=== PATIENT | female | born 1965 | race Caucasian/White ===

== ENCOUNTER 2017-01-29 11:40 | Inpatient (IN) | payer BC ==
[2017-01-29] MEDS ORDERED: ACETAMINOPHEN IV (For NPO) 1,000 MG in EMPTY BAG 1 BAG IVPB ONE (13:01)
[2017-01-29] MEDS ORDERED: ONDANSETRON 4 MG/2 ML VIAL IVP STA (13:01)
[2017-01-29] MEDS ORDERED: SODIUM CHLORIDE 0.9% 1,000 ML IV STA (13:01)
[2017-01-29] MEDS ORDERED: HYDROmorphone 1 MG/ML 1 ML SYRINGE IVP STA ×3 (13:01→16:17)
--- NOTE | 2017-01-29 13:34 | ED ---
Abdominal Pain HPI <Andrade Baldwin - Last Filed: 01/29/17 16:49> - General Source: patient, RN notes reviewed Mode of arrival: ambulatory Limitations: no limitations <Elda Gayle - Last Filed: 01/29/17 17:20> - General Chief Complaint: Abdominal Pain Stated Complaint: Sent by PCP poss pancreatitis Time Seen by Provider: 01/29/17 12:37 - History of Present Illness Initial Comments: 51-year-old female presents to emergency room chief complaint of right upper quadrant abdominal pain. Patient states this isn't going on for about a week or so. Patient states that her time she eats she feels nauseous. Patient states that she's been having this right upper quadrant abdominal pain for the last few weeks. Patient states she went to her doctor and she was referred here. Patient states that she has had some nausea with this as well as some diarrhea. Patient does admit to hot and cold flashes this. Patient states it doesn't radiate to back.Patient denies any recent shortness of breath, chest pain, back pain, numbness or tingling, dysuria or hematuria, constipation or diarrhea, headaches or visual changes, or any other current symptoms. (Elda Gayle) - Related Data Home Medications Medication Instructions Recorded Confirmed Atorvastatin [Lipitor] 40 mg PO DAILY 06/02/16 01/29/17 Chlorthalidone 25 mg PO DAILY 06/02/16 01/29/17 Ranitidine HCl 150 mg PO BID PRN 06/02/16 01/29/17 amLODIPine BESYLATE/BENAZEPRIL 1 cap PO QAM 06/02/16 01/29/17 [Lotrel 10-40 mg Capsule] Metoprolol Tartrate [Lopressor] 50 mg PO BID 01/29/17 01/29/17 Allergies Allergy/AdvReac Type Severity Reaction Status Date / Time No Known Allergies Allergy Verified 01/29/17 12:02 Review of Systems ROS Other: All systems not noted in ROS Statement are negative. <Andrade Baldwin - Last Filed: 01/29/17 16:49> ROS Other: All systems not noted in ROS Statement are negative. <Elda Gayle - Last Filed: 01/29/17 17:20> ROS Statement: Those systems with pertinent positive or pertinent negative responses have been documented in the HPI. Past Medical History Past Medical History: GERD/Reflux, Hyperlipidemia, Hypertension Additional Past Medical History / Comment(s): anemia,?adrenal gland growth-MRI ABD & Pelvic- April 2016 History of Any Multi-Drug Resistant Organisms: None Reported Past Surgical History: No Surgical Hx Reported Past Anesthesia/Blood Transfusion Reactions: Family History of Problems w/ Anesthesia Additional Past Anesthesia/Blood Transfusion Reaction / Comment(s): no hx general anesthesia or blood transfusion. mother-post op n/v Past Psychological History: No Psychological Hx Reported Smoking Status: Never smoker Past Alcohol Use History: Occasional Past Drug Use History: None Reported - Past Family History Mother Family Medical History: Cancer, Diabetes Mellitus, Hypertension, Myocardial Infarction ([place]) Additional Family Medical History / Comment(s): cabg, ovarian ca Father Family Medical History: Cancer, Hypertension Additional Family Medical History / Comment(s): lung,diverticulosis Brother(s) Family Medical History: Diabetes Mellitus <Elda Gayle - Last Filed: 01/29/17 17:20> General Exam <Andrade Baldwin - Last Filed: 01/29/17 16:49> Limitations: no limitations <Elda Gayle - Last Filed: 01/29/17 17:20> - General Exam Comments Initial Comments: General: The patient is awake and alert, in no distress, and does not appear acutely ill. Eye: Pupils are equal, round and reactive to light, extra-ocular movements are intact; there is normal conjunctiva bilaterally. No signs of icterus. Ears, nose, mouth and throat: There are moist mucous membranes and no oral lesions. Neck: The neck is supple, there is no tenderness. Cardiovascular: There is a regular rate and rhythm. No murmur, rub or gallop is appreciated. Respiratory: Lungs are clear to auscultation, respirations are non-labored, breath sounds are equal. No wheezes, stridor, rales, or rhonchi. Gastrointestinal: Soft, non-distended, right upper quadrant tenderness of the abdomen without masses or organomegaly noted. There is no rebound or guarding present. No CVA tenderness. Bowel sounds are unremarkable. Back: There is no tenderness to palpation in the midline. There is no obvious deformity. No rashes noted. Musculoskeletal: Normal ROM, no tenderness, There is no pedal edema. There is no calf tenderness or swelling. Sensation intact. Pulses equal bilaterally 2+. Neurological: CN II-XII intact, There are no obvious motor or sensory deficits. Coordination appears grossly intact. Speech is normal. Skin: Skin is warm and dry and no rashes or lesions are noted. Psychiatric: Cooperative, appropriate mood & affect, normal judgment. (Elda Gayle) Course <Andrade Baldwin - Last Filed: 01/29/17 16:49> <Elda Gayle - Last Filed: 01/29/17 17:20> Vital Signs 01/29/17 11:59 Temperature 99.2 F Pulse Rate 125 H Respiratory 18 Rate Blood Pressure 170/104 O2 Sat by Pulse 97 Oximetry - Reevaluation(s) Reevaluation #1: 01/29/17 16:49 I did personally do a [id number] examination the patient evaluation. I did discuss the findings with her and her regarding the findings on ultrasound the CAT scan. 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 Patient did have a mother that had a similar presentation in spite of a little nephrectomy many years earlier. Patient will be admitted for initial evaluation with medical oncology consultation. She did complain of a lump to the right upper quadrant area and none is palpable at this time. (Andrade Baldwin) Medical Decision Making - Lab Data Result diagrams: 01/29/17 13:20 01/29/17 13:20 <Andrade Baldwin - Last Filed: 01/29/17 16:49> - Lab Data Result diagrams: 01/29/17 13:20 01/29/17 13:20 <Elda Gayle - Last Filed: 01/29/17 17:20> - Medical Decision Making 51-year-old presents emergency department chief complaint of abdominal pain. This time the patient's ultrasound and CT are reviewed. At this time there does appear to be concerning for hepatocellular disease as well as concern for possible metastatic cancer with ovarian is a high suspicion. The patient's mother did have ovarian cancer CA 125. This time patient is informed of the CAT scan results. We did discuss we will admit the patient. We did discuss we will consult oncology as well. We will continue the medication and nausea medication for the patient. The patient is in agreement with the plan and all questions have been answered. (Elda Gayle) - Lab Data Lab Results 01/29/17 01/29/17 01/29/17 Range/Units 13:20 13:20 13:20 WBC 16.2 H (3.8-10.6) k/uL RBC 5.53 H (3.80-5.40) m/uL Hgb 13.6 (11.4-16.0) gm/dL Hct 43.5 (34.0-46.0) % MCV 78.6 L (80.0-100.0) fL MCH 24.5 L (25.0-35.0) pg MCHC 31.2 (31.0-37.0) g/dL RDW 13.8 (11.5-15.5) % Plt Count 661 H (150-450) k/uL Neutrophils % 77 % Lymphocytes % 12 % Monocytes % 7 % Eosinophils % 1 % Basophils % 0 % Neutrophils # 12.4 H (1.3-7.7) k/uL Lymphocytes # 1.9 (1.0-4.8) k/uL Monocytes # 1.1 H (0-1.0) k/uL Eosinophils # 0.2 (0-0.7) k/uL Basophils # 0.1 (0-0.2) k/uL Hypochromasia Slight PT (9.0-12.0) sec INR (<1.1) APTT (22.0-30.0) sec Sodium 139 (137-145) mmol/L Potassium 4.2 (3.5-5.1) mmol/L Chloride 100 (98-107) mmol/L Carbon Dioxide 25 (22-30) mmol/L Anion Gap 14 mmol/L BUN 18 H (7-17) mg/dL Creatinine 0.69 (0.52-1.04) mg/dL Est GFR (MDRD) Af Amer >60 (>60 ml/min/1.73 sqM) Est GFR (MDRD) Non-Af >60 (>60 ml/min/1.73 sqM) Glucose 109 H (74-99) mg/dL Plasma Lactic Acid Gamaliel 1.2 (0.7-2.0) mmol/L Calcium 9.7 (8.4-10.2) mg/dL Total Bilirubin 0.6 (0.2-1.3) mg/dL AST 40 H (14-36) U/L ALT 38 (9-52) U/L Alkaline Phosphatase 91 (38-126) U/L Total Protein 6.8 (6.3-8.2) g/dL Albumin 3.7 (3.5-5.0) g/dL Amylase 50 (30-110) U/L Lipase 107 (23-300) U/L Urine Color Urine Appearance (Clear) Urine pH (5.0-8.0) Ur Specific [place] (1.001-1.035) Urine Protein (Negative) Urine Glucose (UA) (Negative) Urine Ketones (Negative) Urine Blood (Negative) Urine Nitrate (Negative) Urine Bilirubin (Negative) Urine Urobilinogen (<2.0) mg/dL Ur Leukocyte Esterase (Negative) Urine RBC (0-5) /hpf Urine WBC (0-5) /hpf Ur Squamous Epith Cells (0-4) /hpf Urine Bacteria (None) /hpf Urine Mucus (None) /hpf 01/29/17 01/29/17 Range/Units 13:20 13:20 WBC (3.8-10.6) k/uL RBC (3.80-5.40) m/uL Hgb (11.4-16.0) gm/dL Hct (34.0-46.0) % MCV (80.0-100.0) fL MCH (25.0-35.0) pg MCHC (31.0-37.0) g/dL RDW (11.5-15.5) % Plt Count (150-450) k/uL Neutrophils % % Lymphocytes % % Monocytes % % Eosinophils % % Basophils % % Neutrophils # (1.3-7.7) k/uL Lymphocytes # (1.0-4.8) k/uL Monocytes # (0-1.0) k/uL Eosinophils # (0-0.7) k/uL Basophils # (0-0.2) k/uL Hypochromasia PT 10.4 (9.0-12.0) sec INR 1.0 (<1.1) APTT 23.8 (22.0-30.0) sec Sodium (137-145) mmol/L Potassium (3.5-5.1) mmol/L Chloride (98-107) mmol/L Carbon Dioxide (22-30) mmol/L Anion Gap mmol/L BUN (7-17) mg/dL Creatinine (0.52-1.04) mg/dL Est GFR (MDRD) Af Amer (>60 ml/min/1.73 sqM) Est GFR (MDRD) Non-Af (>60 ml/min/1.73 sqM) Glucose (74-99) mg/dL Plasma Lactic Acid Gamaliel (0.7-2.0) mmol/L Calcium (8.4-10.2) mg/dL Total Bilirubin (0.2-1.3) mg/dL AST (14-36) U/L ALT (9-52) U/L Alkaline Phosphatase (38-126) U/L Total Protein (6.3-8.2) g/dL Albumin (3.5-5.0) g/dL Amylase (30-110) U/L Lipase (23-300) U/L Urine Color Yellow Urine Appearance Clear (Clear) Urine pH 6.0 (5.0-8.0) Ur Specific [place] 1.029 (1.001-1.035) Urine Protein 1+ H (Negative) Urine Glucose (UA) Negative (Negative) Urine Ketones 1+ H (Negative) Urine Blood Negative (Negative) Urine Nitrate Negative (Negative) Urine Bilirubin Negative (Negative) Urine Urobilinogen <2.0 (<2.0) mg/dL Ur Leukocyte Esterase Small H (Negative) Urine RBC 4 (0-5) /hpf Urine WBC 2 (0-5) /hpf Ur Squamous Epith Cells 1 (0-4) /hpf Urine Bacteria Rare H (None) /hpf Urine Mucus Many H (None) /hpf Disposition <Andrade Baldwin - Last Filed: 01/29/17 16:49> Time of Disposition: 17:20 Decision Date: 01/29/17 Decision Time: 17:20 <Elda Gayle - Last Filed: 01/29/17 17:20> Clinical Impression: Ascites, Leukocytosis, Fever, Abdominal pain Disposition: ADMITTED IP TO THIS HOSP Condition: Stable
[2017-01-29 13:41] LABS: Appearance,Urine Clear (Clear); Bacteria,Urine Rare /hpf; Bilirubin,Urine Negative (Negative); Glucose,Urine (UA) Negative (Negative); Ketones,Urine 1+ (Negative); Leukocyte Esterase,Urine Small (Negative); Mucus,Urine Many /hpf; Nitrite,Urine Negative (Negative); Particle Count 14905; Protein,Urine 1+ (Negative); RBC,Urine 4 /hpf (0-5); Specific Gravity,Urine 1.029 (1.001-1.035); Squamous Epithelial Cell,Urine 1 /hpf (0-4); UA Billing (MACRO vs. MICRO) MICRO; Urobilinogen,Urine <2.0 mg/dL (<2.0); WBC,Urine 2 /hpf (0-5)
[2017-01-29 13:44] LABS: Partial Thromboplastin Time 23.8 sec (22.0-30.0); Prothrombin Time 10.4 sec (9.0-12.0)
[2017-01-29 13:46] LABS: ALT 38 U/L (9-52); AST 40 U/L (14-36); Alkaline Phosphatase 91 U/L (38-126); Amylase 50 U/L (30-110); Anion Gap 14 mmol/L; Blood Urea Nitrogen 18 mg/dL (7-17); Calcium 9.7 mg/dL (8.4-10.2); Carbon Dioxide 25 mmol/L (22-30); Chloride 100 mmol/L (98-107); Glucose 109 mg/dL (74-99); Non-African American GFR(MDRD) >60 (>60 ml/min/1.73 sqM); Potassium 4.2 mmol/L (3.5-5.1); Sodium 139 mmol/L (137-145); Total Bilirubin 0.6 mg/dL (0.2-1.3); Total Protein 6.8 g/dL (6.3-8.2)
--- NOTE | 2017-01-29 13:50 | XR ---
EXAMINATION TYPE: XR abdomen 2V DATE OF EXAM: 01/29/2017 1:34 PM COMPARISON: NONE HISTORY: Pain TECHNIQUE: Single supine KUB image of the abdomen is obtained FINDINGS: Small bowel demonstrates mild distention without dilatation. Gas and fecal material is seen in non-distended colon. No convincing evidence for pneumoperitoneum. No unusual calcifications. The lung bases are clear. The osseous structures are intact. IMPRESSION: 1. Nonspecific nonobstructive bowel gas pattern.
[2017-01-29 13:51] LABS: Basophils # (A) 0.1 k/uL (0-0.2); Basophils % (A) 0 %; CHCM 31.9; Eosinophils # (A) 0.2 k/uL (0-0.7); Eosinophils % (A) 1 %; HCT 43.5 % (34.0-46.0); HDW 3.08; HGB 13.6 gm/dL (11.4-16.0); Hypochromasia Slight; Luc # (Auto) 0.47; Luc % (Auto) 3; Lymphocytes # (A) 1.9 k/uL (1.0-4.8); Lymphocytes % (A) 12 %; MCH 24.5 pg (25.0-35.0); MCHC 31.2 g/dL (31.0-37.0); MCV 78.6 fL (80.0-100.0); Mean Platelet Volume 6.5; Monocytes # (A) 1.1 k/uL (0-1.0); Monocytes % (A) 7 %; Neutrophils # (A) 12.4 k/uL (1.3-7.7); Neutrophils % (A) 77 %; RBC 5.53 m/uL (3.80-5.40); RDW 13.8 % (11.5-15.5); WBC 16.2 k/uL (3.8-10.6); WBC (Perox) 16.36
--- NOTE | 2017-01-29 14:59 | US ---
EXAMINATION TYPE: US gallbladder DATE OF EXAM: 01/29/2017 2:21 PM COMPARISON: MRI in pacs CLINICAL HISTORY: Pain. RUQ pain x 10 days, gets worse after eating EXAM MEASUREMENTS: Liver Length: 18.8 cm Gallbladder Wall: 0.3 cm CBD: 0.4 cm Right Kidney: 10.5 x 5.2 x 6.5 cm Findings: Pancreas: obscured by overlying midline bowel gas Liver: enlarged at 18.8cm, heterogeneous with 4.1 x 3.2 x 4.3cm hypoechoic area posterior right lobe Gallbladder: wnl Evidence for sonographic Peres's sign: yes CBD: visualized portions wnl, limited by overlying bowel gas Right Kidney: 0.6cm echogenic focus inferior pole Ascites noted in RUQ IMPRESSION: 1. The liver is enlarged and heterogenous which may reflect fatty liver versus diffuse hepatocellular disease. 2. Hypoechoic area persists within the posterior segment right hepatic lobe. Underlying mass is not e xcluded. 3. Ascites. 4. Right renal calculus.
[2017-01-29] MEDS ORDERED: RX INFO: IV CONTRAST WAS GIVEN 1 EACH MISC MISCELLANE PRN (15:11)
--- NOTE | 2017-01-29 16:03 | CT ---
EXAMINATION TYPE: CT abdomen pelvis w con DATE OF EXAM: 01/29/2017 3:55 PM HISTORY: Right upper quadrant to right flank pain. Decreased appetite. Diarrhea. CT DLP: 2035.10mGycm Automated Exposure Control for Dose Reduction was Utilized. CONTRAST: CT scan of the abdomen and pelvis is performed without oral but with IV Contrast, patient injected wi th 100 mL of Omnipaque 300. COMPARISON: MRI abdomen 01/23/2016. Gallbladder ultrasound from earlier today FINDINGS: LUNG BASES: No significant abnormality is appreciated. LIVER/GB: Some scattered subcentimeter low dense lesions throughout the liver most pronounced in the periphery and posteriorly are consistent with simple cysts on prior MRI. No CT dense intraluminal gal lstones or abnormal gallbladder wall thickening is seen. PANCREAS: No significant abnormality is seen. SPLEEN: A 1.4 cm splenule in the anterior inferior splenic hilum is redemonstrated. ADRENALS: No significant abnormality is seen. KIDNEYS: No significant abnormality is seen. BOWEL: Evaluation bowel is suboptimal due to lack of enteric contrast. UTERUS/ADNEXA: Uterus is heterogeneous and lobulated in appearance. A lobulated peripheral nodularity could reflect abnormal ovaries and correlate with prior MRI pelvis. LYMPH NODES: No greater than 1cm abdominal or pelvic lymph nodes are appreciated. OSSEOUS STRUCTURES: No significant abnormality is seen. OTHER: New moderate amount of abdominal and pelvic ascites is seen there is ill-definition from adjac ent ovaries. There is suspicious nodularity particularly in the left abdomen worrisome for peritoneal carcinomatosis. IMPRESSION: CT findings suggest ovarian cancer or neoplasm with peritoneal carcinomatosis and moderat e ascites related to neoplasm. Nonemergent ultrasound guided paracentesis for diagnostic benefit can be attempted if desired. Appropriate clinical and lab tumor marker correlation advised.
[2017-01-29] MEDS ORDERED: LORazepam 2 MG/ML SYRINGE IV STA (16:17)
[2017-01-29] MEDS ORDERED: HYDROmorphone 1 MG/ML 1 ML SYRINGE IV PRN (17:20)
[2017-01-29] MEDS ORDERED: LORazepam 2 MG/ML SYRINGE IV PRN (17:20)
[2017-01-29] MEDS ORDERED: NALOXONE 0.4 MG/ML 1 ML VIAL IV PRN (17:20)
[2017-01-29] MEDS ORDERED: FAMOTIDINE 20 MG TAB PO PRN (17:21)
[2017-01-29] MEDS ORDERED: amLODIPine 10 MG TAB PO STA (18:50)
[2017-01-29] MEDS: HYDROmorphone 2 MG/ML 1 ML SYRINGE IVP PRN (19:43)
[2017-01-29] MEDS: ONDANSETRON 4 MG/2 ML VIAL IVP PRN (21:57)
[2017-01-29] MEDS: SODIUM CHLORIDE 0.9% 1,000 ML IV SCH (22:02)
[2017-01-29] MEDS: METOPROLOL TARTRATE 50 MG TAB PO SCH (22:37)
[2017-01-30] MEDS: ONDANSETRON 4 MG/2 ML VIAL IVP PRN (04:00)
[2017-01-30 07:29] LABS: Basophils % (A) 0 %; CH 24.6; CHCM 31.1; Eosinophils # (A) 0.1 k/uL (0-0.7); Eosinophils % (A) 0 %; HCT 39.8 % (34.0-46.0); Hypochromasia Moderate; Luc # (Auto) 0.43; Luc % (Auto) 3; Lymphocytes # (A) 1.8 k/uL (1.0-4.8); Lymphocytes % (A) 12 %; MCH 23.9 pg (25.0-35.0); MCHC 30.1 g/dL (31.0-37.0); MCV 79.5 fL (80.0-100.0); Mean Platelet Volume 6.1; Monocytes % (A) 7 %; Neutrophils # (A) 12.1 k/uL (1.3-7.7); Neutrophils % (A) 78 %; RBC 5.01 m/uL (3.80-5.40); RDW 13.8 % (11.5-15.5); WBC 15.4 k/uL (3.8-10.6); WBC (Perox) 16.34
[2017-01-30 07:34] LABS: ALT 44 U/L (9-52); AST 38 U/L (14-36); Alkaline Phosphatase 89 U/L (38-126); Anion Gap 13 mmol/L; Blood Urea Nitrogen 14 mg/dL (7-17); Calcium 8.8 mg/dL (8.4-10.2); Carbon Dioxide 24 mmol/L (22-30); Chloride 100 mmol/L (98-107); Glucose 98 mg/dL (74-99); Non-African American GFR(MDRD) >60 (>60 ml/min/1.73 sqM); Potassium 4.2 mmol/L (3.5-5.1); Sodium 137 mmol/L (137-145); Total Bilirubin 0.6 mg/dL (0.2-1.3); Total Protein 6.1 g/dL (6.3-8.2)
[2017-01-30] MEDS: PANTOPRAZOLE 40 MG/10 ML VIAL IV SCH (08:02)
[2017-01-30] MEDS: CHLORTHALIDONE 25 MG TAB PO SCH (08:03)
[2017-01-30] MEDS: LISINOPRIL 20 MG TAB PO SCH (08:03)
[2017-01-30] MEDS: METOPROLOL TARTRATE 50 MG TAB PO SCH ×2 (08:03→21:32)
[2017-01-30] MEDS: amLODIPine 10 MG TAB PO SCH (08:03)
[2017-01-30] MEDS: ATORVASTATIN 40 MG TAB PO SCH (08:03)
[2017-01-30] MEDS ORDERED: RX INFO: IV CONTRAST WAS GIVEN 1 EACH MISC MISCELLANE PRN (08:59)
[2017-01-30 10:07] LABS: INR 1.1 (<1.1); Prothrombin Time 10.8 sec (9.0-12.0)
[2017-01-30 10:08] LABS: Partial Thromboplastin Time 24.9 sec (22.0-30.0)
[2017-01-30] MEDS: SODIUM CHLORIDE 0.9% 1,000 ML IV SCH ×2 (11:42→21:32)
--- NOTE | 2017-01-30 12:26 | US ---
Therapeutic paracentesis. CLINICAL HISTORY: Nausea The procedure was discussed with the patient. The risks, complications, benefits, and alternatives we re discussed and any questions were answered. Informed consent was obtained. The patient was placed s upine on the ultrasound table and prepped and draped in the usual sterile fashion. All elements of maximal barrier and sterile technique were utilized. Under ultrasound guidance, acce ss into the right lower quadrant was obtained, via the paracentesis catheter system and direct ultras ound guidance. Approximately 5.3 liters of straw-colored fluid was removed. The patient was stable throughout the pr ocedure and remained stable upon discharge from Department of Radiology. Sample sent to pathology for analysis. IMPRESSION: Successful therapeutic and diagnostic paracentesis under ultrasound guidance.
--- NOTE | 2017-01-30 15:52 | CT ---
EXAMINATION TYPE: CT chest w con DATE OF EXAM: 01/30/2017 3:40 PM COMPARISON: NONE HISTORY: Persistant cough CT DLP: 471.8 mGycm, Automated exposure control for dose reduction was used. CONTRAST: Performed injected with 100 mL of Omnipaque 300. TECHNIQUE: Axial images were obtained at 5 mm thick sections. Reconstructed images are reviewed on [employer] computer in the coronal plane. FINDINGS: Portion of the thyroid visualized is normal. Some minimal infiltrate is along the left diaphragm near the lingula. Correlate for atelectasis. No enlarged mediastinal or hilar adenopathy is evident. The ascending aorta diameter at the level o f the main pulmonary artery is 2.8 cm. The main pulmonary artery diameter at the bifurcation is 2.[address] sections are obtained through the upper abdomen. Ascites is present adjacent to liver and spleen tiny cyst may be within the posterior right lobe liver IMPRESSIONS: 1. Ascites. 2. No acute intrathoracic abnormality.
--- NOTE | 2017-01-30 16:20 | HP ---
DATE OF ADMISSION: 01/29/2017 CHIEF COMPLAINT: Abdominal pain for 3 weeks. HISTORY OF PRESENT ILLNESS: This is the first known admission for this 51-year-old A0 white female. She came to the emergency room as directed by her doctor. She has been having some discomfort in the abdomen on and off for the last 3 weeks. However, she states that it may have been longer than that. She has also had a cough ( ). She has been going to her own doctor, who has been working her up and did an MRI of the chest and the abdomen recently. These were done in this hospital. This is apparently because of the complaints of the cough and the abdominal pain. Most of her pain has been in the right upper quadrant. She was treated for bronchitis. She started to notice some abdominal distention for about a week and her stools have been loose. She came to the emergency room and there was concern that she may have ovarian cancer. There was apparently a mass seen in the right upper quadrant. She is not a drinker and she has never had hepatitis. She has never had any liver disease. She has had no nausea, vomiting, hematemesis, melena, hematochezia, jaundice, acholic stools, dark urine, etc. She has "never" had a Pap smear. She is treated for hypertension. She has had no kidney disease, diabetes, etc. REVIEW OF SYSTEMS: She has had no other symptoms. She has had no neurologic problems, orthopedic problems, etc. Past medical history, family history, and personal and social histories reveal that she has had no surgery. She is NOT ALLERGIC TO ANY MEDICATIONS. She was on: 1. [place]. 2. Amlodipine/benazepril. 3. Metoprolol. 4. Atorvastatin. 5. Zantac. She does not smoke or drink. She does not use any other drugs. Her family history is significant in that her mother probably of ovarian cancer. PHYSICAL EXAMINATION: VITAL SIGNS: Blood pressure is 133/74 with a pulse of 92, respirations of 40, and she is afebrile. GENERAL: She appeared to be overweight and having a little bit of difficulty breathing. HEENT: Head, ears, eyes, nose, mouth and throat were normal. NECK: Neck veins were not distended. There are no neck masses. CHEST: Clear to auscultation and percussion. CARDIAC: Sinus tachycardia. ABDOMEN: Protuberant, soft, and she is a little bit tender in the right upper quadrant. There might have been slight fullness in that area. Bowel sounds are heard. EXTREMITIES: Normal. No significant edema. NEUROLOGIC: She is intact. ADMITTING DIAGNOSES: 1. 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 2. History of hypertension. PLAN: 1. Bed rest. 2. IV fluids. 3. Oncology consult. 4. Therapeutic and diagnostic paracentesis.
[2017-01-30] MEDS: guaiFENesin-Coden 100-10MG/5ML 10 ML CUP PO PRN (20:39)
--- NOTE | 2017-01-30 21:22 | PN ---
DATE OF SERVICE: 01/30/2017 CHIEF COMPLAINT: Right upper quadrant abdominal pain and ascites. HISTORY OF PRESENT ILLNESS: This lady is about the same today. She has been seen by Oncology and she going to have a diagnostic and therapeutic paracentesis today. PHYSICAL EXAM: Her color is good and chest is clear. Abdomen is unchanged. IMPRESSION: Probable carcinoma of the ovary. PLAN: Await results of paracentesis.
[2017-01-31] MEDS: METOPROLOL TARTRATE 50 MG TAB PO SCH ×2 (08:33→20:49)
[2017-01-31] MEDS: amLODIPine 10 MG TAB PO SCH (08:33)
[2017-01-31] MEDS: CHLORTHALIDONE 25 MG TAB PO SCH (08:33)
[2017-01-31] MEDS: PANTOPRAZOLE 40 MG/10 ML VIAL IV SCH (08:33)
[2017-01-31] MEDS: ATORVASTATIN 40 MG TAB PO SCH (08:33)
[2017-01-31] MEDS: LISINOPRIL 20 MG TAB PO SCH (08:33)
[2017-01-31] MEDS: guaiFENesin-Coden 100-10MG/5ML 10 ML CUP PO PRN ×4 (08:34→20:53)
[2017-01-31] MEDS: SODIUM CHLORIDE 0.9% 1,000 ML IV SCH (08:38)
--- NOTE | 2017-01-31 11:26 | PN ---
CHIEF COMPLAINT: Probable CA of the ovary. HISTORY OF PRESENT ILLNESS: This lady is doing much better. Five liters of fluid were removed yesterday. She described it as being turbid and brown. She feels much better today. PHYSICAL EXAM: Her chest is clear. Cardiac exam is normal. ABDOMEN: Soft, nontender. IMPRESSION: Probable carcinoma of the ovary, status post paracentesis. PLAN: Await results of paracentesis.
--- NOTE | 2017-01-31 14:22 | P.PN ---
Subjective A 51-year-old female being seen on rounds sitting up in bed. Patient does state that the abdomen feels more bloated. This morning. Patient reports no nausea vomiting. Patient is status post successful therapeutic and diagnostic paracentesis 5.3 L removed done on January 30 patient is being followed by hematology oncology. Patient did have a CAT scan of the abdomen pelvis that was done on admission in which the findings suggest ovarian cancer a neoplassm with moderate ascites related to neoplasm Objective - Vital Signs Vital signs: Vital Signs Temp 98.0 F 01/31/17 07:00 Pulse 96 01/31/17 07:00 Resp 18 01/31/17 07:00 BP 115/60 01/31/17 07:00 Pulse Ox 95 01/31/17 07:00 Intake & Output 01/30/17 01/31/17 01/31/17 18:59 06:59 18:59 Intake Total 480 540 480 Balance 480 540 480 Intake: IV 480 540 480 Sodium Chloride 0.9% 1, 480 540 480 000 ml @ 60 mls/hr IV . [id number] [facility] Rx#:[id number] Other: Voiding Method Toilet # Voids 2 - Exam Physical exam 51-year-old female resting in bed states "last night does report noting increased bloating to the abdomen this morning Lungs essentially clear with adequate air movement Heart S1-S2 audible and regular Abdomen slightly distended firm diffuse tenderness across the abdominal wall bowel tones noted states no difficulty in urinating no frequent stooling Extremities no edema noted - Labs CBC & Chem 7: 01/30/17 06:47 01/30/17 06:47 Labs: Abnormal Lab Results - Last 24 Hours (Table) 01/30/17 Range/Units 06:47 CA 125 Antigen 1220.0 H (<35.1) U/mL Assessment and Plan Plan: Impression Present on admission right upper quadrant abdominal pain with nausea sensation likely due to ovarian cancer as suggested on a CAT scan of the abdomen pelvis Status post January 30 diagnostic and therapeutic paracentesis 5.3 L fluid removed for ascites Present on admission moderate ascites for CAT scan abdomen pelvis Hypertension essential Ultrasound gallbladder shows right renal calculus Ultrasound gallbladder hypoechoic area persistent within the posterior segment of the right hepatic lobe underlying mass not excluded Elevated CEA 125 antigen 1220 Present on admission leukocytosis likely reactive Plan Pain control Await the pathology report pending Await further recommendations from oncology hematology Resume home meds as appropriate DVT and GI prophylaxis Further recommendations pending The above dictated assessment and findings were discussed with dr mery Purdy and the plan of care have been dictated as directed. Bernarda Cooper nurse practitioner acting as a scribe for dr [email or web address]
[2017-01-31] MEDS: HYDROmorphone 2 MG/ML 1 ML SYRINGE IVP PRN (20:49)
[2017-02-01] MEDS: guaiFENesin-Coden 100-10MG/5ML 10 ML CUP PO PRN ×2 (02:16→06:26)
[2017-02-01] MEDS: SODIUM CHLORIDE 0.9% 1,000 ML IV SCH (02:17)
[2017-02-01] MEDS: ATORVASTATIN 40 MG TAB PO SCH (07:38)
[2017-02-01] MEDS: amLODIPine 10 MG TAB PO SCH (07:38)
[2017-02-01] MEDS: METOPROLOL TARTRATE 50 MG TAB PO SCH (07:38)
[2017-02-01] MEDS: LISINOPRIL 20 MG TAB PO SCH (07:38)
[2017-02-01] MEDS: CHLORTHALIDONE 25 MG TAB PO SCH (07:38)
[2017-02-01 07:39] LABS: ALT 38 U/L (9-52); AST 33 U/L (14-36); Alkaline Phosphatase 69 U/L (38-126); Anion Gap 10 mmol/L; Blood Urea Nitrogen 12 mg/dL (7-17); Calcium 8.2 mg/dL (8.4-10.2); Carbon Dioxide 24 mmol/L (22-30); Chloride 102 mmol/L (98-107); Glucose 95 mg/dL (74-99); Non-African American GFR(MDRD) 56 (>60 ml/min/1.73 sqM); Potassium 4.1 mmol/L (3.5-5.1); Sodium 136 mmol/L (137-145); Total Bilirubin 0.5 mg/dL (0.2-1.3); Total Protein 5.3 g/dL (6.3-8.2)
[2017-02-01 07:46] VITALS: BP 133/62; PULSE 98; RESP 18; TEMP 99.1
[2017-02-01 08:01] LABS: Basophils # (A) 0.1 k/uL (0-0.2); Basophils % (A) 1 %; CH 24.9; CHCM 31.4; Eosinophils # (A) 0.4 k/uL (0-0.7); Eosinophils % (A) 4 %; HCT 36.7 % (34.0-46.0); HDW 3.04; HGB 11.6 gm/dL (11.4-16.0); Hypochromasia Moderate; Luc # (Auto) 0.45; Luc % (Auto) 4; Lymphocytes # (A) 1.3 k/uL (1.0-4.8); Lymphocytes % (A) 13 %; MCH 25.2 pg (25.0-35.0); MCHC 31.7 g/dL (31.0-37.0); MCV 79.4 fL (80.0-100.0); Mean Platelet Volume 7.5; Monocytes # (A) 0.9 k/uL (0-1.0); Monocytes % (A) 8 %; Neutrophils # (A) 7.3 k/uL (1.3-7.7); Neutrophils % (A) 70 %; RBC 4.62 m/uL (3.80-5.40); RDW 14.1 % (11.5-15.5); WBC 10.4 k/uL (3.8-10.6); WBC (Perox) 10.03
--- NOTE | 2017-02-01 08:23 | P.CONS ---
History of Present Illness - Reason for Consult Consult date: 01/30/17 ascites, abnormal CT findings Requesting physician: Elda Gayle - Chief Complaint abd distension and RUQ pain - History of Present Illness Pt is a very pleasant caucasain female who has not been feeling well for the last year. Energy levels are very labile, sometimes she can sleep 12 + hours a day, she has a cough that has been treated with abx and steroids. She has had RUQ pain, radiating to the back and left shoulder, progressive over the last few weeks with development of abd bloating, pain is worse after eating, she will also have have a "hard, sore" area form in the EUQ, OTC pain meds were no longer helping. Despite nearly 50% reduction in oral intake the last 10 days pt has only lost 1 lb. She denies fevers, sweats, indigestion or heartburn, nausea, vomiting, changes in bowel or bladder habits. She had colonoscopy with Dr. Vaz about 1 year ago with no concerning findings. Review of Systems All systems: negative Constitutional: Reports as per HPI Past Medical History Past Medical History: GERD/Reflux, Hyperlipidemia, Hypertension Additional Past Medical History / Comment(s): had diarrhea thru oput day sun 01-28 none today, anemia,?adrenal gland growth-MRI ABD & Pelvic- April 2016, bronchitis, "fast hr-takes metoprolol", cyst rt ovary. History of Any Multi-Drug Resistant Organisms: None Reported Past Surgical History: No Surgical Hx Reported Additional Past Surgical History / Comment(s): colonoscopy Past Anesthesia/Blood Transfusion Reactions: Family History of Problems w/ Anesthesia Additional Past Anesthesia/Blood Transfusion Reaction / Comm: no hx general anesthesia or blood transfusion. mother-post op n/v Past Psychological History: No Psychological Hx Reported Additional Psychological History / Comment(s): pt is independant, lives with and adult joaquina age 22. 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 no ouside services received. has 4 steps into home. does have a 2nd level with 16-20 steps but mostly stays on first level. Smoking Status: Never smoker Past Alcohol Use History: Occasional Past Drug Use History: None Reported - Past Family History Mother Family Medical History: Cancer, Diabetes Mellitus, Hypertension, Myocardial Infarction ([place]) Additional Family Medical History / Comment(s): cabg, ovarian ca Father Family Medical History: Cancer, Hypertension Additional Family Medical History / Comment(s): lung,diverticulosis Brother(s) Family Medical History: Diabetes Mellitus Medications and Allergies Home Medications Medication Instructions Recorded Confirmed Type Atorvastatin [Lipitor] 40 mg PO DAILY 06/02/16 01/29/17 History Chlorthalidone 25 mg PO DAILY 06/02/16 01/29/17 History Ranitidine HCl 150 mg PO BID PRN 06/02/16 01/29/17 History amLODIPine BESYLATE/BENAZEPRIL 1 cap PO QAM 06/02/16 01/29/17 History [Lotrel 10-40 mg Capsule] Metoprolol Tartrate [Lopressor] 50 mg PO BID 01/29/17 01/29/17 History Allergies Allergy/AdvReac Type Severity Reaction Status Date / Time No Known Allergies Allergy Verified 01/29/17 12:02 Physical Exam Vitals: Vital Signs Temp Pulse Pulse Resp BP BP Pulse Ox 01/30/17 07:00 97.9 F 102 H 16 139/86 94 L 01/29/17 22:16 98.3 F 100 18 142/93 94 L 01/29/17 18:20 98.5 F 113 H 16 163/103 91 L 01/29/17 17:31 97.8 F 113 H 16 147/87 93 L Intake and Output 01/29/17 01/30/17 01/30/17 22:59 06:59 14:59 Intake Total 240 720 Output Total 1 Balance 239 720 Intake: IV 240 480 Sodium Chloride 0.9% 1, 240 480 000 ml @ 60 mls/hr IV . [id number] [facility] Rx#:[id number] Oral 240 Output: Emesis 1 Other: Voiding Method Toilet # Voids 1 2 - Constitutional General appearance: cooperative, mild distress, obese - EENT Eyes: PERRLA, normal appearance ENT: normal oropharynx - Neck Neck: no lymphadenopathy - Respiratory Respiratory: bilateral: CTA - Cardiovascular Rhythm: regular Heart sounds: normal: S1, S2 Abnormal Heart Sounds: no systolic murmur, no diastolic murmur, no rub, no S3 Gallop, no S4 Gallop, no click, no other leg Peripheral Edema: bilateral: None - Gastrointestinal General gastrointestinal: distended, normal bowel sounds, soft Localized gastrointestinal: tender: RUQ - Integumentary chepe complexion - Neurologic Neurologic: CNII-XII intact - Musculoskeletal Musculoskeletal: strength equal bilaterally - Psychiatric Psychiatric: A&O x's 3, appropriate affect, intact judgment & insight Results CBC & Chem 7: 01/30/17 06:47 01/30/17 06:47 Labs: Abnormal Lab Results - Last 24 Hours (Table) 01/30/17 01/30/17 Range/Units 06:47 06:47 WBC 15.4 H (3.8-10.6) k/uL MCV 79.5 L (80.0-100.0) fL MCH 23.9 L (25.0-35.0) pg MCHC 30.1 L (31.0-37.0) g/dL Plt Count 623 H (150-450) k/uL Neutrophils # 12.1 H (1.3-7.7) k/uL AST 38 H (14-36) U/L Total Protein 6.1 L (6.3-8.2) g/dL Albumin 3.3 L (3.5-5.0) g/dL Comments: Gallbladder US report reviewed Chest x-ray: report reviewed CT scan - abdomen: report reviewed CT scan - pelvis: report reviewed Assessment and Plan (1) Ascites Status: Acute (2) Abdominal pain Status: Acute Plan: Dr. Bell reviewed all available reports and discussed with the pt concerns for an underlying malignancy. Ca125 has been ordered, CT chest ordered for persistent cough and IR consulted to do paracentesis with albumin and cytology on ascitic fluid. We will await results with further recommendations to follow based on findings. Pt was agreeable to proceed.
[2017-02-01] MEDS ORDERED: PANTOPRAZOLE 40 MG TABLET PO SCH (09:00)
[2017-02-01] MEDS ORDERED: BENZONATATE 100 MG CAP PO SCH (10:00)
--- NOTE | 2017-02-01 11:11 | P.DS ---
Providers Date of admission: 01/29/17 16:46 Expected date of discharge: 02/01/17 Attending physician: Froilan Das Consults: 01/29/17 17:20 Consult Physician Routine Consulting Provider: Aguila Bell Consult Reason/Comments: concern for metastatic cancer Do you want consulting provider notified?: Yes Primary care physician: Sulma vj [facility] Course: Very pleasant 51-year-old female presented for an evaluation of right upper quadrant pain decreased energy decreased endurance. Patient stated the right upper quadrant pain did radiate up into the back and to the left shoulder and over the last several weeks had become more symptomatic with abdominal bloating. Patient stated it bloating seemed to get worse after eating. Patient stated that she had no appetite. Patient was advised by her primary care provider to come into the emergency room to be evaluated for right upper quadrant abdominal pain. Patient was seen in the emergency room and a CAT scan and ultrasound of the chest abdomen were obtained the findings suggest ovarian cancer neoplasm with a moderate ascites likely related to neoplasm. Patient was admitted with hematology oncology consultation requested patient was seen by Dr. Bell. Patient did undergo a therapeutic and diagnostic paracentesis with 5.3 L fluid removed this was done on January 30. on the morning of February 01 Dr. Bell did discuss with the patient the final pathology from the peritoneal fluid was positive for cancer Patient underwent on February 01 a repeat ultrasound in which indicated a paracentesis not needed Maria De Jesus rivera practitioner for hematology oncology service indicated she would set up and contact patient for outpatient therapeutic paracentesis and outpatient follow-up from [facility] oncology at a tertiary center will be arranged this was discussed with the patient and the patient's spouse Patient was felt to be hemodynamically stable and appropriate proceed with a discharge Impression discharge diagnosis Present on admission right upper quadrant abdominal pain with nausea sensation likely due to ovarian cancer as suggested on a CAT scan of the abdomen pelvis Status post January 30 diagnostic and therapeutic paracentesis 5.3 L fluid removed for ascites Present on admission moderate ascites for CAT scan abdomen pelvis Hypertension essential Ultrasound gallbladder shows right renal calculus Ultrasound gallbladder hypoechoic area persistent within the posterior segment of the right hepatic lobe underlying mass not excluded Elevated CEA 125 antigen 1220 Present on admission leukocytosis likely reactive Path report from the peritoneal fluid positive for ovarian cancer likely stage III The above dictated assessment and findings were discussed with dr das Impression and the plan of care have been dictated as directed. Bernarda Cooper nurse practitioner acting as a scribe for dr das Patient Condition at Discharge: Stable Plan - Discharge Summary New Discharge Prescriptions: HYDROcodone/APAP 7.5-325MG [[place] 7.5-325] 1 tab PO Q4H PRN #30 tab PRN Reason: Mild Breakthrough Pain Ondansetron HCl [Zofran] 4 mg PO Q6H PRN #30 tablet PRN Reason: Nausea/Anxiety Pantoprazole [Protonix] 40 mg PO DAILY #30 tablet.dr Discharge Medication List Atorvastatin [Lipitor] 40 mg PO DAILY 06/02/16 [History] Chlorthalidone 25 mg PO DAILY 06/02/16 [History] Ranitidine HCl 150 mg PO BID PRN 06/02/16 [History] amLODIPine BESYLATE/BENAZEPRIL [Lotrel 10-40 mg Capsule] 1 cap PO QAM 06/02/16 [ History] Metoprolol Tartrate [Lopressor] 50 mg PO BID 01/29/17 [History] HYDROcodone/APAP 7.5-325MG [[place] 7.5-325] 1 tab PO Q4H PRN #30 tab 02/01/17 [Rx ] Ondansetron HCl [Zofran] 4 mg PO Q6H PRN #30 tablet 02/01/17 [Rx] Pantoprazole [Protonix] 40 mg PO DAILY #30 tablet. 02/01/17 [Rx] Follow up Appointment(s)/Referral(s): Aguila Bell MD [STAFF PHYSICIAN] - 02/08/17 3:30 pm Florence Marvin MD [REFERRING] - 02/06/17 2:15 pm Sulma Palencia DO [Primary Care Provider] - 1-2 days (patient would like to schedule once she gets home and look at [facility]) Patient Instructions/Handouts: Hydrocodone/Acetaminophen (By mouth), Ondansetron (By mouth), Pantoprazole (By mouth), Ovarian Cancer (DC), Ascites ( DC) Activity/Diet/Wound Care/Special Instructions: Diet:As tolerated Activity: As tolerated Appointment with on 02/06/17 Arrive at 2:15pm at [facility] Main 9th floor Bring paper work filled out Interventional Radiology number [phone] for abdominal paracentesis Discharge Disposition: HOME SELF-CARE
[2017-02-01 11:16] VITALS: BMI 40.1
[2017-02-01] MEDS: HYDROmorphone 2 MG/ML 1 ML SYRINGE IVP PRN (11:25)
[2017-02-01 11:28] LABS: INR 1.1 (<1.1); Prothrombin Time 11.4 sec (9.0-12.0)
--- NOTE | 2017-02-01 11:41 | US ---
EXAMINATION TYPE: US abdomen limited DATE OF EXAM: 02/01/2017 11:32 AM COMPARISON: Limited abdominal ultrasound 2 days earlier CLINICAL HISTORY: assess for fluid. Ascites with paracentesis performed 2 days earlier. TECHNOLOGIST IMPRESSION: Very small amount of fluid. Limited abdominal ultrasound shows small amount of abdominal fluid or ascites in the bilateral upper and lower quadrants, right greater than left. Amount of fluid does not warrant repeat paracentesis at this time. IMPRESSION: As above.
--- NOTE | 2017-02-01 13:20 | P.PN ---
Subjective Principal diagnosis: ascites, cough-ovarian carcinoma Pt seen today in follow up, cytology results have returned. Pt continues to have cough with little relief from cough suppressants, her abd has progressively distended again to the point of discomfort, she was not able to eat due to severe early satiety. Objective - Vital Signs Vital signs: Vital Signs Temp 99.1 F 02/01/17 07:00 Pulse 98 02/01/17 07:00 Resp 18 02/01/17 07:00 BP 133/62 02/01/17 07:00 Pulse Ox 97 02/01/17 07:00 Intake & Output 01/31/17 02/01/17 02/01/17 18:59 06:59 18:59 Intake Total 880 720 Balance 880 720 Weight 112.945 kg Intake: IV 480 720 Sodium Chloride 0.9% 1, 480 720 000 ml @ 60 mls/hr IV . [id number] [facility] Rx#:[id number] Oral 400 Other: Voiding Method Toilet Toilet - Constitutional General appearance: Present: cooperative, mild distress - EENT Eyes: Present: anicteric sclerae - Respiratory Respiratory: bilateral: prolonged expiration - Cardiovascular Heart sounds: normal: S1, S2 - Peripheral edema leg Peripheral Edema: bilateral: 1+ - Gastrointestinal General gastrointestinal: Present: distended, soft - Neurologic Neurologic: Present: CNII-XII intact - Musculoskeletal Musculoskeletal: Present: strength equal bilaterally - Psychiatric Psychiatric: Present: A&O x's 3, appropriate affect, intact judgment & insight - Labs CBC & Chem 7: 02/01/17 06:47 02/01/17 06:47 Labs: Abnormal Lab Results - Last 24 Hours (Table) 02/01/17 02/01/17 Range/Units 06:47 06:47 MCV 79.4 L (80.0-100.0) fL Plt Count 550 H (150-450) k/uL Sodium 136 L (137-145) mmol/L Creatinine 1.05 H (0.52-1.04) mg/dL Calcium 8.2 L (8.4-10.2) mg/dL Total Protein 5.3 L (6.3-8.2) g/dL Albumin 2.6 L (3.5-5.0) g/dL Assessment and Plan (1) Ascites Status: Acute (2) Abdominal pain Status: Acute Plan: reviewed positive cytology results with pt. She has at least stage III ovarian malignancy. Pt will be referred to Pediatric Physician Assistant Surgical Oncologist for evaluation and recommendations. Reviewed with pt that the standard of care is a combination of chemo and surgery, some times surgery is up front or done after a few cycle so of chemo with additional cycles after surgery, there is even potential for peritoneal chemo. At stage III the pt does have potential for cure based on response to treatment. All pt questions answered. Referral has been made to Dr. Traore, stephon date and time in chart, standing order for palliative paracentesis being sent to IR (pt advised not to take ASA, NSAIDs, ibuprofen, aleve). Follow up with Dr. Bell 2 days after seeing Surgeon- appt in chart.
--- NOTE | 2017-02-01 17:07 | PN ---
DATE OF SERVICE: 02/01/2017 CHIEF COMPLAINT: Abdominal pain and distention. HISTORY OF PRESENT ILLNESS: This lady is feeling fairly good but her abdominal distention and fluid accumulation is recurring rapidly. She is a little bit more short of breath. Results did come down suggesting ovarian neoplasm. PHYSICAL EXAMINATION: CHEST: Clear. CARDIAC: Normal. ABDOMEN: Soft, nontender. IMPRESSION: Carcinoma of the ovary. Plan: Paracentesis and then she may be able go home. We will wait to see what oncology says. If she does, this will be arranged by the nurse practitioner.
== END 2017-02-01 14:45 | disposition home or self-care (01) | DRG 755 ==
LOC: EC 11:40 → 5ONC 16:46
PROVIDERS: ADMIT Family Medicine; ATTEND Family Medicine
PROC: 0W9G3ZX Drainage of Peritoneal Cavity, Percutaneous Approach, Diagnostic (ICD-10-PCS; principal; 2017-01-30)
DX: C56.9 Malignant neoplasm of unspecified ovary (principal); R18.0 Malignant ascites; I10 Essential (primary) hypertension; Z79.899 Other long term (current) drug therapy; Z80.41 Family history of malignant neoplasm of ovary; E78.5 Hyperlipidemia, unspecified; K21.9 Gastro-esophageal reflux disease without esophagitis; N20.0 Calculus of kidney
CPT/HCPCS: 36415; 49083; 71260; 74020; 74177; 76705; 80053; 81001; 82042; 82150; 83605; 83690; 85025; 85610; 85730; 86301; 86304; 87040; 88108; 88305; 88341; 88342; 96361; 96374; 96375; 96376; 99285

== ENCOUNTER 2017-02-06 07:43 | Day surgery (SDC) | payer BC ==
[2017-02-06 08:14] VITALS: RESP 20; TEMP 98
[2017-02-06 08:30] LABS: INR 1.2 (<1.1); Prothrombin Time 11.7 sec (9.0-12.0)
[2017-02-06 08:37] LABS: Mean Platelet Volume 6.2
[2017-02-06 10:18] VITALS: BP 158/76; PULSE 114
--- NOTE | 2017-02-06 11:41 | US ---
EXAMINATION TYPE: US paracentesis abd w/image DATE OF EXAM: 02/06/2017 10:25 AM COMPARISON: NONE HISTORY: Ascites. PROCEDURE: Maximal barrier technique was utilized. The skin overlying a suitable pocket of fluid was localized with ultrasound and the overlying skin was prepped and draped. Ultrasound was utilized with sterile technique. Lidocaine was used for local anesthesia and a skin simone made with a scalpel. Catheter was advanced under direct ultrasound guidance into a suitable pocket of fluid and approximately 5.6 liter s of serous fluid were removed. Catheter was withdrawn and hemostasis achieved. There is no immedia te complication; the patient is discharged in stable condition. IMPRESSION: STATUS POST ULTRASOUND GUIDED PARACENTESIS FOR PALLIATION OF ASCITES. THIS PROCEDURE WA S PERFORMED BY THE UNDERSIGNED.
== END 2017-02-06 10:30 | disposition home or self-care (01) ==
LOC: RADPROMAIN 07:43
PROVIDERS: ATTEND Internal Medicine Hematology & Oncology
DX: R18.8 Other ascites (principal)
CPT/HCPCS: 36415; 49083; 85049; 85610

== ENCOUNTER → 2017-05-22 | Outpatient (CLI) | payer BC ==
[2017-05-22 12:37] LABS: Blood Urea Nitrogen 13 mg/dL (7-17); Non-African American GFR(MDRD) >60 (>60 ml/min/1.73 sqM)
--- NOTE | 2017-05-22 15:09 | CT ---
EXAMINATION TYPE: CT ChestAbdPelvis w con DATE OF EXAM: 05/22/2017 COMPARISON: Previous CT scan of the chest dated 01/30/[address] scan of the abdomen and pelvis dated 01/29/2017. HISTORY: Follow up after ovarian CA. CT DLP: 1396.2 mGycm Automated exposure control for dose reduction was used. TECHNIQUE: Helical acquisition through the abdomen and pelvis was obtained without oral contrast but following the intravenous administration of 100 mL of Omnipaque 300. The data was formatted in the a xial, coronal and sagittal projections. FINDINGS: The lungs are clear. There is no significant axillary, internal mammary, mediastinal or hil ar adenopathy. There is no pleural or pericardial fluid. The heart is not enlarged. Within the abdomen, the patient's ascites has cleared. There is a stable 9.9 mm low attenuating lesio n within adjacent 5.9 mm lesion in the posterior segment of the right lobe of the liver. There is a t hird lesion more cranial to this measuring 6.9 mm. This is also stable. There are several other scatt ered lesions in the left lobe of the liver. These all remain stable. The gallbladder is contracted. T he spleen is unremarkable. Both adrenal glands are normal. Both kidneys demonstrate function and appear morphologically normal. The pancreas is unremarkable. There is no significant retroperitoneal, iliac or inguinal adenopathy. The bladder is unremarkable. Uterus is unremarkable. Both ovaries appear to be present. There is no significant diverticular change and there is no radiographic evidence of diverticulitis t he appendix is normal. Small bowel loops are normal. No free fluid and no free air is identified. There is hypertrophic spondylosis in the dorsal and lumbar spines.. There is moderately severe facet arthropathy at L4-5 level. IMPRESSION: 1. RESOLUTION OF THE PATIENT'S ASCITES. 2. MULTIPLE HEPATIC LESIONS. PREVIOUS ULTRASOUND DATED 01/29/2017 SUGGESTS OF THE LIVER IS HETEROGENOUS . A REPEAT EXAMINATION WOULD BE SUGGESTED. 3. MILD DEGENERATIVE CHANGE WITHIN THE SPINE.
== END | disposition home or self-care (01) ==
LOC: RADCTMAIN 11:56
PROVIDERS: ATTEND Internal Medicine Hematology & Oncology
DX: C56.9 Malignant neoplasm of unspecified ovary (principal); K76.9 Liver disease, unspecified
CPT/HCPCS: 82565; 84520; 71260; 74177; 36415; Q9967

== ENCOUNTER → 2017-10-05 | Outpatient (CLI) | payer BC ==
--- NOTE | 2017-10-06 10:12 | CT ---
EXAMINATION TYPE: CT ChestAbdPelvis w con DATE OF EXAM: 10/05/2017 COMPARISON: 05/22/2017 CT chest, abdomen, and pelvis and 01/29/2017 CT abdomen and pelvis. MR abdomen da rio 05/23/2016. HISTORY: Ovarian cancer CT DLP: 2095 mGycm. Automated Exposure Control for Dose Reduction was Utilized. CONTRAST: CT scan of the thorax, abdomen and pelvis is performed with IV Contrast, patient injected with 100 mL of Omnipaque 300. FINDINGS: LUNGS: The lungs are grossly clear, there is no concerning parenchymal mass or nodule identified. T here is no pleural effusion or pneumothorax seen. The tracheobronchial tree is patent. MEDIASTINUM: There are no greater than 1 cm hilar or mediastinal lymph nodes. No pericardial effusi on is seen. OTHER: No additional significant abnormality is seen. LIVER/GB: There are at least 14 hypoattenuated hepatic lesions the largest measuring up to 1 cm in th e left hepatic lobe and segment 4A on series 3 image 51. The second largest measure 8 mm in segment 6 on series 3 image 71 and series 3 image 59 and segment 7. These are overall unchanged from the exam of 05/22/2017 and 01/29/2017. These were stated to be consistent with simple cyst on the MR abdomen of 05/23/2016. No new hepatic lesions are identified. No intrahepatic biliary ductal dilatation. No subserosal implants or liver parenchymal involvement in this patient with a history of ovarian can cer. PANCREAS: No significant abnormality is seen. No pancreatic ductal dilatation. SPLEEN: Splenule is seen adjacent to the [place] spleen. [place] spleen is unremarkable in morphology. ADRENALS: No significant abnormality is seen. KIDNEYS: No significant abnormality is seen. BOWEL: No significant abnormality is seen. GENITAL ORGANS: Ovaries and uterus are surgically absent. Right ureter courses directly adjacent to t he surgical site with no hydronephrosis. No new abnormal soft tissue density is seen in the postsurgi vinayak bed. LYMPH NODES: New centrally low density, possibly internally necrotic, left external chain iliac lymph node measures 1.2 cm in short axis on series 3 image 112. No superficial inguinal adenopathy or moncho tional external iliac chain adenopathy is seen. No pelvic sidewall adenopathy or common iliac adenopa thy. No right hemipelvic adenopathy. Appearing to elevate the ureters such as on series 3 image 88 through 91 there are bilateral low atte nuated lesions, likely adenopathy measuring 2.2 x 1.8 cm on the right and 2.2 x 2.1 cm on the left. N o other enlarged lymph nodes are seen within the abdomen. OSSEOUS STRUCTURES: Similar appearing nonspecific sclerotic focus is seen of the right iliac bone on series 3 image 101 measuring 2.2 cm that is overall unchanged from the exam of 05/22/2017. Multilevel moderate degenerative change of the thoracolumbar and lumbosacral spine are present. No new osseous l esions are seen. OTHER: Midline postsurgical subcutaneous scarring is seen as well as diastases recti. IMPRESSION: 1. New singular external iliac chain enlarged lymph node suspicious for metastasis. Additional new re troperitoneal periaortic lesions suspicious for adenopathy, appearing to elevate the ureters. If perc utaneous biopsy is attempted, delayed imaging would be of benefit for evaluation of ureteral position ing. PET CT could also be performed for further characterization. 2. Stable indeterminant sclerotic lesion of the right iliac bone dating back to 01/29/2017. 3. Numerous unchanged hepatic lesions stable dating back to 05/23/2016 where they were demonstrated on MR to be compatible with simple cysts. No new hepatic lesions. 4. No evidence of visceral metastasis within the chest, abdomen or pelvis.
== END | disposition home or self-care (01) ==
LOC: RADCTMAIN 13:38
PROVIDERS: ATTEND Internal Medicine Hematology & Oncology
DX: C78.6 Secondary malignant neoplasm of retroperitoneum and peritoneum (principal); C56.9 Malignant neoplasm of unspecified ovary; R59.0 Localized enlarged lymph nodes; K76.9 Liver disease, unspecified; M89.9 Disorder of bone, unspecified; K66.9 Disorder of peritoneum, unspecified
CPT/HCPCS: 71260; 74177; Q9967

== ENCOUNTER → 2017-11-27 | Outpatient (CLI) | payer BC ==
--- NOTE | 2017-11-27 13:29 | CT ---
EXAMINATION TYPE: CT ChestAbdPelvis w con DATE OF EXAM: 11/27/2017 COMPARISON: 10/05/2017 HISTORY: Patient has no complaints at time of service. Follow up study for known ovarian CA. CT DLP: 1577.4 mGycm CONTRAST: CT scan of the chest, abdomen and pelvis is performed with Oral Contrast and with IV Contrast, patien t injected with 100 mL of Omnipaque 300. CT Chest: LUNGS: The lungs are clear and free of infiltrate or atelectasis. No pulmonary nodule or mass is det ected. No pleural effusion or CT evidence of interstitial lung disease. MEDIASTINUM: Thoracic aorta is of normal caliber. The heart is not enlarged. No evidence for media stinal mass or adenopathy. HILAR STRUCTURES: No evidence for mass. No hilar adenopathy is appreciated. OTHER: No significant abnormality. CONTRAST CT ABDOMEN AND PELVIS FINDINGS: LIVER/GB: No calcified gallstones. Multiple hypoattenuating hepatic lesions are noted estimated at approximately 15 and number. The largest lesion measures up to 1 cm these are stated to reflect simpl e cysts on prior MRI of the abdomen. Biliary tree is of normal caliber. PANCREAS: No inflammation. No distinct mass. SPLEEN: No splenic enlargement. No lesion seen. ADRENALS: No nodule. No thickening. KIDNEYS/BLADDER: No hydronephrosis. No nephrolithiasis. No disctinct renal mass. BOWEL: Normal appendix. Normal bowel caliber. No inflammation. GENITAL ORGANS: Postoperative changes of hysterectomy and nephrectomy without evidence for recurrent or residual mass. LYMPH NODES: Persistent, and left iliac chain adenopathy with necrotic component measuring 1.6 cm zuri stefani 2.2 cm previously. Right-sided common iliac chain lymph node measures 3 mm versus prior measureme nt of 2.2 cm. Resolution of extraluminal iliac chain adenopathy. No new adenopathy seen. No inguinal adenopathy. No evidence for omental disease. AORTA: No significant abnormality. OSSEOUS STRUCTURES: No significant abnormality is seen. OTHER: No significant additional abnormality is seen. IMPRESSION: 1. Markedly improved adenopathy as discussed above. 2. Persistent low-density lesions within the liver felt to reflect cysts. 3. No evidence for disease recurrence.
== END | disposition home or self-care (01) ==
LOC: RADCTMAIN 10:40
PROVIDERS: ATTEND Internal Medicine Hematology & Oncology
DX: K76.89 Other specified diseases of liver (principal); R59.9 Enlarged lymph nodes, unspecified; C56.9 Malignant neoplasm of unspecified ovary; C78.6 Secondary malignant neoplasm of retroperitoneum and peritoneum
CPT/HCPCS: 71260; 74177; Q9967

== ENCOUNTER 2018-02-23 19:30 | Emergency (ER) | payer BC ==
[2018-02-23] MEDS ORDERED: SODIUM CHLORIDE 0.9% 1,000 ML IV STA (20:54)
[2018-02-23 21:16] LABS: Appearance,Urine Clear (Clear); Bilirubin,Urine Negative (Negative); Blood,Urine Negative (Negative); Color,Urine Light Yellow; Glucose,Urine (UA) Negative (Negative); Ketones,Urine Negative (Negative); Leukocyte Esterase,Urine Negative (Negative); Nitrite,Urine Negative (Negative); PH, Urine 6.5 (5.0-8.0); Protein,Urine Negative (Negative); Specific Gravity,Urine 1.012 (1.001-1.035); Urobilinogen,Urine <2.0 mg/dL (<2.0)
[2018-02-23 21:53] LABS: Basophils % (A) 0 %; Eosinophils # (A) 0.2 k/uL (0-0.7); Eosinophils % (A) 3 %; HCT 35.4 % (34.0-46.0); HGB 11.9 gm/dL (11.4-16.0); Lymphocytes # (A) 2.7 k/uL (1.0-4.8); Lymphocytes % (A) 29 %; MCH 26.8 pg (25.0-35.0); MCHC 33.7 g/dL (31.0-37.0); MCV 79.5 fL (80.0-100.0); Mean Platelet Volume 6.7; Monocytes # (A) 0.6 k/uL (0-1.0); Monocytes % (A) 6 %; Neutrophils # (A) 5.4 k/uL (1.3-7.7); Neutrophils % (A) 58 %; Platelet Count 248 k/uL (150-450); RBC 4.45 m/uL (3.80-5.40); RDW 15.2 % (11.5-15.5); WBC 9.2 k/uL (3.8-10.6)
[2018-02-23 22:12] LABS: ALT 24 U/L (9-52); AST 17 U/L (14-36); Albumin 3.8 g/dL (3.5-5.0); Alkaline Phosphatase 58 U/L (38-126); Amylase 47 U/L (30-110); Anion Gap 9 mmol/L; Blood Urea Nitrogen 20 mg/dL (7-17); Calcium 9.7 mg/dL (8.4-10.2); Carbon Dioxide 26 mmol/L (22-30); Chloride 103 mmol/L (98-107); Glucose 108 mg/dL (74-99); Lipase 149 U/L (23-300); Potassium 3.6 mmol/L (3.5-5.1); Sodium 138 mmol/L (137-145); Total Bilirubin 0.2 mg/dL (0.2-1.3); Total Protein 6.5 g/dL (6.3-8.2)
[2018-02-23] MEDS ORDERED: MECLIZINE 12.5 MG TAB PO STA (22:35)
[2018-02-23] MEDS ORDERED: diphenhydrAMINE 25 MG CAP PO STA (22:36)
--- NOTE | 2018-02-23 22:45 | ED ---
Dizziness HPI - General Chief Complaint: Dizziness Stated Complaint: Dizziness Time Seen by Provider: 02/23/18 20:47 Source: patient, RN notes reviewed Mode of arrival: ambulatory Limitations: no limitations - History of Present Illness Initial Comments: This is a 52-year-old female who presents to the emergency department with chief complaint of dizziness. Patient states that she took a nap this afternoon. She states that when she awoke at 7 PM this evening she felt dizzy. On presentation, patient states she is not currently dizzy. She does admit to associated nausea during her episode of dizziness. She states that she feels like the room is spinning and this worsens with movement. Denies feeling like she is going to pass out. Denies chest pain or shortness of breath, fevers or chills, abdominal pain, vomiting, diarrhea or constipation, numbness or tingling, dysuria or hematuria, headache or vision changes. - Related Data Home Medications Medication Instructions Recorded Confirmed Atorvastatin [Lipitor] 40 mg PO DAILY 06/02/16 02/23/18 Ranitidine HCl 150 mg PO BID 06/02/16 02/23/18 Metoprolol Tartrate [Lopressor] 50 mg PO BID 01/29/17 02/23/18 Lisinopril-Hctz 20-12.5 mg 1 tab PO BID 02/23/18 02/23/18 [Zestoretic 20-12.5] Tamoxifen Citrate 20 mg PO DAILY 02/23/18 02/23/18 amLODIPine [Norvasc] 5 mg PO DAILY 02/23/18 02/23/18 Previous Rx's Medication Instructions Recorded Meclizine [Antivert] 25 mg PO TID PRN #15 tab 02/23/18 Allergies Allergy/AdvReac Type Severity Reaction Status Date / Time No Known Allergies Allergy Verified 02/23/18 20:08 Review of Systems ROS Statement: Those systems with pertinent positive or pertinent negative responses have been documented in the HPI. ROS Other: All systems not noted in ROS Statement are negative. Past Medical History Past Medical History: Cancer, GERD/Reflux, Hyperlipidemia, Hypertension Additional Past Medical History / Comment(s): anemia,adrenal gland growth-MRI ABD & Pelvic- April 2016, bronchitis, "fast hr-takes metoprolol", cyst rt ovary ovarian cancer 01/2017 History of Any Multi-Drug Resistant Organisms: None Reported Past Surgical History: Hysterectomy Additional Past Surgical History / Comment(s): colonoscopy Past Anesthesia/Blood Transfusion Reactions: Family History of Problems w/ Anesthesia Additional Past Anesthesia/Blood Transfusion Reaction / Comment(s): no hx general anesthesia or blood transfusion. mother-post op n/v Past Psychological History: No Psychological Hx Reported Smoking Status: Never smoker Past Alcohol Use History: Occasional Past Drug Use History: None Reported - Past Family History Mother Family Medical History: Cancer, Diabetes Mellitus, Hypertension, Myocardial Infarction ([place]) Additional Family Medical History / Comment(s): cabg, ovarian ca Father Family Medical History: Cancer, Hypertension Additional Family Medical History / Comment(s): lung,diverticulosis Brother(s) Family Medical History: Diabetes Mellitus General Exam - General Exam Comments Initial Comments: General: Awake and alert, well-developed; in no apparent distress. HEENT: Head atraumatic, normocephalic. Pupils are equal, round and reactive to light. Extraocular movements intact. No bilateral nystagmus noted. Oropharynx moist without erythema or exudate. Neck: Supple. Normal ROM. Cardiovascular: Regular rate and rhythm. No murmurs, rubs or gallops. Chest symmetrical. Respiratory: Lungs clear to auscultation bilaterally. No wheezes, rales or rhonchi. Normal respiratory effort with no use of accessory muscles. Abdomen: Soft, non-tender, non-distended. No rigidity, rebound or guarding. Normal bowel sounds in all 4 quadrants. Musculoskeletal: Normal ROM, no tenderness, strength 5/5 bilateral upper and lower extremities. Gait is steady. Skin: Cylinder, warm and dry without rashes or lesions. Neurological: Alert and oriented x3. CN II-XII grossly intact. Speech is fluent and answers are appropriate. No focal neuro deficits. Psychiatric: Normal mood and affect. No overt signs of depression or anxiety noted. Limitations: no limitations Course Vital Signs 02/23/18 19:53 Temperature 99.6 F Pulse Rate 106 H Respiratory 20 Rate Blood Pressure 153/54 O2 Sat by Pulse 100 Oximetry - Reevaluation(s) Reevaluation #1: Labs were obtained and findings were discussed with patient. CBC, CMP and UA were unremarkable. Patient states that she does still have some mild dizziness. Will try Benadryl and meclizine. 02/23/18 22:44 EKG Findings - EKG Comments: EKG Findings:: 21:04:05. Normal sinus rhythm. Ventricular rate 93 bpm, HI interval 148, QRS duration 90, QT/QTC 374/465 Medical Decision Making - Medical Decision Making This is a 52-year-old female who presented to the emergency department with chief complaint of dizziness. Patient states that prior to arrival she had 1 episode of dizziness where she felt like the room was spinning around her. Denied any vision or hearing changes. On physical examination, patient is neurovascularly intact. No focal neuro deficits. On presentation, she stated that she was no longer symptomatic. She was given a liter bolus as well as meclizine and Benadryl. She states that her symptoms are improved and has not returned. Patient's vital signs have been stable and she is in no acute distress. She will be discharged home with a prescription for Antivert. She is in agreement and voices understanding. All questions were answered. - Lab Data Result diagrams: 02/23/18 21:42 02/23/18 21:42 Lab Results 02/23/18 02/23/18 02/23/18 Range/Units 21:05 21:42 21:42 WBC 9.2 (3.8-10.6) k/uL RBC 4.45 (3.80-5.40) m/uL Hgb 11.9 (11.4-16.0) gm/dL Hct 35.4 (34.0-46.0) % MCV 79.5 L (80.0-100.0) fL MCH 26.8 (25.0-35.0) pg MCHC 33.7 (31.0-37.0) g/dL RDW 15.2 (11.5-15.5) % Plt Count 248 (150-450) k/uL Neutrophils % 58 % Lymphocytes % 29 % Monocytes % 6 % Eosinophils % 3 % Basophils % 0 % Neutrophils # 5.4 (1.3-7.7) k/uL Lymphocytes # 2.7 (1.0-4.8) k/uL Monocytes # 0.6 (0-1.0) k/uL Eosinophils # 0.2 (0-0.7) k/uL Basophils # 0.0 (0-0.2) k/uL Sodium 138 (137-145) mmol/L Potassium 3.6 (3.5-5.1) mmol/L Chloride 103 (98-107) mmol/L Carbon Dioxide 26 (22-30) mmol/L Anion Gap 9 mmol/L BUN 20 H (7-17) mg/dL Creatinine 0.74 (0.52-1.04) mg/dL Est GFR (CKD-EPI)AfAm >90 (>60 ml/min/1.73 sqM) Est GFR (CKD-EPI)NonAf >90 (>60 ml/min/1.73 sqM) Glucose 108 H (74-99) mg/dL Calcium 9.7 (8.4-10.2) mg/dL Total Bilirubin 0.2 (0.2-1.3) mg/dL AST 17 (14-36) U/L ALT 24 (9-52) U/L Alkaline Phosphatase 58 (38-126) U/L Total Protein 6.5 (6.3-8.2) g/dL Albumin 3.8 (3.5-5.0) g/dL Amylase 47 (30-110) U/L Lipase 149 (23-300) U/L Urine Color Light Yellow Urine Appearance Clear (Clear) Urine pH 6.5 (5.0-8.0) Ur Specific [place] 1.012 (1.001-1.035) Urine Protein Negative (Negative) Urine Glucose (UA) Negative (Negative) Urine Ketones Negative (Negative) Urine Blood Negative (Negative) Urine Nitrite Negative (Negative) Urine Bilirubin Negative (Negative) Urine Urobilinogen <2.0 (<2.0) mg/dL Ur Leukocyte Esterase Negative (Negative) Disposition Clinical Impression: Vertigo, Dizziness Disposition: HOME SELF-CARE Condition: Good Instructions: Dizziness (ED), Vertigo (ED) Additional Instructions: Please take medications as prescribed. Please follow up with primary care provider within 1-2 days. Return to emergency department if symptoms should worsen or any concerns arise. Prescriptions: Meclizine [Antivert] 25 mg PO TID PRN #15 tab PRN Reason: Vertigo Referrals: Sulma Palencia DO [Primary Care Provider] - 1-2 days Time of Disposition: 23:33
[2018-02-23 23:55] VITALS: BP 126/70; PULSE 81; RESP 18; TEMP 97
== END 2018-02-23 23:55 | disposition home or self-care (01) ==
LOC: EC 19:30
DX: R42 Dizziness and giddiness (principal); K21.9 Gastro-esophageal reflux disease without esophagitis; E78.5 Hyperlipidemia, unspecified; I10 Essential (primary) hypertension; Z85.43 Personal history of malignant neoplasm of ovary; Z79.899 Other long term (current) drug therapy
CPT/HCPCS: 36415; 80053; 81003; 82150; 83690; 85025; 93005; 96360; 96361; 99284

== ENCOUNTER → 2018-02-26 | Outpatient (CLI) | payer BC ==
--- NOTE | 2018-02-26 14:52 | CT ---
EXAMINATION TYPE: CT ChestAbdPelvis w con DATE OF EXAM: 02/26/2018 INDICATION: Ovarian CA COMPARISON: NONE CT DLP: 2042.1 mGycm CONTRAST: Performed with Oral Contrast and with IV Contrast, patient injected with 100 mL of Omnipaque 350. TECHNIQUE: Axial images at 5 mm thick sections. Reconstructed images in the coronal plane. Delayed images through the kidneys. FINDINGS: CT CHEST: Portion of the thyroid visualized is normal. No suspicious lung nodules or focal infiltrates are present. No enlarged mediastinal or hilar adenopathy is evident. The ascending aorta diameter at the level of the main pulmonary artery is 2.8 cm. The main pulmonary artery diameter at the bifurcation is 2.[address] ABDOMEN: Liver: There is slight diminished density within the liver attenuation the spleen compatible some mil d fatty infiltration liver. There are some scattered small hypodensities within the liver most likely hepatic cyst but too small to classify. A larger area within the posterior mid right lobe of the liya er measures 0.9 cm and 5 Hounsfield units compatible with a hepatic cyst. Suspected cyst at the infer ior tip of the right lobe of the liver. Spleen: Normal Pancreas: Normal Adrenal glands: The adrenal glands are normal. Gallbladder: Normal Kidneys: No masses are evident. No hydronephrosis is present. No cysts are present. Delayed images were obtained through the kidneys, which remain unremarkable. Aorta: Vascular calcification is within the aorta. Inferior vena cava: Normal. CT PELVIS: There is an anterior abdominal wall hernia containing contrast-filled loops of small bowel in the infra periumbilical region. No obstruction is evident. Loops of bowel within the abdomen and pelvis are normal. There are loops of bowel which are incompletely distended or lack oral contras t limiting their evaluation. No free fluid is within the abdomen and pelvis. No peritoneal studding or omental caking is evident. Previous left iliac chain lymph node has resolved over the interval. Appendix: Not visualized. No suspicious tubular structures or inflammatory changes are evident. Urinary bladder: Normal. Genitourinary structures: Uterus and ovaries are not identified. Osseous structures: No suspicious lytic or sclerotic lesions. Facet degenerative changes are within t he lower lumbar spine. IMPRESSIONS: 1. No suspicious changes to suggest recurrent or metastatic ovarian disease.
== END | disposition home or self-care (01) ==
LOC: RADCTMAIN 10:52
PROVIDERS: ATTEND Internal Medicine Hematology & Oncology
DX: C56.9 Malignant neoplasm of unspecified ovary (principal)
CPT/HCPCS: 71260; 74177; Q9967

== ENCOUNTER → 2018-04-12 | Outpatient (CLI) | payer BC ==
--- NOTE | 2018-04-17 13:45 | MM ---
Reason for exam: screening (asymptomatic). Last mammogram was performed 1 year and 2 months ago. History: Patient is postmenopausal and has history of ovarian cancer at age 51. Taking tamoxifen for 7 months beginning at age 52. Physical Findings: A clinical breast exam by your physician is recommended on an annual basis and results should be correlated with mammographic findings. MG Screening Mammo w CAD Bilateral CC and MLO view(s) were taken. Prior study comparison: February 08, 2017, mammogram, performed at [facility]. There are scattered fibroglandular densities. No significant changes when compared with prior studies. ASSESSMENT: Benign, BI-RAD 2 RECOMMENDATION: Routine screening mammogram of both breasts in 1 year.
== END | disposition home or self-care (01) ==
LOC: RADMAMWWP 09:49
PROVIDERS: ATTEND Internal Medicine Hematology & Oncology
DX: Z12.31 Encounter for screening mammogram for malignant neoplasm of breast (principal)
CPT/HCPCS: 77067

== ENCOUNTER → 2018-05-27 | Outpatient (CLI) | payer BC ==
--- NOTE | 2018-05-27 14:46 | CT ---
EXAMINATION TYPE: CT ChestAbdPelvis w con DATE OF EXAM: 05/27/2018 COMPARISON: Prior CT chest abdomen pelvis 02/26/2018 HISTORY: Follow up ovarian cancer. CT DLP: 1922 mGycm Automated exposure control for dose reduction was used. CONTRAST: CT scan of the chest, abdomen and pelvis is performed with Oral Contrast and with IV Contrast, patien t injected with 100 mL of Isovue M300. FINDINGS: LUNGS: The lungs are grossly clear, there is no concerning parenchymal mass or nodule identified. T here is no pleural effusion or pneumothorax seen. The tracheobronchial tree is patent. MEDIASTINUM: There are no greater than 1 cm hilar or mediastinal lymph nodes. No pericardial effusi on is seen. AORTA: No significant abnormality is seen. OTHER: No additional significant abnormality is seen. LIVER/GB: The liver shows low attenuation. The posterior and inferior right lobe shows cystic foci ag ain noted. Liver is enlarged. Gallbladder is unremarkable. PANCREAS: No significant abnormality is seen. SPLEEN: Splenule noted at the anterior aspect of the spleen. ADRENALS: No significant abnormality is seen. KIDNEYS: No significant abnormality is seen. REPRODUCTIVE ORGANS: Absent, surgical clips present in the pelvis BOWEL: Anterior midline abdominal wall hernia containing bowel loops is [place], there is no evide nt bowel obstruction.. FREE AIR: No Free Air visible. ASCITES: None seen. RETROPERITONEAL ADENOPATHY: No retroperitoneal adenopathy is seen. LYMPH NODES: No greater than 1 cm abdominal or pelvic lymph nodes are appreciated. URINARY BLADDER: No significant abnormality is seen. PELVIC ADENOPATHY: None visualized. OSSEOUS STRUCTURES: Degenerative disc disease, facet arthropathy noted in the lower lumbar spine. IMPRESSION: Stable exam, no significant interval change. Recurrence is not evident..
== END | disposition home or self-care (01) ==
LOC: RADCTMAIN 10:57
PROVIDERS: ATTEND Internal Medicine Hematology & Oncology
DX: C56.9 Malignant neoplasm of unspecified ovary (principal)
CPT/HCPCS: 71260; 74177; Q9967

== ENCOUNTER → 2018-08-27 | Outpatient (CLI) | payer BC ==
--- NOTE | 2018-08-27 14:28 | CT ---
EXAMINATION TYPE: CT ChestAbdPelvis w con DATE OF EXAM: 08/27/2018 COMPARISON: 05/27/2018 and 02/26/2018 HISTORY: 52-year-old female ovarian cancer, observe for metastases. TECHNIQUE: Contiguous axial scanning of the chest, abdomen, and pelvis performed with IV Contrast, pa tient injected with 100 mL of Isovue 300. Delayed images through the kidneys were obtained. Coronal/s agittal reconstructions performed. CT DLP: Estimated at 2000 mGycm. There was technical error and the dose summary was not generated. Automated exposure control for dose reduction was used. FINDINGS: Chest: Heart upper limits of normal in size without pericardial effusion. Aorta normal caliber with bovine configuration to the aortic arch. No thoracic lymphadenopathy by CT size criteria. No consolidation or pleural effusion. No new pulmonary nodules or masses seen. ABDOMEN: Low attenuation of the hepatic parenchyma. Stable 1.1 cm hypodense lesion posterior right liver lobe, axial image 57, likely cyst. There is new/ increasing subcapsular patchy enhancement along the anterior margin of the liver and some additional new nodularity along the inferior right hepatic margin, referred transaxial image 71 for example. There is new [id number] left upper quadrant ascites with mild left perisplenic ascites and mild ascites along the inferior aspect of the right hepatic lobe. Enlarging fany hepatic lymph node at 1.3 cm axial image 56, and mesenteric lymphadenopathy measuring up to 9 mm, axial image 72. New peritoneal nodularity, for example, axial image 76, 78, 81, 82, 87, 91, 94, and 95 measuring up t o 1.9 cm. Retroperitoneal soft tissue nodularity right pararenal space measuring 1.4 cm, axial image 81 and lef t para-aortic retroperitoneum measuring 9 mm, axial image 77. Nodularity near the anterior margin of the spleen measuring 1.7 cm is also new, axial image 59. Redemonstrated rectus diastases with anterior bulging here. No dilated small bowel or free air. Pelvis: Bladder is urine distended. There is new moderate pelvic free fluid with possible new soft tissue thi ckening along the vaginal cuff, refer to axial image 112. Bones: Mild endplate spondylosis throughout. No osseous destructive process. IMPRESSION: DISEASE RECURRENCE WITH NUMEROUS NEW PERITONEAL DEPOSITS MEASURING UP TO 1.9 CM, A COUPLE NEW RETROPE RITONEAL DEPOSITS MEASURING UP TO 1.4 CM, A FEW MILDLY ENLARGED MESENTERIC LYMPH NODES MEASURING UP T O 1.3 CM. POSSIBLE NEW SEROSAL IMPLANTS ALONG THE ANTERIOR AND INFERIOR MARGIN OF THE LIVER, NEW SOFT TISSUE THICKENING ALONG THE VAGINAL CUFF, AND MILD ABDOMINOPELVIC ASCITES, POSSIBLE MALIGNANT ASCITE S.
== END | disposition home or self-care (01) ==
LOC: RADCTMAIN 11:04
PROVIDERS: ATTEND Internal Medicine Hematology & Oncology
DX: C56.9 Malignant neoplasm of unspecified ovary (principal); R59.0 Localized enlarged lymph nodes; N89.8 Other specified noninflammatory disorders of vagina; R18.8 Other ascites
CPT/HCPCS: 71260; 74177; 36415; Q9967

== ENCOUNTER → 2018-09-13 | Outpatient (CLI) | payer BC ==
--- NOTE | 2018-09-14 08:04 | ECHOF ---
Referral Reason:I10 essential hypertention MEASUREMENTS -------- HEIGHT: 165.1 cm WEIGHT: 113.9 kg BP: 164/91 RVIDd: 3.3 cm (< 3.3) IVSd: 0.9 cm (0.6 - 1.1) LVIDd: 3.0 cm (3.9 - 5.3) LVPWd: 0.9 cm (0.6 - 1.1) IVSs: 1.4 cm LVIDs: 2.0 cm LVPWs: 1.7 cm LA Diam: 3.3 cm (2.7 - 3.8) LAESV Index (A-L): 19.79 ml/m Ao Diam: 3.3 cm (2.0 - 3.7) AV Cusp: 2.4 cm (1.5 - 2.6) MV EXCURSION: 16.703 mm (> 18.000) MV EF SLOPE: 119 mm/s (70 - 150) EPSS: 0.4 cm MV E Mukesh: 0.76 m/s MV DecT: 219 ms MV A Mukesh: 0.93 m/s MV E/A Ratio: 0.82 FINDINGS -------- Sinus rhythm. This was a technically adequate study. The left ventricular size is normal. Left ventricular wall thickness is normal. Overall left vent ricular systolic function is normal with, an EF between 60 - 65 %. The right ventricle is mildly enlarged. Normal LA size by volume 22+/-6 ml/m2. The right atrium is normal in size. The aortic valve is trileaflet and appears structurally normal. The mitral valve leaflets are mildly thickened. Mild mitral annular calcification present. The tricuspid valve appears structurally normal. Trace/mild (physiologic) pulmonic regurgitation. The aortic root size is normal. IVC Not well visulized. There is no pericardial effusion. CONCLUSIONS -------- 1. Sinus rhythm. 2. This was a technically adequate study. 3. The left ventricular size is normal. 4. Left ventricular wall thickness is normal. 5. Overall left ventricular systolic function is normal with, an EF between 60 - 65 %. 6. The right ventricle is mildly enlarged. 7. Normal LA size by volume 22+/-6 ml/m2. 8. The right atrium is normal in size. 9. The aortic valve is trileaflet and appears structurally normal. 10. The mitral valve leaflets are mildly thickened. 11. Mild mitral annular calcification present. 12. The tricuspid valve appears structurally normal. 13. Trace/mild (physiologic) pulmonic regurgitation. 14. The aortic root size is normal. 15. IVC Not well visulized. 16. There is no pericardial effusion. [employer] MATE: Rafaela Salvador RDCS
== END | disposition home or self-care (01) ==
LOC: RADECHMAIN 12:17
PROVIDERS: ATTEND Internal Medicine Hematology & Oncology
DX: Z01.810 Encounter for preprocedural cardiovascular examination (principal); I10 Essential (primary) hypertension; I34.8 Other nonrheumatic mitral valve disorders; I37.1 Nonrheumatic pulmonary valve insufficiency
CPT/HCPCS: 93306

== ENCOUNTER 2018-10-08 16:04 | Inpatient (IN) | payer BC ==
--- NOTE | 2018-10-08 19:02 | ED ---
Abdominal Pain HPI <Denny Ortiz - Last Filed: 10/08/18 19:30> - General Source: patient Mode of arrival: ambulatory Limitations: no limitations <Janene Erickson - Last Filed: 10/08/18 22:27> - General Chief Complaint: Abdominal Pain Stated Complaint: fluid retention Time Seen by Provider: 10/08/18 17:46 - History of Present Illness Initial Comments: 53-year-old female with past medical history of stage III ovarian cancer, hypertension, hyperlipidemia presenting today for chief complaint of abdominal distention and pain x 1 week. Patient states that in 2017 she was diagnosed with stage III ovarian cancer she since had 2 surgeries as well as 18 rounds of various chemotherapies. Patient recently began a new chemotherapy treatment carboplatin and Doxil this past , she states dosage is every 28 days. Patient states that she was evaluated last Sunday by Dr. Bell who noted the mild abdominal distention at that time. She was scheduled for a paracentesis this Sunday, however since the abdominal distention has been increasing causing great discomfort for the patient. Patient states that she has been experiencing being indigestion, AND coughing due to the pressure of the abdomen. As well as decreased appetite, and chills. Patient denies fever. She did say she has gained 10 pounds in the last 2 weeks. Patient denies any chest pain, upper extremity paresthesias, jaw pain. Patient does state that since the abdominal distention has been increasing she has had mild shortness of breath. Patient denies any calf pain/leg pain. Upon arrival pt HR elevated at 115bpm. Pt appears well, abdomen obviously distended. (Janene Erickson) - Related Data Home Medications Medication Instructions Recorded Confirmed RX: Atorvastatin [Lipitor] 40 mg PO DAILY 06/02/16 10/08/18 RX: Ranitidine HCl 150 mg PO AC-SUPPER 06/02/16 10/08/18 RX: Metoprolol Tartrate [Lopressor] 50 mg PO BID 01/29/17 10/08/18 Lisinopril-Hctz 20-12.5 mg 1 tab PO BID 02/23/18 10/08/18 [Zestoretic 20-12.5] amLODIPine [Norvasc] 5 mg PO DAILY 02/23/18 10/08/18 [place]-3 Fatty Acids/Fish Oil [Fish 1 cap PO DAILY 10/08/18 10/08/18 Oil 1,000 mg Softgel] Pantoprazole Sodium [Protonix] 40 mg PO DAILY 10/08/18 10/08/18 Previous Rx's Medication Instructions Recorded RX: Meclizine [Antivert] 25 mg PO TID PRN #15 tab 02/23/18 Allergies Allergy/AdvReac Type Severity Reaction Status Date / Time adhesive tape Allergy Swelling Verified 10/08/18 17:25 Review of Systems ROS Other: All systems not noted in ROS Statement are negative. <Denny Ortiz - Last Filed: 10/08/18 19:30> ROS Other: All systems not noted in ROS Statement are negative. <Janene Erickson - Last Filed: 10/08/18 22:27> ROS Statement: Those systems with pertinent positive or pertinent negative responses have been documented in the HPI. Past Medical History Past Medical History: Cancer, GERD/Reflux, Hyperlipidemia, Hypertension Additional Past Medical History / Comment(s): anemia,adrenal gland growth-MRI ABD & Pelvic- April 2016, bronchitis, "fast hr-takes metoprolol", cyst rt ovary ovarian cancer 01/2017 History of Any Multi-Drug Resistant Organisms: None Reported Past Surgical History: Hysterectomy Additional Past Surgical History / Comment(s): colonoscopy Past Anesthesia/Blood Transfusion Reactions: Family History of Problems w/ Anesthesia Additional Past Anesthesia/Blood Transfusion Reaction / Comment(s): no hx general anesthesia or blood transfusion. mother-post op n/v Past Psychological History: No Psychological Hx Reported Smoking Status: Never smoker Past Alcohol Use History: Occasional Past Drug Use History: None Reported - Past Family History Mother Family Medical History: Cancer, Diabetes Mellitus, Hypertension, Myocardial Infarction ([place]) Additional Family Medical History / Comment(s): cabg, ovarian ca Father Family Medical History: Cancer, Hypertension Additional Family Medical History / Comment(s): lung,diverticulosis Brother(s) Family Medical History: Diabetes Mellitus <Janene Erickson - Last Filed: 10/08/18 22:27> General Exam Limitations: no limitations <Janene Erickson - Last Filed: 10/08/18 22:27> Vital Signs 10/08/18 10/08/18 16:10 21:48 Temperature 98.3 F 100.5 F H Pulse Rate 115 H 107 H Respiratory 20 21 Rate Blood Pressure 135/93 122/83 O2 Sat by Pulse 100 95 Oximetry Medical Decision Making <Denny Ortiz - Last Filed: 10/08/18 19:30> - Lab Data Result diagrams: 10/08/18 19:41 10/08/18 19:41 <Janene Erickson - Last Filed: 10/08/18 22:27> - Medical Decision Making Medical decision making; patient's 53-year-old female with advanced ovarian cancer. Presents emergency room with worsening ascites. I discussed the case with Dr. Bonds, on-call oncologist. Patient be admitted his service with consultation from radiology for paracentesis tomorrow. Dr. Ortiz (Denny Otriz) Laboratory findings as noted above. No significant Maladies. Patient's vital signs stable. She will be admitted for ascites, with consultation from interventional radiology tomorrow for paracentesis. Dr Rahman aware of pt accepted admission, no further orders at this time. CXR (-), KUB unremarkable. Transfer to the floor in stable condition. (Janene Erickson) - Lab Data Lab Results 10/08/18 10/08/18 10/08/18 Range/Units 19:41 19:41 19:41 WBC 9.0 (3.8-10.6) k/uL RBC 4.62 (3.80-5.40) m/uL Hgb 11.7 (11.4-16.0) gm/dL Hct 36.6 (34.0-46.0) % MCV 79.3 L (80.0-100.0) fL MCH 25.2 (25.0-35.0) pg MCHC 31.8 (31.0-37.0) g/dL RDW 14.9 (11.5-15.5) % Plt Count 562 H (150-450) k/uL Neutrophils % 75 % Lymphocytes % 17 % Monocytes % 3 % Eosinophils % 2 % Basophils % 0 % Neutrophils # 6.8 (1.3-7.7) k/uL Lymphocytes # 1.6 (1.0-4.8) k/uL Monocytes # 0.3 (0-1.0) k/uL Eosinophils # 0.2 (0-0.7) k/uL Basophils # 0.0 (0-0.2) k/uL PT (9.0-12.0) sec INR (<1.2) APTT (22.0-30.0) sec Sodium 136 L (137-145) mmol/L Potassium 3.4 L (3.5-5.1) mmol/L Chloride 106 (98-107) mmol/L Carbon Dioxide 22 (22-30) mmol/L Anion Gap 8 mmol/L BUN 17 (7-17) mg/dL Creatinine 0.79 (0.52-1.04) mg/dL Est GFR (CKD-EPI)AfAm >90 (>60 ml/min/1.73 sqM) Est GFR (CKD-EPI)NonAf 88 (>60 ml/min/1.73 sqM) Glucose 111 H (74-99) mg/dL Plasma Lactic Acid Gamaliel 0.9 (0.7-2.0) mmol/L Calcium 7.6 L (8.4-10.2) mg/dL Total Bilirubin 0.4 (0.2-1.3) mg/dL AST 20 (14-36) U/L ALT 28 (9-52) U/L Alkaline Phosphatase 49 (38-126) U/L Total Protein 5.2 L (6.3-8.2) g/dL Albumin 2.7 L (3.5-5.0) g/dL Amylase 58 (30-110) U/L Lipase 95 (23-300) U/L Urine Color Urine Appearance (Clear) Urine pH (5.0-8.0) Ur Specific [place] (1.001-1.035) Urine Protein (Negative) Urine Glucose (UA) (Negative) Urine Ketones (Negative) Urine Blood (Negative) Urine Nitrite (Negative) Urine Bilirubin (Negative) Urine Urobilinogen (<2.0) mg/dL Ur Leukocyte Esterase (Negative) 10/08/18 10/08/18 Range/Units 19:41 19:55 WBC (3.8-10.6) k/uL RBC (3.80-5.40) m/uL Hgb (11.4-16.0) gm/dL Hct (34.0-46.0) % MCV (80.0-100.0) fL MCH (25.0-35.0) pg MCHC (31.0-37.0) g/dL RDW (11.5-15.5) % Plt Count (150-450) k/uL Neutrophils % % Lymphocytes % % Monocytes % % Eosinophils % % Basophils % % Neutrophils # (1.3-7.7) k/uL Lymphocytes # (1.0-4.8) k/uL Monocytes # (0-1.0) k/uL Eosinophils # (0-0.7) k/uL Basophils # (0-0.2) k/uL PT 9.9 (9.0-12.0) sec INR 1.0 (<1.2) APTT 22.5 (22.0-30.0) sec Sodium (137-145) mmol/L Potassium (3.5-5.1) mmol/L Chloride (98-107) mmol/L Carbon Dioxide (22-30) mmol/L Anion Gap mmol/L BUN (7-17) mg/dL Creatinine (0.52-1.04) mg/dL Est GFR (CKD-EPI)AfAm (>60 ml/min/1.73 sqM) Est GFR (CKD-EPI)NonAf (>60 ml/min/1.73 sqM) Glucose (74-99) mg/dL Plasma Lactic Acid Gamaliel (0.7-2.0) mmol/L Calcium (8.4-10.2) mg/dL Total Bilirubin (0.2-1.3) mg/dL AST (14-36) U/L ALT (9-52) U/L Alkaline Phosphatase (38-126) U/L Total Protein (6.3-8.2) g/dL Albumin (3.5-5.0) g/dL Amylase (30-110) U/L Lipase (23-300) U/L Urine Color Yellow Urine Appearance Clear (Clear) Urine pH 5.5 (5.0-8.0) Ur Specific [place] 1.019 (1.001-1.035) Urine Protein Trace H (Negative) Urine Glucose (UA) Negative (Negative) Urine Ketones Negative (Negative) Urine Blood Negative (Negative) Urine Nitrite Negative (Negative) Urine Bilirubin Negative (Negative) Urine Urobilinogen <2.0 (<2.0) mg/dL Ur Leukocyte Esterase Negative (Negative) Disposition <Denny Ortiz - Last Filed: 10/08/18 19:30> Is patient prescribed a controlled substance at d/c from ED?: No Time of Disposition: 20:33 Decision to Admit Reason: Admit from EC Decision Date: 10/08/18 Decision Time: 20:33 <Janene Erickson - Last Filed: 10/08/18 22:27> Clinical Impression: Ascites, History of ovarian cancer, Abdominal discomfort Disposition: ADMITTED IP TO THIS HOSP Condition: Stable Referrals: Sulma Palencia DO [Primary Care Provider] - 1-2 days
[2018-10-08] MEDS ORDERED: NALOXONE 0.4 MG/ML 1 ML VIAL IV PRN (19:53)
[2018-10-08] MEDS ORDERED: MORPHINE SULFATE 4 MG/ML SYRINGE IV PRN (19:53)
[2018-10-08] MEDS ORDERED: ONDANSETRON 4 MG/2 ML VIAL IVP PRN (19:53)
[2018-10-08] MEDS ORDERED: ACETAMINOPHEN TAB 325 MG TAB PO PRN (19:53)
[2018-10-08 19:58] LABS: Basophils % (A) 0 %; Eosinophils # (A) 0.2 k/uL (0-0.7); Eosinophils % (A) 2 %; HCT 36.6 % (34.0-46.0); HGB 11.7 gm/dL (11.4-16.0); Lymphocytes # (A) 1.6 k/uL (1.0-4.8); Lymphocytes % (A) 17 %; MCH 25.2 pg (25.0-35.0); MCHC 31.8 g/dL (31.0-37.0); MCV 79.3 fL (80.0-100.0); Mean Platelet Volume 6.1; Monocytes # (A) 0.3 k/uL (0-1.0); Monocytes % (A) 3 %; Neutrophils # (A) 6.8 k/uL (1.3-7.7); Neutrophils % (A) 75 %; Platelet Count 562 k/uL (150-450); RBC 4.62 m/uL (3.80-5.40); RDW 14.9 % (11.5-15.5)
[2018-10-08 20:05] LABS: Partial Thromboplastin Time 22.5 sec (22.0-30.0); Prothrombin Time 9.9 sec (9.0-12.0)
[2018-10-08 20:10] LABS: Appearance,Urine Clear (Clear); Bilirubin,Urine Negative (Negative); Blood,Urine Negative (Negative); Color,Urine Yellow; Glucose,Urine (UA) Negative (Negative); Ketones,Urine Negative (Negative); Leukocyte Esterase,Urine Negative (Negative); Nitrite,Urine Negative (Negative); PH, Urine 5.5 (5.0-8.0); Protein,Urine Trace (Negative); Specific Gravity,Urine 1.019 (1.001-1.035); Urobilinogen,Urine <2.0 mg/dL (<2.0)
--- NOTE | 2018-10-08 20:13 | XR ---
EXAMINATION TYPE: XR KUB DATE OF EXAM: 10/08/2018 COMPARISON: NONE HISTORY: Abdominal pain and distention TECHNIQUE: 2 upright views FINDINGS: The overlying soft tissues are prominent, limiting visualization to at least a mild degree. The visualized lung bases and pleural spaces are negative. There is no pneumoperitoneum or pneumatosis. The bowel gas pattern shows air within the stomach, smal l bowel, and large bowel. There is one small bowel loop over the mid abdomen which has top normal vinayak iber. No definite acute soft tissue or skeletal finding. IMPRESSION: Nonspecific bowel findings, as above.
--- NOTE | 2018-10-08 20:18 | XR ---
EXAMINATION: XR chest 2V DATE AND TIME: 10/08/2018 7:07 PM CLINICAL INDICATION: Pain TECHNIQUE: PA and lateral COMPARISON: 01/31/2016 FINDINGS: The overlying soft tissues are prominent. Lungs are clear, as seen. The pleural spaces are negative. The cardiac silhouette is not enlarged. The remainder of the mediastinal silhouette is unremarkable. The skeletal structures and soft tissues are negative for acute findings. IMPRESSION: NO ACUTE PROCESS.
[2018-10-08 20:35] LABS: ALT 28 U/L (9-52); AST 20 U/L (14-36); Albumin 2.7 g/dL (3.5-5.0); Alkaline Phosphatase 49 U/L (38-126); Amylase 58 U/L (30-110); Anion Gap 8 mmol/L; Blood Urea Nitrogen 17 mg/dL (7-17); Calcium 7.6 mg/dL (8.4-10.2); Carbon Dioxide 22 mmol/L (22-30); Chloride 106 mmol/L (98-107); Glucose 111 mg/dL (74-99); Lipase 95 U/L (23-300); Potassium 3.4 mmol/L (3.5-5.1); Sodium 136 mmol/L (137-145); Total Bilirubin 0.4 mg/dL (0.2-1.3); Total Protein 5.2 g/dL (6.3-8.2)
[2018-10-08 23:40] VITALS: BMI 42.4
--- NOTE | 2018-10-09 09:37 | US ---
EXAMINATION TYPE: US abdomen limited DATE OF EXAM: 10/09/2018 COMPARISON: NONE CLINICAL HISTORY: assess for fluid. STAT exam; exam limitations due to acute trauma status. All four abdominal quadrants scanned to ass ess for fluid post trauma. This study is a focused, limited study. Four quadrants scanned; in each quadrant; RLQ and LLQ measuring 8+ cm. IMPRESSION: Ascites
[2018-10-09] MEDS ORDERED: MECLIZINE 25 MG TAB PO PRN (11:38)
[2018-10-09] MEDS ORDERED: PROCHLORPERAZINE 10 MG TAB PO PRN (11:39)
[2018-10-09] MEDS ORDERED: NON-FORMULARY DRUG (Omega-3 Fatty Acids/Fish Oil [Fish Oil 1,000 Mg Softgel] 1 CAP) PO SCH (11:45)
[2018-10-09] MEDS ORDERED: ATORVASTATIN 40 MG TAB PO SCH (11:45)
[2018-10-09] MEDS ORDERED: LISINOPRIL-HCTZ 20-12.5 MG 1 EACH TAB PO SCH (11:45)
[2018-10-09] MEDS ORDERED: METOPROLOL TARTRATE 50 MG TAB PO SCH (11:45)
[2018-10-09] MEDS ORDERED: PANTOPRAZOLE 40 MG TABLET PO SCH (11:45)
[2018-10-09] MEDS ORDERED: METOCLOPRAMIDE 10 MG TAB PO SCH (11:45)
[2018-10-09] MEDS ORDERED: amLODIPine 5 MG TAB PO SCH (11:45)
[2018-10-09 12:15] VITALS: TEMP 98.2
[2018-10-09 13:44] VITALS: RESP 16
[2018-10-09 15:01] VITALS: BP 111/69; PULSE 101
--- NOTE | 2018-10-09 15:36 | P.DS ---
Providers Date of admission: 10/08/18 22:27 Expected date of discharge: 10/09/18 Attending physician: Mauricio Vazquez Primary care physician: Sulma Palencia Hospital Course: Pt admitted last night for progressive abd distension, SOB, few episodes of vomiting, heartburn and was finding it more difficult to eat and drink with the abd so distended. She did have her 1st chemo last week and felt she tolerated it well, she wants to have a paracentesis and then go home. Nursing has confirmed pt feels well enough to go home. VS reviewed in chart. When pt seen in AM prior to procedure she was A&O x 4, NAD, independently ambulatory, no F,N,V, she has to medicate for occasional constipation, mild BLE swelling. Pertinent Studies: CBC, CMP, UA, CXR, KUB xray-no acute processes reported. US abd report with ascites, paracentesis report pending Procedures: Paracentesis Patient Condition at Discharge: Stable Plan - Discharge Summary Discharge Rx Participant: No New Discharge Prescriptions: New Metoclopramide [Reglan] 10 mg PO BID #14 tab No Action Ranitidine HCl 150 mg PO AC-SUPPER Atorvastatin [Lipitor] 40 mg PO DAILY Metoprolol Tartrate [Lopressor] 50 mg PO BID amLODIPine [Norvasc] 5 mg PO DAILY Lisinopril-Hctz 20-12.5 mg [Zestoretic 20-12.5] 1 tab PO BID Meclizine [Antivert] 25 mg PO TID PRN #15 tab PRN Reason: Vertigo Pantoprazole Sodium [Protonix] 40 mg PO DAILY [place]-3 Fatty Acids/Fish Oil [Fish Oil 1,000 mg Softgel] 1 cap PO DAILY Discharge Medication List Atorvastatin [Lipitor] 40 mg PO DAILY 06/02/16 [History] Ranitidine HCl 150 mg PO AC-SUPPER 06/02/16 [History] Metoprolol Tartrate [Lopressor] 50 mg PO BID 01/29/17 [History] Lisinopril-Hctz 20-12.5 mg [Zestoretic 20-12.5] 1 tab PO BID 02/23/18 [History] Meclizine [Antivert] 25 mg PO TID PRN #15 tab 02/23/18 [Rx] amLODIPine [Norvasc] 5 mg PO DAILY 02/23/18 [History] [place]-3 Fatty Acids/Fish Oil [Fish Oil 1,000 mg Softgel] 1 cap PO DAILY [History] Pantoprazole Sodium [Protonix] 40 mg PO DAILY 10/08/18 [History] Metoclopramide [Reglan] 10 mg PO BID #14 tab 10/09/18 [Rx] Follow up Appointment(s)/Referral(s): Sulma Palencia DO [Primary Care Provider] - 1-2 days Aguila Bell MD [STAFF PHYSICIAN] - 10/10/18 1:15 pm Discharge Disposition: HOME SELF-CARE Pending Studies Pending Results: pareacentesis cytology results pending
--- NOTE | 2018-10-09 15:50 | US ---
EXAMINATION TYPE: US paracentesis abd w/image DATE OF EXAM: 10/09/2018 COMPARISON: NONE HISTORY: Ascites. PROCEDURE: Maximal barrier technique was utilized. The skin overlying a suitable pocket of fluid was localized with ultrasound and the overlying skin was prepped and draped. Ultrasound was utilized with sterile technique. Lidocaine was used for local anesthesia and a skin simone made with a scalpel. Catheter was advanced under direct ultrasound guidance into a suitable pocket of fluid and approximately 7.1 liter s of serous fluid were removed. Catheter was withdrawn and hemostasis achieved. There is no immedia te complication; the patient is discharged in stable condition. IMPRESSION: STATUS POST ULTRASOUND GUIDED PARACENTESIS FOR PALLIATION OF ASCITES. THIS PROCEDURE WA S PERFORMED BY THE UNDERSIGNED. Specimen sent for laboratory analysis.
--- NOTE | 2018-10-09 16:20 | P.HPIM ---
History of Present Illness H&P Date: 10/09/18 Chief Complaint: Progressive abd distension, vomiting, SOB Ms. Diaz is a very pleasant female pt of Dr. Bell, initially seen in consult at [facility] on 01/30/17, admitted with chronic RUQ pain, fatigue and malaise x 1 year, increased RUQ pain for the previous 9-10 days, CT AP 01/29/17 showed ascities with possible peritoneal carcinomatosis in the left abdomen, peripheral nodularity and lobulation related to the adnexa bilaterally, CT chest was negative. 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 She was discharged and referred to [facility] oncology at [facility]. She had surgery on 02/10/17, only able to have a partial resection so, she was referred back for chemotherapy. 03/13/17 she started weekly carbo/taxol, f/u treatment CT showed good response. She proceeded to surgery on 06/05/17, with only residual tumor noted in the ovary and uterus area, 1/5 left para-aortic, 1/5 left pelvic, and 1/11 right pelvic nodes involved. She then started adjuvant chemo and completed on 09/05/17. For BRCA positive mutation she opted for screening for her breasts with MRI in 10/12, which was negative. She was started on Tamoxifen. She decided to go ahead with prophylactic breast surgery in 05/13, with plan to to do 09/12 at [facility], however, f/u CT in 09/12 showed recurrence of malignancy in the abdomen and pelvis. She had a palliative paracentesis, with cytology positive. She was seen by Dr. Marvin at [facility], and after discussion of options (chemo vs clinical trial with PARP inhibitor) pt decided on chemo. She has had some abdominal pain with eating since late 08/13, intermittent abd bloating, pain in the LUQ, described as a fullness, early satiety. She was diagnosed with BPV in 02/10, and is improved with Antivert, tolerating Tamoxifen. She had her 1st cycle of doxil and carbo last week. She came to hospital over night due to progressive abd distension, severe heartburn with any intake and few episodes of vomiting, denied fevers, dysphagia , mild SOB on exertion, no cough, hemoptysis, hematemesis, dysuria, hematuria, no recent BM, takes stool softeners as needed, mild swelling in the legs, denies uncontrolled pain. Review of Systems 14 point ROS as stated in HPI Past Medical History Past Medical History: Cancer, GERD/Reflux, Hyperlipidemia, Hypertension Additional Past Medical History / Comment(s): anemia,adrenal gland growth-MRI ABD & Pelvic- April 2016, bronchitis, "fast hr-takes metoprolol", cyst rt ovary ovarian cancer 01/2017 History of Any Multi-Drug Resistant Organisms: None Reported Past Surgical History: Hysterectomy Additional Past Surgical History / Comment(s): colonoscopy Past Anesthesia/Blood Transfusion Reactions: Family History of Problems w/ Anesthesia Additional Past Anesthesia/Blood Transfusion Reaction / Comment(s): no hx general anesthesia or blood transfusion. mother-post op n/v Past Psychological History: No Psychological Hx Reported Additional Psychological History / Comment(s): pt is independant, lives with and adult joaquina age 22. 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 no ouside services received. has 4 steps into home. does have a 2nd level with 16-20 steps but mostly stays on first level. Smoking Status: Never smoker Past Alcohol Use History: Occasional Past Drug Use History: None Reported - Past Family History Mother Family Medical History: Cancer, Diabetes Mellitus, Hypertension, Myocardial Infarction ([place]) Additional Family Medical History / Comment(s): cabg, ovarian ca Father Family Medical History: Cancer, Hypertension Additional Family Medical History / Comment(s): lung,diverticulosis Brother(s) Family Medical History: Diabetes Mellitus Medications and Allergies Home Medications Medication Instructions Recorded Confirmed Type Atorvastatin [Lipitor] 40 mg PO DAILY 06/02/16 10/08/18 History Ranitidine HCl 150 mg PO AC-SUPPER 06/02/16 10/08/18 History Metoprolol Tartrate [Lopressor] 50 mg PO BID 01/29/17 10/08/18 History Lisinopril-Hctz 20-12.5 mg 1 tab PO BID 02/23/18 10/08/18 History [Zestoretic 20-12.5] Meclizine [Antivert] 25 mg PO TID PRN #15 tab 02/23/18 10/08/18 Rx amLODIPine [Norvasc] 5 mg PO DAILY 02/23/18 10/08/18 History [place]-3 Fatty Acids/Fish Oil [Fish 1 cap PO DAILY 10/08/18 10/08/18 History Oil 1,000 mg Softgel] Pantoprazole Sodium [Protonix] 40 mg PO DAILY 10/08/18 10/08/18 History Metoclopramide [Reglan] 10 mg PO BID #14 tab 10/09/18 Rx Allergies Allergy/AdvReac Type Severity Reaction Status Date / Time adhesive tape Allergy Swelling Verified 10/08/18 17:25 Physical Exam Vitals: Vital Signs Temp Pulse Pulse Pulse Resp BP BP 10/09/18 14:10 101 H 16 10/09/18 14:00 104 H 16 10/09/18 13:42 101 H 16 10/09/18 12:58 102 H 18 10/09/18 12:10 100 18 10/09/18 11:40 98.2 F 106 H 18 10/09/18 08:40 16 10/09/18 05:57 97.5 F L 99 16 112/68 10/09/18 00:00 16 10/08/18 22:49 99.5 F 114 H 16 105/74 10/08/18 22:38 97.6 F 116 H 16 148/88 10/08/18 21:48 100.5 F H 107 H 21 122/83 10/08/18 16:10 98.3 F 115 H 20 135/93 BP Pulse Ox 10/09/18 14:10 111/69 98 10/09/18 14:00 113/67 99 10/09/18 13:42 109/65 99 10/09/18 12:58 135/70 95 10/09/18 12:10 125/75 10/09/18 11:40 132/78 94 L 10/09/18 08:40 10/09/18 05:57 97 10/09/18 00:00 10/08/18 22:49 97 10/08/18 22:38 98 10/08/18 21:48 95 10/08/18 16:10 100 Intake and Output 10/09/18 10/09/18 10/09/18 06:59 14:59 22:59 Other: Voiding Method Toilet Toilet Weight 115.666 kg - Constitutional General appearance: cooperative, no acute distress, obese - EENT Eyes: anicteric sclerae, EOMI, normal appearance ENT: hearing grossly normal, normal oropharynx - Neck Neck: no lymphadenopathy - Respiratory Respiratory: bilateral: CTA, diminished (bases) - Cardiovascular Rhythm: regular Heart sounds: normal: S1, S2 Abnormal Heart Sounds: no systolic murmur, no diastolic murmur, no rub, no S3 Gallop, no S4 Gallop, no click, no other leg Peripheral Edema: bilateral: Trace - Gastrointestinal General gastrointestinal: no absent bowel sounds, no decreased bowel sounds, distended, no hepatomegaly, no hyperactive bowel sounds, normal bowel sounds, no organomegaly, no rigid, no scaphoid, soft, no splenomegaly, no tenderness, no umbilical hernia, no ventral hernia - Integumentary Integumentary: normal - Neurologic Neurologic: CNII-XII intact - Musculoskeletal Musculoskeletal: strength equal bilaterally - Psychiatric Psychiatric: A&O x's 3, appropriate affect, intact judgment & insight Results CBC & Chem 7: 10/08/18 19:41 10/08/18 19:41 Labs: Abnormal Lab Results - Last 24 Hours (Table) 10/08/18 10/08/18 10/08/18 Range/Units 19:41 19:41 19:55 MCV 79.3 L (80.0-100.0) fL Plt Count 562 H (150-450) k/uL Sodium 136 L (137-145) mmol/L Potassium 3.4 L (3.5-5.1) mmol/L Glucose 111 H (74-99) mg/dL Calcium 7.6 L (8.4-10.2) mg/dL Total Protein 5.2 L (6.3-8.2) g/dL Albumin 2.7 L (3.5-5.0) g/dL Urine Protein Trace H (Negative) Chest x-ray: report reviewed Abdominal x-ray: report reviewed US - abdomen: report reviewed Thrombosis Risk Factor Assmnt - DVT/VTE Prophylaxis DVT/VTE Prophylaxis: Contraindicated - See note (having paracentesis) - Choose All That Apply Each Factor Represents 1 point: Age 41-60 years, Obesity (BMI >25) Thrombosis Risk Factor Assessment Total Risk Factor Score: 2 Thrombosis Risk Factor Assessment Level: Low Risk Assessment and Plan (1) Ascites Narrative/Plan: Pt admitted last night for progressive symptoms as stated in HPI, she is scheduled to have paracentesis this AM. Conditional discharge orders placed. F /U appt already scheduled Current Visit: Yes Status: Acute Priority: High Code(s): R18.8 - OTHER ASCITES SNOMED Code(s): 467641559 (2) History of ovarian cancer Narrative/Plan: Pt has just started chemo last week. She will cont treatment on schedule. It was discussed with pt that she may require paracentesis a few more times until the chemo has destroyed enough of the cancer to alleviate the ascites. She verbalized understanding. Current Visit: Yes Status: Chronic Priority: High Code(s): Z85.43 - PERSONAL HISTORY OF MALIGNANT NEOPLASM OF OVARY SNOMED Code(s): 912995319
[2018-10-09 16:48] LABS: Appearance,BF Cloudy; Nucleated Cells, Body Fluid 400 /uL; RBC, Body Fluid 7050 /uL
[2018-10-09 16:49] LABS: Mononuclear WBC,Body Fluid 91 %; Polynuclear WBC,Body Fluid 9 %; Total Cells Counted,Body Fluid 100
[2018-10-09] MEDS ORDERED: FAMOTIDINE 20 MG TAB PO SCH (17:30)
[2018-10-09 22:11] LABS: Total Protein, Body Fluid 4500 mg/dL
--- NOTE | 2018-10-12 16:57 | CDI ---
Last Revision, October 2017 Documentation Clarification Form Date: 10/12/18 From: Randi Hardy Phone: If you have a question regarding this query, please contact Jenn Huerta at [phone] between 8am and 5pm. Admit Date: 10/08/2018 10:27:00 PM Patient Name: Tasha Diaz Visit Number: [id number] Discharge Date: 10/09/18 ATTENTION: The Clinical Documentation Specialists (CDI) and [facility] Coding Staff appreciate your assistance in clarifying documentation. Please respond to the clarification below the line at the bottom and electronically sign. The CDI & [facility] Coding staff will review the response and follow-up if needed. Please note: Queries are made part of the Legal Health Record. If you have any questions, please contact the author of this message via ITS. 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 Documentation states: Patient was admitted for ascites. Patient history/risk factors: The patient has advanced ovarian cancer. Patient also has hypertension. Clinical Indicators: Progressive abdominal distention, shortness of breath. Treatment: Paracentesis. In your professional opinion, do you agree that the ascites is malignant? Yes No Other (please specify) Unable to determine If yes, please specify the origin of the malignant ascites Ovarian Peritoneal Other (please specif) Unable to determine MTDD
== END 2018-10-09 17:00 | disposition home or self-care (01) | DRG 755 ==
LOC: EC 16:04 → 3NMEDONC 22:27
PROVIDERS: ADMIT Internal Medicine Hematology & Oncology; ATTEND Internal Medicine Hematology & Oncology
PROC: 0W9G3ZZ Drainage of Peritoneal Cavity, Percutaneous Approach (ICD-10-PCS; principal; 2018-10-09)
DX: C56.9 Malignant neoplasm of unspecified ovary (principal); R18.0 Malignant ascites; C48.2 Malignant neoplasm of peritoneum, unspecified; E78.5 Hyperlipidemia, unspecified; I10 Essential (primary) hypertension; K21.9 Gastro-esophageal reflux disease without esophagitis; R68.81 Early satiety; Z79.899 Other long term (current) drug therapy; Z90.710 Acquired absence of both cervix and uterus; Z83.3 Family history of diabetes mellitus; Z82.49 Family history of ischemic heart disease and other diseases of the circulatory system; Z80.41 Family history of malignant neoplasm of ovary; Z83.79 Family history of other diseases of the digestive system
CPT/HCPCS: 36415; 49083; 71046; 74018; 76705; 80053; 81003; 82150; 82945; 83605; 83615; 83690; 84157; 85025; 85610; 85730; 87040; 87070; 87075; 87205; 88108; 88305; 88341; 88342; 89050; 93005; 99285

== ENCOUNTER 2018-10-23 08:07 | Day surgery (SDC) | payer BC ==
[2018-10-23 09:00] LABS: Mean Platelet Volume 6.9; Platelet Count 324 k/uL (150-450)
[2018-10-23 09:08] VITALS: BP 127/82; PULSE 82; RESP 18
--- NOTE | 2018-10-23 09:33 | US ---
Therapeutic paracentesis. DATE OF EXAM: 10/23/2018 CLINICAL HISTORY: Ascites Preliminary imaging demonstrated only a small pocket of fluid within the right lower quadrant. No siz able fluid was seen on the left. Patient wished to defer the procedure. IMPRESSION: Deferred paracentesis due to small amount of fluid.
== END 2018-10-23 09:45 | disposition home or self-care (01) ==
LOC: RADPROMAIN 08:07
PROVIDERS: ATTEND Internal Medicine Hematology & Oncology
DX: R18.0 Malignant ascites (principal); Z53.8 Procedure and treatment not carried out for other reasons
CPT/HCPCS: 36415; 76705; 85049; 85610

== ENCOUNTER 2018-11-04 12:55 | Day surgery (SDC) | payer BC ==
[2018-11-04 13:13] VITALS: BP 145/90; PULSE 87; RESP 20; TEMP 97.7
--- NOTE | 2018-11-04 13:50 | US ---
Therapeutic paracentesis. DATE OF EXAM: 11/04/2018 CLINICAL HISTORY: Ascites Preliminary imaging demonstrated no evidence of fluid involving the right abdomen only a small pocket within the left abdomen. Patient deferred the procedure. IMPRESSION: Discontinued paracentesis due to insufficient fluid.
== END 2018-11-04 13:25 | disposition home or self-care (01) ==
LOC: RADPROMAIN 12:55
PROVIDERS: ATTEND Internal Medicine Hematology & Oncology
DX: R18.0 Malignant ascites (principal)
CPT/HCPCS: 76705

== ENCOUNTER → 2018-12-06 | Outpatient (CLI) | payer BC ==
--- NOTE | 2018-12-06 10:51 | CT ---
EXAMINATION TYPE: CT ChestAbdPelvis w con DATE OF EXAM: 12/06/2018 COMPARISON: 08/27/2018 HISTORY: Follow up of ovarian cancer, last chemo last CT DLP: 2281 mGycm Automated exposure control for dose reduction was used. CONTRAST: CT scan of the chest, abdomen and pelvis is performed and with IV Contrast, patient injected with 100 mL of Isovue 300. FINDINGS: CHEST: Heart upper limits of normal in size without pericardial effusion. Aorta normal caliber with bovine c onfiguration to the aortic arch. No thoracic lymphadenopathy by CT size criteria. No consolidation or pleural effusion. No new pulmonary nodules or masses seen. ABDOMEN: Low attenuation of the hepatic parenchyma compatible with hepatic steatosis. Stable 1.1 cm hypodense lesion posterior right liver lobe, axial image 57, likely cyst. Additional lo w density lesion involving the lower pole inferior margin right lobe liver is stable. There remains a small amount of fluid surrounding the liver. Retroperitoneal soft tissue density within the right pararenal space measuring 1.4 cm on the previous exam and now is only faintly seen with a maximal measurement of 7 mm. Lymph node within the left ret roperitoneum measured 9 mm on the previous exam and today measures less than 5 mm. Areas of mesenteric nodularity seen within the right abdomen have also reduced in size now measure le ss than 5 mm Remaining areas of omental or mesenteric nodularity all appear to be reduced in size some of which ar e only faintly demonstrated on today's exam with significant improvement measuring 5 mm or less. A small amount of free fluid in the abdomen and upper pelvis noted. Anterior abdominal wall hernia is stable. Small nodule along the medial anterior margin the spleen previously measured 1.7 cm in great est axis and now measures approximately 8 mm. Accessory spleen noted. Hepatic steatosis noted. There 2 new low density structures measuring 5 mm within the left lobe of the liver which was not clearly s een on the prior exam. Enhancement along the anterior margin of the liver is reduced. Peripancreatic and fany hepatis areas of suspected adenopathy or mesenteric implant appear to be red uced in size with the largest measuring 1 cm. PELVIS: Bladder is urine distended. There is reduction in amount of fluid within the pelvis. Thickening along the vaginal cuff is reduced and faintly seen on today's exam. BONES: Multilevel degenerative disc disease. IMPRESSION: 1. There is significant interval improvement with reduction in all of the areas of suspected peritone al or mesenteric implants as measured above. There also appears to be slight reduction in the size of the mesenteric lymph nodes as measured above. 2. Small amount of ascites which appears reduced from the prior exam. 3. Enhancing left hepatic lesion measuring 11 mm is stable. Additional hypodensities within the liver are stable with exception of two new 5 mm lesions within the left lobe the liver which should be mon itored on a short-term basis. It is nonspecific given its small size and follow-up exam could be obta ined to assess for stability and exclude the possibility of a metastatic lesion. 4. Stable anterior abdominal wall hernia.
== END | disposition home or self-care (01) ==
LOC: RADCTMAIN 07:46
PROVIDERS: ATTEND Internal Medicine Hematology & Oncology
DX: K76.9 Liver disease, unspecified (principal); R18.8 Other ascites; K43.9 Ventral hernia without obstruction or gangrene; C56.9 Malignant neoplasm of unspecified ovary
CPT/HCPCS: 82565; 84520; 71260; 74177; J1642; Q9967

== ENCOUNTER → 2019-01-02 | Outpatient (CLI) | payer BC ==
--- NOTE | 2019-01-02 14:55 | US ---
EXAMINATION TYPE: US venous doppler duplex LE RT DATE OF EXAM: 01/02/2019 2:48 PM COMPARISON: NONE CLINICAL HISTORY: M79.661 Pain r leg, R22.41 swelling. Chemo, right calf swelling, no hx of blood adrianna ts, not on blood thinners SIDE PERFORMED: Right TECHNIQUE: The lower extremity deep venous system is examined utilizing real time linear array sonog john with graded compression, doppler sonography and color-flow sonography. VESSELS IMAGED: External Iliac Vein (EIV) Common Femoral Vein Deep Femoral Vein Greater Saphenous Vein * Femoral Vein Popliteal Vein Small Saphenous Vein * Proximal Calf Veins (* superficial vessels) Right Leg: Negative for DVT IMPRESSION: No evidence for DVT.
== END | disposition home or self-care (01) ==
LOC: RADUSWWP 14:26
PROVIDERS: ATTEND Internal Medicine Hematology & Oncology
DX: M79.661 Pain in right lower leg (principal); R22.41 Localized swelling, mass and lump, right lower limb

== ENCOUNTER → 2019-01-22 | Outpatient (CLI) | payer BC ==
--- NOTE | 2019-01-22 08:25 | US ---
EXAMINATION TYPE: US abdomen complete DATE OF EXAM: 01/22/2019 COMPARISON: CT CLINICAL HISTORY: R10.11 RUQ Abdominal Pain. RUQ pain, pt currently in treatment for OV CA EXAM MEASUREMENTS: Liver Length: 17.3 cm Gallbladder Wall: 0.3 cm CBD: 0.3 cm Spleen: 10.5 cm Right Kidney: 11.2 x 4.2 x 5.0 cm Left Kidney: 10.4 x 5.4 x 4.1 cm Pancreas: Obscured by bowel gas Liver: Difficult to penetrate, heterogeneous, possible ill-defined area within left anterior lobe= 2 .2 x 1.0 x 2.3 cm, also small cyst within left lobe Gallbladder: wnl Evidence for sonographic Peres's sign: No CBD: wnl Spleen: wnl Right Kidney: wnl Left Kidney: wnl, probable Dromedary hump mid Upper IVC: wnl Abd Aorta: wnl IMPRESSION: 1. Liver is somewhat heterogeneous with possible ill-defined area measuring 2.3 cm within the left an terior lobe. Small cyst within the left lobe of the liver also noted. Hepatic findings could been the basis of fatty infiltration or hepatocellular disease. Ill-defined area is nonspecific but may corre spond to a hyperdense lesion seen in the anterior margin of the left lobe of thyroid by previous CT s can 12/06/2018. This could be correlated with PET scan as clinically warranted. Appears stable from e recent CT scan.
== END | disposition home or self-care (01) ==
LOC: RADUSWWP 07:17
PROVIDERS: ATTEND Internal Medicine Hematology & Oncology
DX: K76.89 Other specified diseases of liver (principal)
CPT/HCPCS: 76700

== ENCOUNTER → 2019-03-06 | Outpatient (CLI) | payer BC, OTHER ==
[2019-03-06 11:34] LABS: ALT 39 U/L (9-52); AST 35 U/L (14-36); Albumin 4.3 g/dL (3.5-5.0); Alkaline Phosphatase 72 U/L (38-126); Anion Gap 8 mmol/L; Blood Urea Nitrogen 18 mg/dL (7-17); Calcium 9.9 mg/dL (8.4-10.2); Carbon Dioxide 31 mmol/L (22-30); Chloride 103 mmol/L (98-107); Cholesterol 152 mg/dL (<200); Glucose 132 mg/dL (74-99); HDL Cholesterol 28 mg/dL (40-60); LDL Cholesterol,Calculated 71 mg/dL (0-99); Sodium 142 mmol/L (137-145); Total Bilirubin 0.8 mg/dL (0.2-1.3); Total Protein 7.7 g/dL (6.3-8.2); Triglycerides 266 mg/dL (<150)
[2019-03-06 12:45] LABS: Anisocytosis Slight; HCT 39.6 % (34.0-46.0); HGB 13.3 gm/dL (11.4-16.0); MCH 30.4 pg (25.0-35.0); MCHC 33.6 g/dL (31.0-37.0); MCV 90.5 fL (80.0-100.0); Platelet Count 234 k/uL (150-450); RBC 4.38 m/uL (3.80-5.40); RDW 18.4 % (11.5-15.5); WBC 4.7 k/uL (3.8-10.6)
--- NOTE | 2019-03-06 18:02 | CT ---
EXAMINATION TYPE: CT ChestAbdPelvis w con DATE OF EXAM: 03/06/2019 INDICATION: ovarian CA COMPARISON: 12/06/2018 CT DLP: 2183.7 mGycm CONTRAST: Performed with Oral Contrast and with IV Contrast, patient injected with 100 mL of Isovue 300. TECHNIQUE: Axial images at 5 mm thick sections. Reconstructed images in the coronal plane. Delayed images through the kidneys. FINDINGS: CT CHEST: Portion of the thyroid visualized is normal. There is a 0.3 cm peripheral nodule within the right midlung. Series 4 image 31. This appears to be p resent on 12/06/2018 comparison. No enlarged mediastinal or hilar adenopathy is evident. The ascending aorta diameter at the level of the main pulmonary artery is 2.9 cm. The main pulmonary artery diameter at the bifurcation is 2.[address] ABDOMEN: There is an abdominal hernia containing colon with an opening of 5.1 cm in the epigastric region. No obstruction is evident. Liver: There is moderate fatty dictation to the liver. No discrete masses are evident. Small cyst leila suring 0.9 cm at the inferior tip of the right lobe liver. Couple of additional punctate hypodensitie s are present and appear stable. Spleen: Normal Pancreas: Normal Adrenal glands: The adrenal glands are normal. Gallbladder: Normal Kidneys: No masses are evident. No hydronephrosis is present. No cysts are present. Delayed images were obtained through the kidneys, which remain unremarkable. Aorta: Normal Inferior vena cava: Normal. CT PELVIS: There is a periumbilical hernia which is wide containing loops of contrast-filled loops of bowel. Opening is 7.7 cm. No obstruction is evident. No mesenteric caking is evident. No abnormal fluid collections are evident. No suspicious cysts are e vident. No pelvic or abdominal adenopathy enlarged by CT criteria is evident. Previous diminishing no dularity within the mesentery appears essentially nonvisualized on the current exam. Loops of bowel within the abdomen and pelvis are normal. There are loops of bowel which are incom pletely distended or lack oral contrast limiting their evaluation. Appendix: Normal as visualized. Urinary bladder: Normal Genitourinary structures: Uterus and ovaries are not identified. Osseous structures: No suspicious lytic or sclerotic lesions. Facet degenerative changes are in the l ower lumbar spine. IMPRESSIONS: 1. No suspicious changes suggest recurrent or metastatic ovarian cancer. 2. Epigastric and periumbilical abdominal wall hernias containing nonobstructed loops of bowel. 3. Tiny peripheral nodule right lung base. Follow-up CT chest in 6 months is recommended to confirm s tability.
[2019-03-06 22:58] LABS: Hemoglobin A1C 6.4 % (4.0-6.0)
== END ==
LOC: RADPROMAIN 10:21
PROVIDERS: ATTEND Internal Medicine Hematology & Oncology
DX: K43.9 Ventral hernia without obstruction or gangrene (principal); K42.9 Umbilical hernia without obstruction or gangrene; C56.9 Malignant neoplasm of unspecified ovary
CPT/HCPCS: 80061; 80053; 85027; 83036; 71260; 74177; J1642; Q9967

== ENCOUNTER 2019-03-07 16:25 | Emergency (ER) | payer BC, OTHER ==
[2019-03-07] MEDS ORDERED: SODIUM CHLORIDE 0.9% 1,000 ML IV STA (17:02)
[2019-03-07] MEDS ORDERED: VANCOMYCIN IV PER PHARMACY 1 EACH MISC MISCELLANE PRN (17:02)
[2019-03-07] MEDS ORDERED: DEXAMETHASONE SOD PHOSPHATE 10 MG/ML 1 ML VIAL IV STA (17:03)
--- NOTE | 2019-03-07 17:03 | ED ---
Eye Problem HPI - General Chief complaint: Eye Problems Stated complaint: LEFT EYE SWELLING PAIN AND RT JAW PAIN, Ca PATIENT Time Seen by Provider: 03/07/19 16:43 Source: patient Mode of arrival: ambulatory Limitations: no limitations - History of Present Illness Initial comments: This is a 53-year-old female the ER for evaluation patient presents ER for evaluation of left eye symptoms. Patient received diagnosis thigh, no eyedrops is warm compresses. Swelling has increased in that left side. Erythema around the eye is increased. Patient denies also draining clear liquid fluid. Patient has no fevers. Denies vision changes. MD chief complaint: eye pain (LEFT), eye redness, other (edema and swelling) -: days(s) (2) Onset Description: gradual Location: left eye Place: home If Injury: none Eye Symptoms: burning, redness, discharge, blurry vision Severity: moderate Severity scale (1-10): 4 If Pain, Quality: aching Consistency: constant Associated Symptoms: none Treatments Prior to Arrival: none - Related Data Home Medications Medication Instructions Recorded Confirmed Atorvastatin [Lipitor] 40 mg PO DAILY 06/02/16 11/04/18 Ranitidine HCl 150 mg PO AC-SUPPER 06/02/16 11/04/18 Metoprolol Tartrate [Lopressor] 50 mg PO DAILY 01/29/17 11/04/18 Lisinopril-Hctz 20-12.5 mg 1 tab PO DAILY 02/23/18 11/04/18 [Zestoretic 20-12.5] Jolley-3 Fatty Acids/Fish Oil [Fish 1 cap PO DAILY 10/08/18 11/04/18 Oil 1,000 mg Softgel] Pantoprazole Sodium [Protonix] 40 mg PO DAILY 10/08/18 11/04/18 Metoclopramide [Reglan] 10 mg PO BID PRN 10/15/18 11/04/18 Previous Rx's Medication Instructions Recorded Amoxic-Pot Clav 875-125Mg 1 tab PO Q12HR #20 tablet 03/07/19 [Augmentin 875-125] Levofloxacin 750 mg PO DAILY #7 tablet 03/07/19 Allergies Allergy/AdvReac Type Severity Reaction Status Date / Time adhesive tape Allergy Swelling Verified 03/07/19 16:42 Review of Systems ROS Statement: Those systems with pertinent positive or pertinent negative responses have been documented in the HPI. ROS Other: All systems not noted in ROS Statement are negative. Past Medical History Past Medical History: Cancer, GERD/Reflux, Hyperlipidemia, Hypertension Additional Past Medical History / Comment(s): anemia,adrenal gland growth-MRI ABD & Pelvic- April 2016, bronchitis, "fast hr-takes metoprolol", cyst rt ovary ovarian cancer 01/2017, recent paracentesis History of Any Multi-Drug Resistant Organisms: None Reported Past Surgical History: Hysterectomy Additional Past Surgical History / Comment(s): colonoscopy Past Anesthesia/Blood Transfusion Reactions: Family History of Problems w/ Anesthesia Additional Past Anesthesia/Blood Transfusion Reaction / Comment(s): no hx general anesthesia or blood transfusion. mother-post op n/v Past Psychological History: No Psychological Hx Reported Smoking Status: Never smoker Past Alcohol Use History: Occasional Past Drug Use History: None Reported - Past Family History Mother Family Medical History: Cancer, Diabetes Mellitus, Hypertension, Myocardial Infarction (OR) Additional Family Medical History / Comment(s): cabg, ovarian ca Father Family Medical History: Cancer, Hypertension Additional Family Medical History / Comment(s): lung,diverticulosis Brother(s) Family Medical History: Diabetes Mellitus General Exam Limitations: no limitations Course Vital Signs 03/07/19 16:39 Temperature 99.0 F Pulse Rate 117 H Respiratory 20 Rate Blood Pressure 168/93 O2 Sat by Pulse 100 Oximetry Medical Decision Making - Medical Decision Making 53 female the ER for evaluation left sided preseptal, soft tissue I cellulitis, CT negative. Patient can be discharged home - Lab Data Result diagrams: 03/07/19 19:15 03/07/19 19:15 Lab Results 03/07/19 03/07/19 03/07/19 Range/Units 19:15 19:15 19:15 WBC 5.8 (3.8-10.6) k/uL RBC 4.41 (3.80-5.40) m/uL Hgb 13.3 (11.4-16.0) gm/dL Hct 39.5 (34.0-46.0) % MCV 89.6 (80.0-100.0) fL MCH 30.1 (25.0-35.0) pg MCHC 33.6 (31.0-37.0) g/dL RDW 18.5 H (11.5-15.5) % Plt Count 195 (150-450) k/uL Neutrophils % 71 % Lymphocytes % 19 % Monocytes % 5 % Eosinophils % 2 % Basophils % 0 % Neutrophils # 4.2 (1.3-7.7) k/uL Lymphocytes # 1.1 (1.0-4.8) k/uL Monocytes # 0.3 (0-1.0) k/uL Eosinophils # 0.1 (0-0.7) k/uL Basophils # 0.0 (0-0.2) k/uL Poikilocytosis Slight Anisocytosis Slight Sodium 140 (137-145) mmol/L Potassium 3.8 (3.5-5.1) mmol/L Chloride 104 (98-107) mmol/L Carbon Dioxide 25 (22-30) mmol/L Anion Gap 11 mmol/L BUN 13 (7-17) mg/dL Creatinine 0.66 (0.52-1.04) mg/dL Est GFR (CKD-EPI)AfAm >90 (>60 ml/min/1.73 sqM) Est GFR (CKD-EPI)NonAf >90 (>60 ml/min/1.73 sqM) Glucose 103 H (74-99) mg/dL Calcium 9.6 (8.4-10.2) mg/dL Phosphorus 2.9 (2.5-4.5) mg/dL Magnesium 1.8 (1.6-2.3) mg/dL Total Bilirubin 0.8 (0.2-1.3) mg/dL AST 43 H (14-36) U/L ALT 36 (9-52) U/L Alkaline Phosphatase 88 (38-126) U/L Troponin I <0.012 (0.000-0.034) ng/mL C-Reactive Protein 20.3 H (<10.0) mg/L Total Protein 7.1 (6.3-8.2) g/dL Albumin 4.2 (3.5-5.0) g/dL - Radiology Data Radiology results: report reviewed (CT orbits negative for orbital cellulitis), image reviewed Disposition Clinical Impression: Preseptal cellulitis of left eye Disposition: HOME SELF-CARE Condition: Good Instructions (If sedation given, give patient instructions): Periorbital Cellulitis in Adults (ED) Prescriptions: Amoxic-Pot Clav 875-125Mg [Augmentin 875-125] 1 tab PO Q12HR #20 tablet Levofloxacin 750 mg PO DAILY #7 tablet Is patient prescribed a controlled substance at d/c from ED?: No Referrals: Sulma Palencia DO [Primary Care Provider] - 1-2 days
[2019-03-07] MEDS ORDERED: AMPICILLIN-SULBACTAM 3 GM in SODIUM CHLORIDE 0.9% 100 ML IVPB STA (17:09)
[2019-03-07] MEDS ORDERED: VANCOMYCIN 2,000 MG in SODIUM CHLORIDE 0.9% 500 ML 500 ML IVPB STA (17:13)
[2019-03-07 19:34] LABS: Anisocytosis Slight; Basophils % (A) 0 %; Eosinophils # (A) 0.1 k/uL (0-0.7); Eosinophils % (A) 2 %; HCT 39.5 % (34.0-46.0); HGB 13.3 gm/dL (11.4-16.0); Lymphocytes # (A) 1.1 k/uL (1.0-4.8); Lymphocytes % (A) 19 %; MCH 30.1 pg (25.0-35.0); MCHC 33.6 g/dL (31.0-37.0); MCV 89.6 fL (80.0-100.0); Mean Platelet Volume 6.8; Monocytes # (A) 0.3 k/uL (0-1.0); Monocytes % (A) 5 %; Neutrophils # (A) 4.2 k/uL (1.3-7.7); Neutrophils % (A) 71 %; Platelet Count 195 k/uL (150-450); Poikilocytosis Slight; RBC 4.41 m/uL (3.80-5.40); RDW 18.5 % (11.5-15.5); WBC 5.8 k/uL (3.8-10.6)
[2019-03-07 19:45] LABS: ALT 36 U/L (9-52); AST 43 U/L (14-36); Albumin 4.2 g/dL (3.5-5.0); Alkaline Phosphatase 88 U/L (38-126); Anion Gap 11 mmol/L; Blood Urea Nitrogen 13 mg/dL (7-17); C Reactive Protein 20.3 mg/L (<10.0); Calcium 9.6 mg/dL (8.4-10.2); Carbon Dioxide 25 mmol/L (22-30); Chloride 104 mmol/L (98-107); Glucose 103 mg/dL (74-99); Magnesium 1.8 mg/dL (1.6-2.3); Phosphorus 2.9 mg/dL (2.5-4.5); Potassium 3.8 mmol/L (3.5-5.1); Sodium 140 mmol/L (137-145); Total Bilirubin 0.8 mg/dL (0.2-1.3); Total Protein 7.1 g/dL (6.3-8.2)
--- NOTE | 2019-03-07 20:01 | CT ---
EXAMINATION TYPE: CT orbits w con DATE OF EXAM: 03/07/2019 COMPARISON: None HISTORY: LT eye swelling, rt jaw pain, ca patient CT DLP: 277.5 mGycm Automated exposure control for dose reduction was used. CONTRAST: Performed with IV Contrast, patient injected with 100 mL of Isovue 300. FINDINGS: Multiple axial sections were obtained from the bottom of the maxilla to the top of the frontal sinuse s with intravenous contrast. There is mild mucosal thickening in the ethmoid sinuses. Nasal bone is intact. Orbital margins are in tact. There is minimal mucosal thickening in the left maxillary sinus. Maxilla appears intact. There is no evidence of retro-orbital mass. There is mild preseptal left periorbital soft tissue swelling. I see no focal bone destruction. IMPRESSION: MILD ETHMOID AND LEFT MAXILLARY SINUSITIS. MILD LEFT-SIDED PERIORBITAL SOFT TISSUE SWELLING.
[2019-03-07] MEDS ORDERED: TOBRAMYCIN 0.3% OPHTH DROPS 5 ML BTL LEFT EYE STA (20:15)
[2019-03-07 20:33] VITALS: BP 189/97; PULSE 98; RESP 16; TEMP 98
[2019-03-08] MEDS ORDERED: VANCOMYCIN 1,750 MG in SODIUM CHLORIDE 0.9% 500 ML 500 ML IVPB SCH (09:00)
--- NOTE | 2019-03-10 02:05 | CDI ---
Dear Louis Olsen DO: Please do addendum Physical Examination. Thank you, Juan Duncan, Wire Mill Operator. If you have any questions, please contact Merchandising Consultant at [phone]. [facility]
== END 2019-03-07 21:00 | disposition home or self-care (01) ==
LOC: EC 16:25
DX: L03.213 Periorbital cellulitis (principal); E78.5 Hyperlipidemia, unspecified; I10 Essential (primary) hypertension; K21.9 Gastro-esophageal reflux disease without esophagitis; Z79.899 Other long term (current) drug therapy; Z91.048 Other nonmedicinal substance allergy status; Z85.43 Personal history of malignant neoplasm of ovary; Z86.79 Personal history of other diseases of the circulatory system; Z53.8 Procedure and treatment not carried out for other reasons
CPT/HCPCS: 99284; 96365; 96375; 36415; 80053; 83735; 84100; 84484; 85025; 86140; 87040; 70481; J1100; J0295; Q9967

== ENCOUNTER 2019-06-25 18:18 | Observation (INO) | payer BC, OTHER ==
[2019-06-25] MEDS ORDERED: SODIUM CHLORIDE 0.9% 500 ML 500 ML IV STA (18:36)
[2019-06-25 19:04] LABS: Anisocytosis Slight; MCH 29.3 pg (25.0-35.0); MCHC 33.6 g/dL (31.0-37.0); MCV 87.3 fL (80.0-100.0); Mean Platelet Volume 8.1; Platelet Count 368 k/uL (150-450); RDW 17.3 % (11.5-15.5); WBC 5.4 k/uL (3.8-10.6)
[2019-06-25 19:13] LABS: HGB 6.7 gm/dL (11.4-16.0)
[2019-06-25 19:19] LABS: Albumin 4.1 g/dL (3.5-5.0); Calcium 9.7 mg/dL (8.4-10.2); Potassium 3.6 mmol/L (3.5-5.1); Total Bilirubin 0.3 mg/dL (0.2-1.3); Total Protein 6.5 g/dL (6.3-8.2)
[2019-06-25 19:26] LABS: INR 0.9 (<1.2); Partial Thromboplastin Time 31.9 sec (22.0-30.0)
--- NOTE | 2019-06-25 19:30 | XR ---
EXAMINATION: XR chest 2V DATE AND TIME: 06/25/2019 7:23 PM CLINICAL INDICATION: PHH; Weakness TECHNIQUE: Departmental protocol COMPARISON: None FINDINGS: Right subclavian Port-A-Cath tip superimposed over the distal SVC. The lungs are clear. The pleural spaces are negative. The cardiac silhouette is not enlarged. The remainder of the mediastinal silhouette is unremarkable. The skeletal structures and soft tissues are negative for acute findings. IMPRESSION: NO ACUTE PROCESS.
--- NOTE | 2019-06-25 19:46 | ED ---
Weakness HPI - General Chief complaint: Weakness Stated complaint: Weakness Time Seen by Provider: 06/25/19 18:36 Source: patient Mode of arrival: ambulatory Limitations: no limitations - History of Present Illness Initial comments: 53-year-old female with extensive past medical history including active ovarian cancer presenting today for chief complaint of generalized weakness. Patient states she has had generalized weakness for the past month since she started a new medication, Lynparza. She was told by her oncologist that this may decrease her hemoglobin. Patient states when active for a short period time she is very tired. Increased sleeping. At times she has headaches that occur most often with activity. Patient denies current headache she denies visual changes patient denies any melena hematochezia. Patient states this symptoms have been gradually increasing and especially noted this past week. Patient denies any chest pain shortness of breath or vomiting. Patient states that she is more pale than usual at times feels like her heart was racing. Patient also may note that there was a right foot swelling she called her oncologist who stated that this most likely was a medication side effect. Patient denies hemoptysis histor y of DVT or pulmonary embolism. Remaining review of system negative. Upon arrival patient's heart rate is elevated. Patient appears well no overt signs of distress or shortness of breath. Oxygen at a mall on room air with stable blood pressure-which is noted to be elevated. - Related Data Home Medications Medication Instructions Recorded Confirmed Atorvastatin [Lipitor] 40 mg PO DAILY 06/02/16 06/25/19 Ranitidine HCl 150 mg PO AC-SUPPER 06/02/16 06/25/19 Metoprolol Tartrate [Lopressor] 50 mg PO DAILY 01/29/17 06/25/19 Lisinopril-Hctz 20-12.5 mg 1 tab PO DAILY 02/23/18 06/25/19 [Zestoretic 20-12.5] [place]-3 Fatty Acids/Fish Oil [Fish 1 cap PO DAILY 10/08/18 06/25/19 Oil 1,000 mg Softgel] Ascorbic Acid [Vitamin C] 1,000 mg PO DAILY 06/25/19 06/25/19 Biotin 10,000 mcg PO DAILY 06/25/19 06/25/19 Olaparib [Lynparza] 300 mg PO BID 06/25/19 06/25/19 amLODIPine [Norvasc] 5 mg PO DAILY 06/25/19 06/25/19 Allergies Allergy/AdvReac Type Severity Reaction Status Date / Time adhesive tape Allergy Swelling Verified 06/25/19 18:41 Review of Systems ROS Statement: Those systems with pertinent positive or pertinent negative responses have been documented in the HPI. ROS Other: All systems not noted in ROS Statement are negative. Past Medical History Past Medical History: Cancer, GERD/Reflux, Hyperlipidemia, Hypertension Additional Past Medical History / Comment(s): anemia,adrenal gland growth-MRI ABD & Pelvic- April 2016, bronchitis, "fast hr-takes metoprolol", cyst rt ovary ovarian cancer 01/2017, recent paracentesis History of Any Multi-Drug Resistant Organisms: None Reported Past Surgical History: Hysterectomy Additional Past Surgical History / Comment(s): colonoscopy Past Anesthesia/Blood Transfusion Reactions: Family History of Problems w/ Anesthesia Additional Past Anesthesia/Blood Transfusion Reaction / Comment(s): no hx g eneral anesthesia or blood transfusion. mother-post op n/v Past Psychological History: No Psychological Hx Reported Smoking Status: Never smoker Past Alcohol Use History: Occasional Past Drug Use History: None Reported - Past Family History Mother Family Medical History: Cancer, Diabetes Mellitus, Hypertension, Myocardial Infarction ([place]) Additional Family Medical History / Comment(s): cabg, ovarian ca Father Family Medical History: Cancer, Hypertension Additional Family Medical History / Comment(s): lung,diverticulosis Brother(s) Family Medical History: Diabetes Mellitus General Exam - General Exam Comments Initial Comments: General: The patient is awake and alert, in no distress Eye: +3 mm pupils are equal, round and reactive to light, extra-ocular movements are intact. No nystagmus. There is normal conjunctiva bilaterally. No signs of icterus. Ears, nose, mouth and throat: There are moist mucous membranes that appears pale and no oral lesions. Neck: The neck is supple, there is no tenderness or JVD. Cardiovascular: There is a regular rate and rhythm. No murmur, rub or gallop is appreciated. Respiratory: Lungs are clear to auscultation, respirations are non-labored, breath sounds are equal. No wheezes, stridor, rales, or rhonchi. Gastrointestinal: Soft, non-distended, non-tender abdomen without masses or organomegaly noted. There is no rebound or guarding present. No CVA tenderness. Bowel sounds are unremarkable. Musculoskeletal: Normal ROM, no tenderness. Strength 5/5. Sensation intact. Pulses equal bilaterally 2+. Neurological: A&O x 3. CN II-XII intact, There are no obvious motor or sensory deficits. Coordination appears grossly intact. Speech is normal. Skin: Skin is warm and dry and no rashes or lesions are noted. No pitting edema of the LE, noted swelling of the dorsum of foot. No redness. No calf pain, (-) Homans b/l. Psychiatric: Cooperative, appropriate mood & affect, normal judgment. Limitations: no limitations Course Vital Signs 06/25/19 18:20 Temperature 98.6 F Pulse Rate 107 H Respiratory 16 Rate Blood Pressure 162/88 O2 Sat by Pulse 99 Oximetry EKG Findings - EKG Comments: EKG Findings:: A 12-lead EKG was performed and shows the following: Rate is 92bpm, and rhythm is normal sinus. There are normal QRS complexes and normal R- wave progression. ST segments have no elevation or depression, and AL segments appear normal. Nonspecific T wave. AL interval 152 ms, QRS duration 94 ms, QT/QTC 360/445. Medical Decision Making - Medical Decision Making 53-year-old female presenting today for chief complaint of generalized weakness. Patient is on a new medication and pars a which has side effect of decreased hemoglobin. Patient hemoglobin 6.7. She has symptomatic increased heart rate with generalized weakness and pallor of the mucous membranes. I feel this is acute, will tranfuse 1 unit. US of the right LE was obtained given active cancer, revealing . Patient denied CP or SOB, hemoptysis. Troponin (-). EKG revealed normal sinus. I spoke with my attending provider Dr. Unger who is agreeable with admission to medicine with oncology consultation. Dr. Salazar accepted admission visiting patient in the ER, he is agreeable to care plan however recommended addition unit. Dr. Salazar evaluated patient in the ER.Patient agreeable with care plan and admission. - Lab Data Result diagrams: 06/25/19 18:48 06/25/19 18:48 Lab Results 06/25/19 06/25/19 06/25/19 Range/Units 18:48 18:48 18:48 WBC 5.4 (3.8-10.6) k/uL RBC 2.30 L (3.80-5.40) m/uL Hgb 6.7 L* (11.4-16.0) gm/dL Hct 20.0 L (34.0-46.0) % MCV 87.3 (80.0-100.0) fL MCH 29.3 (25.0-35.0) pg MCHC 33.6 (31.0-37.0) g/dL RDW 17.3 H (11.5-15.5) % Plt Count 368 (150-450) k/uL Anisocytosis Slight PT (9.0-12.0) sec INR (<1.2) APTT (22.0-30.0) sec Sodium 139 (137-145) mmol/L Potassium 3.6 (3.5-5.1) mmol/L Chloride 104 (98-107) mmol/L Carbon Dioxide 25 (22-30) mmol/L Anion Gap 10 mmol/L BUN 15 (7-17) mg/dL Creatinine 1.04 (0.52-1.04) mg/dL Est GFR (CKD-EPI)AfAm 72 (>60 ml/min/1.73 sqM) Est GFR (CKD-EPI)NonAf 63 (>60 ml/min/1.73 sqM) Glucose 125 H (74-99) mg/dL Plasma Lactic Acid Gamaliel 2.0 (0.7-2.0) mmol/L Calcium 9.7 (8.4-10.2) mg/dL Total Bilirubin 0.3 (0.2-1.3) mg/dL AST 16 (14-36) U/L ALT 20 (9-52) U/L Alkaline Phosphatase 81 (38-126) U/L Troponin I (0.000-0.034) ng/mL NT-Pro-B Natriuret Pep pg/mL Total Protein 6.5 (6.3-8.2) g/dL Albumin 4.1 (3.5-5.0) g/dL Blood Type Blood Type Recheck Antibody Screen Crossmatch Spec Expiration Date 06/25/19 06/25/19 06/25/19 Range/Units 18:48 18:48 18:48 WBC (3.8-10.6) k/uL RBC (3.80-5.40) m/uL Hgb (11.4-16.0) gm/dL Hct (34.0-46.0) % MCV (80.0-100.0) fL MCH (25.0-35.0) pg MCHC (31.0-37.0) g/dL RDW (11.5-15.5) % Plt Count (150-450) k/uL Anisocytosis PT 10.0 (9.0-12.0) sec INR 0.9 (<1.2) APTT 31.9 H (22.0-30.0) sec Sodium (137-145) mmol/L Potassium (3.5-5.1) mmol/L Chloride (98-107) mmol/L Carbon Dioxide (22-30) mmol/L Anion Gap mmol/L BUN (7-17) mg/dL Creatinine (0.52-1.04) mg/dL Est GFR (CKD-EPI)AfAm (>60 ml/min/1.73 sqM) Est GFR (CKD-EPI)NonAf (>60 ml/min/1.73 sqM) Glucose (74-99) mg/dL Plasma Lactic Acid Gamaliel (0.7-2.0) mmol/L Calcium (8.4-10.2) mg/dL Total Bilirubin (0.2-1.3) mg/dL AST (14-36) U/L ALT (9-52) U/L Alkaline Phosphatase (38-126) U/L Troponin I <0.012 (0.000-0.034) ng/mL NT-Pro-B Natriuret Pep 63 pg/mL Total Protein (6.3-8.2) g/dL Albumin (3.5-5.0) g/dL Blood Type Blood Type Recheck Antibody Screen Crossmatch Spec Expiration Date 06/25/19 Range/Units 18:48 WBC (3.8-10.6) k/uL RBC (3.80-5.40) m/uL Hgb (11.4-16.0) gm/dL Hct (34.0-46.0) % MCV (80.0-100.0) fL MCH (25.0-35.0) pg MCHC (31.0-37.0) g/dL RDW (11.5-15.5) % Plt Count (150-450) k/uL Anisocytosis PT (9.0-12.0) sec INR (<1.2) APTT (22.0-30.0) sec Sodium (137-145) mmol/L Potassium (3.5-5.1) mmol/L Chloride (98-107) mmol/L Carbon Dioxide (22-30) mmol/L Anion Gap mmol/L BUN (7-17) mg/dL Creatinine (0.52-1.04) mg/dL Est GFR (CKD-EPI)AfAm (>60 ml/min/1.73 sqM) Est GFR (CKD-EPI)NonAf (>60 ml/min/1.73 sqM) Glucose (74-99) mg/dL Plasma Lactic Acid Gamaliel (0.7-2.0) mmol/L Calcium (8.4-10.2) mg/dL Total Bilirubin (0.2-1.3) mg/dL AST (14-36) U/L ALT (9-52) U/L Alkaline Phosphatase (38-126) U/L Troponin I (0.000-0.034) ng/mL NT-Pro-B Natriuret Pep pg/mL Total Protein (6.3-8.2) g/dL Albumin (3.5-5.0) g/dL Blood Type A Positive Blood Type Recheck CABO Indicated Antibody Screen NEGATIVE Crossmatch See Detail Spec Expiration Date 06/28/2019 - 2348 Disposition Clinical Impression: Symptomatic anemia, Generalized weakness Disposition: ADMITTED IP TO THIS [facility] Condition: Stable Is patient prescribed a controlled substance at d/c from ED?: No Referrals: Sulma Palencia DO [Primary Care Provider] - 1-2 days Time of Disposition: 20:21 Decision to Admit Reason: Admit from EC Decision Date: 06/25/19 Decision Time: 20:21
--- NOTE | 2019-06-25 20:12 | P.HPIM ---
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 Apparently the patient's symptoms have been progressively worsening over the last week, she also reports right lower extremity pain and swelling over the last 2 days with increased episodes of dizziness and headaches. The patient denies any chest pain she denies any shortness of breath, she denies any subjective fevers chills or night sweats. The patient is followed by Dr. Bell in oncology clinic. The patient denies any nausea vomiting abdominal pain diarrhea or constipation, she also denies any bright red blood per rectum or dark melanotic stools. In the ER the patient had a comprehensive workup hemoglobin was 6.7 hematocrit was 20, sodium 139 potassium 3.6 creatinine 1.04, chest x-ray showed no acute process. The patient is recommended for admission for symptomatic anemia was typed and crossed and orders for 2 unit packed RBC transfusions were initiated from the ER. Review of Systems Pertinent positives per HPI all other systems otherwise negative Past Medical History Past Medical History: Cancer, GERD/Reflux, Hyperlipidemia, Hypertension Additional Past Medical History / Comment(s): anemia,adrenal gland growth-MRI ABD & Pelvic- April 2016, bronchitis, "fast hr-takes metoprolol", cyst rt ovary ovarian cancer 01/2017, recent paracentesis History of Any Multi-Drug Resistant Organisms: None Reported Past Surgical History: Hysterectomy Additional Past Surgical History / Comment(s): colonoscopy Past Anesthesia/Blood Transfusion Reactions: Family History of Problems w/ Anesthesia Additional Past Anesthesia/Blood Transfusion Reaction / Comment(s): no hx general anesthesia or blood transfusion. mother-post op n/v Past Psychological History: No Psychological Hx Reported Smoking Status: Never smoker Past Alcohol Use History: Occasional Past Drug Use History: None Reported - Past Family History Mother Family Medical History: Cancer, Diabetes Mellitus, Hypertension, Myocardial Infarction ([place]) Additional Family Medical History / Comment(s): cabg, ovarian ca Father Family Medical History: Cancer, Hypertension Additional Family Medical History / Comment(s): lung,diverticulosis Brother(s) Family Medical History: Diabetes Mellitus Medications and Allergies Home Medications Medication Instructions Recorded Confirmed Type Atorvastatin [Lipitor] 40 mg PO DAILY 06/02/16 06/25/19 History Ranitidine HCl 150 mg PO AC-SUPPER 06/02/16 06/25/19 History Metoprolol Tartrate [Lopressor] 50 mg PO DAILY 01/29/17 06/25/19 History Lisinopril-Hctz 20-12.5 mg 1 tab PO DAILY 02/23/18 06/25/19 History [Zestoretic 20-12.5] [place]-3 Fatty Acids/Fish Oil [Fish 1 cap PO DAILY 10/08/18 06/25/19 History Oil 1,000 mg Softgel] Ascorbic Acid [Vitamin C] 1,000 mg PO DAILY 06/25/19 06/25/19 History Biotin 10,000 mcg PO DAILY 06/25/19 06/25/19 History Olaparib [Lynparza] 300 mg PO BID 06/25/19 06/25/19 History amLODIPine [Norvasc] 5 mg PO DAILY 06/25/19 06/25/19 History Allergies Allergy/AdvReac Type Severity Reaction Status Date / Time adhesive tape Allergy Swelling Verified 06/25/19 18:41 Physical Exam Vitals: Vital Signs Temp Pulse Resp BP Pulse Ox 06/25/19 18:20 98.6 F 107 H 16 162/88 99 Intake and Output 06/25/19 06/25/19 06/25/19 06:59 14:59 22:59 Other: Weight 107.501 kg Constitutional: No acute distress, conversant, pleasant Eyes: Anicteric sclerae, moist conjunctiva, no lid-lag, PERRLA ENMT: NC/AT,Oropharynx clear, no erythema, exudates Neck:Supple, FROM, no masses, or JVD, No carotid bruits; No thyromegaly Lungs: Clear to auscultation, Clear to percussion, Normal respiratory effort, no accessory muscle use Cardiovascular: Heart regular in rate and rhythm, No murmurs, gallops, or rubs no peripheral edema Abdominal: Soft Nontender, nom distended, no guarding, no rebound or rigidity, Normoactive bowel sounds No hepatomegaly, No splenomegaly, No palpable mass No abdominal wall hernia noted Skin: Normal temperature, tone, texture, turgor, No induration No subcutaneous nodules, No rash, lesions, No ulcers Extremities:No digital cyanosis No clubbing, Pedal pulses intact and symmetrical Radial pulses intact and symmetrical Normal gait and station, No calf tenderness Psychiatric: Alert and oriented to person, place and time, Appropriate affect Intact judgement Neuro: Muscles Strength 5/5 in all 4 extremities, Sensation to light touch grossly present throughout, Cranial nerves II-XII grossly intact. No focal sensory deficits Results CBC & Chem 7: 06/25/19 18:48 06/25/19 18:48 Labs: Abnormal Lab Results - Last 24 Hours (Table) 06/25/19 06/25/19 06/25/19 Range/Units 18:48 18:48 18:48 RBC 2.30 L (3.80-5.40) m/uL Hgb 6.7 L* (11.4-16.0) gm/dL Hct 20.0 L (34.0-46.0) % RDW 17.3 H (11.5-15.5) % APTT 31.9 H (22.0-30.0) sec Glucose 125 H (74-99) mg/dL Crossmatch 06/25/19 Range/Units 18:48 RBC (3.80-5.40) m/uL Hgb (11.4-16.0) gm/dL Hct (34.0-46.0) % RDW (11.5-15.5) % APTT (22.0-30.0) sec Glucose (74-99) mg/dL Crossmatch See Detail Assessment and Plan (1) Symptomatic anemia Current Visit: Yes Status: Acute Code(s): D64.9 - ANEMIA, UNSPECIFIED SNOMED Code(s): 099092350 (2) Ovarian cancer, BRCA1 positive Current Visit: Yes Status: Acute Code(s): C56.9 - MALIGNANT NEOPLASM OF UNSPECIFIED OVARY; Z15.01 - GENETIC SUSCEPTIBILITY TO MALIGNANT NEOPLASM OF BREAST; Z15.09 - GENETIC SUSCEPTIBILITY TO OTHER MALIGNANT NEOPLASM SNOMED Code(s): 821956540 (3) Essential hypertension Current Visit: Yes Status: Acute Code(s): I10 - ESSENTIAL (PRIMARY) HYPERTENSION SNOMED Code(s): 55286981 (4) GERD (gastroesophageal reflux disease) Current Visit: Yes Status: Acute Code(s): K21.9 - GASTRO-ESOPHAGEAL REFLUX DISEASE WITHOUT ESOPHAGITIS SNOMED Code(s): 080792153 (5) Hyperlipidemia Current Visit: Yes Status: Acute Code(s): E78.5 - HYPERLIPIDEMIA, UNSPECIFIED SNOMED Code(s): 76177666 Plan: The patient is placed in observation anticipate a less than 2 midnight stay with symptomatic anemia in the setting of patient on chemotherapy for stage III BRCA1 positive ovarian serous carcinoma after presenting with a hemoglobin of 6.7. The patient was typed and crossed and transfused 2 units of packed RBCs, will order iron studies and consult oncology Dr. Bell. Right lower extremity Dopplers have been ordered secondary to complaints of swelling and pain, results are pending. Well order Hemoccult. Recheck CBC posttransfusion and continue to follow clinical course CODE STATUS: Full code Anticipated discharge: 1-[address]: Home Discussed plan of care with: Patient and her Sree
[2019-06-25] MEDS ORDERED: IBUPROFEN 400 MG TAB PO PRN (20:13)
[2019-06-25] MEDS ORDERED: ONDANSETRON 4 MG/2 ML VIAL IVP PRN (20:13)
[2019-06-25] MEDS ORDERED: BISACODYL 5 MG TABLET.DR PO PRN (20:13)
[2019-06-25] MEDS ORDERED: NALOXONE 0.4 MG/ML 1 ML VIAL IV PRN ×2 (20:13→20:17)
[2019-06-25] MEDS ORDERED: ACETAMINOPHEN TAB 325 MG TAB PO PRN (20:13)
--- NOTE | 2019-06-25 20:17 | US ---
EXAMINATION TYPE: US venous doppler duplex LE RT DATE OF EXAM: 06/25/2019 8:00 PM COMPARISON: US 2019 CLINICAL HISTORY: Pain. Pain right leg/foot x 2 days. Stage 3 ovarian cancer. No hx of DVT. Pt not on blood thinners. SIDE PERFORMED: Right TECHNIQUE: The lower extremity deep venous system is examined utilizing real time linear array sonog john with graded compression, doppler sonography and color-flow sonography. VESSELS IMAGED: External Iliac Vein (EIV) Common Femoral Vein Deep Femoral Vein Greater Saphenous Vein * Femoral Vein Popliteal Vein Small Saphenous Vein * Proximal Calf Veins (* superficial vessels) IMPRESSION: Negative for DVT, right lower extremity.
[2019-06-25] MEDS ORDERED: SODIUM CHLORIDE 0.9% 1,000 ML IV SCH (20:30)
[2019-06-25 22:05] VITALS: BMI 39.4
[2019-06-26 02:40] VITALS: RESP 16
[2019-06-26 07:19] LABS: Anisocytosis Slight; HCT 23.7 % (34.0-46.0); HGB 7.9 gm/dL (11.4-16.0); MCH 29.5 pg (25.0-35.0); MCHC 33.4 g/dL (31.0-37.0); MCV 88.3 fL (80.0-100.0); Mean Platelet Volume 7.4; Platelet Count 297 k/uL (150-450); RBC 2.68 m/uL (3.80-5.40); RDW 17.8 % (11.5-15.5); WBC 4.6 k/uL (3.8-10.6)
[2019-06-26 07:20] LABS: Eosinophils # (M) 0.11 k/uL (0-0.7); Lymphocytes # (M) 1.13 k/uL (1.0-4.8); Neutrophils % (M) 64 %; Nucleated Red Blood Cells 0 /100 WBC (0-0); Total Cells Counted 100
[2019-06-26 07:21] LABS: Poikilocytosis (M) Present
[2019-06-26 08:32] VITALS: TEMP 98.3
[2019-06-26 10:54] LABS: Eosinophils # (M) 0.23 k/uL (0-0.7); Lymphocytes # (M) 1.38 k/uL (1.0-4.8); Monocytes # (M) 0.23 k/uL (0-1.0); Neutrophils % (M) 60 %; Nucleated Red Blood Cells 0 /100 WBC (0-0); Total Cells Counted 100
[2019-06-26 13:48] LABS: Iron Saturation 70.55 (12.00-45.00)
--- NOTE | 2019-06-26 14:12 | P.CONS ---
History of Present Illness - Reason for Consult Consult date: 06/26/19 Anemia on Cancer treatment Requesting physician: Mei Trevino - Chief Complaint Symptomatic Anemia Review of Systems A 14 point review of systems was assessed and completed and are all negative except for HPI Past Medical History Past Medical History: Cancer, GERD/Reflux, Hyperlipidemia, Hypertension Additional Past Medical History / Comment(s): anemia,adrenal gland growth-MRI ABD & Pelvic- April 2016, bronchitis, "fast hr-takes metoprolol", cyst rt ovary ovarian cancer 01/2017, recent paracentesis History of Any Multi-Drug Resistant Organisms: None Reported Past Surgical History: Hysterectomy Additional Past Surgical History / Comment(s): colonoscopy Past Anesthesia/Blood Transfusion Reactions: Family History of Problems w/ Anesthesia Additional Past Anesthesia/Blood Transfusion Reaction / Comm: no hx general anesthesia or blood transfusion. mother-post op n/v Past Psychological History: No Psychological Hx Reported Smoking Status: Never smoker Past Alcohol Use History: Occasional Past Drug Use History: None Reported - Past Family History Mother Family Medical History: Cancer, Diabetes Mellitus, Hypertension, Myocardial Infarction ([place]) Additional Family Medical History / Comment(s): cabg, ovarian ca Father Family Medical History: Cancer, Hypertension Additional Family Medical History / Comment(s): lung,diverticulosis Brother(s) Family Medical History: Diabetes Mellitus Medications and Allergies Home Medications Medication Instructions Recorded Confirmed Type Atorvastatin [Lipitor] 40 mg PO DAILY 06/02/16 06/25/19 History Ranitidine HCl 150 mg PO AC-SUPPER 06/02/16 06/25/19 History Metoprolol Tartrate [Lopressor] 50 mg PO DAILY 01/29/17 06/25/19 History Lisinopril-Hctz 20-12.5 mg 1 tab PO DAILY 02/23/18 06/25/19 History [Zestoretic 20-12.5] [place]-3 Fatty Acids/Fish Oil [Fish 1 cap PO DAILY 10/08/18 06/25/19 History Oil 1,000 mg Softgel] Ascorbic Acid [Vitamin C] 1,000 mg PO DAILY 06/25/19 06/25/19 History Biotin 10,000 mcg PO DAILY 06/25/19 06/25/19 History amLODIPine [Norvasc] 5 mg PO DAILY 06/25/19 06/25/19 History Allergies Allergy/AdvReac Type Severity Reaction Status Date / Time adhesive tape Allergy Swelling Verified 06/25/19 18:41 Physical Exam Vitals: Vital Signs Temp Pulse Pulse Resp BP BP Pulse Ox 06/26/19 08:00 98.3 F 92 16 120/72 97 06/26/19 04:00 98.4 F 90 16 124/76 97 06/26/19 02:39 97.9 F 77 16 117/77 96 06/26/19 01:25 98.3 F 89 17 130/74 96 06/25/19 23:48 97.7 F 86 16 134/66 96 06/25/19 23:18 98.2 F 92 16 130/85 96 06/25/19 23:08 98.2 F 85 16 128/83 96 06/25/19 23:06 98.3 F 82 16 121/81 96 06/25/19 21:51 90 16 06/25/19 21:27 98.6 F 96 16 108/69 100 06/25/19 20:57 98.2 F 100 16 114/68 100 06/25/19 20:47 98.5 F 94 16 117/67 06/25/19 18:20 98.6 F 107 H 16 162/88 99 Intake and Output 06/25/19 06/26/19 06/26/19 22:59 06:59 14:59 Intake Total 0 660 240 Balance 0 660 240 Intake: Intake, IV Titration 40 Amount Sodium Chloride 0.9% 1, 40 000 ml @ 75 mls/hr IV . [id number] [facility] Rx#:[id number] Oral 240 Blood Product 0 620 Rc As-1 Unit 310 [id number] Rc As-3 Unit 0 310 [id number] Other: # Voids 1 Weight 107.501 kg 107.5 kg General: Alert and Oriented x3, No Acute Distress Head: Normocytic, Atraumatic Neck: Supple Mouth: No Lesions, No Thrush Eyes: Non-sclerotic No Palpable cervical, supraclavicular, axillary adenopathy Heart: Regular Rate, Regular Rhythm Lungs: Clear to Ausculations, No Wheeze, No Rhonchi, Diminishe bilateral lower lobes, No increased respiratory effort noted Abdomen: Soft, Non-Distended, Non-Tended, BSx4 Extremities: No Edema, Equal Strength Neurological: No Focal Defects: No sensory or motor deficits noted Psych: Calm and cooperative Results CBC & Chem 7: 06/26/19 06:23 06/25/19 18:48 Labs: Abnormal Lab Results - Last 24 Hours (Table) 06/25/19 06/25/19 06/25/19 Range/Units 18:48 18:48 18:48 RBC 2.30 L (3.80-5.40) m/uL Hgb 6.7 L* (11.4-16.0) gm/dL Hct 20.0 L (34.0-46.0) % RDW 17.3 H (11.5-15.5) % APTT 31.9 H (22.0-30.0) sec Glucose 125 H (74-99) mg/dL Iron (50-170) ug/dL Iron Saturation (12.00-45.00) Ferritin (10.0-291.0) ng/mL Crossmatch 06/25/19 06/25/19 06/26/19 Range/Units 18:48 18:48 06:23 RBC 2.68 L (3.80-5.40) m/uL Hgb 7.9 L (11.4-16.0) gm/dL Hct 23.7 L (34.0-46.0) % RDW 17.8 H (11.5-15.5) % APTT (22.0-30.0) sec Glucose (74-99) mg/dL Iron 206 H (50-170) ug/dL Iron Saturation 70.55 H (12.00-45.00) Ferritin 400.6 H (10.0-291.0) ng/mL Crossmatch See Detail Assessment and Plan Plan: Assessment and recommendations: Ovarian Cancer: - Currently being treated with Lynparza Normo Anemia: Symptomatic - Stat[place] Post transfusion - Await further wrk-up - Not likely caused by lynparza alone therefore further assess ewith CT scan aand anemia work-up then ok with patient to discharge and follow-up next week. Continue lymparza on Sunday.
[2019-06-26 14:37] VITALS: BP 132/73; PULSE 99
[2019-06-26 14:50] LABS: Uric Acid 6.1 mg/dL (3.7-7.4)
--- NOTE | 2019-06-26 15:28 | CT ---
EXAMINATION TYPE: CT abdomen pelvis w con DATE OF EXAM: 06/26/2019 COMPARISON: 03/06/2019 HISTORY: Anemia. History of ovarian cancer. CT DLP: 1433.5 mGycm Automated exposure control for dose reduction was used. CONTRAST: CT scan of the abdomen pelvis is performed with IV Contrast, patient injected with 100 mL of Isovue 3 00. FINDINGS- LUNG BASES- No significant abnormality is appreciated. LIVER/GB-hypodensities within the liver are too small to characterize but appears similar to the prio r exam. No obvious gallstones.. PANCREAS- No gross abnormality is seen. SPLEEN- No gross abnormality is seen. ADRENALS- No gross abnormality is seen. KIDNEYS/BLADDER- no hydronephrosis nephrolithiasis or renal mass. BOWEL- no bowel dilatation. Normal appendix. LYMPH NODES- No greater than 1cm abdominal or pelvic lymph nodes areappreciated. OSSEOUS STRUCTURES-hypertrophic and degenerative change of the spine. OTHER- there are multiple anterior abdominal wall hernias containing unobstructed bowel are stable. IMPRESSION- 1. Stable multiple anterior abdominal wall hernias. 2. Stable hepatic lesions most likely related to hepatic cysts.
--- NOTE | 2019-06-26 17:31 | P.DS ---
Providers Date of admission: 06/25/19 20:14 Expected date of discharge: 06/26/19 Attending physician: Rocky Salazar MD Consults: 06/25/19 20:17 Consult Physician Routine Consulting Provider: Aguila Bell Consult Reason/Comments: established patient, medication side effect-anemia Do you want consulting provider notified?: Yes Primary care physician: Sulma Palencia Hospital Course: Discharge Diagnosis: Symptomatic anemia Ovarian cancer, BRCA1 positive Hypertension GERD Dyslipidemia Hospital Course: Patient is a 53-year-old female with a past medical history of ovarian carcinoma back positive stage III previously on IV chemotherapy and now on Lynparza-followed by Dr. Bell, morbid obesity, hypertension, GERD, and dyslipidemia presented to the ER with complaints of fatigue and weakness. In the ER she underwent an extensive evaluation. On arrival she was tachycardic with heart rate of 107 but hypertensive with a blood pressure 162/88. Initial laboratory analysis showed a hemoglobin of 6.3, glucose 125, but was otherwise unremarkable. Her chest x-ray showed no acute process. 2 units of packed red blood cells were ordered in the ER and she was admitted for further monitoring. She received 2 units of packed red blood cells. Her hemoglobin came up appropriately. She denied any symptoms of blood in her stool, dark tarry stools, blood in her urine, coughing up blood, abnormal bleeding from her gums or bleeding from her nose. No abnormal bruising or bleeding. Patient did not have a bowel movement during hospitalization. She was seen by Dr. Bell of oncology there was some concern that her chemo pill could be adding to her anemia. Iron studies were normal, LDH normal, TSH, and cortisol were normal. She underwent a CT abdomen and pelvis which showed abdominal hernia is and known prior hepatic cysts but no other acute abnormalities. Her symptoms improved but she still continued to have some right ankle pain. She is determined stable for discharge. She'll follow-up with Dr. Bell in the office next week. She will remain off her Cate prize for the next 7 days, she'll have a repeat CBC in 5 days. She will see her PCP Dr. Alonzo in the next 1-2 days. Patient seen and examined at bedside. Vital signs reviewed and stable. General: non toxic, no distress, appears at stated age Derm: warm, dry Head: atraumatic, normocephalic, symmetric Eyes: EOMI, no lid lag, anicteric sclera Mouth: no lip lesion, mucus membranes moist Cardiovascular: S1S2 reg, no murmur, positive posterior tibial pulse bilateral, Lungs: CTA bilateral, no rhonchi, no rales , no accessory muscle use Abdominal: soft, nontender to palpation, no guarding, no appreciable organomegaly Ext: no gross muscle atrophy, no edema, no contractures, edema right medial mallelolus Neuro: CN II-XI grossly intact, no focal neuro deficits Psych: Alert, oriented, appropriate affect A total of 20 minutes of time were spent preparing this complex discharge summary . Pertinent Studies: Chest x-ray-no acute process CT abdomen and pelvis-multiple abdominal hernias, known hepatic cyst Patient Condition at Discharge: Stable Plan - Discharge Summary New Discharge Prescriptions: Continue Ranitidine HCl 150 mg PO AC-SUPPER Atorvastatin [Lipitor] 40 mg PO DAILY Metoprolol Tartrate [Lopressor] 50 mg PO DAILY Lisinopril-Hctz 20-12.5 mg [Zestoretic 20-12.5] 1 tab PO DAILY [place]-3 Fatty Acids/Fish Oil [Fish Oil 1,000 mg Softgel] 1 cap PO DAILY amLODIPine [Norvasc] 5 mg PO DAILY Ascorbic Acid [Vitamin C] 1,000 mg PO DAILY Biotin 10,000 mcg PO DAILY Discontinued Olaparib [Lynparza] 300 mg PO BID Discharge Medication List Atorvastatin [Lipitor] 40 mg PO DAILY 06/02/16 [History] Ranitidine HCl 150 mg PO AC-SUPPER 06/02/16 [History] Metoprolol Tartrate [Lopressor] 50 mg PO DAILY 01/29/17 [History] Lisinopril-Hctz 20-12.5 mg [Zestoretic 20-12.5] 1 tab PO DAILY 02/23/18 [History] [place]-3 Fatty Acids/Fish Oil [Fish Oil 1,000 mg Softgel] 1 cap PO DAILY 10/08/18 [History] Ascorbic Acid [Vitamin C] 1,000 mg PO DAILY 06/25/19 [History] Biotin 10,000 mcg PO DAILY 06/25/19 [History] amLODIPine [Norvasc] 5 mg PO DAILY 06/25/19 [History] Follow up Appointment(s)/Referral(s): Aguila Bell MD [STAFF PHYSICIAN] - 07/17/19 1:00 pm Sulma Palencia DO [Primary Care Provider] - 07/03/19 10:15 am Ambulatory/Diagnostic Orders: Complete Blood Count w/diff [LAB.AMB] Time Frame: 5 Days, Location: None Selected Patient Instructions/Handouts: Anemia (DC) Activity/Diet/Wound Care/Special Instructions: regular diet activity as tolerated Stay off Lynparza X 1 week Discharge Disposition: HOME SELF-CARE
== END 2019-06-26 17:04 | disposition home or self-care (01) ==
LOC: EC 18:18 → 3SCARD 20:14
PROVIDERS: ADMIT Family Medicine; ATTEND Family Medicine
DX: D64.9 Anemia, unspecified (principal); I10 Essential (primary) hypertension; K21.9 Gastro-esophageal reflux disease without esophagitis; E78.5 Hyperlipidemia, unspecified; Z15.01 Genetic susceptibility to malignant neoplasm of breast; Z15.09 Genetic susceptibility to other malignant neoplasm; E66.01 Morbid (severe) obesity due to excess calories; Z68.39 Body mass index [BMI] 39.0-39.9, adult; M25.571 Pain in right ankle and joints of right foot; M79.89 Other specified soft tissue disorders; Z92.21 Personal history of antineoplastic chemotherapy; Z85.43 Personal history of malignant neoplasm of ovary; Z87.09 Personal history of other diseases of the respiratory system; Z79.899 Other long term (current) drug therapy; Z91.048 Other nonmedicinal substance allergy status; Z95.828 Presence of other vascular implants and grafts; Z84.89 Family history of other specified conditions; Z83.3 Family history of diabetes mellitus; Z82.49 Family history of ischemic heart disease and other diseases of the circulatory system; Z80.41 Family history of malignant neoplasm of ovary; Z83.6 Family history of other diseases of the respiratory system; Z83.79 Family history of other diseases of the digestive system
CPT/HCPCS: 36430; 96374; 96361; 99285; 36415; 93005; 86900; 86901; 83921; 83880; 80053; 84443; 82533; 82607; 82728; 83540; 83550; 83605; 83615; 84550; 84484; 85025 ×2; 85610; 85730; 86850; 86920; 83010; 71046; 93971; 74177; G0378 ×2; P9016; J1642; Q9967

== ENCOUNTER 2019-06-30 18:59 | Inpatient (IN) | payer OTHER ==
[2019-06-30] MEDS ORDERED: SODIUM CHLORIDE 0.9% 500 ML 500 ML IV STA (19:32)
[2019-06-30] MEDS ORDERED: SODIUM CHLORIDE 0.9% 1,000 ML IV STA (19:32)
[2019-06-30 20:27] LABS: Anisocytosis Slight; Basophils # (A) 0.1 k/uL (0-0.2); Basophils % (A) 1 %; Eosinophils # (A) 0.1 k/uL (0-0.7); Eosinophils % (A) 1 %; HCT 24.7 % (34.0-46.0); HGB 8.3 gm/dL (11.4-16.0); Lymphocytes # (A) 1.1 k/uL (1.0-4.8); Lymphocytes % (A) 12 %; MCHC 33.5 g/dL (31.0-37.0); MCV 83.5 fL (80.0-100.0); Mean Platelet Volume 8.2; Monocytes # (A) 0.7 k/uL (0-1.0); Monocytes % (A) 7 %; Neutrophils # (A) 6.7 k/uL (1.3-7.7); Neutrophils % (A) 75 %; Platelet Count 290 k/uL (150-450); RBC 2.96 m/uL (3.80-5.40); RDW 16.9 % (11.5-15.5)
[2019-06-30 20:30] LABS: Appearance,Urine Clear (Clear); Bilirubin,Urine Negative (Negative); Blood,Urine Negative (Negative); Color,Urine Light Yellow; Glucose,Urine (UA) Negative (Negative); Ketones,Urine Negative (Negative); Leukocyte Esterase,Urine Negative (Negative); Nitrite,Urine Negative (Negative); Protein,Urine Negative (Negative); Specific Gravity,Urine 1.011 (1.001-1.035); Urobilinogen,Urine <2.0 mg/dL (<2.0)
[2019-06-30] MEDS ORDERED: cefTRIAXone IN SWFI 1,000 MG/10 ML SYRINGE IVP STA (20:33)
[2019-06-30 20:36] LABS: Partial Thromboplastin Time 42.7 sec (22.0-30.0); Prothrombin Time 10.4 sec (9.0-12.0)
[2019-06-30 20:49] LABS: Albumin 3.9 g/dL (3.5-5.0); Calcium 9.6 mg/dL (8.4-10.2); Magnesium 1.6 mg/dL (1.6-2.3); Potassium 3.4 mmol/L (3.5-5.1); Total Protein 6.5 g/dL (6.3-8.2)
[2019-06-30] MEDS ORDERED: ACETAMINOPHEN TAB 325 MG TAB PO STA (21:40)
--- NOTE | 2019-06-30 21:54 | XR ---
EXAMINATION: XR chest 2V DATE AND TIME: 06/30/2019 8:51 PM CLINICAL INDICATION: PHH; Weakness TECHNIQUE: Departmental protocol COMPARISON: 06/25/2019 FINDINGS: Right subclavian Port-A-Cath tip superimposed over the distal SVC. The lungs are clear. The pleural spaces are negative. The cardiac silhouette is not enlarged. The remainder of the mediastinal silhouette is unremarkable. The skeletal structures and soft tissues are negative for acute findings. IMPRESSION: NO ACUTE PROCESS.
--- NOTE | 2019-06-30 21:59 | ED ---
Weakness HPI <Andrade Baldwin - Last Filed: 06/30/19 23:37> - General Source: patient Mode of arrival: wheelchair Limitations: no limitations <Janene Erickson - Last Filed: 07/01/19 01:37> - General Chief complaint: Weakness Stated complaint: Weakness/Dizzy/chills Time Seen by Provider: 06/30/19 19:32 - History of Present Illness Initial comments: 53-year-old female presenting for dizziness chills weakness generalized. Patient states that she was recently admitted for anemia secondary to what she believes is her chemotherapy medication. Patient states that she had been discontinued from the drug but had recently began the medication within the last 48 hours. She states this is when she began to experience same symptoms as she had prior including dizziness chills generalized weakness. Patient states the past 2 days she has had a fever of greater than 100.4. She was told that this happened during the time she is on oral chemotherapy she is to present to the emergency department. Patient denies any specific cough dysuria urgency frequency she denies any chest pain shortness of breath. Patient states she believes all the symptoms could be possibly related to the medication. Patient states she also noted that she appeared more pale. Patient is concerned she had a low hemoglobin and presented to the emergency department for evaluation. Immediately review of system negative. Upon arrival patient appears well no signs of acute distress. Patient does have an elevated heart rate. And is found to be febrile. (Janene Erickson) - Related Data Home Medications Medication Instructions Recorded Confirmed Atorvastatin [Lipitor] 40 mg PO DAILY 06/02/16 06/30/19 Ranitidine HCl 150 mg PO DAILY 06/02/16 06/30/19 Metoprolol Tartrate [Lopressor] 50 mg PO DAILY 01/29/17 06/30/19 Lisinopril-Hctz 20-12.5 mg 1 tab PO DAILY 02/23/18 06/30/19 [Zestoretic 20-12.5] [place]-3 Fatty Acids/Fish Oil [Fish 1 cap PO DAILY 10/08/18 06/30/19 Oil 1,000 mg Softgel] Ascorbic Acid [Vitamin C] 1,000 mg PO DAILY 06/25/19 06/30/19 Biotin 10,000 mcg PO DAILY 06/25/19 06/30/19 amLODIPine [Norvasc] 5 mg PO DAILY 06/25/19 06/30/19 Olaparib [Lynparza] 300 mg PO BID 06/30/19 06/30/19 Prochlorperazine [Compazine] 10 mg PO Q6H PRN 06/30/19 06/30/19 Allergies Allergy/AdvReac Type Severity Reaction Status Date / Time adhesive tape Allergy Swelling Verified 06/30/19 20:25 Review of Systems ROS Other: All systems not noted in ROS Statement are negative. <Andrade Baldwin - Last Filed: 06/30/19 23:37> ROS Other: All systems not noted in ROS Statement are negative. <Janene Erickson - Last Filed: 07/01/19 01:37> ROS Statement: Those systems with pertinent positive or pertinent negative responses have been documented in the HPI. Past Medical History Past Medical History: Cancer, GERD/Reflux, Hyperlipidemia, Hypertension Additional Past Medical History / Comment(s): anemia,adrenal gland growth-MRI ABD & Pelvic- April 2016, bronchitis, "fast hr-takes metoprolol", cyst rt ovary ovarian cancer 01/2017, recent paracentesis History of Any Multi-Drug Resistant Organisms: None Reported Past Surgical History: Hysterectomy Additional Past Surgical History / Comment(s): colonoscopy Past Anesthesia/Blood Transfusion Reactions: Family History of Problems w/ Anesthesia Additional Past Anesthesia/Blood Transfusion Reaction / Comment(s): no hx general anesthesia or blood transfusion. mother-post op n/v Past Psychological History: No Psychological Hx Reported Smoking Status: Never smoker Past Alcohol Use History: Occasional Past Drug Use History: None Reported - Past Family History Mother Family Medical History: Cancer, Diabetes Mellitus, Hypertension, Myocardial Infarction ([place]) Additional Family Medical History / Comment(s): cabg, ovarian ca Father Family Medical History: Cancer, Hypertension Additional Family Medical History / Comment(s): lung,diverticulosis Brother(s) Family Medical History: Diabetes Mellitus <Janene Erickson - Last Filed: 07/01/19 01:37> General Exam Limitations: no limitations <Janene Erickson - Last Filed: 07/01/19 01:37> - General Exam Comments Initial Comments: General: The patient is awake and alert, in no distress Eye: +3 mm pupils are equal, round and reactive to light, extra-ocular movements are intact. No nystagmus. There is normal conjunctiva bilaterally. No signs of icterus. His membranes are slightly pale. Ears, nose, mouth and throat: There are moist mucous membranes and no oral lesions. Neck: The neck is supple, there is no tenderness or JVD. Cardiovascular: There is a regular rate and rhythm. No murmur, rub or gallop is appreciated. Respiratory: Lungs are clear to auscultation, respirations are non-labored, breath sounds are equal. No wheezes, stridor, rales, or rhonchi. Gastrointestinal: Soft, non-distended, non-tender abdomen without masses or organomegaly noted. There is no rebound or guarding present. No CVA tenderness. Bowel sounds are unremarkable. Musculoskeletal: Normal ROM, no tenderness. Strength 5/5. Sensation intact. Pulses equal bilaterally 2+. Neurological: A&O x 3. CN II-XII intact, There are no obvious motor or sensory deficits. Coordination appears grossly intact. Speech is normal. Skin: Skin is warm and dry and no rashes or lesions are noted. Psychiatric: Cooperative, appropriate mood & affect, normal judgment. (Janene Erickson) Course <Andrade Baldwin - Last Filed: 06/30/19 23:37> Vital Signs 06/30/19 06/30/19 06/30/19 19:05 19:44 21:10 Temperature 98.9 F 100.9 F H 100.4 F H Pulse Rate 119 H 112 H 96 Respiratory 18 18 18 Rate Blood Pressure 119/81 116/75 117/64 O2 Sat by Pulse 98 97 99 Oximetry 06/30/19 06/30/19 07/01/19 22:00 22:54 00:26 Temperature 99.1 F 98.0 F Pulse Rate 93 86 82 Respiratory 18 18 17 Rate Blood Pressure 120/62 115/63 100/66 O2 Sat by Pulse 97 97 96 Oximetry - Reevaluation(s) Reevaluation #1: 06/30/19 23:37 PA supervision I personally evaluate this case and do agree with the assessment and plan. The case was discussed with Dr. Cooper (Andrade Baldwin) Medical Decision Making - Lab Data Result diagrams: 06/30/19 20:11 06/30/19 20:11 <Andrade Baldwin - Last Filed: 06/30/19 23:37> - Lab Data Result diagrams: 06/30/19 20:11 06/30/19 20:11 <AroldoseanJanene Ashley - Last Filed: 07/01/19 01:37> - Medical Decision Making 53-year-old female presenting for generalized weakness fever on and off dizziness. Patient states the symptoms are identical to what she experienced 2 weeks prior she believes is due to her chemotherapeutic medication--which she recently resumed. Patient denies any symptoms prior to taking the medication. Patient hemoglobin 8.3 this is above patient's previous values upon discharge from previous admission. Patient's heart rate decreased with control fever. Chest x-ray negative for acute cardiopulmonary process or focal consolidation. Lungs clear. Patient denies any chest pain or shortness of breath. EKG no findings consistent with acute coronary syndrome. Urinalysis unremarkable. No evidence of infection. Patient has no abdominal pain on examination. No upper respiratory symptoms. At this time it is unclear the origin of fever. At this time admit patient for fever of unknown origin. We spoke with Dr. Cooper who accepted admission. Arabella on consult. I discussed case with Dr. Baldwin who evaluated patient and is agreeable with admission and plan. (Janene Erickson) - Lab Data Lab Results 06/30/19 06/30/19 06/30/19 Range/Units 20:11 20:11 20:11 WBC 9.0 (3.8-10.6) k/uL RBC 2.96 L (3.80-5.40) m/uL Hgb 8.3 L (11.4-16.0) gm/dL Hct 24.7 L (34.0-46.0) % MCV 83.5 (80.0-100.0) fL MCH 28.0 (25.0-35.0) pg MCHC 33.5 (31.0-37.0) g/dL RDW 16.9 H (11.5-15.5) % Plt Count 290 (150-450) k/uL Neutrophils % 75 % Lymphocytes % 12 % Monocytes % 7 % Eosinophils % 1 % Basophils % 1 % Neutrophils # 6.7 (1.3-7.7) k/uL Lymphocytes # 1.1 (1.0-4.8) k/uL Monocytes # 0.7 (0-1.0) k/uL Eosinophils # 0.1 (0-0.7) k/uL Basophils # 0.1 (0-0.2) k/uL Anisocytosis Slight PT (9.0-12.0) sec INR (<1.2) APTT (22.0-30.0) sec Sodium 137 (137-145) mmol/L Potassium 3.4 L (3.5-5.1) mmol/L Chloride 101 (98-107) mmol/L Carbon Dioxide 26 (22-30) mmol/L Anion Gap 10 mmol/L BUN 16 (7-17) mg/dL Creatinine 0.90 (0.52-1.04) mg/dL Est GFR (CKD-EPI)AfAm 86 (>60 ml/min/1.73 sqM) Est GFR (CKD-EPI)NonAf 75 (>60 ml/min/1.73 sqM) Glucose 116 H (74-99) mg/dL Plasma Lactic Acid Gamaliel 0.8 (0.7-2.0) mmol/L Calcium 9.6 (8.4-10.2) mg/dL Magnesium 1.6 (1.6-2.3) mg/dL Total Bilirubin 1.0 (0.2-1.3) mg/dL AST 19 (14-36) U/L ALT 21 (9-52) U/L Alkaline Phosphatase 70 (38-126) U/L Troponin I (0.000-0.034) ng/mL Total Protein 6.5 (6.3-8.2) g/dL Albumin 3.9 (3.5-5.0) g/dL Urine Color Urine Appearance (Clear) Urine pH (5.0-8.0) Ur Specific [place] (1.001-1.035) Urine Protein (Negative) Urine Glucose (UA) (Negative) Urine Ketones (Negative) Urine Blood (Negative) Urine Nitrite (Negative) Urine Bilirubin (Negative) Urine Urobilinogen (<2.0) mg/dL Ur Leukocyte Esterase (Negative) 06/30/19 06/30/19 06/30/19 Range/Units 20:11 20:11 20:11 WBC (3.8-10.6) k/uL RBC (3.80-5.40) m/uL Hgb (11.4-16.0) gm/dL Hct (34.0-46.0) % MCV (80.0-100.0) fL MCH (25.0-35.0) pg MCHC (31.0-37.0) g/dL RDW (11.5-15.5) % Plt Count (150-450) k/uL Neutrophils % % Lymphocytes % % Monocytes % % Eosinophils % % Basophils % % Neutrophils # (1.3-7.7) k/uL Lymphocytes # (1.0-4.8) k/uL Monocytes # (0-1.0) k/uL Eosinophils # (0-0.7) k/uL Basophils # (0-0.2) k/uL Anisocytosis PT 10.4 (9.0-12.0) sec INR 1.0 (<1.2) APTT 42.7 H (22.0-30.0) sec Sodium (137-145) mmol/L Potassium (3.5-5.1) mmol/L Chloride (98-107) mmol/L Carbon Dioxide (22-30) mmol/L Anion Gap mmol/L BUN (7-17) mg/dL Creatinine (0.52-1.04) mg/dL Est GFR (CKD-EPI)AfAm (>60 ml/min/1.73 sqM) Est GFR (CKD-EPI)NonAf (>60 ml/min/1.73 sqM) Glucose (74-99) mg/dL Plasma Lactic Acid Gamaliel (0.7-2.0) mmol/L Calcium (8.4-10.2) mg/dL Magnesium (1.6-2.3) mg/dL Total Bilirubin (0.2-1.3) mg/dL AST (14-36) U/L ALT (9-52) U/L Alkaline Phosphatase (38-126) U/L Troponin I <0.012 (0.000-0.034) ng/mL Total Protein (6.3-8.2) g/dL Albumin (3.5-5.0) g/dL Urine Color Light Yellow Urine Appearance Clear (Clear) Urine pH 5.0 (5.0-8.0) Ur Specific [place] 1.011 (1.001-1.035) Urine Protein Negative (Negative) Urine Glucose (UA) Negative (Negative) Urine Ketones Negative (Negative) Urine Blood Negative (Negative) Urine Nitrite Negative (Negative) Urine Bilirubin Negative (Negative) Urine Urobilinogen <2.0 (<2.0) mg/dL Ur Leukocyte Esterase Negative (Negative) Disposition <Andrade Baldwin - Last Filed: 06/30/19 23:37> Is patient prescribed a controlled substance at d/c from ED?: No Time of Disposition: 01:37 <Janene Erickson - Last Filed: 07/01/19 01:37> Clinical Impression: Fever of unknown origin, Anemia, Generalized weakness Disposition: ADMITTED IP TO THIS HOSP Condition: Stable
[2019-06-30] MEDS ORDERED: POTASSIUM CHLORIDE ER 10 MEQ TAB.ER.PRT PO STA (22:28)
[2019-06-30] MEDS ORDERED: NALOXONE 0.4 MG/ML 1 ML VIAL IV PRN (23:15)
[2019-07-01] MEDS: SODIUM CHLORIDE 0.9% 1,000 ML IV SCH ×3 (00:29→18:44)
[2019-07-01 01:33] VITALS: BMI 87.2
--- NOTE | 2019-07-01 13:07 | P.HPIM ---
History of Present Illness Patient is a pleasant 61-year-old female was receiving chemotherapy. Came in with compensative fever chills doesn't have leukocytosis or leukopenia at this time. Patient had history of ovarian cancer is still was started on chemoth erapy received a dose of chemotherapy medication day before is a progress today. Patient was recently hospitalized for severe anemia received blood transfusion presently her hemoglobin is 8.3 platelet count is 01/04/2000 without any leukopenia or neutropenia. Potassium is 3.4 which will be replaced. Patient denied any dysuria does have cough without any sputum production denied any diarrheaor lightest of rash. Denied any photophobia. Blood cultures were obtained patient has a chemo port that was accessed 3 days ago which can be the source of infection patient doesn't have any body aches does have joint aches which has been going on since her chemotherapy which she believes skin disease this is a side effect from chemotherapy and consult infectious disease as source of infection is not clear. The recording broad-spectrum antibiotics and the patient will be started on antibiotics as per them Review of Systems REVIEW OF SYSTEMS: CONSTITUTIONAL: As mentioned in HPI HEENT: No recent visual problems or hearing problems. Denied any sore throat. CARDIOVASCULAR: No chest pain, orthopnea, PND, no palpitations, no syncope. PULMONARY: No shortness of breath, no hemoptysis. GASTROINTESTINAL: No diarrhea, no nausea, no vomiting, no abdominal pain. NEUROLOGICAL: No headaches, no weakness, no numbness. HEMATOLOGICAL: Denies any bleeding or petechiae. GENITOURINARY: Denies any burning micturition, frequency, or urgency. MUSCULOSKELETAL/RHEUMATOLOGICAL: Denies any joint pain, swelling, or any muscle pain. ENDOCRINE: Denies any polyuria or polydipsia. The rest of the 14-point review of systems is negative. Past Medical History Past Medical History: Cancer, GERD/Reflux, Hyperlipidemia, Hypertension Additional Past Medical History / Comment(s): anemia,adrenal gland growth-MRI ABD & Pelvic- April 2016, bronchitis, "fast hr-takes metoprolol", cyst rt ovary ovarian cancer 01/2017, recent paracentesis History of Any Multi-Drug Resistant Organisms: None Reported Past Surgical History: Hysterectomy Additional Past Surgical History / Comment(s): colonoscopy Past Anesthesia/Blood Transfusion Reactions: Family History of Problems w/ Anesthesia Additional Past Anesthesia/Blood Transfusion Reaction / Comment(s): no hx general anesthesia or blood transfusion. mother-post op n/v Past Psychological History: No Psychological Hx Reported Smoking Status: Never smoker Past Alcohol Use History: Occasional Past Drug Use History: None Reported - Past Family History Mother Family Medical History: Cancer, Diabetes Mellitus, Hypertension, Myocardial Infarction ([place]) Additional Family Medical History / Comment(s): cabg, ovarian ca Father Family Medical History: Cancer, Hypertension Additional Family Medical History / Comment(s): lung,diverticulosis Brother(s) Family Medical History: Diabetes Mellitus Medications and Allergies Home Medications Medication Instructions Recorded Confirmed Type Atorvastatin [Lipitor] 40 mg PO DAILY 06/02/16 06/30/19 History Ranitidine HCl 150 mg PO DAILY 06/02/16 06/30/19 History Metoprolol Tartrate [Lopressor] 50 mg PO DAILY 01/29/17 06/30/19 History Lisinopril-Hctz 20-12.5 mg 1 tab PO DAILY 02/23/18 06/30/19 History [Zestoretic 20-12.5] [place]-3 Fatty Acids/Fish Oil [Fish 1 cap PO DAILY 10/08/18 06/30/19 History Oil 1,000 mg Softgel] Ascorbic Acid [Vitamin C] 1,000 mg PO DAILY 06/25/19 06/30/19 History Biotin 10,000 mcg PO DAILY 06/25/19 06/30/19 History amLODIPine [Norvasc] 5 mg PO DAILY 06/25/19 06/30/19 History Olaparib [Lynparza] 300 mg PO BID 06/30/19 06/30/19 History Prochlorperazine [Compazine] 10 mg PO Q6H PRN 06/30/19 06/30/19 History Allergies Allergy/AdvReac Type Severity Reaction Status Date / Time adhesive tape Allergy Swelling Verified 06/30/19 20:25 Physical Exam Vitals: Vital Signs Temp Pulse Pulse Resp BP BP Pulse Ox 07/01/19 06:01 97.5 F L 79 15 99/65 97 07/01/19 01:00 97.9 F 83 18 99/66 96 07/01/19 00:26 98.0 F 82 17 100/66 96 06/30/19 22:54 99.1 F 86 18 115/63 97 06/30/19 22:00 93 18 120/62 97 06/30/19 21:10 100.4 F H 96 18 117/64 99 06/30/19 19:44 100.9 F H 112 H 18 116/75 97 06/30/19 19:05 98.9 F 119 H 18 119/81 98 Intake and Output 06/30/19 07/01/19 07/01/19 22:59 06:59 14:59 Intake Total 200 Balance 200 Intake: Oral 200 Other: Voiding Method Toilet # Voids 1 Weight 107.048 kg PHYSICAL EXAMINATION: GENERAL: The patient is alert and oriented x3, not in any acute distress. Well developed, well nourished. HEENT: Pupils are round and equally reacting to light. EOMI. No scleral icterus. No conjunctival pallor. Normocephalic, atraumatic. No pharyngeal erythema. No thyromegaly. CARDIOVASCULAR: S1 and S2 present. No murmurs, rubs, or gallops. PULMONARY: Chest is clear to auscultation, no wheezing or crackles. ABDOMEN: Soft, nontender, nondistended, normoactive bowel sounds. No palpable organomegaly. MUSCULOSKELETAL: No joint swelling or deformity. EXTREMITIES: No cyanosis, clubbing, or pedal edema. NEUROLOGICAL: Gross neurological examination did not reveal any focal deficits. SKIN: No rashes. Results CBC & Chem 7: 06/30/19 20:11 06/30/19 20:11 Labs: Abnormal Lab Results - Last 24 Hours (Table) 06/30/19 06/30/19 06/30/19 Range/Units 20:11 20:11 20:11 RBC 2.96 L (3.80-5.40) m/uL Hgb 8.3 L (11.4-16.0) gm/dL Hct 24.7 L (34.0-46.0) % RDW 16.9 H (11.5-15.5) % APTT 42.7 H (22.0-30.0) sec Potassium 3.4 L (3.5-5.1) mmol/L Glucose 116 H (74-99) mg/dL Thrombosis Risk Factor Assmnt - Choose All That Apply Any of the Below Risk Factors Present?: Yes Each Factor Represents 1 point: Age 41-60 years Other Risk Factors: Yes Each Risk Factor Represents 2 Points: Malignancy Thrombosis Risk Factor Assessment Total Risk Factor Score: 3 Thrombosis Risk Factor Assessment Level: Moderate Risk Assessment and Plan Plan: Systemic inflammatory response syndrome, source of infection is not clear can be the chemo port and bacteremia. We will await for the blood cultures patient will be continued on broad-spectrum antibiotic as recommended by infectious disease -Ovarian cancer with recent chemotherapy the other consideration as chemotherapy induced tumor lysis can cause fever as well. Have her gases with reflux disease -Hyperlipidemia -hypertension -Due to prophylaxis as a continuous heparin GI prophylaxis with Pepcid
[2019-07-01] MEDS ORDERED: VANCOMYCIN IV PER PHARMACY 1 EACH MISC MISCELLANE PRN (13:35)
[2019-07-01] MEDS: VANCOMYCIN 1,750 MG in SODIUM CHLORIDE 0.9% 500 ML 500 ML IVPB SCH (15:32)
[2019-07-01 15:47] LABS: ALT 18 U/L (9-52); AST 14 U/L (14-36); African American GFR (CKD) >90 (>60 ml/min/1.73 sqM); Albumin 3.2 g/dL (3.5-5.0); Alkaline Phosphatase 52 U/L (38-126); Anion Gap 4 mmol/L; Blood Urea Nitrogen 15 mg/dL (7-17); Calcium 8.8 mg/dL (8.4-10.2); Carbon Dioxide 28 mmol/L (22-30); Chloride 107 mmol/L (98-107); Glucose 122 mg/dL (74-99); Magnesium 1.8 mg/dL (1.6-2.3); Potassium 3.6 mmol/L (3.5-5.1); Sodium 139 mmol/L (137-145); Total Bilirubin 0.4 mg/dL (0.2-1.3); Total Protein 5.5 g/dL (6.3-8.2)
[2019-07-01 15:55] LABS: Anisocytosis Slight; HCT 21.2 % (34.0-46.0); HGB 7.3 gm/dL (11.4-16.0); MCH 29.4 pg (25.0-35.0); MCHC 34.3 g/dL (31.0-37.0); MCV 85.6 fL (80.0-100.0); Mean Platelet Volume 8.2; Platelet Count 235 k/uL (150-450); RBC 2.48 m/uL (3.80-5.40); RDW 17.4 % (11.5-15.5); WBC 5.5 k/uL (3.8-10.6)
--- NOTE | 2019-07-01 16:31 | P.CONS ---
History of Present Illness - Reason for Consult Consult date: 07/01/19 fever on lynparza Requesting physician: Ivan Stark - Chief Complaint fever - History of Present Illness veena is a present female currently under the care of Dr. Bell for treatment of Ovarian cancer, on Lynparza. She has been tolerating well until recently when her feet became swollen and painful and she presented to hospital. Her symptoms improved she was discharged. Sunday she restarted lynparza and Sunday night she states her fever increased to 100.8 and returned for further evaluation. She complains of dry cough. Full nevarez cultures ordered. Review of Systems A 14 point review of systems was assessed and completed and are all negative except for HPI Past Medical History Past Medical History: Cancer, GERD/Reflux, Hyperlipidemia, Hypertension Additional Past Medical History / Comment(s): anemia,adrenal gland growth-MRI ABD & Pelvic- April 2016, bronchitis, "fast hr-takes metoprolol", cyst rt ovary ovarian cancer 01/2017, recent paracentesis History of Any Multi-Drug Resistant Organisms: None Reported Past Surgical History: Hysterectomy Additional Past Surgical History / Comment(s): colonoscopy Past Anesthesia/Blood Transfusion Reactions: Family History of Problems w/ Anesthesia Additional Past Anesthesia/Blood Transfusion Reaction / Comm: no hx general anesthesia or blood transfusion. mother-post op n/v Past Psychological History: No Psychological Hx Reported Smoking Status: Never smoker Past Alcohol Use History: Occasional Past Drug Use History: None Reported - Past Family History Mother Family Medical History: Cancer, Diabetes Mellitus, Hypertension, Myocardial Infarction (NH) Additional Family Medical History / Comment(s): cabg, ovarian ca Father Family Medical History: Cancer, Hypertension Additional Family Medical History / Comment(s): lung,diverticulosis Brother(s) Family Medical History: Diabetes Mellitus Medications and Allergies Home Medications Medication Instructions Recorded Confirmed Type Atorvastatin [Lipitor] 40 mg PO DAILY 06/02/16 06/30/19 History Ranitidine HCl 150 mg PO DAILY 06/02/16 06/30/19 History Metoprolol Tartrate [Lopressor] 50 mg PO DAILY 01/29/17 06/30/19 History Lisinopril-Hctz 20-12.5 mg 1 tab PO DAILY 02/23/18 06/30/19 History [Zestoretic 20-12.5] [place]-3 Fatty Acids/Fish Oil [Fish 1 cap PO DAILY 10/08/18 06/30/19 History Oil 1,000 mg Softgel] Ascorbic Acid [Vitamin C] 1,000 mg PO DAILY 06/25/19 06/30/19 History Biotin 10,000 mcg PO DAILY 06/25/19 06/30/19 History amLODIPine [Norvasc] 5 mg PO DAILY 06/25/19 06/30/19 History Olaparib [Lynparza] 300 mg PO BID 06/30/19 06/30/19 History Prochlorperazine [Compazine] 10 mg PO Q6H PRN 06/30/19 06/30/19 History Allergies Allergy/AdvReac Type Severity Reaction Status Date / Time adhesive tape Allergy Swelling Verified 06/30/19 20:25 Physical Exam Vitals: Vital Signs Temp Pulse Pulse Pulse Resp BP BP 07/01/19 13:11 97.8 F 91 20 96/64 07/01/19 06:01 97.5 F L 79 15 07/01/19 01:00 97.9 F 83 18 07/01/19 00:26 98.0 F 82 17 100/66 06/30/19 22:54 99.1 F 86 18 115/63 06/30/19 22:00 93 18 120/62 06/30/19 21:10 100.4 F H 96 18 117/64 06/30/19 19:44 100.9 F H 112 H 18 116/75 06/30/19 19:05 98.9 F 119 H 18 119/81 BP Pulse Ox 07/01/19 13:11 96 07/01/19 06:01 99/65 97 07/01/19 01:00 99/66 96 07/01/19 00:26 96 06/30/19 22:54 97 06/30/19 22:00 97 06/30/19 21:10 99 06/30/19 19:44 97 06/30/19 19:05 98 Intake and Output 06/30/19 07/01/19 07/01/19 22:59 06:59 14:59 Intake Total 200 Balance 200 Intake: Oral 200 Other: Voiding Method Toilet # Voids 1 3 Weight 107.048 kg General: Alert and Oriented x3, No Acute Distress Head: Normocytic, Atraumatic Neck: Supple Mouth: No Lesions, No Thrush Eyes: Non-sclerotic No Palpable cervical, supraclavicular, axillary adenopathy Heart: Regular Rate, Regular Rhythm Lungs: Clear to Ausculations, No Wheeze, No Rhonchi, Diminishe bilateral lower lobes, No increased respiratory effort noted Abdomen: Soft, Non-Distended, Non-Tended, BSx4 Extremities: No Edema, Equal Strength Neurological: No Focal Defects: No sensory or motor deficits noted Psych: Calm and cooperative Results CBC & Chem 7: 07/01/19 15:30 07/01/19 15:30 Labs: Abnormal Lab Results - Last 24 Hours (Table) 06/30/19 06/30/19 06/30/19 Range/Units 20:11 20:11 20:11 RBC 2.96 L (3.80-5.40) m/uL Hgb 8.3 L (11.4-16.0) gm/dL Hct 24.7 L (34.0-46.0) % RDW 16.9 H (11.5-15.5) % APTT 42.7 H (22.0-30.0) sec Potassium 3.4 L (3.5-5.1) mmol/L Glucose 116 H (74-99) mg/dL Assessment and Plan Plan: Ovarian Cancer: - Currently being treated with Lynparza Normo Anemia: Symptomatic - Stat[facility] Post transfusion - Await further wrk-up - Not likely caused by lynparza alone therefore further assess with CT scan aand anemia work-up then ok with patient to discharge and follow-up next week. Fever: - Hold Lynparza - Nevarez cultures - Abx - Chest xray Continue supportive care
[2019-07-01 17:24] LABS: Band Neutrophils % 1 %; Lymphocytes # (M) 1.05 k/uL (1.0-4.8); Monocytes # (M) 0.11 k/uL (0-1.0); Neutrophils % (M) 78 %; Nucleated Red Blood Cells 0 /100 WBC (0-0); Total Cells Counted 100
--- NOTE | 2019-07-01 18:48 | XR ---
PROCEDURE: XR ankle complete RT - 3V DATE AND TIME: 07/01/2019 5:42 PM CLINICAL INDICATION: PHH; edematous area TECHNIQUE: Department protocol COMPARISON: None FINDINGS: There is no fracture or malalignment. The soft tissues are unremarkable. IMPRESSION: NO ACUTE PROCESS.
[2019-07-01] MEDS: OLAPARIB 300 MG PO SCH (20:08)
[2019-07-01] MEDS: ACETAMINOPHEN TAB 325 MG TAB PO PRN (20:13)
[2019-07-01] MEDS: CEFEPIME 2 GM in SODIUM CHLORIDE 0.9% 100 ML IVPB SCH (20:14)
--- NOTE | 2019-07-01 21:54 | CONS ---
CONSULTATION DATE OF SERVICE: 07/01/2019. REASON FOR FOLLOWUP: Fever of unknown origin. HISTORY OF PRESENT ILLNESS: The patient is a 53-year-old female with a past medical history significant for ovarian cancer diagnosed back in 2017, for which the patient is status post hysterectomy and has been on chemo which apparently has been recently changed more than a month ago to Lynparza. The patient does have a MediPort which apparently last was accessed on about Sunday before presentation to hospital for some blood draw and transfusion. The patient is presenting to [facility] ER with the chief complaint of chills and generalized weakness. The patient's symptoms started on Sunday. She has been running a fever of 100.4. The patient denies having any headache. No URI symptoms. No chest pain, shortness of breath or cough. No nausea, no vomiting, no abdominal pain or any diarrhea. On presentation to hospital the patient did have fever of 100.9. No significant tachycardia. The patient's white count is normal at 9.0. The patient's UA was negative. Chest x-ray report negative. She did receive one dose of Rocephin. Subsequently she has been admitted to hospital and Infectious Disease is consulted because of fever of unknown source. REVIEW OF SYSTEMS: Positive points have been mentioned in the HPI. Rest of the systems are negative. PAST MEDICAL HISTORY: Her past medical history is significant for: 1. Ovarian cancer. 2. Hypertension. 3. Hyperlipidemia. 4. Adrenal growth. PAST SURGICAL HISTORY: Colonoscopy and hysterectomy. SOCIAL HISTORY: No history of smoking. Occasionally drinks. No drug use. FAMILY HISTORY: Mother with history of ovarian cancer, diabetes mellitus and hypertension. Father with history of lung cancer and diverticulosis. ALLERGIES: ADHESIVE TAPE. NO KNOWN DRUG ALLERGIES. CURRENT MEDICATIONS: 1. Tylenol. 2. Lipitor. 3. Pepcid. 4. Narcan. 5. Olaparib. 6. Normal saline. PHYSICAL EXAMINATION: Her blood pressure is 96/64 with a pulse of 91, temperature 97.8. She is 96% on room air. General description is a middle-aged female lying in bed in no distress. No tachypnea or accessory muscle of respiration use. HEENT examination shows pallor. No scleral icterus. Oral mucosa membrane is dry. No pharyngeal erythema or thrush. NECK: Trachea is central. No thyromegaly. LUNGS: Unlabored breathing. Clear to auscultation anteriorly. HEART: S1, S2. Regular rate and rhythm. ABDOMEN: Soft. No tenderness. No guarding or rigidity. EXTREMITIES: No edema of the feet. SKIN EXAMINATION: No rash or mass palpable. Neurologically, patient is awake, alert, oriented x3. Mood and affect normal. LABS: Hemoglobin 7.3, white count 5.5. BUN of 15, creatinine 0.78. Blood cultures on admission are so far pending. DIAGNOSTIC IMPRESSION AND PLAN: Patient presented to hospital with generalized weakness, rigors and chills and a fever in this patient who did have a history of ovarian cancer, currently on chemo. She did have a MediPort that was accessed last about 3 days before her symptoms started. With concern about possible MediPort site infection and bacteremia associated with it, could be either a gram-positive skin gilberto or a gram-negative infection not entirely excluded, as the patient is currently with no other obvious sources of infection. PLAN: 1. We will obtain blood culture from the MediPort and peripherally. 2. We will empirically start vancomycin, Pharmacy to dose, target of 15, and cefepime 2 grams q.12 hours while waiting for the culture to finalize and condition to stabilize. 3. We will follow her clinical condition and culture to further adjust medication if needed. Plan of care was discussed in detail with the admitting physician. JESSICA / RIKI: [id number] /
[2019-07-02] MEDS: VANCOMYCIN 1,750 MG in SODIUM CHLORIDE 0.9% 500 ML 500 ML IVPB SCH ×2 (03:57→15:09)
[2019-07-02] MEDS: SODIUM CHLORIDE 0.9% 1,000 ML IV SCH ×2 (03:58→15:11)
[2019-07-02] MEDS: OLAPARIB 300 MG PO SCH ×2 (07:43→23:29)
[2019-07-02] MEDS: ATORVASTATIN 40 MG TAB PO SCH (07:46)
[2019-07-02] MEDS: FAMOTIDINE 20 MG TAB PO SCH (07:46)
[2019-07-02 09:23] LABS: African American GFR (CKD) >90 (>60 ml/min/1.73 sqM)
[2019-07-02] MEDS: CEFEPIME 2 GM in SODIUM CHLORIDE 0.9% 100 ML IVPB SCH ×2 (09:37→23:30)
[2019-07-02 10:01] LABS: Anisocytosis Slight; Basophils % (A) 1 %; Eosinophils # (A) 0.2 k/uL (0-0.7); Eosinophils % (A) 4 %; HCT 22.3 % (34.0-46.0); HGB 7.5 gm/dL (11.4-16.0); Lymphocytes # (A) 0.8 k/uL (1.0-4.8); Lymphocytes % (A) 23 %; MCH 29.5 pg (25.0-35.0); MCHC 33.5 g/dL (31.0-37.0); MCV 88.2 fL (80.0-100.0); Mean Platelet Volume 7.2; Monocytes # (A) 0.2 k/uL (0-1.0); Monocytes % (A) 5 %; Neutrophils # (A) 2.1 k/uL (1.3-7.7); Neutrophils % (A) 63 %; Platelet Count 259 k/uL (150-450); RBC 2.53 m/uL (3.80-5.40); RDW 17.8 % (11.5-15.5); WBC 3.4 k/uL (3.8-10.6)
--- NOTE | 2019-07-02 13:29 | PN ---
PROGRESS NOTE DATE OF SERVICE: 07/02/2019 REASON FOR FOLLOWUP: Fever with question for possible MediPort infection. INTERVAL HISTORY: The patient has been afebrile and no temperature has been recorded in the last 24 hours. The patient admitted for hence, the needle has been discontinued. The patient did have mild discomfort this morning, which seemed to have improved after removal of the needle. No chest pain, shortness of breath or cough. No abdominal pain, no diarrhea. PHYSICAL EXAMINATION: On examination, blood pressure 118/73 with a pulse of 82 temperature 97.6. She is 97% on room air. General description is a middle-aged female lying in bed in no distress. RESPIRATORY SYSTEM: Unlabored breathing with decreased breath sounds at the bases. No wheeze. HEART: S1, S2. Regular rate and rhythm. ABDOMEN: Soft, no tenderness. LABS: White count of 3.4. Blood cultures obtained yesterday are currently pending. X-rays of the ankle, no acute fracture or dislocation. DIAGNOSTIC IMPRESSION AND PLAN: Patient admitted to the hospital with an episode of fever in this patient who did have history of ovarian cancer and a MediPort that was a few days before the fever started with concern for possible MediPort infection. Has no other clinical focus of infection. We are waiting for the culture to be finalized. Continue cefepime and Vanco at this point. Will monitor clinical course closely. Continue with supportive care. MARCELLUSL / RIKI: [id number] /
[2019-07-02 13:44] VITALS: RESP 16
--- NOTE | 2019-07-02 15:03 | P.PN ---
Subjective Progress Note Date: 07/02/19 Principal diagnosis: Fever Afebrile 24 hours, likely viral component. Objective - Vital Signs Vital signs: Vital Signs Temp 97.5 F L 07/02/19 13:16 Pulse 86 07/02/19 13:16 Resp 16 07/02/19 13:16 BP 108/74 07/02/19 13:16 Pulse Ox 99 07/02/19 13:16 Intake & Output 07/01/19 07/02/19 07/02/19 18:59 06:59 18:59 Intake Total 240 300 Balance 240 300 Intake: Oral 240 300 Other: Voiding Method Toilet Toilet Toilet # Voids 3 1 - Exam General: Alert and Oriented x3, No Acute Distress Head: Normocytic, Atraumatic Neck: Supple Mouth: No Lesions, No Thrush Eyes: Non-sclerotic No Palpable cervical, supraclavicular, axillary adenopathy Heart: Regular Rate, Regular Rhythm Lungs: Clear to Ausculations, No Wheeze, No Rhonchi, Diminishe bilateral lower lobes, No increased respiratory effort noted Abdomen: Soft, Non-Distended, Non-Tended, BSx4 Extremities: No Edema, Equal Strength Neurological: No Focal Defects: No sensory or motor deficits noted Psych: Calm and cooperative - Labs CBC & Chem 7: 07/02/19 08:51 07/02/19 08:51 Labs: Abnormal Lab Results - Last 24 Hours (Table) 07/01/19 07/01/19 07/02/19 Range/Units 15:30 15:30 08:51 WBC 3.4 L (3.8-10.6) k/uL RBC 2.48 L 2.53 L (3.80-5.40) m/uL Hgb 7.3 L 7.5 L (11.4-16.0) gm/dL Hct 21.2 L 22.3 L (34.0-46.0) % RDW 17.4 H 17.8 H (11.5-15.5) % Lymphocytes # 0.8 L (1.0-4.8) k/uL Glucose 122 H (74-99) mg/dL Total Protein 5.5 L (6.3-8.2) g/dL Albumin 3.2 L (3.5-5.0) g/dL Microbiology - Last 24 Hours (Table) 06/30/19 20:11 Blood Culture - Preliminary Blood No Growth after 24 hours Assessment and Plan Plan: Ovarian Cancer: - Currently being treated with Lynparza Normo Anemia: Symptomatic - Statrus Post transfusion - Await further wrk-up - Not likely caused by lynparza alone therefore further assess with CT scan aand anemia work-up then ok with patient to discharge and follow-up next week. Fever: - Hold Lynparza - Ferris cultures - Abx - Chest xray neg acute process Plan: - Dispo per primary and ID - OK to restart lynparza from oncology standpoint as long as no active infectious process identified - Daily CBC - follow-up in office 2 weeks Continue supportive care
--- NOTE | 2019-07-02 19:23 | PN ---
PROGRESS NOTE DATE OF SERVICE: 07/02/2019. This 53-year-old woman who was admitted with possible bacteremia and sepsis is on chemotherapy at this time. No chest pain. No palpitations. No fever. The patient is also complaining of chest swelling at the site of IV. Hematology/Oncology and Infectious Disease are following the patient closely. PHYSICAL EXAM: Alert and oriented times three. Pulse 86, blood pressure 108/74, respirations 16, temperature 97.5, pulse ox 99% on room air. HEENT: Conjunctivae normal. NECK: No jugular venous distention. CARDIOVASCULAR: S1, S2 muffled. RESPIRATIONS: Breath sounds diminished in the bases. A few scattered rhonchi. Abdomen is soft nontender. CENTRAL NERVOUS SYSTEM: No focal deficits. LEGS: Examination of the right MediPort has some swelling and tenderness present, possibly fluid extubation. LABS: WBC 3.5, hemoglobin 7.5. ASSESSMENT: 1. Fever, possible sepsis of undetermined etiology. 2. Ovarian cancer, status post recent chemotherapy. 3. Anemia secondary to malignancy. 4. Hypertension. 5. Hyperlipidemia. 6. Pain and swelling of the MediPort site on the on the right chest. 7. History of gastroesophageal reflux disease. 8. Hypertension. 9. Hyperlipidemia. 10.History of adrenal gland growth. 11.History of hysterectomy. RECOMMENDATIONS AND DISCUSSION: This 53-year-old woman who presented with multiple medical issues, at this time I recommend to continue current medications, symptomatic treatment. Otherwise, we will await further cultures. Closely follow with Infectious Disease. Empiric antibiotics. Further recommendations to follow. MMODL / IJN: [id number] /
[2019-07-02] MEDS: ACETAMINOPHEN TAB 325 MG TAB PO PRN (21:19)
[2019-07-03] MEDS: VANCOMYCIN 1,750 MG in SODIUM CHLORIDE 0.9% 500 ML 500 ML IVPB SCH (04:20)
[2019-07-03] MEDS: SODIUM CHLORIDE 0.9% 1,000 ML IV SCH (04:21)
[2019-07-03 05:48] VITALS: BP 107/66; PULSE 86; TEMP 97.7
[2019-07-03] MEDS: OLAPARIB 300 MG PO SCH (07:37)
[2019-07-03] MEDS: ATORVASTATIN 40 MG TAB PO SCH (07:40)
[2019-07-03] MEDS: CEFEPIME 2 GM in SODIUM CHLORIDE 0.9% 100 ML IVPB SCH (07:40)
[2019-07-03] MEDS: FAMOTIDINE 20 MG TAB PO SCH (07:40)
--- NOTE | 2019-07-03 14:39 | PN ---
PROGRESS NOTE DATE OF [id number]: 07/03/2019. REASON FOR FOLLOWUP: Fever with a question of possible MediPort infection. INTERVAL HISTORY: The patient has been afebrile. Patient has been breathing comfortably. The patient denies having any chest pain, shortness of breath or cough. No abdominal pain, no diarrhea. PHYSICAL EXAMINATION: Blood pressure 107/66, pulse of 86, temperature 97.7, she is 97% on room air. General description is a middle-aged female, lying in bed in no distress. RESPIRATORY SYSTEM: Unlabored breathing, clear to auscultation anteriorly. HEART S1, S2. Regular rate and rhythm. ABDOMEN: Soft, no tenderness. LABS: Hemoglobin 7.5, white count 3.4, as of yesterday. Blood cultures obtained 06/30 and 07/01 remain to be negative. DIAGNOSTIC IMPRESSION AND PLAN: Patient admitted to the hospital with fever and chills and concern for possible MediPort infection at it was accessed a few days before the patient's symptoms started. Patient has multiple blood cultures obtained both from the MediPort and periphery and those have been negative. The patient has been afebrile for more than 72 hours and has no obvious source of infection. Recommend to discontinue antibiotic and monitor the patient closely off antibiotic therapy. Continue supportive care. MMODL / IJN: [id number] /
[2019-07-03] MEDS ORDERED: VANCOMYCIN TROUGH DUE 1 EACH MISC MISCELLANE ONE (15:00)
--- NOTE | 2019-07-03 16:31 | P.DS ---
Providers Date of admission: 06/30/19 23:36 Expected date of discharge: 07/03/19 Attending physician: Bola Cooper MD Consults: 06/30/19 23:15 Consult Physician Routine Consulting Provider: Aguila Bell Consult Reason/Comments: fever unknown origin, established patietn Do you want consulting provider notified?: Yes, Notify in am 07/01/19 11:21 Consult Physician Routine Consulting Provider: Daniel Patel Consult Reason/Comments: fever unknown origin, hx CA currently taking PO chemo. Do you want consulting provider notified?: Yes Primary care physician: Sulma Palencia [facility] Course: Final diagnosis Fever, possible sepsis of undetermined etiology Ovarian cancer, status post recent chemotherapy Anemia secondary to malignancy Hypertension Hyperlipidemia Pain and swelling of the Mediport site on the right chest History of gastroesophageal reflux disease Hypertension Hyperlipidemia History of adrenal gland growth History of hysterectomy Discharge disposition The patient is being discharged in a stable condition with guarded prognosis to home and patient will follow-up with primary care provider as well as oncology. History of present illness This is a 53-year-old woman who was admitted with possible bacteremia and sepsis and currently on chemotherapy. Patient was treated with IV antibiotics as infectious disease was following the patient closely. Patient has been afebrile today. Cultures have been negative thus far. Patient denies any chest pain, palpitations, or shortness of breath. Patient denies any nausea or vomiting at this time. Patient states that she did not have a bowel movement today but denies any abdominal discomfort and states she has stool softeners at home that she will resume. Patient is currently stable with much improvement. Per infectious disease patient is okay to go home without any antibiotics. On exam vital signs are stable. Blood pressure is 107/66, pulse is 86, respirations are 16, oxygen saturation is 97% on room air, temp is 97.7F. Cardio S1 and S2 are normal. Respiratory system is clear to auscultation. Abdomen is soft and nontender. Nervous system shows no focal deficits and gait is steady. Please refer to medication reconciliation sheet for a list of medications. Patient Condition at Discharge: Stable Plan - Discharge Summary New Discharge Prescriptions: Continue Ranitidine HCl 150 mg PO DAILY Atorvastatin [Lipitor] 40 mg PO DAILY Metoprolol Tartrate [Lopressor] 50 mg PO DAILY Lisinopril-Hctz 20-12.5 mg [Zestoretic 20-12.5] 1 tab PO DAILY [place]-3 Fatty Acids/Fish Oil [Fish Oil 1,000 mg Softgel] 1 cap PO DAILY amLODIPine [Norvasc] 5 mg PO DAILY Ascorbic Acid [Vitamin C] 1,000 mg PO DAILY Biotin 10,000 mcg PO DAILY Prochlorperazine [Compazine] 10 mg PO Q6H PRN PRN Reason: Nausea Olaparib [Lynparza] 300 mg PO BID Discharge Medication List Atorvastatin [Lipitor] 40 mg PO DAILY 06/02/16 [History] Ranitidine HCl 150 mg PO DAILY 06/02/16 [History] Metoprolol Tartrate [Lopressor] 50 mg PO DAILY 01/29/17 [History] Lisinopril-Hctz 20-12.5 mg [Zestoretic 20-12.5] 1 tab PO DAILY 02/23/18 [History] [place]-3 Fatty Acids/Fish Oil [Fish Oil 1,000 mg Softgel] 1 cap PO DAILY 10/08/18 [History] Ascorbic Acid [Vitamin C] 1,000 mg PO DAILY 06/25/19 [History] Biotin 10,000 mcg PO DAILY 06/25/19 [History] amLODIPine [Norvasc] 5 mg PO DAILY 06/25/19 [History] Olaparib [Lynparza] 300 mg PO BID 06/30/19 [History] Prochlorperazine [Compazine] 10 mg PO Q6H PRN 06/30/19 [History] Follow up Appointment(s)/Referral(s): Sulma Palencia DO [Primary Care Provider] - 07/09/19 1:30 pm Ambulatory/Diagnostic Orders: Complete Blood Count w/diff [LAB.AMB] Time Frame: 3 Days, Location: None Selected Activity/Diet/Wound Care/Special Instructions: Activity limited until follow-up continue current diet Follow up with primary care provider as scheduled Discharge Disposition: HOME SELF-CARE
--- NOTE | 2019-07-04 02:09 | DS ---
DISCHARGE SUMMARY DATE OF SERVICE: 07/03/2019. FINAL DIAGNOSES: 1. Fever, possible sepsis of undetermined etiology possibly neutropenic sepsis secondary to chemotherapy. 2. Ovarian cancer, status post recent chemotherapy. 3. Anemia secondary to malignancy. 4. Hypertension. 5. Hyperlipidemia. 6. History of hysterectomy. Pain and swelling of the MediPort site on the right side. 7. History of gastroesophageal reflux disease. 8. Hypertension. 9. Hyperlipidemia. 10.History of adrenal gland growth. 11.History of hysterectomy. DISCHARGE DISPOSITION: The patient will be discharged in stable condition with guarded prognosis. HISTORY OF PRESENT ILLNESS: This 53-year-old woman who presented with multiple medical problems, was treated with empiric antibiotics. Dr. Patel saw the patient. Cultures are negative. Patient improved. Hemoglobin stable at 7.5. Patient will be discharged in stable condition with guarded prognosis. On exam, vitals are stable. Cardiovascular S1, S2. Abdomen soft. Nervous System: No focal deficits. DISCHARGE ADVICE AND MEDICATIONS: 1. Diet is cardiac diet. 2. Activity limited until followup. 3. Follow up with Dr. Sulma Alonzo in 2-3 days. 4. Follow up with Infectious Disease and Hematology/Oncology as recommended. DISCHARGE MEDICATION: 1. Biotin 39338 mcg p.o. daily. 2. Compazine 10 mg q.6h p.r.n. 3. Fish oil 1 p.o. daily. 4. Lipitor 40 mg p.o. daily. 5. Lopressor 50 mg p.o. daily. 6. LinPrazia 300 mg p.o. b.i.d. 7. Norvasc 5 mg p.o. b.i.d. 8. Ranitidine 150 mg p.o. daily. 9. Vitamin C 1000 mg p.o. daily. 10.Zestoretic 20/12.5 mg p.o. daily. MMODL / IJN: [id number] /
== END 2019-07-03 13:30 | disposition home or self-care (01) | DRG 872 ==
LOC: EC 18:59 → 4MS4W 23:36 → OBSVTOIN 23:36
PROVIDERS: ADMIT Internal Medicine; ATTEND Internal Medicine
PROC: 05HF33Z Insertion of Infusion Device into Left Cephalic Vein, Percutaneous Approach (ICD-10-PCS; principal; 2019-07-02 09:00)
DX: A41.9 Sepsis, unspecified organism (principal); C56.9 Malignant neoplasm of unspecified ovary; D70.9 Neutropenia, unspecified; D63.0 Anemia in neoplastic disease; E78.5 Hyperlipidemia, unspecified; I10 Essential (primary) hypertension; R65.10 Systemic inflammatory response syndrome (SIRS) of non-infectious origin without acute organ dysfunction; K21.9 Gastro-esophageal reflux disease without esophagitis; T45.1X5A Adverse effect of antineoplastic and immunosuppressive drugs, initial encounter; Z79.899 Other long term (current) drug therapy; Z91.048 Other nonmedicinal substance allergy status; Z90.710 Acquired absence of both cervix and uterus; Z86.39 Personal history of other endocrine, nutritional and metabolic disease; Z82.49 Family history of ischemic heart disease and other diseases of the circulatory system; Z80.41 Family history of malignant neoplasm of ovary; Z83.3 Family history of diabetes mellitus; Z83.6 Family history of other diseases of the respiratory system; Z83.79 Family history of other diseases of the digestive system
CPT/HCPCS: 36410; 36415; 71046; 76937; 80053; 81003; 82565; 83605; 83735; 84484; 85025; 85610; 85730; 86304; 87040; 93005; 96361; 96374; 99285

== ENCOUNTER → 2019-12-12 | Outpatient (CLI) | payer BC, OTHER ==
[2019-12-12 15:02] LABS: African American GFR (CKD) >90 (>60 ml/min/1.73 sqM); Blood Urea Nitrogen 20 mg/dL (7-17); Non-African American GFR(CKD) 80 (>60 ml/min/1.73 sqM)
--- NOTE | 2019-12-12 16:53 | CT ---
EXAMINATION TYPE: CT ChestAbdPelvis w con DATE OF EXAM: 12/12/2019 INDICATION: Malignant neoplasm of unspecified ovary. COMPARISON: 03/06/2019, CT abdomen pelvis 06/26/2019 CT DLP: 2151.90 mGycm CONTRAST: Performed with Oral Contrast and with IV Contrast, patient injected with 100 mL of Isovue 300. TECHNIQUE: Axial images at 5 mm thick sections. Reconstructed images in the coronal plane. Delayed images through the kidneys. FINDINGS: CT CHEST: Portion of the thyroid visualized is normal. There is a stable 0.3 cm peripheral based nodule, series 4 image 28. No enlarged mediastinal or hilar adenopathy is evident. The ascending aorta diameter at the level of the main pulmonary artery is 3.2 cm. The main pulmonary artery diameter at the bifurcation is 2.[address] ABDOMEN: There is an anterior abdominal wall hernia containing air and contrast-filled loops of co patricio without evidence of obstruction in the epigastric region. The opening measures 6.2 cm. This was p resent previously. Liver: 0.7 cm hypodensity is within the mid right lobe liver likely related to a small cyst. An addit ional cyst is likely within the inferior posterior right lobe liver measuring 1.1 cm and 10 Hounsfiel d units. These were present previously. Spleen: Normal Pancreas: Normal Adrenal glands: The adrenal glands are normal. Gallbladder: Normal Kidneys: No masses are evident. No hydronephrosis is present. No cysts are present. Delayed images were obtained through the kidneys, which remain unremarkable. Aorta: Vascular calcification is within the aorta. Inferior vena cava: Normal. CT PELVIS: Loops of bowel within the abdomen and pelvis are normal. There are loops of bowel which are incom pletely distended or lack oral contrast limiting their evaluation. Appendix: Normal as visualized. Urinary bladder: Normal. Genitourinary structures: Uterus and ovaries are absent. No free fluid is within the pelvis. No suspi cious omental caking is evident. Osseous structures: No suspicious lytic or sclerotic lesions. Facet degenerative changes are within t he lower lumbar spine. IMPRESSIONS: 1. No suspicious changes to suggest recurrent or metastatic ovarian cancer. 2. Anterior abdominal wall hernia containing nonobstructed colon. 3. Tiny stable peripheral based right upper lobe lung nodule. 4. Probable hepatic cysts.
== END | disposition home or self-care (01) ==
LOC: RADPROMAIN 13:47
PROVIDERS: ATTEND Internal Medicine Hematology & Oncology
DX: K43.9 Ventral hernia without obstruction or gangrene (principal); R91.1 Solitary pulmonary nodule; C56.9 Malignant neoplasm of unspecified ovary
CPT/HCPCS: 82565; 84520; 71260; 74177; 36415; Q9967

== ENCOUNTER → 2020-01-16 | Outpatient (CLI) | payer BC, OTHER ==
--- NOTE | 2020-01-16 16:01 | XR ---
EXAMINATION TYPE: XR shoulder limited LT DATE OF EXAM: 01/16/2020 COMPARISON: None HISTORY: Left shoulder pain TECHNIQUE: Two-view left shoulder FINDINGS: Humeral head articulates with the glenoid. No acute fractures or dislocations are evident. Acromioclavicular junction is normal. IMPRESSION: 1. Normal left shoulder
--- NOTE | 2020-01-16 16:02 | XR ---
EXAMINATION TYPE: XR cervical spine comp DATE OF EXAM: 01/16/2020 COMPARISON: None HISTORY: Shoulder pain TECHNIQUE: Cervical spine is examined in this 5 projections. FINDINGS: Odontoid is limited due to overlying occiput. There is some foraminal narrowing C5-6 and mi lder foraminal narrowing at C6-7 on the left. Foraminal narrowing is present C5-6 on the right. The prevertebral space is normal. Disc heights appear preserved. Vertebral body heights are preserved . Posterior spinal lamellar line is intact. IMPRESSION: 1. Foraminal narrowing C5-6 bilaterally and C6-7 on the left. Correlate with radicular symptoms.
== END | disposition home or self-care (01) ==
LOC: RADXRMAIN 10:06
PROVIDERS: ATTEND Internal Medicine Hematology & Oncology
DX: M48.02 Spinal stenosis, cervical region (principal); C78.6 Secondary malignant neoplasm of retroperitoneum and peritoneum; I10 Essential (primary) hypertension; R18.0 Malignant ascites
CPT/HCPCS: 72050

== ENCOUNTER → 2020-02-06 | Outpatient (CLI) | payer BC ==
--- NOTE | 2020-02-06 15:03 | CT ---
EXAMINATION TYPE: CT ChestAbdPelvis w con DATE OF EXAM: 02/06/2020 COMPARISON: HISTORY: ovarian CA, abn cancer markers CT DLP: 2526 mGycm Automated exposure control for dose reduction was used. CONTRAST: CT scan of the chest, abdomen and pelvis is performed with Oral Contrast and with IV Contrast, patien t injected with 100 mL of Isovue 300. FINDINGS: Port-A-Cath is present in the right pectoral region courses via a subclavian approach into the cavoatrial junction level. Anterior abdominal wall hernia contains bowel loops as on prior, umbil ical hernia also present showing similar appearance LUNGS: The lungs are grossly clear, there is no concerning parenchymal mass or nodule identified. T here is no pleural effusion or pneumothorax seen. The tracheobronchial tree is patent. MEDIASTINUM: There are no greater than 1 cm hilar or mediastinal lymph nodes. No pericardial effusi on is seen. AORTA: No significant abnormality is seen. OTHER: No additional significant abnormality is seen. LIVER/GB: Low dense appearance likely due to hepatic steatosis, the liver is enlarged. There are low dense foci scattered within the liver similar to prior, dense focus within the lateral segment of the left lobe may represent some focal fatty sparing and shows a similar appearance but is more conspicu ous. PANCREAS: No significant abnormality is seen. SPLEEN: No significant abnormality is seen, splenule is again noted. ADRENALS: No significant abnormality is seen. KIDNEYS: No significant abnormality is seen. Posterior to the lower pole the right kidney there is a low dense focus just deep to the abdominal wall musculature which has increased in size and measures 2.1 cm as opposed to prior when it measured 14 mm REPRODUCTIVE ORGANS: Stable, postop changes status post hysterectomy. Suspect there is some residual ovarian tissue, adnexal structures somewhat more conspicuous than on prior. Left adnexal soft tissue mass measures approximately 1.5 cm, right adnexal lesion 18 mm in AP dimension, on axial image #104 t here is a soft tissue lesion measuring 10 mm towards the left iliac fossa with in the mesenteric fat. BOWEL: There has been interval development of some fluid attenuation at the level of the cecum media lly. FREE AIR: No Free Air visible. ASCITES: None seen. RETROPERITONEAL ADENOPATHY: No retroperitoneal adenopathy is seen. LYMPH NODES: No greater than 1 cm abdominal or pelvic lymph nodes are appreciated. URINARY BLADDER: No significant abnormality is seen. PELVIC ADENOPATHY: None visualized. OSSEOUS STRUCTURES: No significant abnormality is seen. IMPRESSION: Nodularity in the region of the adnexal structures appears somewhat more conspicuous, axi al images #109 and 110, interval development of some fluid attenuation adjacent to the cecum, indeter minate soft tissue mass within the mesenteric fat towards the left iliac fossa may be indicative of r ecurrence. Increasing size of indeterminate fluid attenuation lesion axial image 82 posterior to the inferior margin of the right kidney.
== END | disposition home or self-care (01) ==
LOC: RADCTMAIN 11:31
PROVIDERS: ATTEND Internal Medicine Hematology & Oncology
DX: Z03.89 Encounter for observation for other suspected diseases and conditions ruled out (principal); C56.9 Malignant neoplasm of unspecified ovary; R93.5 Abnormal findings on diagnostic imaging of other abdominal regions, including retroperitoneum
CPT/HCPCS: 82565; 84520; 71260; 74177; 36415; Q9967

== ENCOUNTER → 2020-03-04 | Outpatient (CLI) | payer BC ==
--- NOTE | 2020-03-04 09:55 | US ---
EXAMINATION TYPE: US abdomen complete DATE OF EXAM: 03/04/2020 COMPARISON: 01/22/2019 US, CT 02/06/2020 CLINICAL HISTORY: R10.9 Abd pain, C56.9 Ovarian ca. Pain. Exam limitations due to body habitus. EXAM MEASUREMENTS: Liver Length: 17 cm Gallbladder Wall: .2 cm CBD: .4 cm Spleen: 10.6 cm Right Kidney: 8.9 x 4.6 x 5.1 cm Left Kidney: 9.7 x 5.6 x 3.6 cm Pancreas: Obscured by bowel gas Liver: Increased attenuation . There is a hypoechoic area left lobe measuring 2.6 x 2.4 x 3.6 cm. T his is ill-defined and suspicious for metastatic lesion. There may be some color flow within this str ucture. This was present previously measuring 2.2 x 1.0 x 2.3 cm. Gallbladder: No stones seen Evidence for sonographic Peres's sign: No CBD: wnl Spleen: wnl Right Kidney: No hydronephrosis or masses seen Left Kidney: No hydronephrosis or masses seen Upper IVC: wnl Abd Aorta: wnl IMPRESSION: 1. Enlarging hypoechoic area within the left lobe liver metastasis should be considered.
== END | disposition home or self-care (01) ==
LOC: RADUSWWP 08:18
PROVIDERS: ATTEND Internal Medicine Hematology & Oncology
DX: C56.9 Malignant neoplasm of unspecified ovary (principal)
CPT/HCPCS: 76700

== ENCOUNTER → 2020-09-03 | Outpatient (CLI) | payer BC ==
[2020-09-03 14:00] LABS: African American GFR (CKD) >90 (>60 ml/min/1.73 sqM); Blood Urea Nitrogen 17 mg/dL (7-17); Non-African American GFR(CKD) >90 (>60 ml/min/1.73 sqM)
--- NOTE | 2020-09-03 19:37 | CT ---
EXAMINATION TYPE: CT ChestAbdPelvis w con DATE OF EXAM: 09/03/2020 COMPARISON: CT chest abdomen pelvis 02/06/2020. CT chest abdomen pelvis 05/22/2017. MRI abdomen 05/23/20 16. HISTORY: Follow up Ovarian cancer. CT DLP: 1800.6 mGycm Automated exposure control for dose reduction was used. CONTRAST: CT scan of the chest, abdomen and pelvis is performed with Oral Contrast and with IV Contrast, patien t injected with 100 mL of Isovue 300. FINDINGS: LUNGS: Lungs are grossly clear. No concerning parenchymal mass or nodule identified. Minimal atelecta sis. Trace left pleural effusion. No pneumothorax. The tracheobronchial tree is patent. MEDIASTINUM/SOFT TISSUES: Right-sided MediPort distal tip at the cavoatrial junction. No axillary, hi lar, or mediastinal lymphadenopathy greater than 1 cm. Cardiac size is normal. No pericardial effusio n. No thoracic aortic aneurysm. LIVER: Fatty liver. Numerous redemonstrated hepatic cysts, as seen on 2016 MRI comparison. No new stefani picious liver lesions. BILIARY SYSTEM: Normal. PANCREAS: Normal. SPLEEN: Normal. Splenule. ADRENALS: Normal. KIDNEYS: Normal. BOWEL: No evidence of obstruction. There is increased serosal thickening. PERITONEUM: Diffusely increased small volume ascites, increased serosal disease, increased metastatic mesenteric and omental reticular pattern. No pneumoperitoneum. Peritoneal nodule posterior to the in ferior aspect of the right kidney is mildly decreased in size measuring 14 x 14 mm (3:80), previously measuring 19 x 17 mm on 02/06/2020. Redemonstrated peritoneal nodularity of the bilateral pelvis. LYMPH NODES: Significantly increased number of nonenlarged mesenteric lymph nodes, largest measuring up to 8 mm in the right upper quadrant (3:83, 3:87). Many of the mesenteric lymph nodes are round in appearance. PELVIS: Underdistended urinary bladder. Status post hysterectomy. VASCULATURE: No abdominal aortic aneurysm. MUSCULOSKELETAL: No aggressive osseous destructive lesions. Degenerative changes of the spine. IMPRESSION: 1. Increased metastatic ovarian cancer with serosal bowel thickening, mesenteric and omental metasta tic disease, small volume ascites, and redemonstrated peritoneal nodularity. 2. Significantly increased number of nonenlarged mesenteric lymph nodes, many of which are round in appearance, most likely metastatic disease. 3. New trace left pleural effusion.
== END | disposition home or self-care (01) ==
LOC: RADPROMAIN 12:27
PROVIDERS: ATTEND Internal Medicine Hematology & Oncology
DX: C78.6 Secondary malignant neoplasm of retroperitoneum and peritoneum (principal); J90 Pleural effusion, not elsewhere classified; C56.9 Malignant neoplasm of unspecified ovary; R18.8 Other ascites
CPT/HCPCS: 82565; 84520; 71260; 74177; J1642; Q9967

== ENCOUNTER 2020-11-01 12:44 | Day surgery (SDC) | payer BC, OTHER ==
[2020-11-01 13:35] VITALS: RESP 16; TEMP 98
[2020-11-01 13:48] LABS: Mean Platelet Volume 7.1; Platelet Count 397 k/uL (150-450)
[2020-11-01 13:56] LABS: INR 1.1 (<1.2)
[2020-11-01 15:23] VITALS: BP 110/74; PULSE 100
--- NOTE | 2020-11-01 15:50 | US ---
EXAMINATION TYPE: US paracentesis abd w/image DATE OF EXAM: 11/01/2020 CLINICAL HISTORY: Ascites The procedure was discussed with the patient. The risks, complications, benefits, and alternatives we re discussed and any questions were answered. Informed consent was obtained. The patient was placed s upine on the ultrasound table and prepped and draped in the usual sterile fashion. All elements of maximal barrier technique were utilized. Under ultrasound guidance, access into the right lower quadrant was obtained, via the paracentesis catheter system and direct ultrasound guidanc e. Approximately 4.8 liters of straw-colored fluid was removed. The patient was stable throughout the pr ocedure and remained stable upon discharge from Department of Radiology. IMPRESSION: Successful therapeutic paracentesis under ultrasound guidance.
[2020-11-02 04:02] LABS: Albumin, Fluid Source Ascites
== END 2020-11-01 15:22 | disposition home or self-care (01) ==
LOC: RADPROMAIN 12:44
PROVIDERS: ATTEND Internal Medicine Hematology & Oncology
DX: R18.8 Other ascites (principal)
CPT/HCPCS: 82042; 85049; 85610; 87070; 87205; 87075; 49083; J1642

== ENCOUNTER 2020-11-06 10:58 | Inpatient (IN) | payer BC ==
[2020-11-06] MEDS ORDERED: METOCLOPRAMIDE 5 MG/ML 2 ML VIAL IVP STA (11:24)
[2020-11-06] MEDS ORDERED: PANTOPRAZOLE 40 MG/10 ML VIAL IVP STA (11:24)
[2020-11-06] MEDS ORDERED: SODIUM CHLORIDE 0.9% 1,000 ML IV STA (11:24)
[2020-11-06] MEDS ORDERED: FAMOTIDINE 20 MG/2 ML VIAL IV STA (11:25)
--- NOTE | 2020-11-06 11:27 | ED ---
General Adult HPI - General Chief complaint: Nausea/Vomiting/Diarrhea Stated complaint: Dehydration, Nothing to eat/drink x2 days Time Seen by Provider: 11/06/20 11:17 Source: patient, family, RN notes reviewed Mode of arrival: wheelchair Limitations: no limitations - History of Present Illness Initial comments: Patient is a pleasant 55-year-old female presenting to the emergency department with complaints of nausea vomiting. Patient is on chemotherapy for stage III/4 ovarian cancer. Patient has continued nausea. Decreased ability to tolerate solid food intake. Patient at times tolerates liquids. Patient has been using Zofran at home without much improvement. No abdominal pain. Patient did have paracentesis done less than 1 week ago without improvement of symptoms. Patient did have diarrhea over a week ago however that has resolved. No fevers. - Related Data Home Medications Medication Instructions Recorded Confirmed Atorvastatin [Lipitor] 40 mg PO DAILY 06/02/16 11/06/20 Metoprolol Tartrate [Lopressor] 25 mg PO BID 01/29/17 11/06/20 Lisinopril-Hctz 20-12.5 mg 1 tab PO BID 02/23/18 11/06/20 [Zestoretic 20-12.5] [place]-3 Fatty Acids/Fish Oil [Fish 1 cap PO DAILY 10/08/18 11/06/20 Oil 1,000 mg Softgel] Ascorbic Acid [Vitamin C] 1,000 mg PO DAILY 06/25/19 11/06/20 Biotin 5,000 mcg PO DAILY 06/25/19 11/06/20 amLODIPine [Norvasc] 5 mg PO DAILY 06/25/19 11/06/20 Docusate [Colace] 100 mg PO DAILY 07/05/20 11/06/20 Omeprazole 20 mg PO DAILY 10/20/20 11/06/20 Folic Acid 1 mg PO DAILY 11/06/20 11/06/20 Ondansetron Odt [Zofran Odt] 4 - 8 mg PO Q8H PRN 11/06/20 11/06/20 Zolpidem [Ambien] 5 mg PO HS PRN 11/06/20 11/06/20 Allergies Allergy/AdvReac Type Severity Reaction Status Date / Time adhesive tape Allergy Swelling Verified 11/06/20 12:06 Review of Systems ROS Statement: Those systems with pertinent positive or pertinent negative responses have been documented in the HPI. ROS Other: All systems not noted in ROS Statement are negative. Constitutional: Denies: fever, chills Eyes: Denies: eye pain ENT: Denies: ear pain Respiratory: Denies: cough Cardiovascular: Denies: chest pain Endocrine: Denies: fatigue Gastrointestinal: Reports: nausea, vomiting. Denies: abdominal pain Genitourinary: Denies: dysuria Musculoskeletal: Denies: back pain Skin: Denies: rash Neurological: Denies: weakness Past Medical History Past Medical History: Blood Disorder, Cancer, GERD/Reflux, Hyperlipidemia, Hypertension Additional Past Medical History / Comment(s): anemia- BLOOD TRANSFUSIONS,adrenal gland growth-MRI ABD & Pelvic- April 2016, bronchitis, "fast hr-takes metoprolol", cyst rt ovary ovarian cancer 01/2017, recent paracentesis History of Any Multi-Drug Resistant Organisms: None Reported Past Surgical History: Hysterectomy Additional Past Surgical History / Comment(s): colonoscopy. PARACENTESIS. Past Anesthesia/Blood Transfusion Reactions: Family History of Problems w/ Anesthesia Additional Past Anesthesia/Blood Transfusion Reaction / Comment(s): no hx general anesthesia or blood transfusion. mother-post op n/v Past Psychological History: No Psychological Hx Reported Smoking Status: Former smoker - Past Family History Mother Family Medical History: Cancer, Diabetes Mellitus, Hypertension, Myocardial Infarction ([place]) Additional Family Medical History / Comment(s): cabg, ovarian ca Father Family Medical History: Cancer, Hypertension Additional Family Medical History / Comment(s): lung,diverticulosis Brother(s) Family Medical History: Diabetes Mellitus General Exam Limitations: no limitations General appearance: alert, in no apparent distress Head exam: Present: normocephalic Eye exam: Present: normal appearance Neck exam: Present: normal inspection Respiratory exam: Present: normal lung sounds bilaterally Cardiovascular Exam: Present: tachycardia GI/Abdominal exam: Present: soft. Absent: distended, tenderness Extremities exam: Present: normal inspection Neurological exam: Present: alert Psychiatric exam: Present: normal affect, normal mood Skin exam: Present: normal color Course Vital Signs 11/06/20 11/06/20 11/06/20 11:11 11:56 12:00 Temperature 98.0 F Pulse Rate 128 H 108 H Respiratory 16 Rate Blood Pressure 123/99 121/83 121/83 O2 Sat by Pulse 98 95 86 L Oximetry 11/06/20 12:30 Temperature Pulse Rate 101 H Respiratory 18 Rate Blood Pressure 120/84 O2 Sat by Pulse 97 Oximetry Medical Decision Making - Medical Decision Making Patient reevaluated. Patient does feel a little bit better. Patient and family updated on results and plan. Case was discussed with Dr. Brennan PANDA, who will admit covering for hospital call. - Lab Data Result diagrams: 11/06/20 11:38 11/06/20 11:38 Lab Results 11/06/20 11/06/20 11/06/20 Range/Units 11:38 11:38 11:38 WBC 11.5 H (3.8-10.6) k/uL RBC 5.00 (3.80-5.40) m/uL Hgb 14.5 (11.4-16.0) gm/dL Hct 43.9 (34.0-46.0) % MCV 87.8 (80.0-100.0) fL MCH 29.0 (25.0-35.0) pg MCHC 33.1 (31.0-37.0) g/dL RDW 18.9 H (11.5-15.5) % Plt Count 658 H (150-450) k/uL MPV 7.7 Neutrophils % 73 % Lymphocytes % 12 % Monocytes % 12 % Eosinophils % 1 % Basophils % 0 % Neutrophils # 8.3 H (1.3-7.7) k/uL Lymphocytes # 1.4 (1.0-4.8) k/uL Monocytes # 1.4 H (0-1.0) k/uL Eosinophils # 0.1 (0-0.7) k/uL Basophils # 0.0 (0-0.2) k/uL Anisocytosis Slight Sodium 123 L (137-145) mmol/L Potassium 3.9 (3.5-5.1) mmol/L Chloride 86 L (98-107) mmol/L Carbon Dioxide 29 (22-30) mmol/L Anion Gap 8 mmol/L BUN 22 H (7-17) mg/dL Creatinine 0.78 (0.52-1.04) mg/dL Est GFR (CKD-EPI)AfAm >90 (>60 ml/min/1.73 sqM) Est GFR (CKD-EPI)NonAf 87 (>60 ml/min/1.73 sqM) Glucose 125 H (74-99) mg/dL Calcium 9.6 (8.4-10.2) mg/dL Total Bilirubin 0.9 (0.2-1.3) mg/dL AST 74 H (14-36) U/L ALT 109 H (4-34) U/L Alkaline Phosphatase 161 H (38-126) U/L Total Protein 6.4 (6.3-8.2) g/dL Albumin 3.7 (3.5-5.0) g/dL Amylase 64 (30-110) U/L Lipase 226 (23-300) U/L Urine Color Yellow Urine Appearance Cloudy H (Clear) Urine pH 5.5 (5.0-8.0) Ur Specific [place] 1.031 (1.001-1.035) Urine Protein 1+ H (Negative) Urine Glucose (UA) Negative (Negative) Urine Ketones 1+ H (Negative) Urine Blood Negative (Negative) Urine Nitrite Negative (Negative) Urine Bilirubin 1+ H (Negative) Urine Urobilinogen 2.0 (<2.0) mg/dL Ur Leukocyte Esterase Moderate H (Negative) Urine WBC 36 H (0-5) /hpf Ur Squamous Epith Cells 35 H (0-4) /hpf Urine Bacteria Rare H (None) /hpf Urine Mucus Many H (None) /hpf Disposition Clinical Impression: Hyponatremia, Vomiting Disposition: ADMITTED IP TO THIS HOSP Is patient prescribed a controlled substance at d/c from ED?: No Referrals: Sulma Palencia DO [Primary Care Provider] - 1-2 days Decision Time: 13:53
[2020-11-06 12:50] LABS: ALT 109 U/L (4-34); AST 74 U/L (14-36); African American GFR (CKD) >90 (>60 ml/min/1.73 sqM); Albumin 3.7 g/dL (3.5-5.0); Alkaline Phosphatase 161 U/L (38-126); Amylase 64 U/L (30-110); Anion Gap 8 mmol/L; Blood Urea Nitrogen 22 mg/dL (7-17); Calcium 9.6 mg/dL (8.4-10.2); Carbon Dioxide 29 mmol/L (22-30); Chloride 86 mmol/L (98-107); Glucose 125 mg/dL (74-99); Lipase 226 U/L (23-300); Non-African American GFR(CKD) 87 (>60 ml/min/1.73 sqM); Potassium 3.9 mmol/L (3.5-5.1); Sodium 123 mmol/L (137-145); Total Bilirubin 0.9 mg/dL (0.2-1.3); Total Protein 6.4 g/dL (6.3-8.2)
[2020-11-06 13:11] LABS: Appearance,Urine Cloudy (Clear); Bacteria,Urine Rare /hpf; Bilirubin,Urine 1+ (Negative); Blood,Urine Negative (Negative); Color,Urine Yellow; Glucose,Urine (UA) Negative (Negative); Ketones,Urine 1+ (Negative); Leukocyte Esterase,Urine Moderate (Negative); Mucus,Urine Many /hpf; Nitrite,Urine Negative (Negative); PH, Urine 5.5 (5.0-8.0); Protein,Urine 1+ (Negative); Specific Gravity,Urine 1.031 (1.001-1.035); Squamous Epithelial Cell,Urine 35 /hpf (0-4); WBC,Urine 36 /hpf (0-5)
[2020-11-06 13:33] LABS: Anisocytosis Slight; Basophils % (A) 0 %; Eosinophils # (A) 0.1 k/uL (0-0.7); Eosinophils % (A) 1 %; HCT 43.9 % (34.0-46.0); HGB 14.5 gm/dL (11.4-16.0); Lymphocytes # (A) 1.4 k/uL (1.0-4.8); Lymphocytes % (A) 12 %; MCHC 33.1 g/dL (31.0-37.0); MCV 87.8 fL (80.0-100.0); Mean Platelet Volume 7.7; Monocytes # (A) 1.4 k/uL (0-1.0); Monocytes % (A) 12 %; Neutrophils # (A) 8.3 k/uL (1.3-7.7); Neutrophils % (A) 73 %; Platelet Count 658 k/uL (150-450); RDW 18.9 % (11.5-15.5); WBC 11.5 k/uL (3.8-10.6)
[2020-11-06] MEDS ORDERED: NALOXONE 0.4 MG/ML 1 ML VIAL IV PRN (13:53)
[2020-11-06] MEDS ORDERED: ONDANSETRON 4 MG/2 ML VIAL IVP PRN (13:53)
[2020-11-06] MEDS ORDERED: ALPRAZolam 0.25 MG TAB PO PRN (16:20)
[2020-11-06] MEDS ORDERED: HYDROcodone/APAP 5-325MG 1 EACH TAB PO PRN (16:20)
[2020-11-06] MEDS ORDERED: ZOLPIDEM 5 MG TAB PO PRN (16:21)
[2020-11-06] MEDS ORDERED: PROCHLORPERAZINE INJ 10 MG/2 ML VIAL IVP PRN (16:23)
--- NOTE | 2020-11-06 16:25 | P.HPIM ---
History of Present Illness H&P Date: 11/06/20 Chief Complaint: nausea and vomiting Patient is a 55 yo CF with a hx of Ovarian Cancer Stage III/IV diagnosied in 2016, GERD, hypertension, and dyslipidemia who presented to the emergency department due to prolonged nausea, vomiting, and dizziness. In the ER she underwent an extensive evaluation. On arrival she was tachycardic with a pulse of 128 but the remainder of her vital signs were within normal limits. Laboratory analysis showed white blood cell count of 11.5, sodium 123, chloride 86, BUN 22, creatinine 0.78, AST 74, ALT 109, alkaline phosphatase 161. In the ER she was diagnosed with intractable nausea and vomiting as well as hyponatremia. She was started on IV fluids and arrangements were made for admission. Patient seen and examined at bedside in the ED. Started Alimta in August 2020 due to increasing Ca-125. She has completed 3 cycles. She has had poor eating habits since that time. In the last week unable to eat solid foods except for 2 days. Yesterday 30 ounces of fluid and 3 Popsicle and having dry heaving at home. Has been following with Dr. Bell for these symptoms for 8 weeks and they have been worsening. + light headed and dizziness for the last 2 weeks. Has been having someone helping her to the car. + fatigue and decreased exercise tolerance for the last 12 weeks. + chills, no fevers + diarrhea last week but none since then due to low eating. Paracentesis on 11/01 this was her first Para in 2 years this time 4.7L. Called Oncologist and Family doctor (Dr. Alonzo) and unable to get in for oral hydration. BRACA 1+ 3 weeks ago weight 211. Appt with Dr. Bell on Sunday, [facility] on Sunday for chemo. Review of Systems Pertinent positives and negatives as discussed in HPI, a complete review of systems was performed and all other systems are negative. Past Medical History Past Medical History: Blood Disorder, Cancer, GERD/Reflux, Hyperlipidemia, Hypertension Additional Past Medical History / Comment(s): anemia- BLOOD TRANSFUSIONS,adrenal gland growth-MRI ABD & Pelvic- April 2016, bronchitis, "fast hr-takes metoprolol", cyst rt ovary ovarian cancer 01/2017, recent paracentesis History of Any Multi-Drug Resistant Organisms: None Reported Past Surgical History: Hysterectomy Additional Past Surgical History / Comment(s): colonoscopy. PARACENTESIS X 4. Laparatomy for cancer debulking January 2017. Hysterectomy with oopherectomy May 2018 Past Anesthesia/Blood Transfusion Reactions: Family History of Problems w/ Anesthesia Additional Past Anesthesia/Blood Transfusion Reaction / Comment(s): no hx general anesthesia or blood transfusion. mother-post op n/v Past Psychological History: No Psychological Hx Reported Smoking Status: Former smoker - Past Family History Mother Family Medical History: Cancer, Diabetes Mellitus, Hypertension, Myocardial Infarction ([place]) Additional Family Medical History / Comment(s): cabg, ovarian ca Father Family Medical History: Cancer, Hypertension Additional Family Medical History / Comment(s): lung,diverticulosis Brother(s) Family Medical History: Diabetes Mellitus Medications and Allergies Home Medications Medication Instructions Recorded Confirmed Type Atorvastatin [Lipitor] 40 mg PO DAILY 06/02/16 11/06/20 History Metoprolol Tartrate [Lopressor] 25 mg PO BID 01/29/17 11/06/20 History Lisinopril-Hctz 20-12.5 mg 1 tab PO BID 02/23/18 11/06/20 History [Zestoretic 20-12.5] [place]-3 Fatty Acids/Fish Oil [Fish 1 cap PO DAILY 10/08/18 11/06/20 History Oil 1,000 mg Softgel] Ascorbic Acid [Vitamin C] 1,000 mg PO DAILY 06/25/19 11/06/20 History Biotin 5,000 mcg PO DAILY 06/25/19 11/06/20 History amLODIPine [Norvasc] 5 mg PO DAILY 06/25/19 11/06/20 History Docusate [Colace] 100 mg PO DAILY 07/05/20 11/06/20 History Omeprazole 20 mg PO DAILY 10/20/20 11/06/20 History Folic Acid 1 mg PO DAILY 11/06/20 11/06/20 History Ondansetron Odt [Zofran Odt] 4 - 8 mg PO Q8H PRN 11/06/20 11/06/20 History Zolpidem [Ambien] 5 mg PO HS PRN 11/06/20 11/06/20 History Allergies Allergy/AdvReac Type Severity Reaction Status Date / Time adhesive tape Allergy Swelling Verified 11/06/20 12:06 Physical Exam Osteopathic Statement: *. No significant issues noted on an osteopathic structural exam other than those noted in the History and Physical/Consult. Vitals: Vital Signs Temp Pulse Resp BP Pulse Ox 11/06/20 15:00 103 H 18 126/79 11/06/20 14:30 135/86 11/06/20 14:00 123/84 99 11/06/20 13:30 102 H 122/82 99 11/06/20 13:00 112/80 11/06/20 12:30 101 H 18 120/84 97 11/06/20 12:00 121/83 86 L 11/06/20 11:56 108 H 121/83 95 11/06/20 11:11 98.0 F 128 H 16 123/99 98 Intake and Output 11/06/20 11/06/20 11/06/20 06:59 14:59 22:59 Other: Weight 90.718 kg General: Ill appearing, mild distress, appears older than stated age Derm: warm, dry Head: atraumatic, normocephalic, symmetric Eyes: EOMI, no lid lag, anicteric sclera, pupils equal round reactive to light ENT: Nose and ears atraumatic, no thrush, no pharyngeal erythema Neck: No thyromegaly, no cervical lymphadenopathy, trachea midline, supple Mouth: no lip lesion, mucus membranes dry Cardiovascular: S1S2 tachy, no murmur, positive posterior tibial pulse bilateral, no edema, capillary refill less than 2 seconds Lungs: Decreased bs left base, no ronchi, no rales, no wheeze, no accessory muscle use Abdominal: soft, nontender to palpation, no guarding, no appreciable organomegaly, normal bowel sounds Ext: no gross muscle atrophy, muscle strength muscle strength 5 out of 5 in all 4 extremities, no contractures Neuro: CN II-XI grossly intact, light touch intact all 4 extremities, finger to nose within normal limits, Psych: Alert, oriented, appropriate affect Results CBC & Chem 7: 11/06/20 11:38 11/06/20 11:38 Labs: Abnormal Lab Results - Last 24 Hours (Table) 11/06/20 11/06/20 11/06/20 Range/Units 11:38 11:38 11:38 WBC 11.5 H (3.8-10.6) k/uL RDW 18.9 H (11.5-15.5) % Plt Count 658 H (150-450) k/uL Neutrophils # 8.3 H (1.3-7.7) k/uL Monocytes # 1.4 H (0-1.0) k/uL Sodium 123 L (137-145) mmol/L Chloride 86 L (98-107) mmol/L BUN 22 H (7-17) mg/dL Glucose 125 H (74-99) mg/dL AST 74 H (14-36) U/L ALT 109 H (4-34) U/L Alkaline Phosphatase 161 H (38-126) U/L Urine Appearance Cloudy H (Clear) Urine Protein 1+ H (Negative) Urine Ketones 1+ H (Negative) Urine Bilirubin 1+ H (Negative) Ur Leukocyte Esterase Moderate H (Negative) Urine WBC 36 H (0-5) /hpf Ur Squamous Epith Cells 35 H (0-4) /hpf Urine Bacteria Rare H (None) /hpf Urine Mucus Many H (None) /hpf Thrombosis Risk Factor Assmnt - DVT/VTE Prophylaxis DVT/VTE Prophylaxis: Pharmacologic Prophylaxis ordered Assessment and Plan Assessment: Intractable nausea and vomiting and patient currently undergoing chemotherapy for metastatic ovarian cancer -Has failed Zofran at home. Trial of IV Compazine with Zofran for backup -IV fluids -Consult hematology/oncology -Clear liquid diet - IV PPI Hyponatremia secondary to dehydration -Check urine sodium, urine osmolality, and serum osmolality -IV fluids -Serial electrolytes -Hold hydrochlorothiazide -Encourage oral fluid intake Hx of ascities requiring paracentesis - follow for acculumation of fluid with NS Ovarian cancer stage 3/4 per patient -Consult hematology oncology -Supportive care Hypertension -Controlled on admission. Continue with lisinopril, Norvasc, and metoprolol. Hold hydrochlorothiazide. Follow blood pressures. Dyslipidemia -Lipitor, omega-3 fatty acids Leukocytosis and thrombocytosis, suspect stress reaction - follow CBC Transaminitis - mild - suspect due to N/V - continue to tred The patient is admitted with an anticipated greater than 2 midnight stay for evaluation of Intractable nausea and vomiting. Surrogate decision-maker: CODE STATUS:Full, no prolonged mechanical ventilation DVT prophylaxis: Lovenox Discussed with: Patient, ED physician Anticipated discharge date: 1-[address]: home A total of 65 minutes was spent on the care of this complex patient more than 50% of the time was spent in counseling and care coordination.
[2020-11-06] MEDS ORDERED: LORazepam 2 MG/ML INJ IV PRN (16:35)
[2020-11-06] MEDS: SODIUM CHLORIDE 0.9% 1,000 ML IV SCH (16:39)
[2020-11-06] MEDS: METOPROLOL TARTRATE 25 MG TAB PO SCH (20:44)
[2020-11-06] MEDS ORDERED: OLANZapine 5 MG TAB PO SCH (21:00)
--- NOTE | 2020-11-06 21:01 | P.CONS ---
History of Present Illness - Reason for Consult Consult date: 10/30/20 Ovarian Cancer Requesting physician: Neptali Stark - Chief Complaint Nausea and vomiting - History of Present Illness Ms. Diaz is a pleasant premenopausal WF, initally seen in consult at [facility] on 01/30/17. She has She is well known to our practice for treatment of her recurrent and metastatic ovarian cancer. She has been treated through multiple lines of treatment with progressive disease. Recently she was then changed over to Alimta on 09/08/20 due to progression. Status post 4.5L ultrasound-guided paracentesis on 11/01. She has been struggling with constipation and nausea and vomiting since first treatment of almta, although this chemotherapy is not highly emetognic. It is rare to cause the persistent nausea. She had been struggling with constipation as well, but states she had episides of diarrhea just the week prior and the nausea and diarrhea preceeded the constipation. CA-125 from 10/20 increased to 478 from 263 in August, therefore Almta was subsequently discontinued and patient was scheduled to see Dr. Bell next week to discuss other treatment options. Unfortunetly she continued with nausea and vomting and dizzyness. therefore she presented to hospital for further evaluation. On arrival sodium is 123. No relief of nausea with zofran. Oncologic History Details She had been admitted with somewhat chronic RUQ pain, fatigue, and not feeling well, over the past year, with increase in pain over the past 9-[address] A/P on 01/29/17 showed new ascities, with possible peritoneal carcinomatosis in the left abdomen. There appeared to be peripheral nodularity and lobulation related to the adnexa bilaterally. CT chest was negative. 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 CA 125 was 1220. She was discharged and referred to [facility] oncology at [facility]. She had surgery on 02/10/17. She was able to have only a partial resection. She was referred back for chemotherapy. (03/13/17-Pt here today for chemo ed and 1st carbo/taxol. Taxol was started and pt had flushing, sweating, felt uncomfortable and was SOB. Infusion was stopped, NS started, VS documented, O2 at 2L started, she denied DALE, dizziness, nasuea, chest pain, indigestion, need to go to the bathroom. After about 20 min pt was feeling much better, VS improved, symptoms resolved. Taxol was restarted at 50cc/hr without complications. Education materials were highlighted and provided to pt and . All questions were answered.) She was found to be BRCA mutation positive The pt started chemo with Carbo and weekly Taxol on 03/13/17. She is s/p 3 cycles. She tolerated treatment well, with a good biochemical and CT response. She proceeded to surgery on 06/05/17. She was found to have a major response, with residual tumor noted in the ovary, and uterus area, and 1/5 left pra aortic, 1/5 left pelvic, and 1/ right pelvic nodes involved. She then resumed chemo and is s/p 3 cycle ( Total #6), completing those on 09/05/17 She opted for screening for her breasts with MRI in 10/12 negative. She was also started on Tamoxifen. She decided for surgery in 05/13, and is supposed to have that in 09/12 at [facility]. However f/u Ct scans in 09/12 showed recurrence in the abdomen and pelvis. She had a palliative paracentesis, with cytology positive in 09/12. Baseline ECHO was normal from 09/14/[address] by Dr Marvin at [facility], and after discussion of options ( std chemo vs clinical trial with PARP inhibitor) decided on chemo. She was started on Carbo/Doxil on 10/03/18 and is s/p 7 cycles. Avastin was added with C 2 due to coverage issues. She completed those on 03/21/19 She stopped Tamoxifen since starting chemo. She was seen back at [facility] in late 04/13. It was recommended she start PARP for maintenance. She started Olaparib on 04/26/19 She was admitted on 06/25/19 with Hg in the 6-7 range. Anemia w/u was negative. CT AP was also negative. She was readmitted on 07/01/19, with fever and cough, improved with IV antibiotics. Cultures remained negative. She was not discharged on antibiotic. Her Hgb was in the 6 range again when seen on 07/17/19. Thus this was felt to be likely an Olaparib effect. this was stopped. She received a unit of PRBC. She was then placed on observation. A progressive improvement in Hgb was noted. Case was d/w Dr Rabbi Rivers, who recommended resumption at 200 BID. The pt started the same on 09/06/19, as the delivery was delayed due to insurance issues. CA 125 did show a slow upward trend since 12/15. CT scans in 02/12 indicated probable early progression in the pelvis 03/17/20: CAT scans were not definitive due to which the patient was continued on the same regimen. However she subsequently developed some progressive subjective bloating and lower abdominal discomfort. Ultrasound was negative for fluid. CA 125 from 03/15 showed further increase to 103. As above. Case was discussed with the [facility] oncology at [facility] and the patient was started on carboplatin/Doxil/Avastin on 03/29/20. She is status post 5 cycles Review of Systems All systems: negative Constitutional: Reports as per HPI Past Medical History Past Medical History: Blood Disorder, Cancer, GERD/Reflux, Hyperlipidemia, Hypertension Additional Past Medical History / Comment(s): anemia- BLOOD TRANSFUSIONS,adrenal gland growth-MRI ABD & Pelvic- April 2016, bronchitis, "fast hr-takes metoprolol", cyst rt ovary ovarian cancer 01/2017, recent paracentesis History of Any Multi-Drug Resistant Organisms: None Reported Past Surgical History: Hysterectomy Additional Past Surgical History / Comment(s): colonoscopy. PARACENTESIS X 4. Laparatomy for cancer debulking January 2017. Hysterectomy with oopherectomy May 2018 Past Anesthesia/Blood Transfusion Reactions: Family History of Problems w/ Anesthesia Additional Past Anesthesia/Blood Transfusion Reaction / Comm: no hx general anesthesia or blood transfusion. mother-post op n/v Past Psychological History: No Psychological Hx Reported Smoking Status: Former smoker - Past Family History Mother Family Medical History: Cancer, Diabetes Mellitus, Hypertension, Myocardial Infarction ([place]) Additional Family Medical History / Comment(s): cabg, ovarian ca Father Family Medical History: Cancer, Hypertension Additional Family Medical History / Comment(s): lung,diverticulosis Brother(s) Family Medical History: Diabetes Mellitus Medications and Allergies Home Medications Medication Instructions Recorded Confirmed Type Atorvastatin [Lipitor] 40 mg PO DAILY 06/02/16 11/06/20 History Metoprolol Tartrate [Lopressor] 25 mg PO BID 01/29/17 11/06/20 History Lisinopril-Hctz 20-12.5 mg 1 tab PO BID 02/23/18 11/06/20 History [Zestoretic 20-12.5] Corwith-3 Fatty Acids/Fish Oil [Fish 1 cap PO DAILY 10/08/18 11/06/20 History Oil 1,000 mg Softgel] Ascorbic Acid [Vitamin C] 1,000 mg PO DAILY 06/25/19 11/06/20 History Biotin 5,000 mcg PO DAILY 06/25/19 11/06/20 History amLODIPine [Norvasc] 5 mg PO DAILY 06/25/19 11/06/20 History Docusate [Colace] 100 mg PO DAILY 07/05/20 11/06/20 History Omeprazole 20 mg PO DAILY 10/20/20 11/06/20 History Folic Acid 1 mg PO DAILY 11/06/20 11/06/20 History Ondansetron Odt [Zofran Odt] 4 - 8 mg PO Q8H PRN 11/06/20 11/06/20 History Zolpidem [Ambien] 5 mg PO HS PRN 11/06/20 11/06/20 History Allergies Allergy/AdvReac Type Severity Reaction Status Date / Time adhesive tape Allergy Swelling Verified 11/06/20 12:06 Physical Exam Vitals: Vital Signs Temp Pulse Resp BP Pulse Ox 11/06/20 15:00 103 H 18 126/79 11/06/20 14:30 135/86 11/06/20 14:00 123/84 99 11/06/20 13:30 102 H 122/82 99 11/06/20 13:00 112/80 11/06/20 12:30 101 H 18 120/84 97 11/06/20 12:00 121/83 86 L 11/06/20 11:56 108 H 121/83 95 11/06/20 11:11 98.0 F 128 H 16 123/99 98 Intake and Output 11/06/20 11/06/20 11/06/20 06:59 14:59 22:59 Other: Weight 90.718 kg - Constitutional General appearance: cooperative, obese - EENT Eyes: EOMI, PERRLA ENT: NA/AT, normal oropharynx - Respiratory Respiratory: bilateral: diminished (Bases) - Cardiovascular Rhythm: regular Heart sounds: normal: S1, S2 - Gastrointestinal Mild distention, Tenderness present to palpation General gastrointestinal: normal bowel sounds, soft - Integumentary Integumentary: flushed - Neurologic Neurologic: CNII-XII intact - Musculoskeletal Musculoskeletal: gait normal, generalized weakness - Psychiatric Psychiatric: A&O x's 3, appropriate affect, intact judgment & insight Results CBC & Chem 7: 11/06/20 11:38 12 11:38 Labs: Abnormal Lab Results - Last 24 Hours (Table) 11/06/20 11/06/20 11/06/20 Range/Units 11:38 11:38 11:38 WBC 11.5 H (3.8-10.6) k/uL RDW 18.9 H (11.5-15.5) % Plt Count 658 H (150-450) k/uL Neutrophils # 8.3 H (1.3-7.7) k/uL Monocytes # 1.4 H (0-1.0) k/uL Sodium 123 L (137-145) mmol/L Chloride 86 L (98-107) mmol/L BUN 22 H (7-17) mg/dL Glucose 125 H (74-99) mg/dL AST 74 H (14-36) U/L ALT 109 H (4-34) U/L Alkaline Phosphatase 161 H (38-126) U/L Urine Appearance Cloudy H (Clear) Urine Protein 1+ H (Negative) Urine Ketones 1+ H (Negative) Urine Bilirubin 1+ H (Negative) Ur Leukocyte Esterase Moderate H (Negative) Urine WBC 36 H (0-5) /hpf Ur Squamous Epith Cells 35 H (0-4) /hpf Urine Bacteria Rare H (None) /hpf Urine Mucus Many H (None) /hpf Assessment and Plan (1) Hyponatremia Current Visit: Yes Status: Acute Code(s): E87.1 - HYPO-OSMOLALITY AND HYPONATREMIA SNOMED Code(s): 43953210 (2) Vomiting Current Visit: Yes Status: Acute Code(s): R11.10 - VOMITING, UNSPECIFIED SNOMED Code(s): 014805267 (3) Abdominal pain Current Visit: No Status: Acute Priority: High Code(s): R10.9 - UNSPECIFIED ABDOMINAL PAIN SNOMED Code(s): 89052342 (4) Ovarian cancer, BRCA1 positive Narrative/Plan: - Recent Progression on Almta - Recurrent and persistent nausea and vomiting since late september uncontrolled at home. Diarrhea over a week ago and no BM since, she does admit to passing gas. - Agree with increased antiemetics, work-up for SIADH, re-hydration - Will check ultrasound of abdomen prior to restaging CTs, which are needed with highly suspected progression on Almta. If abdominal ascites is recurrent then will ask for therapeutic paracentesis prior to restaging CTs. - Add Bowel Regimen - LFTs are also increased, concerning for liver metastasis - Check COags - MRI Brain needs to be considered with her rapidly progressing malignancy and her persistent nausea and vomiting during treatment with a low emetogenic chemotherapy. Thank you for allowing us to participate in the care of this patient we will follow along with you. Case discussed with primary team Current Visit: No Status: Acute Code(s): C56.9 - MALIGNANT NEOPLASM OF UNSPECIFIED OVARY; Z15.01 - GENETIC SUSCEPTIBILITY TO MALIGNANT NEOPLASM OF BREAST; Z15.09 - GENETIC SUSCEPTIBILITY TO OTHER MALIGNANT NEOPLASM SNOMED Code(s): 839542666 (5) Symptomatic anemia Current Visit: No Status: Acute Code(s): D64.9 - ANEMIA, UNSPECIFIED SNOMED Code(s): 269097643
[2020-11-06 21:16] LABS: African American GFR (CKD) >90 (>60 ml/min/1.73 sqM); Anion Gap 7 mmol/L; Blood Urea Nitrogen 20 mg/dL (7-17); Calcium 9.1 mg/dL (8.4-10.2); Carbon Dioxide 27 mmol/L (22-30); Chloride 89 mmol/L (98-107); Glucose 123 mg/dL (74-99); Non-African American GFR(CKD) >90 (>60 ml/min/1.73 sqM); Sodium 123 mmol/L (137-145)
--- NOTE | 2020-11-06 21:36 | US ---
EXAMINATION TYPE: US abdomen limited DATE OF EXAM: 11/06/2020 COMPARISON: NONE CLINICAL HISTORY: reaccess ascites prior to order of restaging CTs. FINDINGS: Small amount of ascites seen within all four quadrants. IMPRESSION: Small volume abdominal ascites.
[2020-11-07] MEDS: ONDANSETRON 4 MG/2 ML VIAL IVP PRN ×2 (01:37→14:56)
[2020-11-07] MEDS: SODIUM CHLORIDE 0.9% 1,000 ML IV SCH ×3 (01:40→21:05)
[2020-11-07 06:11] LABS: Anisocytosis Slight; HCT 38.3 % (34.0-46.0); HGB 13.2 gm/dL (11.4-16.0); MCHC 34.4 g/dL (31.0-37.0); MCV 87.3 fL (80.0-100.0); Mean Platelet Volume 6.5; Platelet Count 387 k/uL (150-450); RBC 4.38 m/uL (3.80-5.40); RDW 18.3 % (11.5-15.5); WBC 8.6 k/uL (3.8-10.6)
[2020-11-07] MEDS: METOPROLOL TARTRATE 25 MG TAB PO SCH ×2 (08:30→21:04)
[2020-11-07] MEDS: lisinopriL 20 MG TAB PO SCH (08:30)
[2020-11-07] MEDS: FOLIC ACID 1 MG TAB PO SCH (08:30)
[2020-11-07] MEDS: ASCORBIC ACID 500 MG TAB PO SCH (08:30)
[2020-11-07] MEDS: amLODIPine 5 MG TAB PO SCH (08:31)
[2020-11-07] MEDS: ENOXAPARIN 40 MG/0.4 ML SYRINGE SQ SCH (08:31)
[2020-11-07] MEDS: PANTOPRAZOLE 40 MG/10 ML VIAL IV SCH (08:31)
[2020-11-07 08:32] LABS: Prothrombin Time 10.4 sec (9.0-12.0)
[2020-11-07] MEDS ORDERED: NON FORMULARY DRUG (Omega-3 Fatty Acids/Fish Oil [Fish Oil 1,000 Mg Softgel] 1 EACH Capsul PO SCH (09:00)
[2020-11-07] MEDS ORDERED: NON FORMULARY DRUG (Biotin [Biotin] 10,000 MCG Capsule) PO SCH (09:00)
[2020-11-07] MEDS: IOPAMIDOL CONTRAST (ORAL USE) VIAL PO PRN ×2 (09:29→10:37)
[2020-11-07 10:18] LABS: African American GFR (CKD) 114.6 (60.0-200.0); Albumin 3.4 g/dL (3.80-4.90); Albumin/Globulin Ratio 2.13 (1.60-3.17); Anion Gap 8.8 mmol/L (4.00-12.00); BUN/Creat Ratio 21.43 Ratio (12.00-20.00); Calcium 8.6 mg/dL (8.7-10.3); Carbon Dioxide 25.2 mmol/L (21.6-31.8); Globulin 1.6 g/dL (1.6-3.3); Magnesium 1.5 mg/dL (1.5-2.4); Non-African American GFR(CKD) 98.9 (60.0-200.0); Phosphorus 2.8 mg/dL (2.4-5.1); Potassium 3.9 mmol/L (3.5-5.5); Total Bilirubin 0.6 mg/dL (0.2-1.2)
[2020-11-07] MEDS ORDERED: bisacodyL 5 MG TABLET.DR PO STA (11:48)
--- NOTE | 2020-11-07 14:13 | P.PN ---
Subjective Progress Note Date: 11/07/20 (delayed charting seen at 1130) Principal diagnosis: intractable nausea and vomiting. Patient is a 55 yo CF with a hx of Ovarian Cancer Stage III/IV diagnosed in 2017, GERD, hypertension, and dyslipidemia who presented to the emergency department due to prolonged nausea, vomiting, and dizziness. In the ER she underwent an extensive evaluation. On arrival she was tachycardic with a pulse of 128 (patient with hx of tachycardai) but the remainder of her vital signs were within normal limits. Laboratory analysis showed white blood cell count of 11.5, sodium 123, chloride 86, BUN 22, creatinine 0.78, AST 74, ALT 109, alkaline phosphatase 161. In the ER she was diagnosed with intractable nausea and vomiting as well as hyponatremia. She was started on IV fluids and arran gements were made for admission. She underwent abdominal ultrasound which showed a small amount of ascites. She is continuing on a clear liquid diet. Compazine was tried which relieved her nausea and vomiting. She tolerated her liquid diet. She did struggle with constipation. Patient seen and examined at bedside. She reports that she tolerated her clear liquid diet and that Compazine improved her nausea and vomiting significantly. She now feels as though she is constipated and that is her primary problem. She states that she is feeling much better than yesterday and feels that she is overall improving. General: Ill-appearing, no distress, appears at stated age, obese Derm: warm, dry Head: atraumatic, normocephalic, symmetric Eyes: EOMI, no lid lag, anicteric sclera Mouth: no lip lesion, mucus membranes moist Cardiovascular: S1S2 reg, no murmur, positive posterior tibial pulse bilateral, Lungs: CTA bilateral, no rhonchi, no rales , no accessory muscle use Abdominal: soft distention, nontender to palpation, no guarding, no appreciable organomegaly Ext: no gross muscle atrophy, trace edema, no contractures Neuro: CN II-XI grossly intact, no focal neuro deficits Psych: Alert, oriented, appropriate affect Intractable nausea and vomiting and patient currently undergoing chemotherapy for metastatic ovarian cancer -antiemeticss -IV fluids -hematology/oncology recs appreciated -advance to full liquid diet - IV PPI Constipation -Dulcolax Hyponatremia secondary to dehydration - improving slightly with IVF fluids will need to monitor closely with hx of ascities -A low urine sodium with high urine osmolality which is not consistent with SIADH. Patient has now had a trial of IV fluids and will repeat urine sodium and urine osmolality -Serial electrolytes -Hold hydrochlorothiazide -Encourage oral fluid intake Hx of ascities requiring paracentesis - follow for accumulation of fluid with NS Ovarian cancer stage 3/4 per patient -Consult hematology oncology -Supportive care -Await repeat CT abdomen and pelvis Hypertension -Controlled on admission. Continue with lisinopril, Norvasc, and metoprolol. Hold hydrochlorothiazide. Follow blood pressures. Dyslipidemia -Lipitor, omega-3 fatty acids Leukocytosis and thrombocytosis, suspect stress reaction - follow CBC Transaminitis - mild - suspect due to N/V - continue to tred DVT prophylaxis: Lovenox Discussed with: Patient, nursing Anticipated discharge date: In a.m. Anticipated discharge place: home A total of 35 minutes was spent on the care of this complex patient more than 50% of the time was spent in counseling and care coordination. Objective - Vital Signs Vital signs: Vital Signs Temp 97.5 F L 11/07/20 08:00 Pulse 95 11/07/20 08:00 Resp 16 11/07/20 08:00 BP 114/83 11/07/20 08:00 Pulse Ox 97 11/07/20 08:00 Intake & Output 11/06/20 11/07/20 11/07/20 18:59 06:59 18:59 Intake Total 100 Balance 100 Weight 91.1 kg Intake: Intake, IV Titration 100 Amount Sodium Chloride 0.9% 1, 100 000 ml @ 999 mls/hr IV . Q1H1M STA Rx#:[id number] Other: # Voids 3 # Bowel Movements 0 - Labs CBC & Chem 7: 11/07/20 05:52 11/07/20 05:52 Labs: Abnormal Lab Results - Last 24 Hours (Table) 11/06/20 11/06/20 11/07/20 Range/Units 11:38 16:55 05:52 RDW 18.3 H (11.5-15.5) % APTT (22.0-30.0) sec Sodium 123 L (137-145) mmol/L Chloride 89 L (98-107) mmol/L BUN 20 H (7-17) mg/dL BUN/Creatinine Ratio (12.00-20.00) Ratio Glucose 123 H (74-99) mg/dL Osmolality 263 L (280-301) mosm/kg Calcium (8.7-10.3) mg/dL AST (13-35) U/L ALT (8-44) U/L Total Protein (6.2-8.2) g/dL Albumin (3.80-4.90) g/dL CA 125 Antigen 557.1 H (0.0-30.1) U/mL 11/07/20 11/07/20 Range/Units 05:52 05:52 RDW (11.5-15.5) % APTT 21.0 L (22.0-30.0) sec Sodium 125 L (137-145) mmol/L Chloride 91 L (98-107) mmol/L BUN (7-17) mg/dL BUN/Creatinine Ratio 21.43 H (12.00-20.00) Ratio Glucose (74-99) mg/dL Osmolality (280-301) mosm/kg Calcium 8.6 L (8.7-10.3) mg/dL AST 49 H (13-35) U/L ALT 74 H (8-44) U/L Total Protein 5.0 L (6.2-8.2) g/dL Albumin 3.40 L (3.80-4.90) g/dL CA 125 Antigen (0.0-30.1) U/mL Microbiology - Last 24 Hours (Table) 11/06/20 11:38 Urine Culture - Preliminary Urine,Voided
--- NOTE | 2020-11-07 14:18 | CT ---
EXAMINATION TYPE: CT ChestAbdPelvis wo con DATE OF EXAM: 11/07/2020 INDICATION: ascites, restaging ovarian cancer COMPARISON: 09/03/2020 CT DLP: 1125.2 mGycm CONTRAST: Performed with Oral Contrast TECHNIQUE: Axial images at 5 mm thick sections. Reconstructed images in the coronal plane. Delayed images through the kidneys. FINDINGS: CT CHEST: Portion of the thyroid visualized is normal. No suspicious lung nodules or focal infiltrates are present. No enlarged mediastinal or hilar adenopathy is evident. The ascending aorta diameter at the level of the main pulmonary artery is 3.3 cm. The main pulmonary artery diameter at the bifurcation is 2.6 cm. Some coronary artery calcification is present. Minimal left pleural effusion is present. No suspicious pericardial effusion is evident. CT ABDOMEN: There is an anterior abdominal wall hernia with an opening of 5.3 cm. This contains fluid loop of colon. The more proximal colon appears more air-filled. The distal colon appears decompresse d. What appears to be the colon within the abdominal wall hernia is air-filled. Partial obstruction i s not excluded Liver: Normal Spleen: Normal Pancreas: Normal Adrenal glands: The adrenal glands are normal. Gallbladder: Normal Kidneys: No masses are evident. No hydronephrosis is present. No cysts are present. No renal stone s are identified. Aorta: Vascular calcification is within the aorta. Inferior vena cava: Normal. CT PELVIS: No definite omental caking is evident. This may be difficult to separate near the level of the anterior abdominal wall hernia however. Small bowel loops within ascites appear dilated. Oral contrast extends to the pelvis. Large fecal christ us is at the rectum. Colon appears decompressed. Partial small bowel obstruction or ileus should be c onsidered. A zone of transition is not identified. Appendix: Not identified. No dilated tubular structure or inflammatory changes evident. Urinary bladder: Normal. Genitourinary structures: Uterus and ovaries are not identified. Osseous structures: No suspicious lytic or sclerotic lesions. Facet changes are present. IMPRESSIONS: 1. There is an anterior abdominal wall hernia with prominent: Entering with smaller: Distal. Some par tial entrapment is not excluded. 2. There are prominent small bowel loops within the left midabdomen extending into the pelvis. No zon e of transition to identify obstruction within small bowel loops is identified. This could be an ileu s or partial obstruction. This is a change from comparison.
[2020-11-08] MEDS: ASCORBIC ACID 500 MG TAB PO SCH (08:52)
[2020-11-08] MEDS: ENOXAPARIN 40 MG/0.4 ML SYRINGE SQ SCH (08:52)
[2020-11-08] MEDS: METOPROLOL TARTRATE 25 MG TAB PO SCH ×2 (08:53→21:12)
[2020-11-08] MEDS: PANTOPRAZOLE 40 MG/10 ML VIAL IV SCH (08:53)
[2020-11-08] MEDS: lisinopriL 20 MG TAB PO SCH (08:53)
[2020-11-08] MEDS: amLODIPine 5 MG TAB PO SCH (08:53)
[2020-11-08] MEDS: FOLIC ACID 1 MG TAB PO SCH (08:54)
[2020-11-08] MEDS: ONDANSETRON 4 MG/2 ML VIAL IVP PRN (10:41)
[2020-11-08] MEDS: SODIUM CHLORIDE 0.9% 1,000 ML IV SCH ×2 (11:51→14:35)
[2020-11-08] MEDS ORDERED: SIMETHICONE 80 MG CHEWABLE PO PRN (12:53)
[2020-11-08 13:30] LABS: Anisocytosis Slight; HCT 39.8 % (34.0-46.0); HGB 13.5 gm/dL (11.4-16.0); MCH 30.2 pg (25.0-35.0); MCHC 33.8 g/dL (31.0-37.0); MCV 89.3 fL (80.0-100.0); Mean Platelet Volume 6.3; Platelet Count 435 k/uL (150-450); RBC 4.46 m/uL (3.80-5.40); RDW 18.2 % (11.5-15.5); WBC 12.9 k/uL (3.8-10.6)
[2020-11-08 13:49] LABS: African American GFR (CKD) >90 (>60 ml/min/1.73 sqM); Anion Gap 3 mmol/L; Blood Urea Nitrogen 8 mg/dL (7-17); Calcium 8.7 mg/dL (8.4-10.2); Carbon Dioxide 24 mmol/L (22-30); Chloride 98 mmol/L (98-107); Glucose 117 mg/dL (74-99); Magnesium 1.6 mg/dL (1.6-2.3); Non-African American GFR(CKD) >90 (>60 ml/min/1.73 sqM); Phosphorus 2.5 mg/dL (2.5-4.5); Sodium 125 mmol/L (137-145)
--- NOTE | 2020-11-08 15:14 | P.PN ---
Subjective Progress Note Date: 11/08/20 Principal diagnosis: N,V, ileus vs part SBO 2/2 progressive ovarian malignancy In f/u today pt states she had V x 2 and 3 BMs since yesterday. She has tolerated some clear liquids today. No pain, no other physical c/o. Objective - Vital Signs Vital signs: Vital Signs Temp 98 F 11/08/20 08:00 Pulse 76 11/08/20 08:00 Resp 16 11/08/20 08:00 BP 121/84 11/08/20 08:00 Pulse Ox 98 11/08/20 08:00 Intake & Output 11/07/20 11/08/20 11/08/20 18:59 06:59 18:59 Intake Total 1200 200 Balance 1200 200 Intake: Oral 1200 200 Other: # Voids 4 - Constitutional General appearance: Present: cooperative, no acute distress, obese - EENT Eyes: Present: anicteric sclerae, EOMI ENT: Present: hearing grossly normal - Respiratory Respiratory: bilateral: CTA - Cardiovascular Heart sounds: normal: S1, S2 Abnormal Heart Sounds: Absent: systolic murmur, diastolic murmur, rub, S3 Gallop, S4 Gallop, click, other - Peripheral edema leg Peripheral Edema: bilateral: None - Gastrointestinal General gastrointestinal: Present: decreased bowel sounds, soft, tenderness. Absent: absent bowel sounds, distended, hepatomegaly, hyperactive bowel sounds, normal bowel sounds, organomegaly, rigid, scaphoid, splenomegaly, umbilical hernia, ventral hernia - Neurologic Neurologic: Present: CNII-XII intact - Musculoskeletal Musculoskeletal: Present: strength equal bilaterally - Psychiatric Psychiatric: Present: A&O x's 3, appropriate affect, intact judgment & insight - Labs CBC & Chem 7: 11/08/20 13:19 11/08/20 13:19 Labs: Microbiology - Last 24 Hours (Table) 11/06/20 11:38 Urine Culture - Final Urine,Voided - Imaging and Cardiology CT scan - abdomen: report reviewed CT scan - chest: report reviewed CT scan - pelvis: report reviewed Assessment and Plan (1) Ileus Current Visit: Yes Status: Acute Priority: High Code(s): K56.7 - ILEUS, UNSPECIFIED SNOMED Code(s): 070315284 (2) Peritoneal carcinomatosis Current Visit: Yes Status: Acute Priority: High Code(s): C78.6 - SECONDARY MALIGNANT NEOPLASM OF RETROPERITON AND PERITONEUM; C80.1 - MALIGNANT (PRIMARY) NEOPLASM, UNSPECIFIED SNOMED Code(s): 031021809 (3) Vomiting Current Visit: Yes Status: Acute Priority: High Code(s): R11.10 - VOMITING, UNSPECIFIED SNOMED Code(s): 199392501 (4) Ovarian cancer, BRCA1 positive Current Visit: No Status: Chronic Priority: High Code(s): C56.9 - MALIGNANT NEOPLASM OF UNSPECIFIED OVARY; Z15.01 - GENETIC SUSCEPTIBILITY TO MALIGNANT NEOPLASM OF BREAST; Z15.09 - GENETIC SUSCEPTIBILITY TO OTHER MALIGNANT NEOPLASM SNOMED Code(s): 836218418 Plan: In regards to the above diagnoses: Dr. Bell reviewed with the pt that there are no "masses" present on the CT scans but, peritoneal fluid positive for malignancy, rising Ca125 and presentation (symptomatic for ileus/part SBO) are most suggestive pt most likely has progressive malignancy in the peritoneum, growing in sheet like fashion around the bowel. Plan is to change chemo. This will be ordered and planned for outpt treatment. New appts will be sched for pt. She last vomited yesterday and she has now had 3 BMs. Will see how she does today. Case was discussed with Attending. Plan is to advance diet to see how pt tolerates. Plan for DC once pt able to sustain oral intake without V. Pt needs to be encouraged to continue stool softeners and use MOM/miralax PRN. Attests: I have performed H&P and developed impression and plan of care of patient, discussed with dictator. I agree with dictated note, documented as a scribe.
[2020-11-08] MEDS: MAGNESIUM SULFATE-D5W PMX 1 GM in DEXTROSE/WATER 1 100ML.BAG IVPB SCH ×2 (18:11→19:28)
[2020-11-08] MEDS: ACETAMINOPHEN TAB 325 MG TAB PO PRN (19:08)
[2020-11-08] MEDS: PROMETHAZINE 25 MG TAB PO PRN (19:28)
[2020-11-09] MEDS: SODIUM CHLORIDE 0.9% 1,000 ML IV SCH (05:55)
[2020-11-09] MEDS: ASCORBIC ACID 500 MG TAB PO SCH (08:00)
[2020-11-09] MEDS: FOLIC ACID 1 MG TAB PO SCH (08:00)
[2020-11-09] MEDS: lisinopriL 20 MG TAB PO SCH (08:00)
[2020-11-09] MEDS: amLODIPine 5 MG TAB PO SCH (08:00)
[2020-11-09 08:01] LABS: Anisocytosis Slight; HCT 38.7 % (34.0-46.0); MCH 29.8 pg (25.0-35.0); MCHC 33.5 g/dL (31.0-37.0); MCV 88.9 fL (80.0-100.0); Mean Platelet Volume 6.5; Platelet Count 416 k/uL (150-450); RBC 4.35 m/uL (3.80-5.40); RDW 18.5 % (11.5-15.5); WBC 11.8 k/uL (3.8-10.6)
[2020-11-09] MEDS: METOPROLOL TARTRATE 25 MG TAB PO SCH (08:01)
[2020-11-09] MEDS: ENOXAPARIN 40 MG/0.4 ML SYRINGE SQ SCH (08:01)
[2020-11-09] MEDS: PANTOPRAZOLE 40 MG/10 ML VIAL IV SCH (08:01)
[2020-11-09] MEDS: PROMETHAZINE 25 MG TAB PO PRN (08:50)
--- NOTE | 2020-11-09 12:17 | P.PN ---
Subjective Progress Note Date: 11/09/20 Principal diagnosis: N,V, ileus vs part SBO 2/2 progressive ovarian malignancy In f/u today pt had 1 small emesis and 1 BM since yesterday. She tolerated full liquids overall. No pain, no other physical c/o. Objective - Vital Signs Vital signs: Vital Signs Temp 97.4 F L 11/09/20 07:25 Pulse 91 11/09/20 08:00 Resp 16 11/09/20 08:00 BP 124/87 11/09/20 07:25 Pulse Ox 97 11/09/20 07:25 Intake & Output 11/08/20 11/09/20 11/09/20 18:59 06:59 18:59 Output Total 5 Balance -5 Output: Emesis 5 Other: Voiding Method Toilet Toilet # Voids 1 - Constitutional General appearance: Present: average body habitus, cooperative, no acute distress - EENT Eyes: Present: anicteric sclerae, EOMI - Respiratory Respiratory: bilateral: CTA - Cardiovascular Heart sounds: normal: S1, S2 - Peripheral edema leg Peripheral Edema: bilateral: None - Gastrointestinal General gastrointestinal: Present: decreased bowel sounds, distended (firm with fluid), soft - Neurologic Neurologic: Present: CNII-XII intact - Musculoskeletal Musculoskeletal: Present: strength equal bilaterally - Psychiatric Psychiatric: Present: A&O x's 3, appropriate affect, intact judgment & insight - Labs CBC & Chem 7: 11/09/20 07:17 11/08/20 13:19 Labs: Abnormal Lab Results - Last 24 Hours (Table) 11/08/20 11/08/20 11/09/20 Range/Units 13:19 13:19 07:17 WBC 12.9 H 11.8 H (3.8-10.6) k/uL RDW 18.2 H 18.5 H (11.5-15.5) % Sodium 125 L (137-145) mmol/L Glucose 117 H (74-99) mg/dL Assessment and Plan (1) Ileus Current Visit: Yes Status: Acute Priority: High Code(s): K56.7 - ILEUS, UNSPECIFIED SNOMED Code(s): 516101860 (2) Peritoneal carcinomatosis Current Visit: Yes Status: Acute Priority: High Code(s): C78.6 - SECONDARY MALIGNANT NEOPLASM OF RETROPERITON AND PERITONEUM; C80.1 - MALIGNANT (PRIMARY) NEOPLASM, UNSPECIFIED SNOMED Code(s): 258734058 (3) Vomiting Current Visit: Yes Status: Acute Priority: High Code(s): R11.10 - VOMITING, UNSPECIFIED SNOMED Code(s): 177256371 (4) Ovarian cancer, BRCA1 positive Current Visit: No Status: Chronic Priority: High Code(s): C56.9 - MALIGNANT NEOPLASM OF UNSPECIFIED OVARY; Z15.01 - GENETIC SUSCEPTIBILITY TO MALIGNANT NEOPLASM OF BREAST; Z15.09 - GENETIC SUSCEPTIBILITY TO OTHER MALIGNANT NEOPLASM SNOMED Code(s): 196807910 Plan: In regards to the above diagnoses: No "masses" present on the CT scans but, peritoneal fluid positive for malignancy, rising Ca125 and presentation (symptomatic for ileus/part SBO) most suggestive of progressive malignancy in the peritoneum, growing in sheet like fashion around the bowel. Plan is to change chemo. Taxol weekly has been ordered. Appts being sched for pt. She w ill be contacted She last vomited small amt x 1 since yesterday, 1 good BM. Ok to DC from Hem/Onc standpoint. US eval for para prior to discharge. Standing order being sent for outpt para. Anticipate decrease in malignant ascites with cancer treatment Attests: I have performed H&P and developed impression and plan of care of patient, discussed with dictator. I agree with dictated note, documented as a scribe.
--- NOTE | 2020-11-09 12:56 | US ---
EXAMINATION TYPE: US abdomen limited DATE OF EXAM: 11/09/2020 COMPARISON: 11/06/2020 CLINICAL HISTORY: eval for ascities. Hx ascites All four quadrants scanned. Ascites visualized. Ascites may be increased from comparison IMPRESSION: 1. Ascites present all 4 quadrants
[2020-11-09] MEDS: ACETAMINOPHEN TAB 325 MG TAB PO PRN (13:25)
[2020-11-09 13:58] LABS: African American GFR (CKD) 128.1 (60.0-200.0); Albumin 3.1 g/dL (3.80-4.90); Albumin/Globulin Ratio 2.07 (1.60-3.17); Anion Gap 8.4 mmol/L (4.00-12.00); Calcium 8.2 mg/dL (8.7-10.3); Carbon Dioxide 21.6 mmol/L (21.6-31.8); Globulin 1.5 g/dL (1.6-3.3); Magnesium 1.8 mg/dL (1.5-2.4); Non-African American GFR(CKD) 110.5 (60.0-200.0); Potassium 4.2 mmol/L (3.5-5.5); Total Bilirubin 0.4 mg/dL (0.2-1.2); Total Protein 4.6 g/dL (6.2-8.2)
[2020-11-09 14:56] VITALS: BP 113/80; PULSE 97; RESP 20; TEMP 97.6
--- NOTE | 2020-11-09 15:41 | P.PN ---
Subjective Progress Note Date: 11/08/20 (delayed charting seen at 1245) Principal diagnosis: intractable nausea and vomiting. Patient is a 55 yo CF with a hx of Ovarian Cancer Stage III/IV diagnosed in 2017, GERD, hypertension, and dyslipidemia who presented to the emergency department due to prolonged nausea, vomiting, and dizziness. In the ER she underwent an extensive evaluation. On arrival she was tachycardic with a pulse of 128 (patient with hx of tachycardai) but the remainder of her vital signs were within normal limits. Laboratory analysis showed white blood cell count of 11.5, sodium 123, chloride 86, BUN 22, creatinine 0.78, AST 74, ALT 109, alkaline phosphatase 161. In the ER she was diagnosed with intractable nausea and vomiting as well as hyponatremia. She was started on IV fluids and arran gements were made for admission. She underwent abdominal ultrasound which showed a small amount of ascites. She is continuing on a clear liquid diet. Compazine was tried which relieved her nausea and vomiting. She tolerated her liquid diet. She did struggle with constipation which resolved with one dose of dulcolax. Her vomiting returned with increasing to a full liquid diet. Patient seen and examined at bedside. Multiple episode of vomiting last night and one this morning. COnstipation resolved. No chest pain or shortness of breath General: Ill-appearing, no distress, appears at stated age, obese Derm: warm, dry Head: atraumatic, normocephalic, symmetric Eyes: EOMI, no lid lag, anicteric sclera Mouth: no lip lesion, mucus membranes moist Cardiovascular: S1S2 reg, no murmur, positive posterior tibial pulse bilateral, Lungs: CTA bilateral, no rhonchi, no rales , no accessory muscle use Abdominal: soft distention, nontender to palpation, no guarding, no appreciable organomegaly Ext: no gross muscle atrophy, trace edema, no contractures Neuro: CN II-XI grossly intact, no focal neuro deficits Psych: Alert, oriented, appropriate affect Intractable nausea and vomiting and patient currently undergoing chemotherapy for metastatic ovarian cancer -antiemetics- phenergan today, add zyprexa low dose at night -IV fluids -hematology/oncology recs appreciated -full liquid diet - IV PPI Constipation -Dulcolax Hyponatremia, suspect possibly due to ascities and not much improvement with IVF - improving slightly with IVF fluids will need to monitor closely with hx of ascities -A low urine sodium with high urine osmolality which is not consistent with SIADH likely due to ascities -Serial electrolytes -Hold hydrochlorothiazide -Encourage oral fluid intake Hx of ascities requiring paracentesis - follow for accumulation of fluid with NS Ovarian cancer stage 3/4 per patient -hematology oncology recs -Supportive care Hypertension -Controlled on admission. Continue with lisinopril, Norvasc, and metoprolol. Hold hydrochlorothiazide. Follow blood pressures. Dyslipidemia -Lipitor, omega-3 fatty acids Leukocytosis and thrombocytosis, suspect stress reaction - follow CBC Transaminitis - mild - suspect due to N/V - continue to trend DVT prophylaxis: Lovenox Discussed with: Patient, nursing Anticipated discharge date: In a.m. Anticipated discharge place: home A total of 35 minutes was spent on the care of this complex patient more than 50% of the time was spent in counseling and care coordination. Objective - Vital Signs Vital signs: Vital Signs Temp 97.9 F 11/08/20 14:00 Pulse 60 11/08/20 14:00 Resp 16 11/08/20 14:00 BP 112/77 11/08/20 14:00 Pulse Ox 98 11/08/20 08:00 Intake & Output 11/07/20 11/08/20 11/08/20 18:59 06:59 18:59 Intake Total 1200 200 Balance 1200 200 Intake: Oral 1200 200 Other: # Voids 4 - Labs CBC & Chem 7: 11/08/20 13:19 11/08/20 13:19 Labs: Abnormal Lab Results - Last 24 Hours (Table) 11/08/20 11/08/20 Range/Units 13:19 13:19 WBC 12.9 H (3.8-10.6) k/uL RDW 18.2 H (11.5-15.5) % Sodium 125 L (137-145) mmol/L Glucose 117 H (74-99) mg/dL Microbiology - Last 24 Hours (Table) 11/06/20 11:38 Urine Culture - Final Urine,Voided
--- NOTE | 2020-11-09 16:12 | P.DS ---
Providers Date of admission: 11/06/20 13:54 Expected date of discharge: 11/09/20 Attending physician: Billy Nation MD Consults: 11/06/20 13:54 Consult Physician Urgent Consulting Provider: Aguila Bell Consult Reason/Comments: Oncological care, hyponatremia Do you want consulting provider notified?: Yes Primary care physician: Sulma Palencia Hospital Course: Discharge Diagnosis: Intractable nausea and vomiting and patient currently undergoing chemotherapy for metastatic ovarian cancer Constipation Hyponatremia, suspect possibly due to ascities Hx of ascities requiring paracentesis Ovarian cancer stage 3/4 per patient Hypertension Dyslipidemia Leukocytosis, suspect stress reaction Thrombocytosis, resolved Transaminitis Hospital Course: Patient is a 55 yo CF with a hx of Ovarian Cancer Stage III/IV diagnosed in 2017, GERD, hypertension, and dyslipidemia who presented to the emergency department due to prolonged nausea, vomiting, and dizziness. In the ER she underwent an extensive evaluation. On arrival she was tachycardic with a pulse of 128 (patient with hx of tachycardai) but the remainder of her vital signs were within normal limits. Laboratory analysis showed white blood cell count of 11.5, sodium 123, chloride 86, BUN 22, creatinine 0.78, AST 74, ALT 109, alkaline phosphatase 161. In the ER she was diagnosed with intractable nausea and vomiting as well as hyponatremia. She was started on IV fluids and arrangements were made for admission. She underwent abdominal ultrasound which showed a small amount of ascites. She is continuing on a clear liquid diet. Compazine was tried which relieved her nausea and vomiting. She tolerated her liquid diet. She did struggle with constipation which resolved with one dose of dulcolax. Her vomiting returned with increasing to a full liquid diet. She was started on zyprexa and phenergan and had good results. She was able to tolerate a full liquid diet without nausea and vomiting. She was noted to have increased abdominal distension due to recurrent ascities due to IV fluid use. Ascities was noted in all 4 quandrant on repeat abdominal ultrasound. However unable to coordinate paracentesis for 11/09 and patient prefers to have it completed as an outpatient the first available appointment which is 11/17 at 12:20pm patient is aware. She was discharged home in stable condition. She will continued on as needed pheneragn for nausea. Sodium on day of discharge 131. Recommend staying of HCTZ due to hyponatremia, if ascities worsens of accumulates faster recommend Lasix as may drop sodium less. Patient seen and examined at bedside. Tolerating her diet, feeling well, no nausea, ABD slightly distended. Vital signs reviewed and stable. General: non toxic, no distress, appears at stated age Derm: warm, dry Head: atraumatic, normocephalic, symmetric Eyes: EOMI, no lid lag, anicteric sclera Mouth: no lip lesion, mucus membranes moist Cardiovascular: S1S2 reg, no murmur, positive posterior tibial pulse bilateral, Lungs: CTA bilateral, no rhonchi, no rales , no accessory muscle use Abdominal: soft, + mild distension, nontender to palpation, no guarding, no appreciable organomegaly Ext: no gross muscle atrophy, no edema, no contractures Neuro: CN II-XI grossly intact, no focal neuro deficits Psych: Alert, oriented, appropriate affect A total of 25 minutes of time were spent preparing this complex discharge summary . Plan - Discharge Summary Discharge Rx Participant: No New Discharge Prescriptions: No Action Atorvastatin [Lipitor] 40 mg PO DAILY Metoprolol Tartrate [Lopressor] 25 mg PO BID Lisinopril-Hctz 20-12.5 mg [Zestoretic 20-12.5] 1 tab PO BID Lucile-3 Fatty Acids/Fish Oil [Fish Oil 1,000 mg Softgel] 1 cap PO DAILY amLODIPine [Norvasc] 5 mg PO DAILY Ascorbic Acid [Vitamin C] 1,000 mg PO DAILY Biotin 5,000 mcg PO DAILY Docusate [Colace] 100 mg PO DAILY Omeprazole 20 mg PO DAILY Zolpidem [Ambien] 5 mg PO HS PRN PRN Reason: Insomnia Ondansetron Odt [Zofran Odt] 4 - 8 mg PO Q8H PRN PRN Reason: Nausea Folic Acid 1 mg PO DAILY Discharge Medication List Atorvastatin [Lipitor] 40 mg PO DAILY 06/02/16 [History] Metoprolol Tartrate [Lopressor] 25 mg PO BID 01/29/17 [History] Lisinopril-Hctz 20-12.5 mg [Zestoretic 20-12.5] 1 tab PO BID 02/23/18 [History] Lucile-3 Fatty Acids/Fish Oil [Fish Oil 1,000 mg Softgel] 1 cap PO DAILY 10/08/18 [History] Ascorbic Acid [Vitamin C] 1,000 mg PO DAILY 06/25/19 [History] Biotin 5,000 mcg PO DAILY 06/25/19 [History] amLODIPine [Norvasc] 5 mg PO DAILY 06/25/19 [History] Docusate [Colace] 100 mg PO DAILY 07/05/20 [History] Omeprazole 20 mg PO DAILY 10/20/20 [History] Folic Acid 1 mg PO DAILY 11/06/20 [History] Ondansetron Odt [Zofran Odt] 4 - 8 mg PO Q8H PRN 11/06/20 [History] Zolpidem [Ambien] 5 mg PO HS PRN 11/06/20 [History] Follow up Appointment(s)/Referral(s): Sulma Palencia DO [Primary Care Provider] - 1-2 days
--- NOTE | 2020-11-11 11:11 | CDI ---
Documentation Clarification Form Date: 11/11/20 From: Randi Hardy Phone: If you have questions regarding this query, please contact Jenn Huerta at [phone] between 8am and 5pm. Admit Date: 11/06/2020 01:54:00 PM Patient Name: Tasha Diaz Visit Number: [id number] Discharge Date: 11/09/2020 05:31:00 PM ATTENTION: The Clinical Documentation Specialists (CDI) and [facility] Coding Staff appreciate your assistance in clarifying documentation. Please respond to the clarification below the line at the bottom and electronically sign. The CDI & [facility] Coding staff will review the response and follow-up if needed. Please note: Queries are made part of the Legal Health Record. If you have any questions, please contact the author of this message via ITS. Dr. Mei Trevino The patient presented with the following: Intractable nausea and vomiting, hyponatremia, dehydration History/Risk Factors: Malignant neoplasm of ovary, peritoneal carcinomatosis Clinical Indicators: Nausea, vomiting, constipation Lab findings: WBC 11.5, platelet 658, sodium 123, chloride 86, BUN 22, glucose 125, AST 74, ALT 109, alk phos 161, Urine - cloudy, protein 1+, ketones 1+, bilirubin 1+, leukocyte esterase moderate, WBC 36, bacteria rare, mucus many Radiology findings: Abd US: Small volume abdominal ascites, CT Abdomen: 1.Anterior wall hernia with prominent entering with smaller distal. Some partial entrapment is not excluded. 2. Prominent small bowel loops within the left mid abdomen extending into the pelvis. No zone of transition to identify obstruction within small bowel loops is identified. This could be ileus or partial obstruction. This is a change from comparison Vital Signs: T. 98.0, P 128, R. 16, BP 123/99 Treatment: IV Zofran, IV Protonix, clear liquid diet Consults: Oncology consult - Ileus In your professional opinion, can you please clarify if the ileus was? Ruled In Ruled Out Other, please specify Unable to determine Ruled Out DANIELD
== END 2020-11-09 17:31 | disposition home or self-care (01) | DRG 392 ==
LOC: EC 10:58 → 5NMEDONC 13:54
PROVIDERS: ADMIT Internal Medicine; ATTEND Internal Medicine
DX: R11.2 Nausea with vomiting, unspecified (principal); C56.9 Malignant neoplasm of unspecified ovary; C78.6 Secondary malignant neoplasm of retroperitoneum and peritoneum; E87.1 Hypo-osmolality and hyponatremia; E78.5 Hyperlipidemia, unspecified; E86.0 Dehydration; I10 Essential (primary) hypertension; K21.9 Gastro-esophageal reflux disease without esophagitis; R10.11 Right upper quadrant pain; R74.01 Elevation of levels of liver transaminase levels; G89.29 Other chronic pain; K59.00 Constipation, unspecified; D72.829 Elevated white blood cell count, unspecified; R79.89 Other specified abnormal findings of blood chemistry; E66.9 Obesity, unspecified; Z68.33 Body mass index [BMI] 33.0-33.9, adult; Z15.01 Genetic susceptibility to malignant neoplasm of breast; Z79.899 Other long term (current) drug therapy; Z90.710 Acquired absence of both cervix and uterus; Z87.891 Personal history of nicotine dependence; Z91.048 Other nonmedicinal substance allergy status; Z98.890 Other specified postprocedural states; Z80.41 Family history of malignant neoplasm of ovary; Z82.49 Family history of ischemic heart disease and other diseases of the circulatory system; Z83.3 Family history of diabetes mellitus; Z80.1 Family history of malignant neoplasm of trachea, bronchus and lung; Z83.79 Family history of other diseases of the digestive system
CPT/HCPCS: 36415; 71250; 74176; 76705; 80048; 80053; 81001; 82150; 83690; 83735; 83930; 83935; 84100; 84300; 85025; 85027; 85610; 85730; 86304; 87086; 96361; 96374; 96375; 99285

== ENCOUNTER 2020-11-15 10:29 | Observation (INO) | payer BC ==
[2020-11-15] MEDS ORDERED: MORPHINE SULFATE 4 MG/ML SYRINGE IVP STA (11:03)
[2020-11-15] MEDS ORDERED: SODIUM CHLORIDE 0.9% 1,000 ML IV STA (11:03)
[2020-11-15] MEDS ORDERED: ONDANSETRON 4 MG/2 ML VIAL IVP STA (11:03)
--- NOTE | 2020-11-15 11:18 | ED ---
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 Patient states she had a paracentesis done about 2 weeks ago and was feeling improvement in her symptoms until about 2 days ago. Patient states she noticed a significant increase in fluid on her abdomen over the last 2 days which has made her very nauseous, denies abdominal discomfort and unable to eat or sleep. She states she has an appointment on the for another paracentesis but feels like she cannot wait that long. Her oncologist is Dr. Bell who she did contact today and is aware that she is coming to the ER. She was supposed to start a new chemo treatment this week. She denies any fever, chills. Patient states she is having some left-sided chest discomfort but states that last week she was diagnosed with a partially collapsed left lung that they are just observing for now. She states that her discomfort as well as her mild shortness of breath is no more than her usual. She describes her abdominal discomfort as pressure, fullness, no specific area of pain but all over pressure. She did have a normal bowel movem ent yesterday, she has been urinating less secondary to not be able to eat or drink. She only takes Tylenol for pain at home, she did not take anything today. She did not take anything for nausea today. She has no further complaints at this time. Upon arrival to the ER, she is afebrile, tachycardia at 140, rest of vitals are normal. (Randi Rhodes) - Related Data Home Medications Medication Instructions Recorded Confirmed Atorvastatin [Lipitor] 40 mg PO DAILY 06/02/16 11/15/20 Metoprolol Tartrate [Lopressor] 25 mg PO BID 01/29/17 11/15/20 [place]-3 Fatty Acids/Fish Oil [Fish 1 cap PO DAILY 10/08/18 11/15/20 Oil 1,000 mg Softgel] Ascorbic Acid [Vitamin C] 1,000 mg PO DAILY 06/25/19 11/15/20 Biotin 5,000 mcg PO DAILY 06/25/19 11/15/20 Docusate [Colace] 100 mg PO DAILY 07/05/20 11/15/20 Omeprazole 20 mg PO DAILY 10/20/20 11/15/20 Folic Acid 1 mg PO DAILY 11/06/20 11/15/20 Zolpidem [Ambien] 5 mg PO HS PRN 11/06/20 11/15/20 Previous Rx's Medication Instructions Recorded Promethazine [Phenergan] 12.5 mg PO Q6HR PRN #60 tab 11/09/20 Allergies Allergy/AdvReac Type Severity Reaction Status Date / Time adhesive tape Allergy Swelling Verified 11/15/20 11:20 Review of Systems ROS Other: All systems not noted in ROS Statement are negative. <Randi Rhodes - Last Filed: 11/16/20 10:35> ROS Other: All systems not noted in ROS Statement are negative. <Breonna Guzman - Last Filed: 11/16/20 13:20> ROS Statement: Those systems with pertinent positive or pertinent negative responses have been documented in the HPI. Past Medical History Past Medical History: Blood Disorder, Cancer, GERD/Reflux, Hyperlipidemia, Hypertension Additional Past Medical History / Comment(s): anemia- BLOOD TRANSFUSIONS,adrenal gland growth-MRI ABD & Pelvic- April 2016, bronchitis, "fast hr-takes metoprolol", cyst rt ovary ovarian cancer 01/2017 History of Any Multi-Drug Resistant Organisms: None Reported Past Surgical History: Hysterectomy Additional Past Surgical History / Comment(s): colonoscopy. PARACENTESIS X 5. Laparatomy for cancer debulking January 2017. Hysterectomy with oopherectomy May 2018 Past Anesthesia/Blood Transfusion Reactions: Family History of Problems w/ Anesthesia Additional Past Anesthesia/Blood Transfusion Reaction / Comment(s): no hx general anesthesia or blood transfusion. mother-post op n/v Past Psychological History: No Psychological Hx Reported Smoking Status: Never smoker Past Alcohol Use History: Occasional Past Drug Use History: None Reported - Past Family History Mother Family Medical History: Cancer, Diabetes Mellitus, Hypertension, Myocardial Infarction ([place]) Additional Family Medical History / Comment(s): cabg, ovarian ca Father Family Medical History: Cancer, Hypertension Additional Family Medical History / Comment(s): lung,diverticulosis Brother(s) Family Medical History: Diabetes Mellitus <Randi Rhodes - Last Filed: 11/16/20 10:35> General Exam Limitations: no limitations <Randi Rhodes - Last Filed: 11/16/20 10:35> - General Exam Comments Initial Comments: GENERAL: Patient is well-developed and well-nourished. Patient is nontoxic and in mild distress. HEAD: Atraumatic, normocephalic. EYES: Pupils equal round and reactive to light, extraocular movements intact, sclera anicteric, conjunctiva are normal. Eyelids were unremarkable. ENT: TMs normal, nares patent, oropharynx clear without exudates. Moist mucous membranes. NECK: Normal range of motion, supple without lymphadenopathy or JVD. LUNGS: Unlabored respirations. Decreased sounds on the left, No wheezes rales or rhonchi. HEART: Tachycardia rate and rhythm without murmurs, rubs or gallops. ABDOMEN: Abdomen is firm, generalized tender, no specific area pain, hypoactive bowel sounds, ascites present, guarding. : Deferred MUSCULOSKELETAL: Normal extremities with adequate strength and normal range of motion, no pitting or edema. No clubbing or cyanosis. NEUROLOGICAL: Patient is alert and oriented x 3. Motor and sensory are also intact. Cranial nerves II through XII grossly intact. Symmetrical smile. Normal speech, normal gait. PSYCH: Normal mood, normal affect. SKIN: Warm, Dry, normal turgor, no rashes or lesions noted. (Randi Rhodes) Course Vital Signs 11/15/20 11/15/20 11/15/20 10:33 12:40 14:32 Temperature 97.9 F Pulse Rate 140 H 123 H 127 H Respiratory 18 18 16 Rate Blood Pressure 112/93 109/81 122/94 O2 Sat by Pulse 98 97 98 Oximetry Medical Decision Making - Lab Data Result diagrams: 11/15/20 11:17 11/15/20 11:17 <Randi Rhodes - Last Filed: 11/16/20 10:35> - Lab Data Result diagrams: 11/15/20 11:17 11/15/20 11:17 <Breonna Guzman - Last Filed: 11/16/20 13:20> - Medical Decision Making Patient is a 55-year-old female with history of ovarian cancer here for ascites, abdominal pain, vomiting at increased over the past 2 days. Her last paracentesis was 2 weeks ago, she is scheduled for another one in 2 days. Patient was tachycardia upon arrival, 140, rest of vitals were normal. US reveals moderate to severe amount of ascites present in the entire abdomen. Labs show leukocytosis at 13.1, sodium is slightly low at 129, lactic acid is 1.3. Magnesium is low at 1.3. Patient will be admitted for paracentesis, we will consult Dr. Bell. Patient accepted by Dr. Valdez. Case discussed with Dr. Guzman. (Randi Rhodes) I was available for consultation in the emergency department. The history and physical exam were done by the midlevel provider. I was consulted for this patients care. I reviewed the case with the midlevel provider and based on their presentation of the patient, I agree with the assessment, medical decision making and plan of care as documented. Chart was dictated using [employer] dictation software. Attempts were made to correct any dictation errors however some typographical errors may persist. Patient was seen during a national state of emergency due to the Covid-19 pandemic. (Breonna Guzman) - Lab Data Lab Results 11/15/20 11/15/20 11/15/20 Range/Units 11:17 11:17 11:17 WBC 13.1 H (3.8-10.6) k/uL RBC 5.15 (3.80-5.40) m/uL Hgb 15.3 (11.4-16.0) gm/dL Hct 46.3 H (34.0-46.0) % MCV 89.8 (80.0-100.0) fL MCH 29.7 (25.0-35.0) pg MCHC 33.1 (31.0-37.0) g/dL RDW 19.0 H (11.5-15.5) % Plt Count 411 (150-450) k/uL MPV 6.6 Neutrophils % 78 % Lymphocytes % 10 % Monocytes % 8 % Eosinophils % 0 % Basophils % 1 % Neutrophils # 10.1 H (1.3-7.7) k/uL Lymphocytes # 1.3 (1.0-4.8) k/uL Monocytes # 1.1 H (0-1.0) k/uL Eosinophils # 0.1 (0-0.7) k/uL Basophils # 0.1 (0-0.2) k/uL Anisocytosis Slight PT 10.4 (9.0-12.0) sec INR 1.0 (<1.2) APTT 24.6 (22.0-30.0) sec Sodium 129 L (137-145) mmol/L Potassium 4.6 (3.5-5.1) mmol/L Chloride 101 (98-107) mmol/L Carbon Dioxide 22 (22-30) mmol/L Anion Gap 6 mmol/L BUN 14 (7-17) mg/dL Creatinine 0.53 (0.52-1.04) mg/dL Est GFR (CKD-EPI)AfAm >90 (>60 ml/min/1.73 sqM) Est GFR (CKD-EPI)NonAf >90 (>60 ml/min/1.73 sqM) Glucose 118 H (74-99) mg/dL Plasma Lactic Acid Gamaliel (0.7-2.0) mmol/L Calcium 8.9 (8.4-10.2) mg/dL Magnesium 1.3 L (1.6-2.3) mg/dL Total Bilirubin 0.8 (0.2-1.3) mg/dL AST 42 H (14-36) U/L ALT 29 (4-34) U/L Alkaline Phosphatase 163 H (38-126) U/L Total Protein 6.0 L (6.3-8.2) g/dL Albumin 3.1 L (3.5-5.0) g/dL Lipase 191 (23-300) U/L Urine Color Urine Appearance (Clear) Urine pH (5.0-8.0) Ur Specific [place] (1.001-1.035) Urine Protein (Negative) Urine Glucose (UA) (Negative) Urine Ketones (Negative) Urine Blood (Negative) Urine Nitrite (Negative) Urine Bilirubin (Negative) Urine Urobilinogen (<2.0) mg/dL Ur Leukocyte Esterase (Negative) Urine RBC (0-5) /hpf Urine WBC (0-5) /hpf Ur Squamous Epith Cells (0-4) /hpf Calcium Oxalate Crystal (None) /hpf Urine Bacteria (None) /hpf Hyaline Casts (0-2) /lpf Urine Mucus (None) /hpf 11/15/20 11/15/20 Range/Units 11:17 11:17 WBC (3.8-10.6) k/uL RBC (3.80-5.40) m/uL Hgb (11.4-16.0) gm/dL Hct (34.0-46.0) % MCV (80.0-100.0) fL MCH (25.0-35.0) pg MCHC (31.0-37.0) g/dL RDW (11.5-15.5) % Plt Count (150-450) k/uL MPV Neutrophils % % Lymphocytes % % Monocytes % % Eosinophils % % Basophils % % Neutrophils # (1.3-7.7) k/uL Lymphocytes # (1.0-4.8) k/uL Monocytes # (0-1.0) k/uL Eosinophils # (0-0.7) k/uL Basophils # (0-0.2) k/uL Anisocytosis PT (9.0-12.0) sec INR (<1.2) APTT (22.0-30.0) sec Sodium (137-145) mmol/L Potassium (3.5-5.1) mmol/L Chloride (98-107) mmol/L Carbon Dioxide (22-30) mmol/L Anion Gap mmol/L BUN (7-17) mg/dL Creatinine (0.52-1.04) mg/dL Est GFR (CKD-EPI)AfAm (>60 ml/min/1.73 sqM) Est GFR (CKD-EPI)NonAf (>60 ml/min/1.73 sqM) Glucose (74-99) mg/dL Plasma Lactic Acid Gamaliel 1.3 (0.7-2.0) mmol/L Calcium (8.4-10.2) mg/dL Magnesium (1.6-2.3) mg/dL Total Bilirubin (0.2-1.3) mg/dL AST (14-36) U/L ALT (4-34) U/L Alkaline Phosphatase (38-126) U/L Total Protein (6.3-8.2) g/dL Albumin (3.5-5.0) g/dL Lipase (23-300) U/L Urine Color Yellow Urine Appearance Cloudy H (Clear) Urine pH 6.0 (5.0-8.0) Ur Specific [place] 1.035 (1.001-1.035) Urine Protein 1+ H (Negative) Urine Glucose (UA) Negative (Negative) Urine Ketones Negative (Negative) Urine Blood Negative (Negative) Urine Nitrite Negative (Negative) Urine Bilirubin 1+ H (Negative) Urine Urobilinogen 3.0 (<2.0) mg/dL Ur Leukocyte Esterase Moderate H (Negative) Urine RBC 4 (0-5) /hpf Urine WBC 12 H (0-5) /hpf Ur Squamous Epith Cells 6 H (0-4) /hpf Calcium Oxalate Crystal Few H (None) /hpf Urine Bacteria Occasional H (None) /hpf Hyaline Casts 3 H (0-2) /lpf Urine Mucus Many H (None) /hpf Disposition Is patient prescribed a controlled substance at d/c from ED?: No Decision Date: 11/15/20 Decision Time: 13:35 <Randi Rhodes - Last Filed: 11/16/20 10:35> <Breonna Guzman - Last Filed: 11/16/20 13:20> Clinical Impression: Ascites, Abdominal pain, Leukocytosis, History of ovarian cancer, Vomiting Disposition: ADMITTED IP TO THIS HOSP Condition: Good
[2020-11-15 11:49] LABS: Appearance,Urine Cloudy (Clear); Bacteria,Urine Occasional /hpf; Bilirubin,Urine 1+ (Negative); Blood,Urine Negative (Negative); Calcium Oxalate Crystals,Urine Few /hpf; Color,Urine Yellow; Glucose,Urine (UA) Negative (Negative); Hyaline Casts,Urine 3 /lpf (0-2); Ketones,Urine Negative (Negative); Leukocyte Esterase,Urine Moderate (Negative); Mucus,Urine Many /hpf; Nitrite,Urine Negative (Negative); Protein,Urine 1+ (Negative); RBC,Urine 4 /hpf (0-5); Specific Gravity,Urine 1.035 (1.001-1.035); Squamous Epithelial Cell,Urine 6 /hpf (0-4); WBC,Urine 12 /hpf (0-5)
--- NOTE | 2020-11-15 12:05 | US ---
EXAMINATION TYPE: US abdomen limited DATE OF EXAM: 11/15/2020 COMPARISON: US CLINICAL HISTORY: Evaluate for ascites, hx of ovarian cancer. Ascites check, distended ABD Moderate to severe amount of ascites present IMPRESSION: As above
[2020-11-15 12:26] LABS: Anisocytosis Slight; Basophils # (A) 0.1 k/uL (0-0.2); Basophils % (A) 1 %; Eosinophils # (A) 0.1 k/uL (0-0.7); Eosinophils % (A) 0 %; HCT 46.3 % (34.0-46.0); HGB 15.3 gm/dL (11.4-16.0); Lymphocytes # (A) 1.3 k/uL (1.0-4.8); Lymphocytes % (A) 10 %; MCH 29.7 pg (25.0-35.0); MCHC 33.1 g/dL (31.0-37.0); MCV 89.8 fL (80.0-100.0); Mean Platelet Volume 6.6; Monocytes # (A) 1.1 k/uL (0-1.0); Monocytes % (A) 8 %; Neutrophils # (A) 10.1 k/uL (1.3-7.7); Neutrophils % (A) 78 %; Platelet Count 411 k/uL (150-450); RBC 5.15 m/uL (3.80-5.40); WBC 13.1 k/uL (3.8-10.6)
[2020-11-15 12:29] LABS: ALT 29 U/L (4-34); African American GFR (CKD) >90 (>60 ml/min/1.73 sqM); Albumin 3.1 g/dL (3.5-5.0); Anion Gap 6 mmol/L; Blood Urea Nitrogen 14 mg/dL (7-17); Calcium 8.9 mg/dL (8.4-10.2); Carbon Dioxide 22 mmol/L (22-30); Chloride 101 mmol/L (98-107); Glucose 118 mg/dL (74-99); Lipase 191 U/L (23-300); Non-African American GFR(CKD) >90 (>60 ml/min/1.73 sqM); Sodium 129 mmol/L (137-145); Total Bilirubin 0.8 mg/dL (0.2-1.3)
[2020-11-15 12:32] LABS: Potassium 4.6 mmol/L (3.5-5.1)
[2020-11-15 12:33] LABS: AST 42 U/L (14-36); Alkaline Phosphatase 163 U/L (38-126); Magnesium 1.3 mg/dL (1.6-2.3)
[2020-11-15 12:39] LABS: Partial Thromboplastin Time 24.6 sec (22.0-30.0); Prothrombin Time 10.4 sec (9.0-12.0)
[2020-11-15] MEDS ORDERED: ACETAMINOPHEN TAB 325 MG TAB PO PRN (13:35)
[2020-11-15] MEDS ORDERED: MORPHINE SULFATE 4 MG/ML SYRINGE IV PRN (13:35)
[2020-11-15] MEDS ORDERED: NALOXONE 0.4 MG/ML 1 ML VIAL IV PRN (13:35)
[2020-11-15] MEDS ORDERED: ONDANSETRON 4 MG/2 ML VIAL IVP PRN (13:35)
[2020-11-15] MEDS ORDERED: PROMETHAZINE 25 MG TAB PO PRN (13:39)
[2020-11-15] MEDS ORDERED: ZOLPIDEM 5 MG TAB PO PRN (13:39)
[2020-11-15] MEDS ORDERED: MORPHINE SULFATE 2 MG/ML SYRINGE IV PRN (13:39)
--- NOTE | 2020-11-15 14:18 | P.HPIM ---
History of Present Illness H&P Date: 11/15/20 This is a 55-year-old female with past medical history noted below significant for ovarian cancer diagnosed in 2017 currently on chemotherapy that presented to the emergency room with worsening ascites. Patient was recently discharged from the hospital last week and said that the last couple of days she noticed significant increase in her ascites and she was having some nausea and dry heaving. She denies any abdominal pain otherwise. No fevers or chills. She presented to the ER an abdominal ultrasound confirmed large ascites. She'll be placed on observation for paracentesis. Review of Systems Review of system: 14 points review of systems were obtained and were negative except to what were mentioned in the HPI. Past Medical History Past Medical History: Blood Disorder, Cancer, GERD/Reflux, Hyperlipidemia, Hypertension Additional Past Medical History / Comment(s): anemia- BLOOD TRANSFUSIONS,adrenal gland growth-MRI ABD & Pelvic- April 2016, bronchitis, "fast hr-takes metoprolol", cyst rt ovary ovarian cancer 01/2017 History of Any Multi-Drug Resistant Organisms: None Reported Past Surgical History: Hysterectomy Additional Past Surgical History / Comment(s): colonoscopy. PARACENTESIS X 5. Laparatomy for cancer debulking January 2017. Hysterectomy with oopherectomy May 2018 Past Anesthesia/Blood Transfusion Reactions: Family History of Problems w/ Anesthesia Additional Past Anesthesia/Blood Transfusion Reaction / Comment(s): no hx general anesthesia or blood transfusion. mother-post op n/v Past Psychological History: No Psychological Hx Reported Smoking Status: Never smoker Past Alcohol Use History: Occasional Past Drug Use History: None Reported - Past Family History Mother Family Medical History: Cancer, Diabetes Mellitus, Hypertension, Myocardial Infarction ([place]) Additional Family Medical History / Comment(s): cabg, ovarian ca Father Family Medical History: Cancer, Hypertension Additional Family Medical History / Comment(s): lung,diverticulosis Brother(s) Family Medical History: Diabetes Mellitus Medications and Allergies Home Medications Medication Instructions Recorded Confirmed Type Atorvastatin [Lipitor] 40 mg PO DAILY 06/02/16 11/15/20 History Metoprolol Tartrate [Lopressor] 25 mg PO BID 01/29/17 11/15/20 History [place]-3 Fatty Acids/Fish Oil [Fish 1 cap PO DAILY 10/08/18 11/15/20 History Oil 1,000 mg Softgel] Ascorbic Acid [Vitamin C] 1,000 mg PO DAILY 06/25/19 11/15/20 History Biotin 5,000 mcg PO DAILY 06/25/19 11/15/20 History amLODIPine [Norvasc] 5 mg PO DAILY 06/25/19 11/15/20 History Docusate [Colace] 100 mg PO DAILY 07/05/20 11/15/20 History Omeprazole 20 mg PO DAILY 10/20/20 11/15/20 History Folic Acid 1 mg PO DAILY 11/06/20 11/15/20 History Zolpidem [Ambien] 5 mg PO HS PRN 11/06/20 11/15/20 History Promethazine [Phenergan] 12.5 mg PO Q6HR PRN #60 tab 11/09/20 11/15/20 Rx lisinopriL [Zestril] 20 mg PO DAILY #30 tab 11/09/20 11/15/20 Rx Allergies Allergy/AdvReac Type Severity Reaction Status Date / Time adhesive tape Allergy Swelling Verified 11/15/20 11:20 Physical Exam Vitals: Vital Signs Temp Pulse Resp BP Pulse Ox 11/15/20 12:40 123 H 18 109/81 97 11/15/20 10:33 97.9 F 140 H 18 112/93 98 Intake and Output 11/14/20 11/15/20 11/15/20 22:59 06:59 14:59 Other: Weight 90.718 kg General: The patient is awake and alert, in no distress Eye: there is normal conjunctiva bilaterally. Neck: The neck is supple, there is no JVD. Cardiovascular: Normal S1-S2, no S3-S4, no murmurs. Respiratory: Lungs clear to auscultation bilaterally Gastrointestinal: Abdomen is distended with evidence of large ascites Musculoskeletal: There is no pedal edema. Neurological:. Speech is normal. Skin: Skin is warm and dry Results CBC & Chem 7: 11/15/20 11:17 11/15/20 11:17 Labs: Abnormal Lab Results - Last 24 Hours (Table) 11/15/20 11/15/20 11/15/20 Range/Units 11:17 11:17 11:17 WBC 13.1 H (3.8-10.6) k/uL Hct 46.3 H (34.0-46.0) % RDW 19.0 H (11.5-15.5) % Neutrophils # 10.1 H (1.3-7.7) k/uL Monocytes # 1.1 H (0-1.0) k/uL Sodium 129 L (137-145) mmol/L Glucose 118 H (74-99) mg/dL Magnesium 1.3 L (1.6-2.3) mg/dL AST 42 H (14-36) U/L Alkaline Phosphatase 163 H (38-126) U/L Total Protein 6.0 L (6.3-8.2) g/dL Albumin 3.1 L (3.5-5.0) g/dL Urine Appearance Cloudy H (Clear) Urine Protein 1+ H (Negative) Urine Bilirubin 1+ H (Negative) Ur Leukocyte Esterase Moderate H (Negative) Urine WBC 12 H (0-5) /hpf Ur Squamous Epith Cells 6 H (0-4) /hpf Calcium Oxalate Crystal Few H (None) /hpf Urine Bacteria Occasional H (None) /hpf Hyaline Casts 3 H (0-2) /lpf Urine Mucus Many H (None) /hpf Assessment and Plan Assessment: This is a 55-year-old female with complex past medical history noted below who presented to the emergency room with worsening ascites. Patient will be placed in observation for further management of her medical problems noted below. 1. Worsening ascites, IR consulted for paracentesis. No clinical evidence of SBP 2. History of ovarian cancer on chemotherapy, scheduled to follow-up with oncology in the office on Sunday 3. Essential hypertension, blood pressure borderline low. Hold blood pressure medications and monitor 4. Chronic medical problems include GERD and hyperlipidemia, continue home medication Today, I reviewed her medication list and lab work results. Urinalysis showed contamination and was not a clean catch urine. Chronic hyponatremia appears stable. Hydrochlorothiazide was discontinued during last admission. Plan for paracentesis and possible albumin if needed. Plans for discharge home tomorrow morning
[2020-11-15 14:34] VITALS: RESP 16
[2020-11-15] MEDS: ALBUMIN HUMAN 25% 50 ML in EMPTY BAG 1 BAG IVPB SCH ×4 (17:01→18:21)
--- NOTE | 2020-11-15 17:09 | US ---
EXAMINATION TYPE: US paracentesis abd w/image DATE OF EXAM: 11/15/2020 COMPARISON: NONE HISTORY: Ascites. PROCEDURE: Maximal barrier technique was utilized. The skin overlying a suitable pocket of fluid was localized with ultrasound and the overlying skin was prepped and draped. Ultrasound was utilized with sterile technique. Lidocaine was used for local anesthesia and a skin simone made with a scalpel. Catheter was advanced under direct ultrasound guidance into a suitable pocket of fluid and approximately 6.2 liter s of serous fluid were removed. Catheter was withdrawn and hemostasis achieved. There is no immedia te complication; the patient is discharged in stable condition. IMPRESSION: STATUS POST ULTRASOUND GUIDED PARACENTESIS FOR PALLIATION OF ASCITES. THIS PROCEDURE WA S PERFORMED BY THE UNDERSIGNED.
[2020-11-15] MEDS ORDERED: HEPARIN SODIUM,PORCINE 5,000 UNIT/ML 1 ML VIAL SQ SCH (21:00)
[2020-11-15 21:58] LABS: Appearance,BF Clear; Color,BF Yellow; Nucleated Cells, Body Fluid 7 /uL; RBC, Body Fluid 203 /uL
[2020-11-15] MEDS: METOPROLOL TARTRATE 25 MG TAB PO SCH (22:05)
[2020-11-16] MEDS ORDERED: PANTOPRAZOLE 40 MG TABLET PO SCH (07:30)
[2020-11-16 07:37] VITALS: BP 115/77; PULSE 112; TEMP 97.7
[2020-11-16] MEDS: METOPROLOL TARTRATE 25 MG TAB PO SCH (08:24)
[2020-11-16] MEDS ORDERED: DOCUSATE 100 MG CAP PO SCH (09:00)
[2020-11-16] MEDS ORDERED: ASCORBIC ACID 500 MG TAB PO SCH (09:00)
[2020-11-16] MEDS ORDERED: NON FORMULARY DRUG (Biotin [Biotin] 10,000 MCG Capsule) PO SCH (09:00)
[2020-11-16] MEDS ORDERED: ATORVASTATIN 40 MG TAB PO SCH (09:00)
[2020-11-16] MEDS ORDERED: NON FORMULARY DRUG (Omega-3 Fatty Acids/Fish Oil [Fish Oil 1,000 Mg Softgel] 1 EACH Capsul PO SCH (09:00)
[2020-11-16] MEDS ORDERED: FOLIC ACID 1 MG TAB PO SCH (09:00)
--- NOTE | 2020-11-16 09:39 | P.DS ---
Providers Date of admission: 11/15/20 13:37 Expected date of discharge: 11/16/20 Attending physician: Jose Valdez Primary care physician: Sulma Palencia [facility] Course: This is a 55-year-old female with complex past medical history noted below who presented to the emergency room with worsening ascites. Patient will be placed in observation for further management of her medical problems noted below. 1. Worsening malignant ascites, status post IR guided paracentesis with approximately 6.2 L removed. Patient received IV albumin.. No clinical evidence of SBP 2. History of ovarian cancer on chemotherapy, scheduled to follow-up with oncology in the office today for chemotherapy 3. Essential hypertension, blood pressure borderline low. Hold blood pressure medications and monitor. Continue with metoprolol only. Monitor blood pressure at home and resume blood pressure medication when systolic blood pressure is closer to 130/140 4. Chronic medical problems include GERD and hyperlipidemia, continue home medication Patient will be discharged home in a stable condition. For further details about this hospitalization please refer to the electronic chart. Time spent on discharge > 30 minutes including counseling and coordination of care Patient Condition at Discharge: Poor Plan - Discharge Summary Discharge Rx Participant: No New Discharge Prescriptions: Continue Atorvastatin [Lipitor] 40 mg PO DAILY Metoprolol Tartrate [Lopressor] 25 mg PO BID [place]-3 Fatty Acids/Fish Oil [Fish Oil 1,000 mg Softgel] 1 cap PO DAILY Ascorbic Acid [Vitamin C] 1,000 mg PO DAILY Biotin 5,000 mcg PO DAILY Docusate [Colace] 100 mg PO DAILY Omeprazole 20 mg PO DAILY Zolpidem [Ambien] 5 mg PO HS PRN PRN Reason: Insomnia Folic Acid 1 mg PO DAILY Promethazine [Phenergan] 12.5 mg PO Q6HR PRN #60 tab PRN Reason: Nausea And Vomiting Discontinued amLODIPine [Norvasc] 5 mg PO DAILY lisinopriL [Zestril] 20 mg PO DAILY #30 tab Discharge Medication List Atorvastatin [Lipitor] 40 mg PO DAILY 06/02/16 [History] Metoprolol Tartrate [Lopressor] 25 mg PO BID 01/29/17 [History] [place]-3 Fatty Acids/Fish Oil [Fish Oil 1,000 mg Softgel] 1 cap PO DAILY 10/08/18 [History] Ascorbic Acid [Vitamin C] 1,000 mg PO DAILY 06/25/19 [History] Biotin 5,000 mcg PO DAILY 06/25/19 [History] Docusate [Colace] 100 mg PO DAILY 07/05/20 [History] Omeprazole 20 mg PO DAILY 10/20/20 [History] Folic Acid 1 mg PO DAILY 11/06/20 [History] Zolpidem [Ambien] 5 mg PO HS PRN 11/06/20 [History] Promethazine [Phenergan] 12.5 mg PO Q6HR PRN #60 tab 11/09/20 [Rx] Follow up Appointment(s)/Referral(s): Sulma Palencia DO [Primary Care Provider] - 1-2 days Activity/Diet/Wound Care/Special Instructions: hold blood pressure meds monitor bp at home if BP >130 ok to start taking medication continue lopressor
== END 2020-11-16 08:30 | disposition home or self-care (01) ==
LOC: EC 10:29 → 6PED 13:37 → 5NMEDONC 14:18
PROVIDERS: ADMIT Internal Medicine; ATTEND Internal Medicine
DX: C80.1 Malignant (primary) neoplasm, unspecified (principal); R18.0 Malignant ascites; I10 Essential (primary) hypertension; E78.5 Hyperlipidemia, unspecified; J98.19 Other pulmonary collapse; K21.9 Gastro-esophageal reflux disease without esophagitis; D64.9 Anemia, unspecified; D72.829 Elevated white blood cell count, unspecified; E87.1 Hypo-osmolality and hyponatremia; R00.0 Tachycardia, unspecified; E27.9 Disorder of adrenal gland, unspecified; Z79.899 Other long term (current) drug therapy; Z91.048 Other nonmedicinal substance allergy status; Z90.710 Acquired absence of both cervix and uterus; Z90.722 Acquired absence of ovaries, bilateral; Z82.49 Family history of ischemic heart disease and other diseases of the circulatory system; Z83.3 Family history of diabetes mellitus; Z80.41 Family history of malignant neoplasm of ovary; Z83.79 Family history of other diseases of the digestive system; Z80.1 Family history of malignant neoplasm of trachea, bronchus and lung; Z84.89 Family history of other specified conditions
CPT/HCPCS: 96372; 96361; 96374; 96375; 99285; 36415; 80053; 89050; 83605; 83690; 83735; 85025; 85610; 85730; 81001; 87086; 76705; 49083; G0378 ×2; J2270; J1644; J2405; P9047

== ENCOUNTER 2020-11-22 11:55 | Emergency (ER) | payer BC ==
[2020-11-22] MEDS ORDERED: HYDROmorphone 0.5 MG/0.5 ML SYRINGE IVP STA (12:21)
[2020-11-22] MEDS ORDERED: SODIUM CHLORIDE 0.9% 500 ML 500 ML IV STA (12:21)
[2020-11-22] MEDS ORDERED: ONDANSETRON 4 MG/2 ML VIAL IVP STA (12:21)
[2020-11-22 13:23] VITALS: TEMP 98.2
--- NOTE | 2020-11-22 13:23 | XR ---
EXAMINATION TYPE: XR chest 2V DATE OF EXAM: 11/22/2020 COMPARISON: Chest CT November 07, 2020. Chest x-ray June 30, 2019 HISTORY: Shortness of breath. Fluid retention. History of ovarian cancer. TECHNIQUE: Frontal and lateral views of the chest are obtained. FINDINGS: Stable right subclavian Mediport catheter. New small left greater than right pleural effus ions. No suspicious focal airspace opacity or pneumothorax seen bilaterally. The cardiac silhouette size remains within normal limits. Multilevel spurring in the spine near the thoracolumbar junction. IMPRESSION: Diminished inspiration with new small left greater than right pleural effusions.
[2020-11-22 13:26] LABS: Anisocytosis Slight; Basophils % (A) 0 %; Eosinophils # (A) 0.1 k/uL (0-0.7); Eosinophils % (A) 1 %; HCT 43.4 % (34.0-46.0); HGB 14.6 gm/dL (11.4-16.0); Lymphocytes # (A) 1.1 k/uL (1.0-4.8); Lymphocytes % (A) 7 %; MCH 30.4 pg (25.0-35.0); MCHC 33.6 g/dL (31.0-37.0); MCV 90.4 fL (80.0-100.0); Mean Platelet Volume 7.3; Monocytes # (A) 0.3 k/uL (0-1.0); Monocytes % (A) 2 %; Neutrophils # (A) 13.9 k/uL (1.3-7.7); Neutrophils % (A) 89 %; Platelet Count 492 k/uL (150-450); RDW 19.1 % (11.5-15.5); WBC 15.7 k/uL (3.8-10.6)
--- NOTE | 2020-11-22 13:29 | ED ---
Abdominal Pain HPI - General Chief Complaint: Abdominal Pain Stated Complaint: Fluid in Abd/pain Time Seen by Provider: 11/22/20 12:15 Source: patient, RN notes reviewed Mode of arrival: ambulatory Limitations: no limitations - History of Present Illness Initial Comments: This 75-year-old female sent emergency Department chief complaint of increasing abdominal pain. Patient has known ovarian cancer states that she was initially diagnosed in 2017 had a recurrence of this. Patient's been going almost once a week or every couple weeks for paracentesis. Patient states that she was scheduled today but was not approved yet by insurance. She is scheduled for later this week but states pain is too unbearable today. She has known effusions her lungs states it does not feel worse and has been. Patient states her pain and nausea is quite severe at this time. No dysuria no known fever or chills no night sweats. Patient states that she is scheduled for chemotherapy on Sunday patient's oncologist Dr. Bell. - Related Data Home Medications Medication Instructions Recorded Confirmed Atorvastatin [Lipitor] 40 mg PO DAILY 06/02/16 11/22/20 Metoprolol Tartrate [Lopressor] 25 mg PO BID 01/29/17 11/22/20 [place]-3 Fatty Acids/Fish Oil [Fish 1 cap PO DAILY 10/08/18 11/22/20 Oil 1,000 mg Softgel] Ascorbic Acid [Vitamin C] 1,000 mg PO DAILY 06/25/19 11/22/20 Biotin 5,000 mcg PO DAILY 06/25/19 11/22/20 Docusate [Colace] 100 mg PO DAILY 07/05/20 11/22/20 Omeprazole 20 mg PO DAILY 10/20/20 11/22/20 Folic Acid 1 mg PO DAILY 11/06/20 11/22/20 Zolpidem [Ambien] 5 mg PO HS PRN 11/06/20 11/22/20 HYDROcodone/APAP 5-325MG [[place] 1 tab PO Q6H PRN 11/22/20 11/22/20 5-325] Previous Rx's Medication Instructions Recorded Promethazine [Phenergan] 12.5 mg PO Q6HR PRN #60 tab 11/09/20 Allergies Allergy/AdvReac Type Severity Reaction Status Date / Time adhesive tape Allergy Swelling Verified 11/22/20 13:07 Review of Systems ROS Statement: Those systems with pertinent positive or pertinent negative responses have been documented in the HPI. ROS Other: All systems not noted in ROS Statement are negative. Past Medical History Past Medical History: Blood Disorder, Cancer, GERD/Reflux, Hyperlipidemia, Hypertension Additional Past Medical History / Comment(s): anemia- BLOOD TRANSFUSIONS,adrenal gland growth-MRI ABD & Pelvic- April 2016, bronchitis, "fast hr-takes metoprolol", cyst rt ovary ovarian cancer 01/2017 History of Any Multi-Drug Resistant Organisms: None Reported Past Surgical History: Hysterectomy Additional Past Surgical History / Comment(s): colonoscopy. PARACENTESIS X 4. Laparatomy for cancer debulking January 2017. Hysterectomy with oopherectomy May 2018 Past Anesthesia/Blood Transfusion Reactions: Family History of Problems w/ Anesthesia Additional Past Anesthesia/Blood Transfusion Reaction / Comment(s): no hx general anesthesia or blood transfusion. mother-post op n/v Past Psychological History: No Psychological Hx Reported Smoking Status: Former smoker - Past Family History Mother Family Medical History: Cancer, Diabetes Mellitus, Hypertension, Myocardial Infarction ([place]) Additional Family Medical History / Comment(s): cabg, ovarian ca Father Family Medical History: Cancer, Hypertension Additional Family Medical History / Comment(s): lung,diverticulosis Brother(s) Family Medical History: Diabetes Mellitus General Exam Limitations: no limitations General appearance: alert, in no apparent distress Head exam: Present: atraumatic, normocephalic, normal inspection Eye exam: Present: normal appearance, PERRL, EOMI. Absent: scleral icterus, conjunctival injection, periorbital swelling ENT exam: Present: normal exam, normal oropharynx, mucous membranes moist Neck exam: Present: normal inspection, full ROM. Absent: tenderness, meningismus, lymphadenopathy Respiratory exam: Present: normal lung sounds bilaterally. Absent: respiratory distress, wheezes, rales, rhonchi, stridor Cardiovascular Exam: Present: normal rhythm, tachycardia, normal heart sounds. Absent: systolic murmur, diastolic murmur, rubs, gallop, clicks GI/Abdominal exam: Present: soft, distended, tenderness, rigid, normal bowel sounds. Absent: guarding, rebound Neurological exam: Present: alert, oriented X3 Skin exam: Present: warm, dry, intact, normal color. Absent: rash Course Vital Signs 11/22/20 11/22/2020 11:56 13:21 14:00 Temperature 98.0 F 98.2 F Pulse Rate 120 H 133 H Pulse Rate [ 126 H Pulse Oximetery ] Respiratory 18 16 16 Rate Blood Pressure 116/92 116/86 Blood Pressure 123/96 [Right Arm] O2 Sat by Pulse 99 98 96 Oximetry 11/22/20 11/22/20 11/22/20 14:36 14:53 15:30 Temperature Pulse Rate Pulse Rate [ 121 H 126 H 123 H Pulse Oximetery ] Respiratory 16 16 16 Rate Blood Pressure Blood Pressure 121/92 124/97 127/89 [Right Arm] O2 Sat by Pulse 96 96 97 Oximetry Medical Decision Making - Medical Decision Making 55-year-old female was in for abdominal pain, ascites. Patient did have paracentesis she states she feels 100% better. She has no complaint abdominal pain. Patient heart rate has been elevated in which she states this is chronic in nature. Patient states she's been dealing with this for several years she supposed be on metoprolol but has not been able to take it last 2 days because she's been sick feeling. Patient heart rate 120 after paracentesis. Patient was given her metoprolol. Patient has no chest pain or shortness of breath. Patient instructed to monitor her heart rate. I did review prior visit and which she was discharged with a heart rate of 111. She states this is fairly normal for patient. - Lab Data Result diagrams: 11/22/20 12:34 11/22/20 12:34 Lab Results 11/22/20 11/22/20 11/22/20 Range/Units 12:34 12:34 12:34 WBC 15.7 H (3.8-10.6) k/uL RBC 4.80 (3.80-5.40) m/uL Hgb 14.6 (11.4-16.0) gm/dL Hct 43.4 (34.0-46.0) % MCV 90.4 (80.0-100.0) fL MCH 30.4 (25.0-35.0) pg MCHC 33.6 (31.0-37.0) g/dL RDW 19.1 H (11.5-15.5) % Plt Count 492 H (150-450) k/uL MPV 7.3 Neutrophils % 89 % Lymphocytes % 7 % Monocytes % 2 % Eosinophils % 1 % Basophils % 0 % Neutrophils # 13.9 H (1.3-7.7) k/uL Lymphocytes # 1.1 (1.0-4.8) k/uL Monocytes # 0.3 (0-1.0) k/uL Eosinophils # 0.1 (0-0.7) k/uL Basophils # 0.0 (0-0.2) k/uL Anisocytosis Slight PT 10.5 (9.0-12.0) sec INR 1.0 (<1.2) APTT 25.1 (22.0-30.0) sec Sodium 133 L (137-145) mmol/L Potassium 4.4 (3.5-5.1) mmol/L Chloride 104 (98-107) mmol/L Carbon Dioxide 24 (22-30) mmol/L Anion Gap 5 mmol/L BUN 15 (7-17) mg/dL Creatinine 0.59 (0.52-1.04) mg/dL Est GFR (CKD-EPI)AfAm >90 (>60 ml/min/1.73 sqM) Est GFR (CKD-EPI)NonAf >90 (>60 ml/min/1.73 sqM) Glucose 116 H (74-99) mg/dL Calcium 8.4 (8.4-10.2) mg/dL Total Bilirubin 0.8 (0.2-1.3) mg/dL AST 35 (14-36) U/L ALT 19 (4-34) U/L Alkaline Phosphatase 133 H (38-126) U/L Total Protein 5.3 L (6.3-8.2) g/dL Albumin 2.8 L (3.5-5.0) g/dL Amylase 49 (30-110) U/L Lipase 177 (23-300) U/L Disposition Clinical Impression: Ascites, Abdominal pain, Tachycardia Disposition: HOME SELF-CARE Condition: Stable Instructions (If sedation given, give patient instructions): Abdominal Pain (ED) Additional Instructions: Please return to the Emergency Department if symptoms worsen or any other concerns. Is patient prescribed a controlled substance at d/c from ED?: No Referrals: Sulma Palencia DO [Primary Care Provider] - 1-2 days Time of Disposition: 16:22
[2020-11-22 13:35] LABS: ALT 19 U/L (4-34); AST 35 U/L (14-36); African American GFR (CKD) >90 (>60 ml/min/1.73 sqM); Albumin 2.8 g/dL (3.5-5.0); Alkaline Phosphatase 133 U/L (38-126); Amylase 49 U/L (30-110); Anion Gap 5 mmol/L; Blood Urea Nitrogen 15 mg/dL (7-17); Calcium 8.4 mg/dL (8.4-10.2); Carbon Dioxide 24 mmol/L (22-30); Chloride 104 mmol/L (98-107); Glucose 116 mg/dL (74-99); Lipase 177 U/L (23-300); Non-African American GFR(CKD) >90 (>60 ml/min/1.73 sqM); Potassium 4.4 mmol/L (3.5-5.1); Sodium 133 mmol/L (137-145); Total Bilirubin 0.8 mg/dL (0.2-1.3); Total Protein 5.3 g/dL (6.3-8.2)
[2020-11-22 13:44] LABS: Partial Thromboplastin Time 25.1 sec (22.0-30.0); Prothrombin Time 10.5 sec (9.0-12.0)
[2020-11-22] MEDS ORDERED: METOPROLOL TARTRATE 25 MG TAB PO STA (16:19)
--- NOTE | 2020-11-22 16:26 | US ---
EXAMINATION TYPE: US paracentesis abd w/image DATE OF EXAM: 11/22/2020 COMPARISON: NONE HISTORY: Ascites. PROCEDURE: Maximal barrier technique was utilized. The skin overlying a suitable pocket of fluid was localized with ultrasound and the overlying skin was prepped and draped. Ultrasound was utilized with sterile technique. Lidocaine was used for local anesthesia and a skin simone made with a scalpel. Catheter was advanced under direct ultrasound guidance into a suitable pocket of fluid and approximately 5.2 liter s of serous fluid were removed. Catheter was withdrawn and hemostasis achieved. There is no immedia te complication; the patient is discharged in stable condition. IMPRESSION: STATUS POST ULTRASOUND GUIDED PARACENTESIS FOR PALLIATION OF ASCITES. THIS PROCEDURE WA S PERFORMED BY THE UNDERSIGNED.
[2020-11-22 16:29] VITALS: BP 119/99; PULSE 130; RESP 18
== END 2020-11-22 16:54 | disposition home or self-care (01) ==
LOC: EC 11:55
DX: R18.8 Other ascites (principal); C56.9 Malignant neoplasm of unspecified ovary; R00.0 Tachycardia, unspecified; I10 Essential (primary) hypertension; E78.5 Hyperlipidemia, unspecified; K21.9 Gastro-esophageal reflux disease without esophagitis; D64.9 Anemia, unspecified; Z79.899 Other long term (current) drug therapy; Z91.048 Other nonmedicinal substance allergy status; Z90.722 Acquired absence of ovaries, bilateral; Z90.710 Acquired absence of both cervix and uterus; Z87.891 Personal history of nicotine dependence
CPT/HCPCS: 93005; 80053; 82150; 83690; 85025; 85610; 85730; 71046; 49083; 99284; 96374; 96375; 96361 ×2; J2405; J1170

== ENCOUNTER 2020-12-03 08:58 | Day surgery (SDC) | payer BC ==
[2020-12-03 10:05] VITALS: TEMP 98.1
[2020-12-03 10:08] LABS: Mean Platelet Volume 6.9; Platelet Count 393 k/uL (150-450)
[2020-12-03 10:18] LABS: Prothrombin Time 10.4 sec (9.0-12.0)
[2020-12-03 11:43] VITALS: BP 125/84; PULSE 102; RESP 18
--- NOTE | 2020-12-03 12:10 | US ---
Ultrasound-guided paracentesis. DATE OF EXAM: 12/03/2020 CLINICAL HISTORY: Ascites The procedure was discussed with the patient. The risks, complications, benefits, and alternatives we re discussed and any questions were answered. Informed consent was obtained. The patient was placed s upine on the ultrasound table and prepped and draped in the usual sterile fashion. All elements of maximal barrier technique were utilized. Under ultrasound guidance, access into the left lower quadrant was obtained, via the paracentesis catheter system and direct ultrasound guidance . Approximately 1.8 liters of straw-colored fluid was removed. The patient was stable throughout the pr ocedure and remained stable upon discharge from Department of Radiology. IMPRESSION: Successful paracentesis under ultrasound guidance.
== END 2020-12-03 11:20 | disposition home or self-care (01) ==
LOC: RADPROMAIN 08:58
PROVIDERS: ATTEND Internal Medicine Hematology & Oncology
DX: R18.0 Malignant ascites (principal)
CPT/HCPCS: 85049; 85610; 36415; 49083; J1642

== ENCOUNTER 2020-12-09 12:06 | Day surgery (SDC) | payer BC ==
[2020-12-09 13:13] LABS: Mean Platelet Volume 6.7; Platelet Count 299 k/uL (150-450)
[2020-12-09 13:18] VITALS: RESP 16; TEMP 98.2
[2020-12-09 13:28] LABS: Prothrombin Time 10.9 sec (9.0-12.0)
[2020-12-09 15:42] VITALS: BP 136/93; PULSE 103
--- NOTE | 2020-12-09 15:43 | US ---
Ultrasound-guided paracentesis. DATE OF EXAM: 12/09/2020 CLINICAL HISTORY: Ascites The procedure was discussed with the patient. The risks, complications, benefits, and alternatives we re discussed and any questions were answered. Informed consent was obtained. The patient was placed s upine on the ultrasound table and prepped and draped in the usual sterile fashion. All elements of maximal barrier technique were utilized. Under ultrasound guidance, access into the right lower quadrant was obtained, via the paracentesis catheter system and direct ultrasound guidanc e. Approximately 3.8 liters of straw-colored fluid was removed. The patient was stable throughout the pr ocedure and remained stable upon discharge from Department of Radiology. IMPRESSION: Successful paracentesis under ultrasound guidance.
== END 2020-12-09 14:40 | disposition home or self-care (01) ==
LOC: RADPROMAIN 12:06
PROVIDERS: ATTEND Internal Medicine Hematology & Oncology
DX: R18.0 Malignant ascites (principal)
CPT/HCPCS: 85049; 85610; 49083; J1642

== ENCOUNTER 2020-12-16 12:55 | Day surgery (SDC) | payer BC ==
[2020-12-16 13:04] VITALS: RESP 16; TEMP 97.4
[2020-12-16 14:22] VITALS: BP 129/87; PULSE 96
--- NOTE | 2020-12-16 15:11 | US ---
Ultrasound-guided paracentesis. DATE OF EXAM: 12/16/2020 CLINICAL HISTORY: Ascites The procedure was discussed with the patient. The risks, complications, benefits, and alternatives we re discussed and any questions were answered. Informed consent was obtained. The patient was placed s upine on the ultrasound table and prepped and draped in the usual sterile fashion. All elements of maximal barrier technique were utilized. Under ultrasound guidance, access into the left lower quadrant was obtained, via the paracentesis catheter system and direct ultrasound guidance . Approximately 2.4 liters of straw-colored fluid was removed. The patient was stable throughout the pr ocedure and remained stable upon discharge from Department of Radiology. IMPRESSION: Successful paracentesis under ultrasound guidance.
== END 2020-12-16 14:30 | disposition home or self-care (01) ==
LOC: RADPROMAIN 12:55
PROVIDERS: ATTEND Internal Medicine Hematology & Oncology
DX: R18.0 Malignant ascites (principal)
CPT/HCPCS: 49083

== ENCOUNTER 2020-12-28 12:19 | Day surgery (SDC) | payer BC ==
--- NOTE | 2020-12-29 13:59 | US ---
EXAMINATION TYPE: US abdomen limited DATE OF EXAM: 12/28/2020 CLINICAL HISTORY: R18.0 Malignant Ascites. TECHNIQUE: Ultrasound guided paracentesis planning COMPARISON: NONE FINDINGS: There is only a small volume of ascites present at this time. 2 images are presented. Parac entesis was aborted prior to incision or insertion. IMPRESSION: 1. Mild ascites. 2. Paracentesis deferred at this time by the patient.
== END 2020-12-28 12:45 | disposition home or self-care (01) ==
LOC: RADPROMAIN 12:19
PROVIDERS: ATTEND Internal Medicine Hematology & Oncology
DX: R18.0 Malignant ascites (principal); Z53.8 Procedure and treatment not carried out for other reasons
CPT/HCPCS: 76705

== ENCOUNTER 2021-01-13 12:14 | Day surgery (SDC) | payer BC ==
[2021-01-13 12:39] VITALS: TEMP 98.1
[2021-01-13 14:19] VITALS: BP 154/84; PULSE 85; RESP 18
--- NOTE | 2021-01-13 21:58 | US ---
Ultrasound-guided paracentesis. DATE OF EXAM: 01/13/2021 CLINICAL HISTORY: Ascites The procedure was discussed with the patient. The risks, complications, benefits, and alternatives we re discussed and any questions were answered. Informed consent was obtained. The patient was placed s upine on the ultrasound table and prepped and draped in the usual sterile fashion. All elements of maximal barrier technique were utilized. Under ultrasound guidance, access into the left lower quadrant was obtained, via the paracentesis catheter system and direct ultrasound guidance . Approximately 4.1 liters of straw-colored fluid was removed. The patient was stable throughout the pr ocedure and remained stable upon discharge from Department of Radiology. IMPRESSION: Successful paracentesis under ultrasound guidance.
== END 2021-01-13 14:15 | disposition home or self-care (01) ==
LOC: RADPROMAIN 12:14
PROVIDERS: ATTEND Internal Medicine Hematology & Oncology
DX: R18.0 Malignant ascites (principal)
CPT/HCPCS: 49083

== ENCOUNTER 2021-03-10 12:04 | Day surgery (SDC) | payer BC ==
[2021-03-10 12:45] VITALS: TEMP 98.1
[2021-03-10 13:11] LABS: Prothrombin Time 10.5 sec (9.0-12.0)
[2021-03-10 14:46] VITALS: RESP 16
[2021-03-10 15:04] VITALS: BP 123/78; PULSE 98
--- NOTE | 2021-03-10 16:44 | US ---
EXAMINATION TYPE: US paracentesis abd w/image DATE OF EXAM: 03/10/2021 COMPARISON: NONE HISTORY: Ascites. PROCEDURE: Maximal barrier technique was utilized. The skin overlying a suitable pocket of fluid was localized with ultrasound and the overlying skin was prepped and draped. Ultrasound was utilized with sterile technique. Lidocaine was used for local anesthesia and a skin simone made with a scalpel. Catheter was advanced under direct ultrasound guidance into a suitable pocket of fluid and approximately 5.8 liter s of serous fluid were removed. Catheter was withdrawn and hemostasis achieved. There is no immedia te complication; the patient is discharged in stable condition. IMPRESSION: STATUS POST ULTRASOUND GUIDED PARACENTESIS FOR PALLIATION OF ASCITES. THIS PROCEDURE WA S PERFORMED BY THE UNDERSIGNED.
== END 2021-03-10 15:28 | disposition home or self-care (01) ==
LOC: RADPROMAIN 12:04
PROVIDERS: ATTEND Internal Medicine Hematology & Oncology
DX: R18.8 Other ascites (principal)
CPT/HCPCS: 36415; 49083; 85610

== ENCOUNTER 2021-04-03 20:35 | Inpatient (IN) | payer BC, MEDICARE ==
--- NOTE | 2021-04-03 20:58 | ED ---
Abdominal Pain HPI - General Chief Complaint: Abdominal Pain Stated Complaint: SOB Time Seen by Provider: 04/03/21 20:40 Source: patient Mode of arrival: ambulatory Limitations: no limitations - History of Present Illness Initial Comments: Patient is a 55-year-old female with active ovarian cancer, recurrent ascites who presents emergency room in with reported abdominal distention. Patient states that she was getting monthly paracenteses however when she would present to her appointment she didn't always need to be drained. Because of this they did get rid of her scheduled procedure. The patient last required drainage on March 12. They removed approximate 5 L of fluid. Patient is currently on chemo. He states that she will have chemo for 3 weeks and will be off for 1. Her rest week was last week. Patient reports that she has had significant abdominal distention leading to shortness of breath. Denies any chest pain. She sees Dr. Bell. She denies any fevers. Admits to nausea without vomiting. No other alleviating, precipitating or modifying factors - Related Data Home Medications Medication Instructions Recorded Confirmed Atorvastatin [Lipitor] 40 mg PO DAILY 06/02/16 04/14/21 [place]-3 Fatty Acids/Fish Oil [Fish 1 cap PO DAILY 10/08/18 04/14/21 Oil 1,000 mg Softgel] Ascorbic Acid [Vitamin C] 1,000 mg PO DAILY 06/25/19 04/14/21 Biotin 5,000 mcg PO DAILY 06/25/19 04/14/21 Docusate [Colace] 100 mg PO DAILY 07/05/20 04/14/21 Omeprazole 20 mg PO DAILY 10/20/20 04/14/21 Folic Acid 1 mg PO DAILY 11/06/20 04/14/21 Cholecalciferol (Vitamin D3) 4,000 unit PO DAILY 04/03/21 04/14/21 [Vitamin D3 (4,000 Iu)] lisinopriL [Zestril] 10 mg PO DAILY 04/03/21 04/14/21 HYDROcodone/APAP 5-325MG [[place] 1 tab PO Q6HR PRN 04/12/21 04/14/21 5-325] Metoprolol Tartrate [Lopressor] 25 mg PO BID 04/12/21 04/14/21 Previous Rx's Medication Instructions Recorded Benzonatate [Tessalon Perles] 100 mg PO TID #90 cap 04/06/21 Allergies Allergy/AdvReac Type Severity Reaction Status Date / Time adhesive tape Allergy Swelling Verified 04/14/21 08:03 Review of Systems ROS Statement: Those systems with pertinent positive or pertinent negative responses have been documented in the HPI. ROS Other: All systems not noted in ROS Statement are negative. Past Medical History Past Medical History: Blood Disorder, Cancer, GERD/Reflux, Hyperlipidemia, Hypertension Additional Past Medical History / Comment(s): anemia- BLOOD TRANSFUSIONS,adrenal gland growth-MRI ABD & Pelvic- April 2016, bronchitis, "fast hr-takes metoprolol", cyst rt ovary ovarian cancer 01/2017 History of Any Multi-Drug Resistant Organisms: None Reported Past Surgical History: Hysterectomy Additional Past Surgical History / Comment(s): colonoscopy. PARACENTESIS X 5. Laparatomy for cancer debulking January 2017. Hysterectomy with oopherectomy May 2018 Past Anesthesia/Blood Transfusion Reactions: Family History of Problems w/ Anesthesia Additional Past Anesthesia/Blood Transfusion Reaction / Comment(s): no hx general anesthesia or blood transfusion. mother-post op n/v Past Psychological History: No Psychological Hx Reported Smoking Status: Never smoker Past Alcohol Use History: None Reported Past Drug Use History: None Reported - Past Family History Mother Family Medical History: Cancer, Diabetes Mellitus, Hypertension, Myocardial Infarction ([place]) Additional Family Medical History / Comment(s): cabg, ovarian ca Father Family Medical History: Cancer, Hypertension Additional Family Medical History / Comment(s): lung,diverticulosis Brother(s) Family Medical History: Diabetes Mellitus General Exam Limitations: no limitations General appearance: alert, in no apparent distress Head exam: Present: atraumatic, normocephalic, normal inspection Eye exam: Present: normal appearance, PERRL, EOMI. Absent: scleral icterus, conjunctival injection, periorbital swelling ENT exam: Present: normal exam, mucous membranes moist Neck exam: Present: normal inspection. Absent: tenderness, meningismus, lymphadenopathy Respiratory exam: Present: normal lung sounds bilaterally. Absent: respiratory distress, wheezes, rales, rhonchi, stridor Cardiovascular Exam: Present: normal rhythm, tachycardia, normal heart sounds. Absent: systolic murmur, diastolic murmur, rubs, gallop, clicks GI/Abdominal exam: Present: soft, distended, tenderness, normal bowel sounds, other (fluid wave). Absent: guarding, rebound, rigid Extremities exam: Present: normal inspection, full ROM, normal capillary refill. Absent: tenderness, pedal edema, joint swelling, calf tenderness Back exam: Present: normal inspection Neurological exam: Present: alert, oriented X3, CN II-XII intact Psychiatric exam: Present: normal affect, normal mood Skin exam: Present: warm, dry, intact, normal color. Absent: rash Course Vital Signs 04/03/21 04/03/21 04/03/21 20:40 21:47 22:35 Temperature 98.2 F 99.3 F 98.6 F Pulse Rate 138 H 120 H 133 H Respiratory 18 18 18 Rate Blood Pressure 125/81 131/105 141/117 O2 Sat by Pulse 97 99 95 Oximetry 04/03/21 04/04/21 23:57 00:40 Temperature Pulse Rate 119 H 114 H Respiratory 16 16 Rate Blood Pressure 142/104 148/105 O2 Sat by Pulse 95 Oximetry Medical Decision Making - Medical Decision Making Upon arrival patient was placed into room 6. History and physical exam was performed. Patient does have a distended abdomen. Laboratory studies are conducted. Patient went for chest x-ray. Results are discussed with the patient. Patient does have a left-sided pleural effusion which is larger than previous. Patient was given pain medication. Did recommend admission for paracentesis and possible thoracentesis. I will consult interventional radiology and pulmonology. Patient agreed to this. Spoke with Dr. Ordonez who agreed to admit the patient. Patient currenty awaiting a bed on the floor - Lab Data Result diagrams: 04/06/21 10:12 04/04/21 15:43 Lab Results 04/03/21 04/03/21 04/03/21 Range/Units 21:13 21:13 21:13 WBC 10.1 (3.8-10.6) k/uL RBC 5.15 (3.80-5.40) m/uL Hgb 13.1 (11.4-16.0) gm/dL Hct 42.5 (34.0-46.0) % MCV 82.6 (80.0-100.0) fL MCH 25.5 (25.0-35.0) pg MCHC 30.8 L (31.0-37.0) g/dL RDW 18.3 H (11.5-15.5) % Plt Count 581 H (150-450) k/uL MPV 6.4 Neutrophils % 69 % Lymphocytes % 17 % Monocytes % 10 % Eosinophils % 1 % Basophils % 1 % Neutrophils # 6.9 (1.3-7.7) k/uL Lymphocytes # 1.7 (1.0-4.8) k/uL Monocytes # 1.0 (0-1.0) k/uL Eosinophils # 0.1 (0-0.7) k/uL Basophils # 0.1 (0-0.2) k/uL Hypochromasia Slight Poikilocytosis Slight Anisocytosis Slight PT (9.0-12.0) sec INR (<1.2) APTT (22.0-30.0) sec Sodium 131 L (137-145) mmol/L Potassium 4.0 (3.5-5.1) mmol/L Chloride 100 (98-107) mmol/L Carbon Dioxide 23 (22-30) mmol/L Anion Gap 8 mmol/L BUN 12 (7-17) mg/dL Creatinine 0.67 (0.52-1.04) mg/dL Est GFR (CKD-EPI)AfAm >90 (>60 ml/min/1.73 sqM) Est GFR (CKD-EPI)NonAf >90 (>60 ml/min/1.73 sqM) Glucose 163 H (74-99) mg/dL Plasma Lactic Acid [place] 1.1 (0.7-2.0) mmol/L Calcium 9.8 (8.4-10.2) mg/dL Total Bilirubin 0.4 (0.2-1.3) mg/dL AST 25 (14-36) U/L ALT 9 (4-34) U/L Alkaline Phosphatase 89 (38-126) U/L Total Protein 5.5 L (6.3-8.2) g/dL Albumin 3.2 L (3.5-5.0) g/dL Lipase 93 (23-300) U/L Urine Color Urine Appearance (Clear) Urine pH (5.0-8.0) Ur Specific [place] (1.001-1.035) Urine Protein (Negative) Urine Glucose (UA) (Negative) Urine Ketones (Negative) Urine Blood (Negative) Urine Nitrite (Negative) Urine Bilirubin (Negative) Urine Urobilinogen (<2.0) mg/dL Ur Leukocyte Esterase (Negative) Urine RBC (0-5) /hpf Urine WBC (0-5) /hpf Ur Squamous Epith Cells (0-4) /hpf Calcium Oxalate Crystal (None) /hpf Hyaline Casts (0-2) /lpf Urine Mucus (None) /hpf 04/03/21 04/03/21 Range/Units 21:13 21:13 WBC (3.8-10.6) k/uL RBC (3.80-5.40) m/uL Hgb (11.4-16.0) gm/dL Hct (34.0-46.0) % MCV (80.0-100.0) fL MCH (25.0-35.0) pg MCHC (31.0-37.0) g/dL RDW (11.5-15.5) % Plt Count (150-450) k/uL MPV Neutrophils % % Lymphocytes % % Monocytes % % Eosinophils % % Basophils % % Neutrophils # (1.3-7.7) k/uL Lymphocytes # (1.0-4.8) k/uL Monocytes # (0-1.0) k/uL Eosinophils # (0-0.7) k/uL Basophils # (0-0.2) k/uL Hypochromasia Poikilocytosis Anisocytosis PT 10.8 (9.0-12.0) sec INR 1.0 (<1.2) APTT 41.7 H (22.0-30.0) sec Sodium (137-145) mmol/L Potassium (3.5-5.1) mmol/L Chloride (98-107) mmol/L Carbon Dioxide (22-30) mmol/L Anion Gap mmol/L BUN (7-17) mg/dL Creatinine (0.52-1.04) mg/dL Est GFR (CKD-EPI)AfAm (>60 ml/min/1.73 sqM) Est GFR (CKD-EPI)NonAf (>60 ml/min/1.73 sqM) Glucose (74-99) mg/dL Plasma Lactic Acid [place] (0.7-2.0) mmol/L Calcium (8.4-10.2) mg/dL Total Bilirubin (0.2-1.3) mg/dL AST (14-36) U/L ALT (4-34) U/L Alkaline Phosphatase (38-126) U/L Total Protein (6.3-8.2) g/dL Albumin (3.5-5.0) g/dL Lipase (23-300) U/L Urine Color Yellow Urine Appearance Cloudy H (Clear) Urine pH 5.5 (5.0-8.0) Ur Specific [place] 1.025 (1.001-1.035) Urine Protein 1+ H (Negative) Urine Glucose (UA) Negative (Negative) Urine Ketones Negative (Negative) Urine Blood Negative (Negative) Urine Nitrite Negative (Negative) Urine Bilirubin Negative (Negative) Urine Urobilinogen <2.0 (<2.0) mg/dL Ur Leukocyte Esterase Trace H (Negative) Urine RBC 3 (0-5) /hpf Urine WBC 13 H (0-5) /hpf Ur Squamous Epith Cells 1 (0-4) /hpf Calcium Oxalate Crystal Many H (None) /hpf Hyaline Casts 34 H (0-2) /lpf Urine Mucus Many H (None) /hpf - EKG Data EKG Comments: CT demonstrated sinus tachycardia with a ventricular rate of 135. DC interval 122. QRS 88. QTC of 438. No acute ST segment elevations or depressions Disposition Clinical Impression: History of ovarian cancer, Abdominal discomfort, Ascites Disposition: ADMITTED IP TO THIS HOSP Condition: Stable Is patient prescribed a controlled substance at d/c from ED?: No Decision to Admit Reason: Admit from EC Decision Date: 04/03/21 Decision Time: 22:06
--- NOTE | 2021-04-03 21:27 | XR ---
EXAMINATION TYPE: XR chest 2V DATE OF EXAM: 04/03/2021 COMPARISON: 11/22/2020 HISTORY: Cough. Pain. TECHNIQUE: 2 views FINDINGS: Heart is enlarged. There is increased density over the left lower lung field consistent wit h consolidation and pleural fluid in the left lower lobe. The right lung is clear. There is no heart failure. There is right central venous catheter with tip in the superior vena cava. IMPRESSION: There is left lower lobe consolidation and left pleural effusion increased compared to ol d exam. There is small right pleural effusion. No heart failure.
[2021-04-03 21:49] LABS: Anisocytosis Slight; Basophils # (A) 0.1 k/uL (0-0.2); Basophils % (A) 1 %; Eosinophils # (A) 0.1 k/uL (0-0.7); Eosinophils % (A) 1 %; HCT 42.5 % (34.0-46.0); HGB 13.1 gm/dL (11.4-16.0); Hypochromasia Slight; Lymphocytes # (A) 1.7 k/uL (1.0-4.8); Lymphocytes % (A) 17 %; MCH 25.5 pg (25.0-35.0); MCHC 30.8 g/dL (31.0-37.0); MCV 82.6 fL (80.0-100.0); Mean Platelet Volume 6.4; Monocytes % (A) 10 %; Neutrophils # (A) 6.9 k/uL (1.3-7.7); Neutrophils % (A) 69 %; Platelet Count 581 k/uL (150-450); Poikilocytosis Slight; RBC 5.15 m/uL (3.80-5.40); RDW 18.3 % (11.5-15.5); WBC 10.1 k/uL (3.8-10.6)
[2021-04-03] MEDS ORDERED: HYDROmorphone 0.5 MG/0.5 ML SYRINGE IVP STA (21:56)
[2021-04-03 22:14] LABS: ALT 9 U/L (4-34); AST 25 U/L (14-36); African American GFR (CKD) >90 (>60 ml/min/1.73 sqM); Albumin 3.2 g/dL (3.5-5.0); Alkaline Phosphatase 89 U/L (38-126); Anion Gap 8 mmol/L; Blood Urea Nitrogen 12 mg/dL (7-17); Calcium 9.8 mg/dL (8.4-10.2); Carbon Dioxide 23 mmol/L (22-30); Chloride 100 mmol/L (98-107); Glucose 163 mg/dL (74-99); Lipase 93 U/L (23-300); Non-African American GFR(CKD) >90 (>60 ml/min/1.73 sqM); Sodium 131 mmol/L (137-145); Total Bilirubin 0.4 mg/dL (0.2-1.3); Total Protein 5.5 g/dL (6.3-8.2)
[2021-04-03 22:18] LABS: Appearance,Urine Cloudy (Clear); Bilirubin,Urine Negative (Negative); Blood,Urine Negative (Negative); Calcium Oxalate Crystals,Urine Many /hpf; Color,Urine Yellow; Glucose,Urine (UA) Negative (Negative); Hyaline Casts,Urine 34 /lpf (0-2); Ketones,Urine Negative (Negative); Leukocyte Esterase,Urine Trace (Negative); Mucus,Urine Many /hpf; Nitrite,Urine Negative (Negative); PH, Urine 5.5 (5.0-8.0); Partial Thromboplastin Time 41.7 sec (22.0-30.0); Protein,Urine 1+ (Negative); Prothrombin Time 10.8 sec (9.0-12.0); RBC,Urine 3 /hpf (0-5); Specific Gravity,Urine 1.025 (1.001-1.035); Squamous Epithelial Cell,Urine 1 /hpf (0-4); Urobilinogen,Urine <2.0 mg/dL (<2.0); WBC,Urine 13 /hpf (0-5)
[2021-04-03] MEDS ORDERED: NALOXONE 0.4 MG/ML 1 ML VIAL IV PRN (22:18)
[2021-04-03] MEDS ORDERED: METOPROLOL TARTRATE 25 MG TAB PO STA (23:15)
[2021-04-04] MEDS: HYDROmorphone 0.5 MG/0.5 ML SYRINGE IVP PRN (01:26)
[2021-04-04 06:29] LABS: Anisocytosis Slight; Basophils # (A) 0.1 k/uL (0-0.2); Basophils % (A) 1 %; Eosinophils # (A) 0.1 k/uL (0-0.7); Eosinophils % (A) 1 %; HCT 41.7 % (34.0-46.0); HGB 13.2 gm/dL (11.4-16.0); Hypochromasia Moderate; Lymphocytes # (A) 1.5 k/uL (1.0-4.8); Lymphocytes % (A) 17 %; MCH 26.6 pg (25.0-35.0); MCHC 31.6 g/dL (31.0-37.0); MCV 84.2 fL (80.0-100.0); Mean Platelet Volume 6.8; Monocytes # (A) 0.9 k/uL (0-1.0); Monocytes % (A) 10 %; Neutrophils % (A) 69 %; Platelet Count 462 k/uL (150-450); Poikilocytosis Slight; RBC 4.95 m/uL (3.80-5.40); RDW 18.1 % (11.5-15.5); WBC 8.8 k/uL (3.8-10.6)
[2021-04-04 06:45] LABS: African American GFR (CKD) >90 (>60 ml/min/1.73 sqM); Anion Gap 8 mmol/L; Blood Urea Nitrogen 14 mg/dL (7-17); Calcium 9.6 mg/dL (8.4-10.2); Carbon Dioxide 22 mmol/L (22-30); Chloride 101 mmol/L (98-107); Glucose 135 mg/dL (74-99); Non-African American GFR(CKD) >90 (>60 ml/min/1.73 sqM); Sodium 131 mmol/L (137-145)
[2021-04-04] MEDS ORDERED: NON FORMULARY DRUG (Omega-3 Fatty Acids/Fish Oil [Fish Oil 1,000 Mg Softgel] 1 EACH Capsul PO SCH (09:30)
[2021-04-04] MEDS ORDERED: NON FORMULARY DRUG (Biotin [Biotin] 10,000 MCG Capsule) PO SCH (09:30)
[2021-04-04] MEDS ORDERED: METOPROLOL TARTRATE 25 MG TAB PO PRN (13:50)
[2021-04-04] MEDS ORDERED: Potassium Replacement Protocol 1 EACH MISC MISCELLANE PRN (13:52)
[2021-04-04] MEDS ORDERED: Magnesium Replacement Protocol 1 EACH MISC MISCELLANE PRN (13:52)
--- NOTE | 2021-04-04 14:03 | P.CONS ---
History of Present Illness - Reason for Consult Consult date: 04/04/21 Ovarian cancer Requesting physician: Rosmery Nolan - Chief Complaint Cough, shortness of breath secondary to ascites - History of Present Illness Patient called last week to get in for paracentesis but, she was not able to get on the schedule until the . The abdominal distention and fluid buildup began causing patient to have a significant cough, shortness of breath so, she came to the hospital. Patient states that she has been monitoring her bowel movements closely and has had a bowel movement daily for the last 2 days. She denies fevers, nausea or vomiting, swelling, bleeding or rash. She is due for chemo this Sunday. Malignancy History: Initially seen in consult 01/30/17. She had been admitted with somewhat chronic RUQ pain, fatigue, and not feeling well, persistent the past year, with progression in pain over the previous 9-[address] AP on 01/29/17 showed new ascities, with possible peritoneal carcinomatosis in the left abdomen. There appeared to be peripheral nodularity and lobulation related to the adnexa bilaterally. CT chest was negative. 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 CA 125 was 1220. Referred to [facility]EC[facility]IVE ADMINISTRATOR oncology at [facility]. She had surgery on 02/10/17, only a partial resection. She was referred back for chemotherapy. Started carbo/taxol 03/13/17. She was found to be BRCA mutation positive. Treatment f/u labs/scan after 3 cycles showed good biochemical and CT response. She proceeded to surgery on 06/05/17. She was found to have a major response, with residual tumor noted in the ovary, and uterus area, and 1/5 left paraaortic, 1/5 left pelvic, and 1/11 right pelvic nodes involved. She then resumed chemo and had 3 more cycles ( Total #6), completing those on 09/05/17. She opted for screening for her breasts with MRI in 10/12 negative. She was also started on Tamoxifen. She decided for prophylactic surgery because of BRCA + in 05/13, and was supposed to have that in 09/12 at [facility], however f/u CT scans in 09/12 showed recurrence in the abdomen and pelvis. She had a palliative paracentesis, with cytology positive in 09/12. She was seen by Dr. Marvin at [facility], and after discussion of options (std chemo vs clinical trial with PARP inhibitor) decided on chemo. She was started on Carbo/Doxil on 10/03/18, Avastin was added with C 2 due to coverage issues. She completed 6 cycles on 03/21/19. She was seen back at [facility] in late 04/13. It was recommended she start PARP for maintenance. She started Olaparib on 04/26/19, suffered form severe anemia and 06/2019 this was stopped, she was placed on observation. A lower dose was tried later in 2018. CA 125 did show a slow upward trend starting 12/15. CT scans in 02/12 indicated probable early progression in the pelvis but were not definitive. She has been having some increase in bloating, Ca125 02/2020 was 103. Case was discussed with the EXEC[facility]IVE ADMINISTRATOR oncology at [facility] and the patient was started on carboplatin/Doxil/Avastin on 03/29/20, had 5 cycles, changed over to Alimta on 09/08/20 due to progression, 2 cycles then this was discontinued as she was progressing based on development of ascites, and increasing CA-125. The patient did have an ascitic tap, with cytology positive. Started weekly Taxol 11/17/20 and is s/p 5 cycles, last dose 03/23/21. Her last para was mid February. Review of Systems 10 point review of systems is negative except as stated in HPI Past Medical History Past Medical History: Blood Disorder, Cancer, GERD/Reflux, Hyperlipidemia, Hypertension Additional Past Medical History / Comment(s): anemia- BLOOD TRANSFUSIONS,adrenal gland growth-MRI ABD & Pelvic- April 2016, bronchitis, "fast hr-takes metoprolol", cyst rt ovary ovarian cancer 01/2017 History of Any Multi-Drug Resistant Organisms: None Reported Past Surgical History: Hysterectomy Additional Past Surgical History / Comment(s): colonoscopy. PARACENTESIS X 5. Laparatomy for cancer debulking January 2017. Hysterectomy with oopherectomy May 2018 Past Anesthesia/Blood Transfusion Reactions: Family History of Problems w/ Anesthesia Additional Past Anesthesia/Blood Transfusion Reaction / Comm: no hx general anesthesia or blood transfusion. mother-post op n/v Past Psychological History: No Psychological Hx Reported Smoking Status: Never smoker Past Alcohol Use History: None Reported Past Drug Use History: None Reported - Past Family History Mother Family Medical History: Cancer, Diabetes Mellitus, Hypertension, Myocardial Infarction ([place]) Additional Family Medical History / Comment(s): cabg, ovarian ca Father Family Medical History: Cancer, Hypertension Additional Family Medical History / Comment(s): lung,diverticulosis Brother(s) Family Medical History: Diabetes Mellitus Medications and Allergies Home Medications Medication Instructions Recorded Confirmed Type Atorvastatin [Lipitor] 40 mg PO DAILY 06/02/16 04/03/21 History Long Bottom-3 Fatty Acids/Fish Oil [Fish 1 cap PO DAILY 10/08/18 04/03/21 History Oil 1,000 mg Softgel] Ascorbic Acid [Vitamin C] 1,000 mg PO DAILY 06/25/19 04/03/21 History Biotin 5,000 mcg PO DAILY 06/25/19 04/03/21 History Docusate [Colace] 100 mg PO DAILY 07/05/20 04/03/21 History Omeprazole 20 mg PO DAILY 10/20/20 04/03/21 History Folic Acid 1 mg PO DAILY 11/06/20 04/03/21 History amLODIPine [Norvasc] 5 mg PO DAILY PRN 02/10/21 04/03/21 History Cholecalciferol (Vitamin D3) 4,000 unit PO DAILY 04/03/21 04/03/21 History [Vitamin D3 (4,000 Iu)] Metoprolol Tartrate [Lopressor] 25 mg PO BID PRN 04/03/21 04/03/21 History lisinopriL [Zestril] 20 mg PO DAILY PRN 04/03/21 04/03/21 History Allergies Allergy/AdvReac Type Severity Reaction Status Date / Time adhesive tape Allergy Swelling Verified 04/03/21 23:05 Physical Exam Vitals: Vital Signs Temp Pulse Pulse Resp BP BP Pulse Ox 04/04/21 08:00 102 H 04/04/21 05:00 97.9 F 102 H 14 123/89 96 04/04/21 01:15 18 04/04/21 01:10 98.2 F 106 H 18 130/88 96 04/04/21 00:40 114 H 16 148/105 95 04/03/21 23:57 119 H 16 142/104 04/03/21 22:35 98.6 F 133 H 18 141/117 95 04/03/21 21:47 99.3 F 120 H 18 131/105 99 04/03/21 20:40 98.2 F 138 H 18 125/81 97 Intake and Output 04/03/21 04/04/21 04/04/21 22:59 06:59 14:59 Other: # Voids 1 # Bowel Movements 1 Weight 92.079 kg - Constitutional General appearance: average body habitus, cooperative, mild distress - EENT Eyes: anicteric sclerae, EOMI ENT: hearing grossly normal, normal oropharynx - Neck Neck: no lymphadenopathy - Respiratory Respiratory: right: CTA, left: other (Diminished breath sounds prison up) - Cardiovascular Rhythm: regular Heart sounds: normal: S1, S2 Abnormal Heart Sounds: no systolic murmur, no diastolic murmur, no rub, no S3 Gallop, no S4 Gallop, no click, no other leg Peripheral Edema: bilateral: None - Gastrointestinal Visible fluid wave when patient laid down General gastrointestinal: distended, normal bowel sounds, soft - Integumentary Integumentary: normal - Neurologic Neurologic: CNII-XII intact - Musculoskeletal Musculoskeletal: strength equal bilaterally - Psychiatric Psychiatric: A&O x's 3, appropriate affect, intact judgment & insight Results CBC & Chem 7: 04/04/21 05:45 04/04/21 05:45 Labs: Abnormal Lab Results - Last 24 Hours (Table) 04/03/21 04/03/21 04/03/21 Range/Units 21:13 21:13 21:13 MCHC 30.8 L (31.0-37.0) g/dL RDW 18.3 H (11.5-15.5) % Plt Count 581 H (150-450) k/uL APTT 41.7 H (22.0-30.0) sec Sodium 131 L (137-145) mmol/L Glucose 163 H (74-99) mg/dL Magnesium (1.6-2.3) mg/dL Total Protein 5.5 L (6.3-8.2) g/dL Albumin 3.2 L (3.5-5.0) g/dL Urine Appearance (Clear) Urine Protein (Negative) Ur Leukocyte Esterase (Negative) Urine WBC (0-5) /hpf Calcium Oxalate Crystal (None) /hpf Hyaline Casts (0-2) /lpf Urine Mucus (None) /hpf 04/03/21 04/04/21 04/04/21 Range/Units 21:13 00:18 05:45 MCHC (31.0-37.0) g/dL RDW 18.1 H (11.5-15.5) % Plt Count 462 H (150-450) k/uL APTT (22.0-30.0) sec Sodium (137-145) mmol/L Glucose (74-99) mg/dL Magnesium 1.5 L (1.6-2.3) mg/dL Total Protein (6.3-8.2) g/dL Albumin (3.5-5.0) g/dL Urine Appearance Cloudy H (Clear) Urine Protein 1+ H (Negative) Ur Leukocyte Esterase Trace H (Negative) Urine WBC 13 H (0-5) /hpf Calcium Oxalate Crystal Many H (None) /hpf Hyaline Casts 34 H (0-2) /lpf Urine Mucus Many H (None) /hpf 04/04/21 Range/Units 05:45 MCHC (31.0-37.0) g/dL RDW (11.5-15.5) % Plt Count (150-450) k/uL APTT (22.0-30.0) sec Sodium 131 L (137-145) mmol/L Glucose 135 H (74-99) mg/dL Magnesium (1.6-2.3) mg/dL Total Protein (6.3-8.2) g/dL Albumin (3.5-5.0) g/dL Urine Appearance (Clear) Urine Protein (Negative) Ur Leukocyte Esterase (Negative) Urine WBC (0-5) /hpf Calcium Oxalate Crystal (None) /hpf Hyaline Casts (0-2) /lpf Urine Mucus (None) /hpf Chest x-ray: report reviewed Assessment and Plan (1) Ovarian cancer, BRCA1 positive Narrative/Plan: Most recently been on weekly taxol, tolerating treatment well. She is having ascitic buildup more frequently and she is symptomatic. Agree with Para, allow Pulmonary to evaluate and see if she would benefit from thoracentesis. Ca125 ordered. She never had prophylactic mastectomy. Current Visit: Yes Status: Chronic Priority: High Code(s): C56.9 - MALIGNANT NEOPLASM OF UNSPECIFIED OVARY; Z15.01 - GENETIC SUSCEPTIBILITY TO MALIGNANT NEOPLASM OF BREAST; Z15.09 - GENETIC SUSCEPTIBILITY TO OTHER MALIGNANT NEOPLASM SNOMED Code(s): 214855185 Plan: Doctor attests: I performed a history and physical examination of this patient, developed impression and plan of care. Discussed with dictator. I agree with dictators note, documented as a scribe.
--- NOTE | 2021-04-04 15:01 | HP ---
HISTORY AND PHYSICAL DATE OF SERVICE: 04/04/2021. CHIEF COMPLAINT: Abdominal pain. HISTORY OF PRESENT ILLNESS: This 55-year-old woman with a past medical history of multiple medical problems including history of GERD, hypertension, hyperlipidemia, history of anemia, history of blood transfusion, history of hysterectomy, history of colonoscopy, history of hysterectomy being followed by Dr. Sulma Palencia in the outpatient setting was admitted last year with worsening malignant ascites. The patient has ovarian cancer. The patient is on chemotherapy. The patient had multiple large volume paracentesis. The patient has been closely monitored at this time. Hematology/Oncology evaluation in progress. There is no history of any fever, rigors. No history of headache, loss of consciousness or seizures. PAST MEDICAL HISTORY: History of GERD, hypertension, hyperlipidemia, history anemia, blood transfusions, hysterectomy, history of colonoscopy. MEDICATIONS: Medications prior home medications are: 1. Zestril. 2. Norvasc. 3. Omeprazole. 4. Fish oil. 5. Lopressor. 6. Folic acid. 7. Colace. 8. Vitamin D3. 9. Biotin. 10.Lipitor. 11.Vitamin C. Doses are reviewed. ALLERGIES: ADHESIVE TAPES. FAMILY HISTORY: History of cancer, diabetes mellitus, hypertension, myocardial infarction, CAD, CABG, ovarian cancer. SOCIAL HISTORY: No history of smoking. No history of alcohol. REVIEW OF SYSTEMS: ENT: No diminished hearing or diminished vision. CARDIOVASCULAR SYSTEM: No angina. RESPIRATORY SYSTEM: No cough or hemoptysis. GI: As mentioned earlier. : As mentioned earlier. NERVOUS SYSTEM: No numbness, weakness. ALLERGY/IMMUNOLOGY: No asthma, hay fever. MUSCULOSKELETAL: As mentioned earlier. HEMATOLOGY/ONCOLOGY: As mentioned earlier. ENDOCRINE: No history of diabetes or hypothyroidism. CONSTITUTIONAL: As mentioned earlier. DERMATOLOGY: Negative. RHEUMATOLOGY: Negative. PSYCHIATRY: As mentioned earlier. PHYSICAL EXAMINATION: The patient alert and oriented x3. Pulse is 119, blood pressure 136/95, respiration 18, temperature 98.5, pulse ox 96% on room air. HEENT: Conjunctivae normal. Oral mucosa moist. NECK: No jugular venous distention. No carotid bruit. No lymph node enlargement. CARDIOVASCULAR: S1, S2 muffled. RESPIRATORY: Breath sounds diminished at the bases. A few scattered rhonchi. No crackles. ABDOMEN: Soft, obese. Ascites present. Minimally tender. LEGS: No edema, no swelling. NERVOUS SYSTEM: Higher function as mentioned earlier. Moves all 4 limbs. No focal motor or sensory lymphatics. LYMPHATICS: No lymphadenopathy of the neck, axillae or groin. SKIN: No ulcer, rash or bleeding. JOINTS: No active deforming arthropathy. LABS: WBC 8.8, hemoglobin 13.2. Sodium is 131. UA noted, WBC ntd. ASSESSMENT: 1. Abdominal pain, possibly ascites, possible malignant ascites. 2. Possible acute urinary tract infection. 3. Tachycardia. 4. Hypomagnesemia. 5. Hyponatremia. 6. History of gastroesophageal reflux disease. 7. Ovarian cancer on chemotherapy. 8. Hypertension. 9. Hyperlipidemia. 10.History of anemia. 11.History of adrenal gland growth. 12.History of tachycardia on metoprolol. 13.History of paracentesis x3, large volume. 14.Obesity with body mass index 33.8. 15.Left-sided pleural effusion. 16.FULL CODE. RECOMMENDATIONS AND DISCUSSION: This 55-year-old woman who presented with multiple complex medical issues. We will monitor the patient closely. Otherwise, recommend large volume paracentesis. Hematology consultation with Dr. Bell. The most recent chest x-ray which was evaluated personally by me showed significant pleural effusion on the left side also. We will continue to monitor. Prognosis guarded because of multiple complex medical issues. Further recommendations to follow. MMODL / IJN: [id number] / MTDD
[2021-04-04] MEDS: HEPARIN SODIUM,PORCINE/PF 5,000 UNIT/0.5 ML SYRINGE SQ SCH ×2 (15:09→20:17)
[2021-04-04] MEDS: PANTOPRAZOLE 40 MG TABLET PO SCH (15:10)
[2021-04-04] MEDS: amLODIPine 5 MG TAB PO SCH (15:10)
[2021-04-04] MEDS: ASCORBIC ACID 500 MG TAB PO SCH (15:10)
[2021-04-04] MEDS: FOLIC ACID 1 MG TAB PO SCH (15:10)
[2021-04-04] MEDS: CHOLECALCIFEROL 25 MCG (1000 IU) TABLET PO SCH (15:10)
[2021-04-04] MEDS: ATORVASTATIN 40 MG TAB PO SCH (15:10)
[2021-04-04] MEDS: DOCUSATE 100 MG CAP PO SCH (15:10)
--- NOTE | 2021-04-04 15:13 | US ---
Ultrasound-guided paracentesis. DATE OF EXAM: 04/04/2021 CLINICAL HISTORY: Ascites The procedure was discussed with the patient. The risks, complications, benefits, and alternatives we re discussed and any questions were answered. Informed consent was obtained. The patient was placed s upine on the ultrasound table and prepped and draped in the usual sterile fashion. All elements of maximal barrier technique were utilized. Under ultrasound guidance, access into the left lower quadrant was obtained, via the paracentesis catheter system and direct ultrasound guidance . Approximately 5 liters of straw-colored fluid was removed. The patient was stable throughout the proc edure and remained stable upon discharge from Department of Radiology. IMPRESSION: Successful paracentesis under ultrasound guidance.
--- NOTE | 2021-04-04 15:22 | CT ---
EXAMINATION TYPE: CT ChestAbdPelvis wo con DATE OF EXAM: 04/04/2021 COMPARISON: 11/07/2020 HISTORY: Pleural effusion CT DLP: 765.90mGycm Unenhanced CT of the Chest, Abdomen and Pelvis Unenhanced CT of the chest ,abdomen and pelvis is performed. The lack of intravenous contrast limits evaluation of the solid and hollow viscera. Oral contrast: No CT Chest: LUNGS: There is a new large left-sided pleural effusion extending from the left lung base through the left lung apex. There is underlying of volume loss. There is also a small right-sided pleural effusi on. MEDIASTINUM: Thoracic aorta is of normal caliber. The heart is not enlarged. No evidence for media stinal mass or adenopathy. HILAR STRUCTURES: No evidence for mass. No hilar adenopathy is appreciated. OTHER: No significant abnormality. CONTRAST CT ABDOMEN AND PELVIS: LIVER/GB: No calcified gallstones. Multiple scattered hypoattenuating lesions are seen within the l iver totaling 13 in number. The largest is noted within the right hepatic lobe posterior segment supe riorly measuring approximately 2.7 cm. The findings are felt to reflect progressive metastatic diseas e. Biliary tree is of normal caliber. PANCREAS: No inflammation. No distinct mass. SPLEEN: No splenic enlargement. No lesion seen. ADRENALS: No nodule. No thickening. KIDNEYS/BLADDER: No hydronephrosis. No nephrolithiasis. No distinct renal mass. BOWEL: Normal appendix. Normal bowel caliber. No inflammation. GENITAL ORGANS: No gross abnormality. LYMPH NODES: Mesenteric lymph nodes are seen measuring up to 1.3 cm which in retrospect were present previously. AORTA: No significant abnormality. OSSEOUS STRUCTURES: No significant abnormality is seen. OTHER: Midline ventral hernia noted supraumbilical region with the hernia opening of 5.9 cm. Again no rio is a large amount of ascites throughout the abdomen and pelvis. There is omental thickening withi n the upper abdomen and a degree of omental caking is difficult to exclude. There is upper abdominal bowel wall thickening. Peritoneal nodule identified inferior to the right kidney posteriorly measures 1.5 cm versus 1.5 cm p reviously. IMPRESSION: 1. Progression of disease with large left-sided pleural effusion, omental thickening, peritoneal nodu le, increasing lesions within the liver and ascites.
[2021-04-04] MEDS: MAGNESIUM SULFATE-D5W PMX 1 GM in DEXTROSE/WATER 1 100ML.BAG IVPB SCH ×2 (16:16→17:42)
--- NOTE | 2021-04-04 18:05 | P.CNPUL ---
History of Present Illness Consult date: 04/04/21 Requesting physician: Chloe Gil Reason for consult: dyspnea, abnormal CXR/CT Chief complaint: Large left-sided pleural effusion History of present illness: This a 55-year-old white female patient with past medical history of ovarian cancer diagnosed in January 2017, and currently patient is receiving chemotherapy, history of recurrent ascites with previous history of monthly paracentesis, who presented to the hospital on 04/03/2021 with complaints of worsening shortness of breath. Patient was scheduled for a monthly appointments on an outpatient basis for a paracentesis however when she would go there she wouldn't always need to be drained. Because of this her scheduled appointments were canceled. Last time patient required paracentesis was on March 12 would removal of 5 L of fluid. Patient was complaining of significant abdominal distention, and increasing shortness of breath, denied any fever or chills, denied any chest discomfort, denied any fevers. She did admit to nausea without vomiting. Chest x-ray showed left lower lobe consolidation with pleural effusion. EEG showed sinus tachycardia. Initial lab work was reviewed showing white count of 10.1, hemoglobin was 13.1, platelet count was 581, sodium was low at 131, Darvocet electrolytes and renal profile were within normal limits, plasma lactic acid is 1.1, LFTs were within normal limits, urinalysis showed trace leuks, mildly elevated white blood cells, no definite signs of urinary tract infection, coronavirus test was negative. CT of the chest, abdomen and pelvis was completed showing progression of disease with large left-sided pleural effusion, all mental thickening, peritoneal nodule, increasing lesions within the liver and ascites. Patient had a paracentesis by interventional radiology today he would removal of 5 L of ascitic fluid. She is currently breathing much easier, she is on room air, with a pulse ox of 95%, she is afebrile Review of Systems All systems: negative Constitutional: Denies chills, Denies fever Eyes: denies blurred vision, denies pain Ears, nose, mouth and throat: Denies headache, Denies sore throat Cardiovascular: Denies chest pain, Denies shortness of breath Respiratory: Reports dyspnea, Denies cough Gastrointestinal: Denies abdominal pain, Denies diarrhea, Denies nausea, Denies vomiting Genitourinary: Denies dysuria, Denies hematuria Musculoskeletal: Denies myalgias Integumentary: Denies pruritus, Denies rash Neurological: Denies numbness, Denies weakness Psychiatric: Denies anxiety, Denies depression Endocrine: Denies fatigue, Denies weight change Past Medical History Past Medical History: Blood Disorder, Cancer, GERD/Reflux, Hyperlipidemia, Hypertension Additional Past Medical History / Comment(s): anemia- BLOOD TRANSFUSIONS,adrenal gland growth-MRI ABD & Pelvic- April 2016, bronchitis, "fast hr-takes metoprolol", cyst rt ovary ovarian cancer 01/2017 History of Any Multi-Drug Resistant Organisms: None Reported Past Surgical History: Hysterectomy Additional Past Surgical History / Comment(s): colonoscopy. PARACENTESIS X 5. Laparatomy for cancer debulking January 2017. Hysterectomy with oopherectomy May 2018 Past Anesthesia/Blood Transfusion Reactions: Family History of Problems w/ Anesthesia Additional Past Anesthesia/Blood Transfusion Reaction / Comment(s): no hx general anesthesia or blood transfusion. mother-post op n/v Past Psychological History: No Psychological Hx Reported Smoking Status: Never smoker Past Alcohol Use History: None Reported Past Drug Use History: None Reported - Past Family History Mother Family Medical History: Cancer, Diabetes Mellitus, Hypertension, Myocardial Infarction ([place]) Additional Family Medical History / Comment(s): cabg, ovarian ca Father Family Medical History: Cancer, Hypertension Additional Family Medical History / Comment(s): lung,diverticulosis Brother(s) Family Medical History: Diabetes Mellitus Medications and Allergies Home Medications Medication Instructions Recorded Confirmed Type Atorvastatin [Lipitor] 40 mg PO DAILY 06/02/16 04/03/21 History [place]-3 Fatty Acids/Fish Oil [Fish 1 cap PO DAILY 10/08/18 04/03/21 History Oil 1,000 mg Softgel] Ascorbic Acid [Vitamin C] 1,000 mg PO DAILY 06/25/19 04/03/21 History Biotin 5,000 mcg PO DAILY 06/25/19 04/03/21 History Docusate [Colace] 100 mg PO DAILY 07/05/20 04/03/21 History Omeprazole 20 mg PO DAILY 10/20/20 04/03/21 History Folic Acid 1 mg PO DAILY 11/06/20 04/03/21 History amLODIPine [Norvasc] 5 mg PO DAILY PRN 02/10/21 04/03/21 History Cholecalciferol (Vitamin D3) 4,000 unit PO DAILY 04/03/21 04/03/21 History [Vitamin D3 (4,000 Iu)] Metoprolol Tartrate [Lopressor] 25 mg PO BID PRN 04/03/21 04/03/21 History lisinopriL [Zestril] 20 mg PO DAILY PRN 04/03/21 04/03/21 History Allergies Allergy/AdvReac Type Severity Reaction Status Date / Time adhesive tape Allergy Swelling Verified 04/03/21 23:05 Physical Exam Vitals: Vital Signs Temp Pulse Pulse Resp BP BP Pulse Ox 04/04/21 17:15 111 H 113/79 04/04/21 16:45 114 H 106/76 04/04/21 16:15 120 H 121/90 04/04/21 16:00 118 H 119/70 04/04/21 15:30 118 H 122/87 04/04/21 15:15 114 H 17 123/86 95 04/04/21 14:45 115 H 18 121/70 96 04/04/21 14:17 116 H 18 138/84 97 04/04/21 13:58 118 H 18 140/87 98 04/04/21 13:36 98.2 F 125 H 18 142/93 94 L 04/04/21 12:23 98.5 F 119 H 18 136/95 96 04/04/21 08:00 102 H 04/04/21 05:00 97.9 F 102 H 14 123/89 96 04/04/21 01:15 18 04/04/21 01:10 98.2 F 106 H 18 130/88 96 04/04/21 00:40 114 H 16 148/105 95 04/03/21 23:57 119 H 16 142/104 04/03/21 22:35 98.6 F 133 H 18 141/117 95 04/03/21 21:47 99.3 F 120 H 18 131/105 99 04/03/21 20:40 98.2 F 138 H 18 125/81 97 Intake and Output 04/04/21 04/04/21 04/04/21 06:59 14:59 22:59 Intake Total 540 Balance 540 Intake: Oral 540 Other: # Voids 1 2 # Bowel Movements 1 GENERAL EXAM: Alert, active, comfortable in no apparent distress. HEAD: Normocephalic/atraumatic. EYES: Normal reaction of pupils, equal size. Conjunctiva pink, sclera white. NOSE: Clear with pink turbinates. THROAT: No erythema or exudates. NECK: No masses, no JVD, no thyroid enlargement, no adenopathy. CHEST: No chest wall deformity. Symmetrical expansion. LUNGS: Equal air entry with diminished breath sounds bilaterally, CVS: Regular rate and rhythm, normal S1 and S2, no gallops, no murmurs, no rubs ABDOMEN: Soft, nontender, distended. No hepatosplenomegaly, normal bowel sounds, no guarding or rigidity. EXTREMITIES: No clubbing, mild lower extremity no cyanosis, 2+ pulses and upper and lower extremities. MUSCULOSKELETAL: Muscle strength and tone normal. SPINE: No scoliosis or deformity SKIN: No rashes CENTRAL NERVOUS SYSTEM: Alert and oriented -3. No focal deficits, tone is nor mal in all 4 extremities. PSYCHIATRIC: Alert and oriented -3. Appropriate affect. Intact judgment and insight. Results - Laboratory Findings CBC and BMP: 04/04/21 05:45 04/04/21 05:45 PT/INR, D-dimer PT 10.8 sec (9.0-12.0) 04/03/21 21:13 INR 1.0 (<1.2) 04/03/21 21:13 Abnormal lab findings: Abnormal Labs 04/03/21 04/03/21 04/03/21 21:13 21:13 21:13 MCHC 30.8 L RDW 18.3 H Plt Count 581 H APTT 41.7 H Sodium 131 L Glucose 163 H Magnesium Total Protein 5.5 L Albumin 3.2 L CA 125 Antigen Urine Appearance Urine Protein Ur Leukocyte Esterase Urine WBC Calcium Oxalate Crystal Hyaline Casts Urine Mucus 04/03/21 04/04/21 04/04/21 21:13 00:18 05:45 MCHC RDW 18.1 H Plt Count 462 H APTT Sodium Glucose Magnesium 1.5 L Total Protein Albumin CA 125 Antigen Urine Appearance Cloudy H Urine Protein 1+ H Ur Leukocyte Esterase Trace H Urine WBC 13 H Calcium Oxalate Crystal Many H Hyaline Casts 34 H Urine Mucus Many H 04/04/21 04/04/21 05:45 05:45 MCHC RDW Plt Count APTT Sodium 131 L Glucose 135 H Magnesium Total Protein Albumin CA 125 Antigen 426.2 H Urine Appearance Urine Protein Ur Leukocyte Esterase Urine WBC Calcium Oxalate Crystal Hyaline Casts Urine Mucus - Diagnostic Findings Chest x-ray: report reviewed, image reviewed CT scan - chest: report reviewed, image reviewed Additional studies: EKG reviewed Assessment and Plan Plan: Assessment: #1. Shortness of breath related to large left-sided pleural effusion. COVID-19 was negative #2. Recurrent ascites, status post ultrasound-guided paracentesis on 04/04/2021 with removal of 5 L of ascitic fluid. Patient was previously scheduled for a monthly paracentesis #3. History of ovarian cancer currently on chemotherapy, diagnosed in 2017 #4. Hypertension #5. Hyperlipidemia #6. History of anemia Plan: Patient had paracentesis today with removal of 3 L of ascitic volume She is breathing easier We will obtain follow-up chest x-ray in the morning possibly ultrasound of the left chest If chest x-ray still shows significant amount of left pleural effusion, we'll proceed with left-sided thoracentesis We'll continue to follow I performed a history & physical examination of the patient and discussed their management with my nurse practitioner, Archana Stafford. I reviewed the nurse practitioner's note and agree with the documented findings and plan of care. Lung sounds are positive for diminished breath sounds at the bases with bibasilar crackles The findings and the impression was discussed with the patient. I attest to the documentation by the nurse practitioner. Time with Patient: Greater than 30
[2021-04-05 03:01] LABS: African American GFR (CKD) 114.6 (60.0-200.0); Albumin 3.7 g/dL (3.80-4.90); Albumin/Globulin Ratio 2.31 (1.60-3.17); Anion Gap 17.9 mmol/L (4.00-12.00); BUN/Creat Ratio 17.14 Ratio (12.00-20.00); Calcium 8.5 mg/dL (8.7-10.3); Carbon Dioxide 17.1 mmol/L (21.6-31.8); Globulin 1.6 g/dL (1.6-3.3); Non-African American GFR(CKD) 98.9 (60.0-200.0); Potassium 4.8 mmol/L (3.5-5.5); Total Bilirubin 0.4 mg/dL (0.2-1.2); Total Protein 5.3 g/dL (6.2-8.2)
--- NOTE | 2021-04-05 07:09 | XR ---
EXAMINATION TYPE: XR chest 1V portable DATE OF EXAM: 04/05/2021 COMPARISON: 04/03/2021 HISTORY: Abnormal x-ray TECHNIQUE: Single frontal view of the chest is obtained. FINDINGS: There is a large area of consolidation pleural effusion on the left increased in size from prior exam. Right lung remains clear. Mediport catheter noted. No interstitial edema. IMPRESSION: Interval increase in size of the left-sided consolidation and pleural effusion.
[2021-04-05 07:41] LABS: Anisocytosis Slight; Basophils # (A) 0.1 k/uL (0-0.2); Basophils % (A) 1 %; Eosinophils # (A) 0.2 k/uL (0-0.7); Eosinophils % (A) 2 %; HCT 41.6 % (34.0-46.0); HGB 13.3 gm/dL (11.4-16.0); Hypochromasia Slight; Lymphocytes # (A) 1.8 k/uL (1.0-4.8); Lymphocytes % (A) 21 %; MCH 26.7 pg (25.0-35.0); MCV 83.5 fL (80.0-100.0); Mean Platelet Volume 6.7; Monocytes # (A) 1.1 k/uL (0-1.0); Monocytes % (A) 13 %; Neutrophils % (A) 60 %; Platelet Count 408 k/uL (150-450); Poikilocytosis Slight; RBC 4.98 m/uL (3.80-5.40); RDW 18.2 % (11.5-15.5); WBC 8.4 k/uL (3.8-10.6)
[2021-04-05] MEDS: ATORVASTATIN 40 MG TAB PO SCH (07:41)
[2021-04-05] MEDS: DOCUSATE 100 MG CAP PO SCH (07:41)
[2021-04-05] MEDS: CHOLECALCIFEROL 25 MCG (1000 IU) TABLET PO SCH (07:41)
[2021-04-05] MEDS: HEPARIN SODIUM,PORCINE/PF 5,000 UNIT/0.5 ML SYRINGE SQ SCH ×2 (07:42→21:11)
[2021-04-05] MEDS: FOLIC ACID 1 MG TAB PO SCH (07:42)
[2021-04-05] MEDS: ASCORBIC ACID 500 MG TAB PO SCH (07:42)
[2021-04-05] MEDS: PANTOPRAZOLE 40 MG TABLET PO SCH (07:42)
[2021-04-05] MEDS: amLODIPine 5 MG TAB PO SCH (07:43)
--- NOTE | 2021-04-05 10:46 | P.PN ---
Subjective Progress Note Date: 04/05/21 Principal diagnosis: SOB, ascites, pl effusion. Ovarian cancer In f/u today pt reports improvement in abd distension and discomfort, her cough persists, she can cough so hard it makes her want to vomit but, she has not thrown up. She is able to eat and drink, she is ambulatory Objective - Vital Signs Vital signs: Vital Signs Temp 98.1 F 04/05/21 05:00 Pulse 109 H 04/05/21 05:00 Resp 20 04/05/21 05:00 BP 107/81 04/05/21 05:00 Pulse Ox 93 L 04/05/21 05:00 Intake & Output 04/04/21 04/05/21 04/05/21 18:59 06:59 18:59 Intake Total 780 460 Balance 780 460 Intake: Oral 780 460 Other: # Voids 2 2 # Bowel Movements 1 - Constitutional General appearance: Present: average body habitus, cooperative, no acute distress - EENT Eyes: Present: anicteric sclerae, EOMI ENT: Present: hearing grossly normal - Respiratory Respiratory: bilateral: diminished (bases, L>R) - Cardiovascular Heart sounds: normal: S1, S2 - Peripheral edema leg Peripheral Edema: bilateral: None - Gastrointestinal General gastrointestinal: Present: distended (much softer, less distended then yesterday), soft - Integumentary Integumentary: Present: normal - Neurologic Neurologic: Present: CNII-XII intact - Musculoskeletal Musculoskeletal: Present: strength equal bilaterally - Psychiatric Psychiatric: Present: A&O x's 3, appropriate affect, intact judgment & insight - Labs CBC & Chem 7: 04/05/21 06:27 04/04/21 15:43 Labs: Abnormal Lab Results - Last 24 Hours (Table) 04/04/21 04/04/21 04/05/21 Range/Units 05:45 15:43 06:27 RDW 18.2 H (11.5-15.5) % Monocytes # 1.1 H (0-1.0) k/uL Carbon Dioxide 17.1 L (21.6-31.8) mmol/L Anion Gap 17.90 H (4.00-12.00) mmol/L Glucose 113 H (70-110) mg/dL Calcium 8.5 L (8.7-10.3) mg/dL Total Protein 5.3 L (6.2-8.2) g/dL Albumin 3.70 L (3.80-4.90) g/dL CA 125 Antigen 426.2 H (0.0-30.1) U/mL Microbiology - Last 24 Hours (Table) 04/03/21 21:13 Urine Culture - Preliminary Urine,Voided - Imaging and Cardiology Chest x-ray: report reviewed Assessment and Plan (1) Ovarian cancer, BRCA1 positive Narrative/Plan: Most recently been on weekly taxol, tolerating treatment well. She is having ascitic buildup more frequently and she is symptomatic. A3L paracentesis yesterday. Pulmonary evaluating today to see if she would benefit from thoracentesis. If thoracentesis done, please send for cytology Ca125 426, compared to 237 on 03/11/21. Dr. Bell discussed findings with pt. There is concern that malignancy is progressive but, with all the acute fluid build up tumor markers are not reliable. Plan is for her to get treatment this week-if discharged-and recheck Ca125 in 2-3 weeks. Also, pending pleural fluid cytology if it is done. Pt verbalized understanding and is in agreement with the plan She never had prophylactic mastectomy for BRCA1 positive. Current Visit: Yes Status: Chronic Priority: High Code(s): C56.9 - MALIGNANT NEOPLASM OF UNSPECIFIED OVARY; Z15.01 - GENETIC SUSCEPTIBILITY TO MALIGNANT NEOPLASM OF BREAST; Z15.09 - GENETIC SUSCEPTIBILITY TO OTHER MALIGNANT NEOPLASM SNOMED Code(s): 826099648 Plan: Doctor attests: I performed a history and physical examination of this patient, developed impression and plan of care. Discussed with dictator. I agree with dictators note, documented as a scribe.
--- NOTE | 2021-04-05 11:12 | XR ---
EXAMINATION TYPE: XR chest 1V portable DATE OF EXAM: 04/05/2021 COMPARISON: 04/05/2021 HISTORY: Post left thoracentesis TECHNIQUE: Single frontal view of the chest is obtained. FINDINGS: No sizable pneumothorax. Interval marked reduction in amount of pleural fluid with persist ent basilar consolidation. Mediport catheter noted. Right lung clear. Heart size normal. IMPRESSION: 1. Interval marked reduction in amount of pleural fluid with persistent basilar consolidation. No siz able pneumothorax.
--- NOTE | 2021-04-05 11:15 | P.PN ---
Subjective Progress Note Date: 04/05/21 Principal diagnosis: Large left-sided pleural effusion This a 55-year-old white female patient with past medical history of ovarian cancer diagnosed in January 2017, and currently patient is receiving chemotherapy, history of recurrent ascites with previous history of monthly paracentesis, who presented to the hospital on 04/03/2021 with complaints of worsening shortness of breath. Patient was scheduled for a monthly appointments on an outpatient basis for a paracentesis however when she would go there she wouldn't always need to be drained. Because of this her scheduled appointments were canceled. Last time patient required paracentesis was on March 12 would removal of 5 L of fluid. Patient was complaining of significant abdominal distention, and increasing shortness of breath, denied any fever or chills, denied any chest discomfort, denied any fevers. She did admit to nausea without vomiting. Chest x-ray showed left lower lobe consolidation with pleural effusion. EEG showed sinus tachycardia. Initial lab work was reviewed showing white count of 10.1, hemoglobin was 13.1, platelet count was 581, sodium was low at 131, Darvocet electrolytes and renal profile were within normal limits, plasma lactic acid is 1.1, LFTs were within normal limits, urinalysis showed trace leuks, mildly elevated white blood cells, no definite signs of urinary tract infection, coronavirus test was negative. CT of the chest, abdomen and pelvis was completed showing progression of disease with large left-sided pleural effusion, all mental thickening, peritoneal nodule, increasing lesions within the liver and ascites. Patient had a paracentesis by interventional radiology today he would removal of 5 L of ascitic fluid. She is currently breathing much easier, she is on room air, with a pulse ox of 95%, she is afebrile On 04/05/2021 patient seen in follow-up on medical surgical floor. She reports occasional cough, still short of breath, but not requiring any oxygen, satting 92-93% on room air, she is afebrile, no complaints of chest discomfort, follow- up chest x-ray today was completed showing large left-sided pleural effusion which actually seems to have increased from her previous chest x-ray. She is status post ultrasound-guided paracentesis with removal of 5 L of ascitic fluid yesterday. Left-sided thoracentesis was discussed with the patient was ag reeable to proceed. Procedure was performed at the bedside by Dr. Spann and 1750 ML of slightly blood tinged pleural fluid was removed uneventfully. Patient tolerated procedure very well, follow-up chest x-ray has been ordered. Objective - Vital Signs Vital signs: Vital Signs Temp 98.1 F 04/05/21 10:57 Pulse 114 H 04/05/21 10:57 Resp 18 04/05/21 10:57 BP 118/87 04/05/21 10:57 Pulse Ox 92 L 04/05/21 10:57 Intake & Output 04/04/21 04/05/21 04/05/21 18:59 06:59 18:59 Intake Total 780 460 Balance 780 460 Intake: Oral 780 460 Other: # Voids 2 2 # Bowel Movements 1 - Exam GENERAL EXAM: Alert, active, pleasant, 55-year-old white female on room air, with a pulse ox of 92-93% comfortable in no apparent distress. HEAD: Normocephalic/atraumatic. EYES: Normal reaction of pupils, equal size. Conjunctiva pink, sclera white. NOSE: Clear with pink turbinates. THROAT: No erythema or exudates. NECK: No masses, no JVD, no thyroid enlargement, no adenopathy. CHEST: No chest wall deformity. Symmetrical expansion. LUNGS: Equal air entry with diminished breath sounds bilaterally, CVS: Regular rate and rhythm, normal S1 and S2, no gallops, no murmurs, no rubs ABDOMEN: Soft, nontender, distended. No hepatosplenomegaly, normal bowel so unds, no guarding or rigidity. EXTREMITIES: No clubbing, mild lower extremity no cyanosis, 2+ pulses and upper and lower extremities. MUSCULOSKELETAL: Muscle strength and tone normal. SPINE: No scoliosis or deformity SKIN: No rashes CENTRAL NERVOUS SYSTEM: Alert and oriented -3. No focal deficits, tone is normal in all 4 extremities. PSYCHIATRIC: Alert and oriented -3. Appropriate affect. Intact judgment and insight. - Labs CBC & Chem 7: 04/05/21 06:27 04/04/21 15:43 Labs: Abnormal Lab Results - Last 24 Hours (Table) 04/04/21 04/04/21 04/05/21 Range/Units 05:45 15:43 06:27 RDW 18.2 H (11.5-15.5) % Monocytes # 1.1 H (0-1.0) k/uL Carbon Dioxide 17.1 L (21.6-31.8) mmol/L Anion Gap 17.90 H (4.00-12.00) mmol/L Glucose 113 H (70-110) mg/dL Calcium 8.5 L (8.7-10.3) mg/dL Total Protein 5.3 L (6.2-8.2) g/dL Albumin 3.70 L (3.80-4.90) g/dL CA 125 Antigen 426.2 H (0.0-30.1) U/mL Microbiology - Last 24 Hours (Table) 04/03/21 21:13 Urine Culture - Preliminary Urine,Voided Assessment and Plan Plan: Assessment: #1. Shortness of breath related to large left-sided pleural effusion. COVID-19 was negative. Status post left thoracentesis today on 04/05/2021 with removal of 1750 ML of cloudy slightly blood-tinged pleural fluid which was sent for analysis, cultures and cytology #2. Recurrent ascites, status post ultrasound-guided paracentesis on 04/04/2021 with removal of 5 L of ascitic fluid. Patient was previously scheduled for a monthly paracentesis #3. History of ovarian cancer currently on chemotherapy, diagnosed in 2017 #4. Hypertension #5. Hyperlipidemia #6. History of anemia Plan: Patient tolerated left-sided thoracentesis well Chest x-ray was completed postprocedure, we're unable to look at the films due to internetconnection issues at the moment, will await report and review the films Pleural fluid was sent for cytology, cultures and pleural fluid analysis We'll continue to follow I performed a history & physical examination of the patient and discussed their management with my nurse practitioner, Archana Stafford. I reviewed the nurse practitioner's note and agree with the documented findings and plan of care. Lung sounds are positive for diminished breath sounds at the bases with bibasilar crackles The findings and the impression was discussed with the patient. I attest to the documentation by the nurse practitioner. Time with Patient: Less than 30
--- NOTE | 2021-04-05 11:59 | PCN ---
PROCEDURE NOTE OPERATIVE REPORT: Left-sided thoracentesis. PREOPERATIVE DIAGNOSIS: Left pleural effusion and history of ovarian cancer. POSTOPERATIVE DIAGNOSIS: Left pleural effusion and history of ovarian cancer. ANESTHESIA USED: 2 mL of 1% lidocaine. PROCEDURE DETAILS: The patient was placed in a sitting upright position, the area below the left scapula was prepared in a sterile fashion and drapes were applied. At the level of the 8th intercostal space and tip of the scapula, the area was locally anesthetized. Then a 26- gauge needle was inserted all the way to the pleural space until the fluid was obtained and localized with the needle. Then a small tiny incision was made at the same site, and a standard thoracentesis catheter and needle were used, advanced at the same site, advanced into the pleural space and as soon as the fluid was obtained, the catheter was advanced out of the needle and the needle was pulled out of the pleural space. Freely flowing fluid was removed, roughly 1750 mL of fluid, slightly serosanguineous removed from the left pleural space. The fluid was sent for different diagnostic studies. Procedure was well tolerated, no complications. Chest x-ray showed significant interval improvement of the left pleural effusion, with minimal basilar atelectasis related to the chronicity of the pleural effusion. No complications. MMODL / IJN: [id number] /
--- NOTE | 2021-04-05 15:29 | PN ---
PROGRESS NOTE DATE OF SERVICE: 04/05/2021 This 55-year-old woman who was admitted with abdominal distention and ascites had abdominal paracentesis yesterday; about 5 liters of fluid was removed. The patient also had a significant left pleural effusion, which was increasing in intensity. Dr. Cai performed thoracentesis and about 1.75 liters of slightly serosanguineous fluid was removed from the pleural space. The CA-125 is elevated. No chest pain. No palpitations. No fever. Past medical history reviewed. REVIEW OF SYSTEMS: CARDIOVASCULAR SYSTEM: No angina, palpitations. RESPIRATORY SYSTEM: As mentioned earlier. GI: As mentioned earlier. : No dysuria or retention. NERVOUS SYSTEM: No numbness, weakness. CURRENT MEDICATIONS: Reviewed. They include Norvasc, vitamin C, Lipitor, Rocephin, Colace, folic acid. PHYSICAL EXAMINATION: Patient is alert and oriented x3. Pulse 115. Blood pressure 115/83, respiration 20, temperature normal. Pulse ox % on room air. HEENT: Conjunctivae normal. NECK: No jugular venous distention. CARDIOVASCULAR SYSTEM: S1, S2 muffled. RESPIRATORY SYSTEM: Breath sounds diminished at the bases. A few scattered rhonchi and crackles. ABDOMEN: Soft, obese. Minimal ascites. LEGS: No edema. No swelling. NERVOUS SYSTEM: No focal deficit. LABS: CBC noted. Other labs are noted. ASSESSMENT: 1. Abdominal pain; possibly ascites, possibly malignant ascites, status post abdominal paracentesis. 2. Left-sided pleural effusion, status post thoracocentesis. 3. Possible acute urinary tract infection. 4. Tachycardia. 5. Hypomagnesemia. 6. Hyponatremia. 7. History of gastroesophageal reflux disease. 8. Ovarian cancer, on chemotherapy. 9. Hypertension. 10.Hyperlipidemia. 11.History of anemia. 12.History of adrenal gland growth. 13.History of tachycardia, on metoprolol. 14.History of abdominal paracenteses x3, large-volume. 15.Obesity with body mass index of 33.9. 16.Left-sided pleural effusion. 17.FULL CODE. RECOMMENDATIONS AND DISCUSSION: I recommend to continue current medications, continue with the monitoring, symptomatic treatment. Continue with empiric antibiotics. Continue the rest of the medications. Closely follow with Dr. Cai and Hematology/Oncology. Guarded prognosis. Further recommendations to follow. MMODL / IJN: [id number] / MTDD
[2021-04-05 15:55] LABS: Appearance,BF Cloudy; Nucleated Cells, Body Fluid 195 /uL; RBC, Body Fluid 4600 /uL
[2021-04-05 15:56] LABS: Mononuclear WBC,Body Fluid 92 %; Polynuclear WBC,Body Fluid 8 %; Total Cells Counted,Body Fluid 100
[2021-04-05] MEDS: HYDROmorphone 0.5 MG/0.5 ML SYRINGE IVP PRN (17:31)
[2021-04-05 21:05] LABS: Glucose, BF Source Pleural Fluid; Glucose, Body Fluid 98 mg/dL; LDH, Body Fluid Source Pleural Fluid; Total Protein, Body Fluid 3100 mg/dL
[2021-04-06] MEDS: HYDROmorphone 0.5 MG/0.5 ML SYRINGE IVP PRN ×2 (00:22→11:11)
[2021-04-06] MEDS: amLODIPine 5 MG TAB PO SCH (10:00)
[2021-04-06] MEDS: CHOLECALCIFEROL 25 MCG (1000 IU) TABLET PO SCH (10:00)
[2021-04-06] MEDS: PANTOPRAZOLE 40 MG TABLET PO SCH (10:00)
[2021-04-06] MEDS: ASCORBIC ACID 500 MG TAB PO SCH (10:01)
[2021-04-06] MEDS: DOCUSATE 100 MG CAP PO SCH (10:01)
[2021-04-06] MEDS: FOLIC ACID 1 MG TAB PO SCH (10:01)
[2021-04-06] MEDS: ATORVASTATIN 40 MG TAB PO SCH (10:01)
[2021-04-06] MEDS: HEPARIN SODIUM,PORCINE/PF 5,000 UNIT/0.5 ML SYRINGE SQ SCH (10:01)
--- NOTE | 2021-04-06 10:28 | XR ---
EXAMINATION TYPE: XR chest 1V portable DATE OF EXAM: 04/06/2021 HISTORY: Shortness of breath. COMPARISON: 04/05/2021 TECHNIQUE: Single view of the chest is submitted. FINDINGS: Demonstrated are scattered senescent parenchymal change. Increasing left lower lobe opacity which may reflect a combination of effusion, atelectasis and/or in filtrate. The heart is stable. Hilar and mediastinal structures are within normal limits. Degenerative changes are seen of the dorsal spine. IMPRESSION: 1. Increasing left lower lobe opacity which may reflect a combination of effusion, atelectasis and/o r infiltrate.
[2021-04-06 10:39] LABS: Anisocytosis Slight; Basophils # (A) 0.1 k/uL (0-0.2); Basophils % (A) 1 %; Eosinophils # (A) 0.1 k/uL (0-0.7); Eosinophils % (A) 1 %; HCT 43.2 % (34.0-46.0); HGB 13.8 gm/dL (11.4-16.0); Hypochromasia Slight; Lymphocytes # (A) 1.3 k/uL (1.0-4.8); Lymphocytes % (A) 10 %; MCH 26.7 pg (25.0-35.0); MCV 83.7 fL (80.0-100.0); Mean Platelet Volume 6.6; Monocytes # (A) 1.6 k/uL (0-1.0); Monocytes % (A) 13 %; Neutrophils # (A) 8.9 k/uL (1.3-7.7); Neutrophils % (A) 73 %; Platelet Count 530 k/uL (150-450); RBC 5.16 m/uL (3.80-5.40); RDW 17.9 % (11.5-15.5); WBC 12.2 k/uL (3.8-10.6)
--- NOTE | 2021-04-06 10:50 | US ---
EXAMINATION TYPE: US chest DATE OF EXAM: 04/06/2021 COMPARISON: Multiple Xray, CT CLINICAL HISTORY: Markings for thoracentesis by pulmonary staff. TECHNIQUE: Targeted ultrasound of the posterior lower bilateral hemithoraces EXAM MEASUREMENTS: Right Pleural Effusion pocket size: 8.6 cm Right skin surface to fluid distance: 2.1 cm Left Pleural Effusion pocket size: 5.6 cm Left skin surface to fluid distance: 2.1 cm Right side marked for possible thoracentesis outside the dept. Left side marked for possible thoracentesis outside the dept. Pulmonologists are able to review the images in the patient?s EMR. Right sided fluid with internal echos. IMPRESSIONS: As above
[2021-04-06] MEDS ORDERED: BENZONATATE 100 MG CAP PO SCH (11:00)
[2021-04-06 12:31] VITALS: BP 123/81; PULSE 126; RESP 16; TEMP 99.2
--- NOTE | 2021-04-06 12:35 | XR ---
EXAMINATION TYPE: XR chest 1V portable DATE OF EXAM: 04/06/2021 HISTORY: Status post left-sided thoracentesis. COMPARISON: 04/06/2021 TECHNIQUE: Single view of the chest is submitted. FINDINGS: Demonstrated are scattered senescent parenchymal change. No evidence for pneumothorax. Significant diminution in left basilar pleural effusion. Persistent sma ll effusion, infiltrates and/or atelectasis. The heart is stable. Hilar and mediastinal structures are within normal limits. Degenerative changes are seen of the dorsal spine. IMPRESSION: 1. No evidence for pneumothorax. Significant diminution in left basilar pleural effusion. Persistent small effusion, infiltrates and/or atelectasis.
--- NOTE | 2021-04-06 12:48 | P.PN ---
Subjective Progress Note Date: 04/06/21 Principal diagnosis: Large left-sided pleural effusion This a 55-year-old white female patient with past medical history of ovarian cancer diagnosed in January 2017, and currently patient is receiving chemotherapy, history of recurrent ascites with previous history of monthly paracentesis, who presented to the hospital on 04/03/2021 with complaints of worsening shortness of breath. Patient was scheduled for a monthly appointments on an outpatient basis for a paracentesis however when she would go there she wouldn't always need to be drained. Because of this her scheduled appointments were canceled. Last time patient required paracentesis was on March 12 would removal of 5 L of fluid. Patient was complaining of significant abdominal distention, and increasing shortness of breath, denied any fever or chills, denied any chest discomfort, denied any fevers. She did admit to nausea without vomiting. Chest x-ray showed left lower lobe consolidation with pleural effusion. EEG showed sinus tachycardia. Initial lab work was reviewed showing white count of 10.1, hemoglobin was 13.1, platelet count was 581, sodium was low at 131, Darvocet electrolytes and renal profile were within normal limits, plasma lactic acid is 1.1, LFTs were within normal limits, urinalysis showed trace leuks, mildly elevated white blood cells, no definite signs of urinary tract infection, coronavirus test was negative. CT of the chest, abdomen and pelvis was completed showing progression of disease with large left-sided pleural effusion, all mental thickening, peritoneal nodule, increasing lesions within the liver and ascites. Patient had a paracentesis by interventional radiology today he would removal of 5 L of ascitic fluid. She is currently breathing much easier, she is on room air, with a pulse ox of 95%, she is afebrile On 04/05/2021 patient seen in follow-up on medical surgical floor. She reports occasional cough, still short of breath, but not requiring any oxygen, satting 92-93% on room air, she is afebrile, no complaints of chest discomfort, follow- up chest x-ray today was completed showing large left-sided pleural effusion which actually seems to have increased from her previous chest x-ray. She is status post ultrasound-guided paracentesis with removal of 5 L of ascitic fluid yesterday. Left-sided thoracentesis was discussed with the patient was ag reeable to proceed. Procedure was performed at the bedside by Dr. Spann and 1750 ML of slightly blood tinged pleural fluid was removed uneventfully. Patient tolerated procedure very well, follow-up chest x-ray has been ordered. The patient is seen today 04/06/2001 followed on the regular medical floor. She is currently sitting up in bed. Awake and alert in no acute distress. Maintaining O2 saturations in the 90s on room air. Temp 99.2. Slightly tachycardic. Blood pressure stable. She did undergo a left-sided thoracentesis yesterday with 1750 MLS of blood-tinged fluid removed. Urinalysis revealed protein 3.1. LDH 187. Today's chest x-ray showing recurrent left-sided effusion. Follow up ultrasound revealing recurrent effusion. Another left- sided thoracentesis performed with 1.3 L removed. Cytology, fluid analysis pending. Postprocedure chest x-ray reveals no evidence of pneumothorax. Persistent small effusion remains. White count 12.2. Hemoglobin 10.8. She remains on ceftriaxone. Objective - Vital Signs Vital signs: Vital Signs Temp 99.2 F 04/06/21 12:30 Pulse 126 H 04/06/21 12:30 Resp 16 04/06/21 12:30 BP 123/81 04/06/21 12:30 Pulse Ox 92 L 04/06/21 12:30 Intake & Output 04/05/21 04/06/21 04/06/21 18:59 06:59 18:59 Intake Total 540 200 236 Balance 540 200 236 Intake: Oral 540 200 236 Other: # Voids 2 2 - Exam GENERAL EXAM: Alert, active, pleasant, 55-year-old female on room air, with a pulse ox of 92% comfortable in no apparent distress. HEAD: Normocephalic/atraumatic. EYES: Normal reaction of pupils, equal size. Conjunctiva pink, sclera white. NOSE: Clear with pink turbinates. THROAT: No erythema or exudates. NECK: No masses, no JVD, no thyroid enlargement, no adenopathy. CHEST: No chest wall deformity. Symmetrical expansion. LUNGS: Equal air entry with crackles in the posterior bases, left greater than right CVS: Regular rate and rhythm, normal S1 and S2, no gallops, no murmurs, no rubs ABDOMEN: Soft, nontender, distended. No hepatosplenomegaly, normal bowel sounds, no guarding or rigidity. EXTREMITIES: No clubbing, mild lower extremity no cyanosis, 2+ pulses and upper and lower extremities. MUSCULOSKELETAL: Muscle strength and tone normal. SPINE: No scoliosis or deformity SKIN: No rashes CENTRAL NERVOUS SYSTEM: Alert and oriented -3. No focal deficits, tone is normal in all 4 extremities. PSYCHIATRIC: Alert and oriented -3. Appropriate affect. Intact judgment and insight. - Labs CBC & Chem 7: 04/06/21 10:12 04/04/21 15:43 Labs: Abnormal Lab Results - Last 24 Hours (Table) 04/06/21 Range/Units 10:12 WBC 12.2 H (3.8-10.6) k/uL RDW 17.9 H (11.5-15.5) % Plt Count 530 H (150-450) k/uL Neutrophils # 8.9 H (1.3-7.7) k/uL Monocytes # 1.6 H (0-1.0) k/uL Microbiology - Last 24 Hours (Table) 04/05/21 10:30 Gram Stain - Preliminary Pleural Fluid Body Fluid Culture - Preliminary 04/05/21 10:30 Acid Fast Bacilli Smear - Final Pleural Fluid Acid Fast Bacilli Culture - Preliminary 04/03/21 21:13 Urine Culture - Final Urine,Voided 04/05/21 10:30 Fungal Culture - Preliminary Pleural Fluid 04/04/21 15:43 Blood Culture - Preliminary Blood No Growth after 24 hours Assessment and Plan Assessment: 1 Shortness of breath related to large left-sided pleural effusion. COVID-19 was negative. Status post left thoracentesis today on 04/05/2021 with removal of 1750 ML of cloudy slightly blood-tinged pleural fluid which was sent for analysis, cultures and cytology. Second left-sided thoracentesis performed today 04/06/2021 with 1300 ML's cloudy blood-tinged fluid removed. 2 Recurrent ascites, status post ultrasound-guided paracentesis on 04/04/2021 with removal of 5 L of ascitic fluid. Patient was previously scheduled for a monthly paracentesis 3 History of ovarian cancer currently on chemotherapy, diagnosed in 2017 4 Hypertension 5 Hyperlipidemia 6 History of anemia Plan: The patient was seen and evaluated by Dr. Cai Chest x-ray, ultrasound and labs reviewed Second thoracentesis performed on the left with 1.3 L removed Cytology fluid analysis pending Cleared for discharge from the pulmonary standpoint Follow up in the office in 1-2 weeks' time I, the cosigning physician, performed a history & physical examination of the patient. Lungs sounds crackles in the posterior bases left greater than right. Maintaining good O2 saturations in the 90s on room air. I discussed the assessment and plan of care with my nurse practitioner, Kelin Longoria. I attest to the above note as dictated by her.
--- NOTE | 2021-04-06 14:25 | PCN ---
PROCEDURE NOTE PROCEDURE PERFORMED: Left-sided thoracentesis. PREOPERATIVE DIAGNOSIS: Recurrent left pleural effusion. POSTOPERATIVE DIAGNOSIS: Recurrent left pleural effusion. ANESTHESIA USED: 2 mL of 1% Lidocaine. PROCEDURE: The patient was placed in a sitting upright position, the area below the left scapula was prepared in a sterile fashion and drapes were applied. The area was earlier localized by ultrasound guidance, and it correlated to the level of the 7th intercostal space and tip of the scapula. 2 mL of lidocaine were used and the area was locally anesthetized. Then, a 26-gauge needle was inserted at the same site, advanced into the pleural space until the fluid was obtained, and the fluid was noted to be bloody. A small tiny incision was made at the same site, and a standard thoracentesis catheter and needle were used, advanced at the same site into the pleural space. Fluid was obtained, and then the catheter was advanced over the needle and the needle was pulled out of the pleural space. Roughly 1300 cc of serosanguineous fluid was removed from the left pleural space, and the fluid was not sent for diagnostic studies since it was sent yesterday for different diagnostic studies. All the fluid was drained until completed, a chest x-ray was ordered postoperatively, it is pending at the time of this dictation, and no evidence of any immediate complications. MMODL / IJN: [id number] /
--- NOTE | 2021-04-06 15:49 | P.PN ---
Subjective Progress Note Date: 04/06/21 Principal diagnosis: SOB, ascites, pl effusion. Ovarian cancer In f/u today pt reports improvement in abd distension and discomfort, her cough persists despite 1750cc thoracentesis Objective - Vital Signs Vital signs: Vital Signs Temp 98.6 F 04/06/21 05:00 Pulse 120 H 04/06/21 05:00 Resp 20 04/06/21 05:00 BP 115/81 04/06/21 05:00 Pulse Ox 92 L 04/06/21 05:00 Intake & Output 04/05/21 04/06/21 04/06/21 18:59 06:59 18:59 Intake Total 540 200 236 Balance 540 200 236 Intake: Oral 540 200 236 Other: # Voids 2 2 - Constitutional General appearance: Present: average body habitus, cooperative, no acute distress - EENT Eyes: Present: anicteric sclerae, EOMI ENT: Present: hearing grossly normal - Respiratory Respiratory: right: CTA, left: other (absent breath sounds lower 1/3 of lung posteriorly) - Cardiovascular Rhythm: regular Heart sounds: normal: S1, S2 Abnormal Heart Sounds: Absent: systolic murmur, diastolic murmur, rub, S3 Gallop, S4 Gallop, click, other - Peripheral edema leg Peripheral Edema: bilateral: None - Gastrointestinal General gastrointestinal: Present: normal bowel sounds, soft - Neurologic Neurologic: Present: CNII-XII intact - Musculoskeletal Musculoskeletal: Present: strength equal bilaterally - Psychiatric Psychiatric: Present: A&O x's 3, appropriate affect, intact judgment & insight - Labs CBC & Chem 7: 04/06/21 10:12 04/04/21 15:43 Labs: Abnormal Lab Results - Last 24 Hours (Table) 04/06/21 Range/Units 10:12 WBC 12.2 H (3.8-10.6) k/uL RDW 17.9 H (11.5-15.5) % Plt Count 530 H (150-450) k/uL Neutrophils # 8.9 H (1.3-7.7) k/uL Monocytes # 1.6 H (0-1.0) k/uL Microbiology - Last 24 Hours (Table) 04/05/21 10:30 Gram Stain - Preliminary Pleural Fluid Body Fluid Culture - Preliminary 04/05/21 10:30 Acid Fast Bacilli Smear - Final Pleural Fluid Acid Fast Bacilli Culture - Preliminary 04/03/21 21:13 Urine Culture - Final Urine,Voided 04/05/21 10:30 Fungal Culture - Preliminary Pleural Fluid 04/04/21 15:43 Blood Culture - Preliminary Blood No Growth after 24 hours Assessment and Plan (1) Ovarian cancer, BRCA1 positive Narrative/Plan: Most recently been on weekly taxol, tolerating treatment well. Chemo appt changed to Sunday at [facility]-pt will be called with date and time She is having ascitic buildup more frequently and she is symptomatic. 3L par acentesis, 1750cc thoracentesis. Confirmed cytology sent Ca125 426, compared to 237 on 03/11/21. Dr. Bell discussed findings with pt. There is concern that malignancy is progressive but, with all the acute fluid build up tumor markers are not reliable. Plan is for her to get treatment this week-if discharged-and recheck Ca125 in 2-3 weeks. Also, pending pleural fluid cytology if it is done. Pt verbalized understanding and is in agreement with the plan She never had prophylactic mastectomy for BRCA1 positive. Pt has standing order for para Tessalon pearls started for cough, ERx sent Status: Chronic Priority: High Code(s): C56.9 - MALIGNANT NEOPLASM OF UNSPECIFIED OVARY; Z15.01 - GENETIC SUSCEPTIBILITY TO MALIGNANT NEOPLASM OF BREAST; Z15.09 - GENETIC SUSCEPTIBILITY TO OTHER MALIGNANT NEOPLASM SNOMED Code(s): 458090587 Plan: Added tessalon pearls for cough Doctor attests: I performed a history and physical examination of this patient, developed impression and plan of care. Discussed with dictator. I agree with dictators note, documented as a scribe.
--- NOTE | 2021-04-06 23:35 | DS ---
DISCHARGE SUMMARY DATE OF SERVICE: 04/06/2021 FINAL DIAGNOSES: 1. Abdominal pain secondary to ascites, possibly malignancy, status post abdominal paracentesis. 2. Left-sided pleural effusion, status post thoracocentesis x2. 3. Possible acute urinary tract infection. 4. Tachycardia. 5. Hypomagnesemia. 6. Hyponatremia. 7. History of gastroesophageal reflux disease. 8. Ovarian cancer, on chemotherapy. 9. Hypertension. 10.Hyperlipidemia. 11.History of anemia. 12.History of adrenal gland growth. 13.History of tachycardia, on metoprolol. 14.History of abdominal paracentesis x3, large volume previously. 15.Obesity with body mass index of 33.9. 16.Left-sided pleural effusion. 17.FULL CODE. DISCHARGE DISPOSITION: The patient will be discharged in stable condition with guarded prognosis. HISTORY OF PRESENT ILLNESS: This 55-year-old woman with a past medical history of multiple medical problems presented with abdominal pain. Ascites was noted. The patient underwent almost 5 L of large-volume abdominal paracentesis. The patient also had a left-sided pleural effusion. Multiple thoracocenteses were done by Dr. Tadeo. Overall the patient made significant improvement and the patient is discharged home in stable condition with guarded prognosis. On exam, vitals are stable. CARDIOVASCULAR SYSTEM: S1, S2 muffled. ABDOMEN: Soft. NERVOUS SYSTEM: No focal deficit. DISCHARGE ADVICE AND MEDICATIONS: 1. Diet is cardiac. 2. Activity limited until followup. 3. Follow up with Dr. Sulma Palencia in 2-3 days. 4. Follow up with Dr. Olivas, Dr. Bell and Dr. Cai as recommended. 5. Biotin daily. 6. Colace 100 mg daily. 7. Hilger-3 fatty acids daily. 8. Folic acid 1 mg daily. 9. Lipitor 40 mg p.o. daily. 10.Lopressor 25 mg b.i.d. p.r.n. 11.Norvasc 5 mg p.o. daily. 12.Omeprazole 20 mg daily. 13.Vitamin C 1000 mg daily. 14.Vitamin D3 4000 daily. 15.Zestril 20 mg daily p.r.n. 16.Lopressor 25 mg p.o. b.i.d. p.r.n. 17.Tessalon Perles p.r.n. The patient will be discharged in stable condition with guarded prognosis. MMFARAZ / RIKI: [id number] /
== END 2021-04-06 15:08 | disposition home or self-care (01) | DRG 755 ==
LOC: EC 20:35 → 5NMEDONC 22:21 → OBSVTOIN 22:21
PROVIDERS: ADMIT Internal Medicine; ATTEND Internal Medicine
PROC: 0W9G3ZZ Drainage of Peritoneal Cavity, Percutaneous Approach (ICD-10-PCS; 2021-04-04)
PROC: 0W9B3ZX Drainage of Left Pleural Cavity, Percutaneous Approach, Diagnostic (ICD-10-PCS; 2021-04-05)
PROC: 0W9B30Z Drainage of Left Pleural Cavity with Drainage Device, Percutaneous Approach (ICD-10-PCS; principal; 2021-04-06)
DX: C56.9 Malignant neoplasm of unspecified ovary (principal); E87.1 Hypo-osmolality and hyponatremia; J91.0 Malignant pleural effusion; R18.8 Other ascites; R18.0 Malignant ascites; D64.9 Anemia, unspecified; E66.9 Obesity, unspecified; E78.5 Hyperlipidemia, unspecified; E83.42 Hypomagnesemia; R00.0 Tachycardia, unspecified; I10 Essential (primary) hypertension; Z15.01 Genetic susceptibility to malignant neoplasm of breast; Z20.822 Contact with and (suspected) exposure to COVID-19; Z68.33 Body mass index [BMI] 33.0-33.9, adult; Z79.810 Long term (current) use of selective estrogen receptor modulators (SERMs); Z79.899 Other long term (current) drug therapy; Z80.41 Family history of malignant neoplasm of ovary; Z82.49 Family history of ischemic heart disease and other diseases of the circulatory system; Z83.3 Family history of diabetes mellitus; Z90.710 Acquired absence of both cervix and uterus; Z90.722 Acquired absence of ovaries, bilateral
CPT/HCPCS: 36415; 49083; 71045; 71046; 71250; 74176; 76604; 80048; 80053; 81001; 82945; 83605; 83615; 83690; 83735; 84157; 85025; 85610; 85730; 86304; 87040; 87070; 87086; 87102; 87116; 87205; 87206; 87252; 87496; 87498; 87502; 87529; 87634; 87635; 87798; 88108; 88305; 88341; 88342; 89050; 93005; 96374; 99285

== ENCOUNTER 2021-04-12 | Day surgery (SDC) | payer BC, MEDICARE | END 2021-04-12 15:10 | disposition home or self-care (01) | DX: R18.8 Other ascites (principal); E78.5 Hyperlipidemia, unspecified; E03.9 Hypothyroidism, unspecified | CPT/HCPCS: 49083; 83880; 80061; 80053; 83735; 84100; 85027; 85049; 85610; 36415; J1642 ==

== ENCOUNTER 2021-04-13 09:04 | Day surgery (SDC) | payer BC, MEDICARE ==
[2021-04-13 09:31] VITALS: TEMP 98.3
[2021-04-13 10:44] VITALS: BP 111/74; PULSE 109; RESP 18
--- NOTE | 2021-04-13 15:56 | US ---
Discontinued thoracentesis HISTORY: Pleural effusion Ultrasound performed posterior left chest in preparation for thoracentesis. Correlation to prior ches t x-ray 04/11/2021 Multilocular, septated appearance to the patient's left pleural effusion. IMPRESSION: Exam was aborted. No thoracentesis performed at this time due to the multilocular appeara nce of the pleural effusion.
== END 2021-04-13 10:30 | disposition home or self-care (01) ==
LOC: RADPROMAIN 09:04
PROVIDERS: ATTEND Internal Medicine Hematology & Oncology
DX: J90 Pleural effusion, not elsewhere classified (principal); Z53.09 Procedure and treatment not carried out because of other contraindication
CPT/HCPCS: 76604